=== PATIENT | male | born 1940 | race Caucasian/White ===

== ENCOUNTER 2023-07-14 22:54 | Inpatient (IN) | payer MEDICARE, OTHER, SELFPAY ==
[2023-07-14 19:46] VITALS: BP 134/65
[2023-07-14 19:47] VITALS: BP 134/65
[2023-07-14 20:00] VITALS: BP 133/67
[2023-07-14 20:13] VITALS: BMI 35.1
[2023-07-14 20:24] LABS: % Basophils 0.1 % (0-2); % Immature Granulocytes 0.4 % (0-0.5); % Lymphocytes 1.3 % (20.5-51.1); % Monocytes 6.2 % (1.7-9.3); Absolute Immature Granulocytes 0.1 10^3/uL (0-0.05); Absolute Lymphocytes 0.2 10^3/uL (1.2-3.4); Absolute Monocytes 0.9 10^3/uL (0.1-0.6); Absolute Neutrophils 12.5 10^3/uL (1.4-6.5); Hematocrit 36.7 % (39.0-52.0); Hemoglobin 11.9 g/dL (13.0-18.0); Mean Corp Hgb Conc. 32.4 g/dL (33.0-37.0); Mean Corpuscular Volume 80.3 fL (80.0-94.0); Mean Platelet Volume 9.4 fL (7.4-10.4); Nucleated Red Blood Cells % 0 % (-); Platelet Count 145 10^3/uL (130-400); Red Blood Cell Count 4.57 10^6/uL (4.70-6.10); Red Cell Dist. Width 19.2 % (11.5-14.5); White Blood Cell Count 13.6 10^3/uL (4.8-10.8)
[2023-07-14 20:29] LABS: Urine Albumin 3+ (Neg - Trace); Urine Bilirubin 1+ (Negative); Urine Character Slightly Cloudy (Clear); Urine Color Yellow; Urine Glucose 1+ (Negative); Urine Ketone Trace (Negative); Urine Leukocyte Trace (Negative); Urine Nitrite Negative (Negative); Urine Occult Blood 1+ (Negative); Urine Urobilinogen 1+ (Neg - 1+)
[2023-07-14 20:37] LABS: Lactic Acid 1.6 mmol/L (0.7-2.0)
[2023-07-14 20:41] LABS: COVID-19 Antigen Negative (Negative)
[2023-07-14] MEDS: MOTRIN 600 MG PO (20:41)
[2023-07-14] MEDS: ZOFRAN 4 MG IV (20:41)
[2023-07-14] MEDS: NSS 1000 IV (20:42)
[2023-07-14 20:43] LABS: Urine Bacteria Moderate (Negative)
[2023-07-14 20:50] LABS: ALT (SGPT) 58 U/L (0-50); AST (SGOT) 134 U/L (17-59); Albumin 3.2 g/dl (3.5-5.0); Alkaline Phosphatase 211 U/L (38-126); Blood Urea Nitrogen 86 mg/dl (9-20); Calcium 8.6 mg/dl (8.4-10.2); Carbon Dioxide 25 mmol/L (22-30); Chloride 88 mmol/L (98-107); Estimated Creatinine Clearance 9 ml/min; Glucose 242 mg/dl (70-99); Sodium 130 mmol/L (135-145); Total Bilirubin 2.2 mg/dl (0.2-1.3); Total Protein 6.1 g/dl (6.3-8.2); eGFR 7.31
[2023-07-14 21:16] VITALS: BP 129/66
--- NOTE | 2023-07-14 21:47 | ED.GENMED ---
History of Present Illness
General
Chief Complaint: Weakness
Source: patient, records, spouse and family
Exam Limitations: altered mental status and dementia
Time Seen by Provider: 07/14/23 19:46
Nursing documentation reviewed up to this point in time: agreed with
Travel History
Have you had any contact with someone who has COVID-19?: No
Do you have any symptoms of coronavirus? Fever > 100 degrees, chills, cough, shortness of breath, sore throat, loss of taste or smell, muscle aches, or headache?: No
History of Present Illness
History of Present Illness:
Patient is a 83-year-old male who presents from home with his and daughter for increased disorientation as well as significant weakness. Last night the patient had dry heaves and the weakness was worse today. Patient had a COVID test which
was negative. Patient had a fever. Patient's gave him thousand of Tylenol 2 hours prior to the emergency department. Patient's been coughing nonproductive. Patient is on dialysis. Patient denies shortness of breath or chest pain. Patient
denies any abdominal pain. Patient denies diarrhea. Patient does still make urine. Patient denies headache. Patient is unreliable and the is the chief historian.
Past History
Past History
ED Past Medical History: Arrthythmia (Atrial fib), CHF, HTN, Hypercholesterolemia, IDDM, Renal failure (Dialysis M-W-F) and Other (Mild dementia, ESRD, Pleural effusion, Diverticulitis, Cellulitis, Iron def anemia)
ED Past Surgical History: Appendectomy
Social History
Tobacco: Former smoker
Alcohol: Occasional
Drug: None
Personal:
Living: with family
Employment: Retired
Family History
Family History: Other (Noncontributory)
Review of Systems
Review of Systems
All Other Systems: ROS reviewed and negative except as documented in HPI and ROS
Constitutional: Reports fever, fatigue and chills
EENT: Reports no symptoms
Respiratory: Reports cough
Cardiac: Reports no symptoms
ABD/GI: Reports abdominal pain (Questionable according to the patient's ), nausea and vomiting; Denies diarrhea
: Reports other (Still makes urine but is on dialysis)
Musculoskeletal: Reports no symptoms
Skin: Reports no symptoms
Neurological: Reports weakness (Generalized and unable to ambulate with her walker as usual); Denies headache
Hematologic/Lymphatic: Reports no symptoms
Phy Exam
Physical Exam
Physical Exam:
Physical Exam
General: mild distress, alert and appropriate but and daughter say he is not his usual self, well nourished, mildly dry mucous membranes
HENT: Normocephalic, supple with no lymphadenopathy, no thyromegaly
Eyes: Clear sclera, conjuctiva without injection
Heart: irregular irregular rhythm and mild tachycardic rate. No S3, S4. No murmur. No NVD
Lungs: No respiratory distress, no stridor, lung sounds clear and equal bilaterally
Abdomen: Soft, questionable left lower quadrant tenderness without guarding or rebound, no organomegaly, no CVA tenderness, BS good
Neuro: Alert, CN II - XII intact, no motor focality
Skin: no rash
Psychiatric: well kept. interactive and cooperative
Extremities: No edema, cyanosis, tenderness
Course
Orders/Labs/Results
Orders:
Orders
07/14/23 19:50
Electrocardiogram (*1) Urgent
Reason for Study: Other
Other Reason for Exam: Possible Sepsis
Cardiac Monitoring- Treatment ONCE
EKG- Treatment ONCE
07/14/23 20:01
Complete Blood Count/With Diff Urgent
Comprehensive Metabolic Panel Urgent
Lactic Acid Q4H
Comment: ON ICE, CANCEL 2ND ORDER IF FIRST LACTIC ACID LEVEL <2
Urinalysis Reflex To Culture Urgent
Date Specimen was Collected: 07/14/23
Time Specimen was Collected: 19:50
Urine Microscopic Reflex Cult Urgent
Blood Culture Q30M
EVERT Source: Blood/Venous
Specimen Description:
Comment: FROM 2 SEPARATE SITES
Blood Culture Q30M
EVERT Source: Blood/Venous
Specimen Description:
Comment: FROM 2 SEPARATE SITES
Urine Culture Urgent
EVERT Source: U
Specimen Description:
Date Specimen was Collected: 07/14/23
Time Specimen was Collected: 19:50
07/14/23 20:07
COVID-19 Antigen Urgent
Source: Nasal Swab
Influenza A+B Rapid Molecular Urgent
EVERT Source: Nasal Swab
Specimen Description:
07/14/23 20:15
0.9% Sodium Chloride 1000 ml [Nss] 1,000 ml IV BOLUS
Ibuprofen [Motrin] 600 mg PO NOW STA
Ondansetron Injectable [Zofran] 4 mg IV NOW STA
07/14/23 20:17
CR Chest - 2 Views Urgent
Comment:
Reason For Exam: cough fever
07/15/23 00:00
Lactic Acid Q4H
Comment: ON ICE, CANCEL 2ND ORDER IF FIRST LACTIC ACID LEVEL <2
Abnormal Lab Results
07/14/23
20:01
WBC 13.6 H 10^3/uL
(4.8-10.8)
RBC 4.57 L 10^6/uL
(4.70-6.10)
Hgb 11.9 L g/dL
(13.0-18.0)
Hct 36.7 L %
(39.0-52.0)
MCH 26.0 L pg
(27.0-31.0)
MCHC 32.4 L g/dL
(33.0-37.0)
RDW 19.2 H %
(11.5-14.5)
Abs Immat Gran (auto) 0.1 H 10^3/uL
(0-0.05)
Absolute Neuts (auto) 12.5 H 10^3/uL
(1.4-6.5)
Absolute Lymphs (auto) 0.2 L 10^3/uL
(1.2-3.4)
Absolute Monos (auto) 0.9 H 10^3/uL
(0.1-0.6)
Neutrophils % 92.0 H %
(42.2-75.2)
Lymphocytes % 1.3 L %
(20.5-51.1)
Sodium 130 L mmol/L
(135-145)
Chloride 88 L mmol/L
(98-107)
BUN 86 H mg/dl
(9-20)
Creatinine 6.9 H* mg/dL
(0.7-1.3)
Glucose 242 H mg/dl
(70-99)
Total Bilirubin 2.2 H mg/dl
(0.2-1.3)
AST 134 H U/L
(17-59)
ALT 58 H U/L
(0-50)
Alkaline Phosphatase 211 H U/L
(38-126)
Total Protein 6.1 L g/dl
(6.3-8.2)
Albumin 3.2 L g/dl
(3.5-5.0)
Urine Ketones Trace A
(Negative)
Ur Occult Blood Reflex 1+ A
(Negative)
Urine Bilirubin 1+ A
(Negative)
Leukocyte Esterase Rfl Trace A
(Negative)
Urine RBC 3-6 A /HPF
(0-2)
Urine WBC (Reflex) 11-15 A /HPF
(0-5)
Urine Bacteria (Reflex) Moderate A
(Negative)
Urine Glucose 1+ A
(Negative)
Urine Albumin (Reflex) 3+ A
(Neg - Trace)
07/14/23 20:01
07/14/23 20:01
Vital Signs
Initial and Last Documented VS:
Initial Vital Signs
Temp Pulse Resp BP Pulse Ox
102.7 F H 110 16 134/65 92
07/14/23 19:46 07/14/23 19:46 07/14/23 19:46 07/14/23 19:46 07/14/23 19:46
Last Documented Vital Signs
Temp Pulse Resp BP Pulse Ox
102.7 F H 86 17 129/66 100
07/14/23 19:46 07/14/23 21:30 07/14/23 21:30 07/14/23 21:16 07/14/23 21:30
*Radiology
Radiology exam reviewed: radiology read reviewed (Questionable pneumonia)
*Pulse Oximetry
Patient hypoxic: no
*EKG
Interpreted by ED Provider?: Yes
EKG Intrepretation Date: 07/14/23
EKG Intrepretation Time: 22:07
Interpretation: abnormal
Comparison EKG: changes noted
Heart Rate: 102
Rate: tachycardiac
Rhythm: a-fib
[place]: left axis deviation
Interval: normal QT interval
QRS Pattern: poor R-wave progression
Ischemia: non-specific ST changes
*Melter Clerk Interpretation
Rate: tachycardiac
Interpretation: abnormal
Heart Rate: 104
Rhythm: a-fib
*Critical Care Note
Total Time (30-74mins, 75-104mins- exclusive of procedures): 35 minutes
Update Note
Update Note:
Patient has a fever and in A-fib. Patient urine appears to be mildly infected and I do not believe that is a reason for the patient's fever. Will cover the patient with antibiotic. Reportedly according to the patient's he has gone back in
the atrial fibrillation not long after his cardioversion in May. They are talking about doing a Watchman procedure. There is an area on the chest x-ray suspicious for pneumonia. Patient's states he was having lower abdominal pain today
although it is minimal and patient can be distracted when palpating abdomen without being tender. However given the history of diverticulitis and patient's altered mental status will check a CT of the abdomen.
ED Attending Note
-
Portions of this chart may have been created with voice recognition software.� Occasional wrong word or��sound alike� substitutions may have occurred due to the inherent limitations of voice recognition software.
Discharge Plan
Departure
Patient Disposition: Admit
Date of Disposition: 07/14/23
Time of Disposition: 22:08
Admit to doctor: Hospitalist
Presentation/result/management discussed w/ accepting MD/DO: Hospitalist
Patient with high blood pressure during this ER visit?: No
Condition: Serious
Covid-19: Negative COVID-19
Discharge Problem:
Fever, Acute on chronic alteration in mental status, Atrial fibrillation, Chronic renal failure syndrome
Prescriptions:
No Action
cyanocobalamin (vitamin B-12) 1,000 MCG tablet
1,000 mcg PO DAILY
ezetimibe 10 MG tablet
10 mg PO DAILY
fenofibrate nanocrystallized 145 MG tablet
145 mg PO DAILY
oxycodone 10 MG tablet
10 mg PO Q8H
Patient Comments:
04/15/2023, patient's spouse states that he takes this medication with 1,000 mg of Acetaminophen Q8H.
Rx Instructions:
04/15/2023, could not find this medication in PDMP records.
acetaminophen 500 mg Tablet
1,000 mg PO Q8H
Patient Comments:
04/15/2023, patient's family states that patient takes this medication with one oxycodone 10 mg tablet Q8H.
metoprolol succinate 25 mg Tablet Extended Release 24 Hr
25 mg PO HS
memantine [Namenda] 5 mg Tablet
5 mg PO BID
insulin aspart U-100 [Novolog U-100 Insulin aspart] 100 unit/mL Solution
0 sliding scale dose SC TIDPRN PRN (Reason: diabetes)
Patient Comments:
15 units given last evening
duloxetine 30 mg capsule,delayed release(DR/EC)
30 mg PO DAILY
Eliquis 2.5 MG tablet
2.5 mg PO BID
cholecalciferol (vitamin D3) 50 mcg (2,000 unit) Tablet
50 mcg PO DAILY
docusate sodium [Stool Softener] 100 mg Capsule
200 mg PO BID
Ozempic 0.25 mg or 0.5 mg (2 mg/3 mL) Pen Injector
0.25 mg SC QWEEK
pantoprazole [Protonix] 40 mg tablet,delayed release (DR/EC)
40 mg PO Q12H Qty: 60 0RF
amiodarone 200 mg Tablet
200 mg PO DAILY
Auryxia 210 mg iron Tablet
210 mg PO QPM
Referrals:
Kelsy Garibay MD [Family Provider] -
Interventions
Interventions:
*Risk Screen - Suicide Last Done: 07/14/23 20:11
*General Assessment Last Done: 07/14/23 20:11
*Neglect/Abuse Screening Last Done: 07/14/23 20:11
*ED COVID-19 Vaccine History Last Done: 07/14/23 20:11
ED- Cardiac Assessment Last Done: 07/14/23 20:13
ED- Neurological Assessment Last Done: 07/14/23 20:10
ED- Pulmonary Assessment Last Done: 07/14/23 20:13
[2023-07-14 22:00] VITALS: BP 105/83
[2023-07-14] MEDS: ROXICODONE 10 MG PO (22:17)
[2023-07-14] MEDS: TYLENOL 1000 MG PO (22:17)
[2023-07-14] MEDS: ZOSYN 100 IV (22:17)
[2023-07-14] MEDS: NSS 500 IV (22:20)
--- NOTE | 2023-07-14 22:34 | HPS.HSE ---
Addendum entered and electronically signed by Elie Eaton MD 07/14/23 23:28:
Follow up admission w/u
Pending procalcitonin
LA 1.6
CT Abd/pel Without Iv Or Oral
No significant acute abnormality identified in the abdomen or pelvis, within the limits of unenhanced CT, as described above.
Original Note:
Family Physician
-
Family Physician: Kelsy Garibay
Chief Complaint
-
AMS, fever , cough
History of Present Illness
83M HX ESRD on MWF HD, PNA BiB family for pw icreased disorientation as well as significant weakness. Last night COVID test which was negative. POS fever. Patient's gave him thousand of Tylenol 2 hours prior to the emergency department.
Patient's been coughing nonproductive. Patient does still make urine
ROS
Patient denies shortness of breath or chest pain.
Patient denies any abdominal pain.
Patient denies diarrhea. . Patient denies headache.
Patient is unreliable and the is the chief historian.
Medical History
Past Medical History
Past Medical History: Reports Arrhythmia (Prx AF ), Dementia, HTN, Hypercholesterolemia, IDDM, Renal Failure (ESRD on MWF HD ) and Other (Mild dementia, ESRD, Pleural effusion, Diverticulitis, Cellulitis, Iron def anemia))
Past Surgical History: Reports Appendectomy
Social History
Tobacco: Former Smoker
Alcohol: Occasional
Personal:
Living: With Family
Family History
Family History: Not pertinent
Allergies / Home Medications
Allergies reflects when Allergies were last updated in [employer].
Home Medications with original date entered in [employer]
Allergy/Medication List:
Allergies
Allergy/AdvReac Type Severity Reaction Status Date / Time
gabapentin Allergy spastic Verified 07/14/23 20:25
movements
Home Medications
cyanocobalamin (vitamin B-12) 1,000 mcg tablet 1,000 mcg PO DAILY Supplement 06/24/15
ezetimibe 10 mg tablet 10 mg PO DAILY High cholesterol 07/17/16
fenofibrate nanocrystallized 145 mg tablet 145 mg PO DAILY High cholesterol 07/17/16
oxycodone 10 mg tablet 10 mg PO Q8H Pain 06/17/21
acetaminophen 500 mg tablet 1,000 mg PO Q8H Pain 11/01/22
insulin aspart U-100 100 unit/mL subcutaneous solution (Novolog U-100 Insulin aspart) 0 sliding scale dose SC TIDPRN PRN diabetes 11/01/22
memantine 5 mg tablet (Namenda) 5 mg PO BID dementia 11/01/22
metoprolol succinate 25 mg tablet,extended release 24 hr 25 mg PO HS Blood Pressure 11/01/22
duloxetine 30 mg capsule,delayed release 30 mg PO DAILY Depression 11/10/22
apixaban 2.5 mg tablet (Eliquis) 2.5 mg PO BID Blood Clot Prevention/Tx 03/22/23
cholecalciferol (vitamin D3) 50 mcg (2,000 unit) tablet 50 mcg PO DAILY Supplement 04/15/23
docusate sodium 100 mg capsule (Stool Softener) 200 mg PO BID Constipation 04/15/23
semaglutide 0.25 mg or 0.5 mg (2 mg/3 mL) subcutaneous pen injector (Ozempic) 0.25 mg SC QWEEK Diabetes 04/15/23
pantoprazole 40 mg tablet,delayed release (Protonix) 40 mg PO Q12H Gastrointestinal Issue #60 tabs 04/17/23
amiodarone 200 mg tablet 200 mg PO DAILY 05/23/23
ferric citrate 210 mg iron tablet (Auryxia) 210 mg PO QPM 05/23/23
Review of Systems
-
Constitutional: Reports Fever
EENT: Reports No Symptoms
Respiratory: Reports No Symptoms
Cardiac: Reports No Symptoms
Abdomen/GI: Reports No Symptoms
: Reports No Symptoms
Musculoskeletal: Reports No Symptoms
Skin: Reports No Symptoms
Neurological: Reports See HPI
Endocrine: Reports No Symptoms
Hematologic/Lymphatic: Reports No Symptoms
Psych: Reports Other (AMS )
Physical Exam
Vital Signs
Vital Signs
Temp Pulse Resp BP Pulse Ox
102.7 F H 86 17 129/66 100
07/14/23 19:46 07/14/23 21:30 07/14/23 21:30 07/14/23 21:16 07/14/23 21:30
Physical Exam
General: Other (see below )
Laboratory Results
-
07/14/23 20:01
07/14/23 20:01
Laboratory Results
Lactic Acid 1.6 mmol/L (0.7-2.0) 07/14/23 20:01
Total Bilirubin 2.2 mg/dl (0.2-1.3) H 07/14/23 20:01
AST 134 U/L (17-59) H 07/14/23 20:01
ALT 58 U/L (0-50) H 07/14/23 20:01
Alkaline Phosphatase 211 U/L (38-126) H 07/14/23 20:01
Data Reviewed
-
Diagnostic Radiology: Report Reviewed by me
Lab Data: Labs Reviewed by me
Old Records: Reviewed
Impression/Plan
-
Reviewed VS: T 102.7 otherwise unremarkable
PE
Gen: not toxic looking
HEENT: dry mucous membranes
Neck: supple
Lungs: clear and equal bilaterally
Cor: irregular irregular rhythm and mild tachycardic rate. No S3, S4. No murmur.
Abdomen: Soft, questionable left lower quadrant tenderness without guarding or rebound
APPRAISER OIL AND WATER: alert and appropriate
MS: no edema
Psych: alert and appropriate but and daughter say he is not his usual lilliana
Data
WCC 13.6
Hgb 11.9 - base line was 9s
Na 130
K 4
Cl 88
BUN 86
Cr 6.9
eGFR 7.31
BG 242
Equivocal UA for defintive UTI
NEG Covid Ag
07/14/22 CXR
Right basilar airspace disease suspicious for pneumonia.
Pending CT AP wo IV or PO
Pending LA
Pending procalcitonin
BCx pending
04/30/23 Lx spine MRI
Chronic degenerative changes of the lumbar spine, as detailed above. Only minor progression of degenerative findings compared to the lumbar spine MRI from 05/10/2017.
Last hospitalist admission: 04/15/23 - 04/17/23 and DC DXs:
1. Pneumonia.
2. Chronic anemia from history of gastrointestinal bleeding.
ASSESSMENT & PLAN
SIRS picture with hi grade Fever
Likely origins- PNA @ Rt base +/_ equivocal UA for defintive UT
- Pending procalcitonin
- Empiri IV vanco and Zosyn
- f/u UCx
- f/u BCx
- Trend T, WCC
- ST to eval for aspiration
Abdominal pain
HX Diverticulitis
- await CT AP
Incipient infective encephalatrophy due to SIRS
Dementia HX
Chronic Pain with Opioid Dependence
- cont AGRICULTURAL PURCHASING AGENT Namenda
- cont. AGRICULTURAL PURCHASING AGENT Oxycodone PRN in place of FEDE q8h
- observe behavior changes
LBP: chronic
- Reviewed MRI Lx spine as of 04/30/23
- cont Oxycodone q8h PRN
Paroxysmal AF - in AF
- cont. Eliquis 2.5mg BID
- cont. Metoprolol succinate and amiodarone
ESRD, HD ( MWF)
Asso. ACDz but higher Hgb than usussal suspect hemococncetration
- Renal consult for HD on Saturday
- trend Hgb
Secondary Hyperparathyroidism
Hyperphosphatemia
- cont. calcium acetate
- cont. vitamin D
Hyperlipidemia
- cont. Zetia and fenofibrate
T2DM
- add ISS low
Hx Aortic Stenosis s/p TAVR
HX GI bleed from EGD evidence of Three small ectasias D2 cauterized w APC
DVT ppx: Eliquis
Code: Full
IP TLM
[2023-07-14 23:09] VITALS: BP 104/49
[2023-07-14] MEDS: VANCOCIN 540 MG IV (23:12)
[2023-07-14 23:50] LABS: Procalcitonin 24.53 ng/ml (0.0-0.25)
[2023-07-15] VITALS (8 sets, daily range): BP systolic 91–123; BP diastolic 42–65; BMI 32.4
--- NOTE | 2023-07-15 01:00 | PTCARENOTE ---
Pt arrived from ED via stretcher. aaox3, cooperative, forgetful. oob x1 assist to bed. afib on tele monitor. mild LEOS. pox 98% on 2L, pt frequently removes NC. bed alarm in place. call arnold within reach.
[2023-07-15 06:16] LABS: Hematocrit 35.9 % (39.0-52.0); Hemoglobin 11.5 g/dL (13.0-18.0); Mean Corpuscular Volume 81.2 fL (80.0-94.0); Mean Platelet Volume 10.2 fL (7.4-10.4); Platelet Count 118 10^3/uL (130-400); Red Blood Cell Count 4.42 10^6/uL (4.70-6.10); Red Cell Dist. Width 18.8 % (11.5-14.5); White Blood Cell Count 13.9 10^3/uL (4.8-10.8)
[2023-07-15 06:38] LABS: Blood Urea Nitrogen 83 mg/dl (9-20); Calcium 7.8 mg/dl (8.4-10.2); Carbon Dioxide 22 mmol/L (22-30); Chloride 95 mmol/L (98-107); Estimated Creatinine Clearance 9 ml/min; Glucose 198 mg/dl (70-99); Potassium 4.1 mmol/L (3.5-5.1); Sodium 130 mmol/L (135-145); eGFR 7.06
[2023-07-15] MEDS: TYLENOL 1000 MG PO ×3 (06:42→20:56)
[2023-07-15] MEDS: PROTONIX 40 MG PO ×2 (06:42→17:50)
[2023-07-15] MEDS: ELIQUIS 2.5 MG PO ×2 (07:19→20:57)
[2023-07-15] MEDS: TRICOR 145 MG PO (07:19)
[2023-07-15] MEDS: VITAMIN D3 (cholecalciferol) 50 MCG PO (07:19)
[2023-07-15] MEDS: ZETIA 10 MG PO (07:19)
[2023-07-15] MEDS: NAMENDA 5 MG PO ×2 (07:19→20:55)
[2023-07-15] MEDS: VITAMIN B-12 1000 MCG PO (07:19)
[2023-07-15] MEDS: CYMBALTA DELAYED RELEASE 30 MG PO (07:19)
[2023-07-15] MEDS: PACERONE 200 MG PO (07:24)
[2023-07-15 07:25] LABS: Glucose - Point of Care 198 mg/dl (70-99)
[2023-07-15] MEDS: NOVOLOG FLEXPEN-LOW RESISTANCE 1 UNITS SC (08:40)
[2023-07-15 09:00] LABS: Glycohemoglobin (HgbA1c) 7.4 % (4.0-5.6)
--- NOTE | 2023-07-15 10:02 | W.PN.HOSP.TC ---
Today's Communication/Plan
-
.
Assessment / Plan
Assessment / Plan
Physical Exam
-
General: Well Developed and No Apparent Distress
HEENT: Normocephalic, Atraumatic, Moist Mucous Membranes.
Respiratory: Clear to Auscultation
Cardiac: Regular Rhythm and S1/S2; Negative Murmur, Rub or Gallop
GI: Soft, Nontender, Nondistended and Normal Bowel Sounds.
Rectal: No rectal bleeding noted.
Musculoskeletal: No Clubbing, No Cyanosis and No Edema
Skin: Negative Rash
Neuro: Awake, Alert, Oriented, AO to self and surroundings, he followed commands
Psych: calm
Sepsis POA with fever, tachycardia, encephalopathy due to suspected UTI ?
Afebrile
c/w Empiri IV vanco and Zosyn�
Appreciate ID input
# Bacteremia
Will c/w IV ABx
Repeat blood cultures
CT A/P no acute findings. CXR no significant infiltrates.
Abdominal pain
HX Diverticulitis
- await� CT AP
# Toxic metabolic encephalatrophy due to Sepsis
�Dementia, unspecified, with behavioral disturbance�
Chronic Pain with Opioid Dependence
- cont MAGNETO SPECIALIST� Namenda
- cont. MAGNETO SPECIALIST Oxycodone PRN in place of FEDE q8h
LBP: chronic
- Reviewed MRI Lx spine as of 04/30/23
- cont Oxycodone q8h PRN
Paroxysmal AF - in AF
- cont.� Eliquis 2.5mg BID
- cont.� Metoprolol succinate and amiodarone
ESRD, HD ( MWF)
Asso. ACDz but higher Hgb than usussal suspect hemococncetration
- Renal consult for HD on Saturday
- trend Hgb
Secondary Hyperparathyroidism
Hyperphosphatemia
- cont.� calcium acetate
- cont.� vitamin D
Hyperlipidemia
- cont. Zetia and fenofibrate
T2DM
- add ISS low
Hx Aortic Stenosis s/p TAVR
HX GI bleed from EGD evidence of Three small ectasias D2 cauterized w APC
Total time spent to see the patient, examine the patient on the floor, review data and lab results, discuss treatment plan with patient and nursing staff around 55 minutes
Anticipated Discharge: > 48 hours
Subjective/Interval History
-
Date of Service: July 15, 2023
No chest pain
No sob No headache
No fevers
Objective Data
-
Labs:
Laboratory Results
07/15/23
05:40
WBC 13.9 H
Hgb 11.5 L
Hct 35.9 L
Plt Count 118 L
Sodium 130 L
Potassium 4.1
Chloride 95 L
Carbon Dioxide 22
BUN 83 H
Creatinine 7.1 H*
Glucose 198 H
Calcium 7.8 L
Vital Signs:
Vital Signs
Temp Pulse Resp BP Pulse Ox
97.9 F 85 17 109/64 99
07/15/23 07:00 07/15/23 07:24 07/15/23 07:00 07/15/23 07:24 07/15/23 07:00
--- NOTE | 2023-07-15 10:21 | CON.MD ---
Consultation - Medical
-
Impression:
ESRD MWF at [facility]
Staph bacteremia
PNA/Fever/Weakness
Change in mental Status
Hypertension
Anemia
Atrial fibrillation (OAT)
Hyperphosphatemia
History of duodenal ulceration
s/p TAVR 12/13/22 (Aortic Stenosis)
Type 2 diabetes
Secondary hyperparathyroidism
History of diastolic congestive heart failure
Dementia
Left upper extremity AV fistula
Chronic pain: opioid dependence
Hyperphosphatemia
Plan:
-Hd today, orders provided
-expand antibiotic coverage to include vanco given GPC in clusters on blood cultures
-zosyn renally dosed for PNA/ESRD
-fluid restriction re: hyponatremia/ESRD
--- NOTE | 2023-07-15 11:00 | PTCARENOTE ---
Patient Iveth trinidad and medical updated provided on patient care.
--- NOTE | 2023-07-15 11:11 | WOUNDNOTE ---
R 4TH TOE
--- NOTE | 2023-07-15 11:12 | WOUNDNOTE ---
L GREAT TOE TIP
--- NOTE | 2023-07-15 11:12 | WOUNDNOTE ---
L GREAT TOE TIP
--- NOTE | 2023-07-15 11:12 | WOUNDNOTE ---
L GREAT TOE TIP
--- NOTE | 2023-07-15 11:13 | WOUNDNOTE ---
R 4TH TOE (DORSAL)
--- NOTE | 2023-07-15 11:14 | WOUNDNOTE ---
R HAND/INDEX FINGER
--- NOTE | 2023-07-15 11:14 | WOUNDNOTE ---
R HAND/INDEX FINGER
--- NOTE | 2023-07-15 11:16 | WOUNDNOTE ---
WOC RN note: Patient admitted with SIRS, pneumonia vs UTI. Patient lives with his .
See H&P for complete history.
PMH: ESRD on HD, dementia, IDDM, secondary hyperparathyroid, aortic stenosis, TAVR, GI bleed.
Wound Location and type/assessment: Patient admitted with: L great toe tip small dry brown necrotic ulcer without erythema suspect r/t trauma and PAD (small vessel disease?). R dorsal distal 4th toe dry scabbed abrasion. Multiple small dermal
ulcers/scabs from patient picking/scratching noted on hands, L arm, L shoulder, knees. Coccyx crease MASD with coccyx/buttocks small dermal ulcers suspect from moisture and scratching.
Appetite: good.
Pressure redistribution devices in place: [employer] Accumax. Patient stood from chair independently for skin check.
Plan: No sting barrier wipe applied to L great toe tip and R 4th toe dry ulcers. 1.6x2in silicone border foam applied to R index finger base dermal abrasion. Air chair cushion given. Instructed patient to take air chair cushion when discharged.
Patient stated he is followed by a creative services manager.
Will confirm orders with hospitalist.
Care plan to be updated and will follow as needed.
Note to case management requested for discharge: VN if and patient want. Discussed with home health care case manager Alivia Kwon.
Recommend follow up with his creative services manager.
[2023-07-15] MEDS: ZOSYN 50 IV (11:35)
[2023-07-15 11:47] LABS: Glucose - Point of Care 260 mg/dl (70-99)
[2023-07-15] MEDS: NOVOLOG FLEXPEN-LOW RESISTANCE 3 UNITS SC (11:50)
--- NOTE | 2023-07-15 11:55 | WOUNDNOTE ---
[facility] RN Note: Updated Dr. Benton re: L great toe tip small dry necrotic ulcer and 03/2023 L CRISTINA results who approved adding 'make appointment with vascular Dr. Sanchez or associate' in the discharge instructions and local skin/wound care. Care plan and
discharge instructions updated.
--- NOTE | 2023-07-15 12:33 | CON.ID ---
Consultation
-
Date/Time Consultation Requested: 07/15/2023 06:28
Date/Time Consultation Performed: 07/15/2023 12:20
Requesting Provider: Dr. Benton
Performing Provider: Dr. Nguyen
Reason for Consultation: Bacteremia
Chief Complaint / Past History
History of Present Illness
Shayan Fleming is an 84-year-old man being evaluated at the request of Dr. Benton in regards to bacteremia. History is obtained from chart review, along with patient interview, although patient does have a history of dementia and has questionable
recollection of events. The patient also has a significant past medical history of ESRD�HD via a LUE fistula. Patient presents to [facility] on 07/14/2023 secondary to increased disorientation and weakness. According to reviewed notes the
patient had dry heaves/retching the night before, and the weakness progressed overnight. A nonproductive cough has been noted.
In the ER, fever was recorded at 102.7 degrees, and blood cultures were obtained which are now showing Staph aureus. Infectious Diseases is asked to comment upon further antimicrobial management.
At the present time, the patient denies any headache. He denies any chest pain or shortness of breath. He denies any cough. He denies any back pain.
Past History
Additional Past Medical History:
ESRD�HD
Anemia
Hx aortic stenosis
Paroxysmal A-fib DM
Dementia
Chronic back pain
CHF
Additional Past Surgical History:
TAVR (12/13/2022)
LUE AV fistula
Allergy History:
gabapentin Allergy (Verified 07/14/23 20:25)
-spastic movements
Medications Reviewed: Yes
Current Antibiotics:
Zosyn
Social History
Tobacco: Former Smoker
Alcohol: Occasional
Drug: None
Personal:
Living: With Family
Employment: Not Employed
Family History
Family History: Not Pertinent
Review of Systems
Vital Signs
Temp Pulse Resp BP Pulse Ox
97.8 F 82 18 106/58 96
07/15/23 11:00 07/15/23 11:00 07/15/23 11:00 07/15/23 11:00 07/15/23 11:00
Physical Exam
Physical Exam
Constitutional: No Acute Distress, Well Developed, Comfortable and Non-toxic
Head: Normocephalic
Eyes: Pupils Equal, Pupils Round, No Conjunctival Hemorrhage and Sclera Anicteric
Oral: No Thrush and No Ulcers
Cardiovascular: S1/S2; Negative S3/S4 or Murmur
Pulmonary: Clear; Negative Wheezes, Rales or Rhonchi
Gastrointestinal: Soft, Non Tender and Non Distended
Extremities: Negative Edema, Clubbing, Cyanosis, Splinter Hemorrhage or Janeway Lesions
Neurological: Awake and Alert
Psychological: Calm and Confused
.
Lab / Diagnostic Study Results
07/15/23 05:40
07/15/23 05:40
Abs Immat Gran (auto) 0.1 10^3/uL (0-0.05) H 07/14/23 20:01
Absolute Neuts (auto) 12.5 10^3/uL (1.4-6.5) H 07/14/23 20:01
Absolute Lymphs (auto) 0.2 10^3/uL (1.2-3.4) L 07/14/23 20:01
Absolute Monos (auto) 0.9 10^3/uL (0.1-0.6) H 07/14/23 20:01
Absolute Basos (auto) 0.0 10^3/uL (0-0.2) 07/14/23 20:01
Immature Gran % 0.4 % (0-0.5) 07/14/23 20:01
Neutrophils % 92.0 % (42.2-75.2) H 07/14/23 20:01
Lymphocytes % 1.3 % (20.5-51.1) L 07/14/23 20:01
Monocytes % 6.2 % (1.7-9.3) 07/14/23 20:01
Eosinophils % 0.0 % (0-6) 07/14/23 20:01
Basophils % 0.1 % (0-2) 07/14/23 20:01
Lactic Acid Cancelled 07/15/23 00:00
Procalcitonin 24.53 ng/ml (0.0-0.25) H* 07/14/23 23:05
Ur Squamous Epith Cells 3-5 /LPF (Few) 07/14/23 20:01
Microbiology Results
Micro:
07/14/23 20:01 Blood Culture - 2 of 2 bottles
Blood/Venous Staphylococcus aureus by PCR
Gram Stain - Final
07/14/23 20:01 Blood Culture - 1 of 2 bottles
Blood/Venous Positive culture in progress
Gram Stain - Final
07/14/23 20:01 Urine Culture - Pending
Urine
07/14/23 20:07 Influenza Types A & B (ELIANA) - Final
Nasal Swab Negative for Influenza A & B, NAAT
Negative results must be combined with clinical observations
and patient history.
Nucleic Acid Amplification test (NAAT)performed on the
[employer] NOW platform.
Imaging:
07/14/2023 CT abdomen/pelvis without contrast: No significant acute abnormalities are identified in the abdomen or pelvis within the limits of this unenhanced CT. Please see full dictation for additional detail.
07/14/2023 CXR (2 view): Right basilar airspace disease noted. No overt pulmonary vascular congestion seen. Please see full dictation for additional detail. Film personally viewed.
Assessment / Plan
Staph aureus bacteremia
- source unclear at present.
Fever
Weakness
ESRD�HD
Anemia
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
Paroxysmal A-fib DM
Dementia
Chronic back pain
CHF
Recommendations:
Repeat blood cultures today.
Continue with vancomycin; monitor levels.
Discontinue further Zosyn.
Await final susceptibility data to guide further antimicrobial selection and de-escalation.
Check ESR and CRP.
Will check ECHO.
Monitor white count and temperature curve.
--- NOTE | 2023-07-15 13:21 | PHA.VAN.IN ---
Assessment
- Assessment
Renal Function: Patient has ESRD, on chronic Hemodialysis (at [facility])
Hemodialysis Schedule: MWF
Maximum Temperature: 102.7
Plan
- Plan
Initial / Loading Dose: 2000mg 07/14 23:12
Maintenance Regimen: dose by level, considering HD schedule
Monitoring: R /6 am, HD today 07/15
Pharmacokinetics Vancomycin I
- -
Patient Age: 83
Patient Sex: Male
Vancomycin Day #: 2
Indication: Bacteremia
Requesting Provider: Dr Nguyen
Pertinent Antimicrobial Allergies:
no pertinent allergies
Height / Weight:
Height 5 ft 10 in
Actual Weight 102.313 kg
Pertinent Past Medical History: ESRD-HD
- Vital Signs / Lab Results
Temp Pulse Resp BP Pulse Ox
97.8 F 82 18 106/58 96
07/15/23 11:00 07/15/23 11:00 07/15/23 11:00 07/15/23 11:00 07/15/23 11:00
Lab Results - Hematology
07/14/23 07/15/23
20:01 05:40
WBC 13.6 H 13.9 H
Lab Results - Chemistry
07/14/23 07/15/23
20:01 05:40
BUN 86 H 83 H
Creatinine 6.9 H* 7.1 H*
Estimated Creat Clear 9 9
Albumin 3.2 L
07/14/23 07/15/23
20:01 00:00
Lactic Acid 1.6 Cancelled
Lab Results - Urine
07/14/23
20:01
Urine Nitrite (Reflex) Negative
Leukocyte Esterase Rfl Trace A
Urine WBC (Reflex) 11-15 A
Ur Squamous Epith Cells 3-5
Urine Bacteria (Reflex) Moderate A
Microbiology Results
07/14/23 20:01 Blood Culture - Preliminary
Blood/Venous Staphylococcus aureus
Gram Stain - Final
07/14/23 20:01 Blood Culture - Preliminary
Blood/Venous Positive culture in progress
Gram Stain - Final
07/14/23 20:07 Influenza Types A & B (ELIANA) - Final
Nasal Swab Negative for Influenza A & B, NAAT
Negative results must be combined with clinical observations
and patient history.
Nucleic Acid Amplification test (NAAT)performed on the
[employer] NOW platform.
[2023-07-15] MEDS: MANNITOL 12.5 GRAMS IV ×2 (13:50→15:46)
--- NOTE | 2023-07-15 14:17 | W.PN.NEPH.HD ---
Assessment
-
Patient seen on HD
sbp ~100, u/f decreased to 1kg
Progress Note - Hemodialysis
-
Date of Service: July 15, 2023
Duration: 30 minutes and 3 hours
Potassium Bath: 3
Calcium Bath: 2.5
Opti-Dialyzer: 160
Ultrafiltration: Other
Blood Flow: 400
Dialysate Flow: 600
Heparin: none
EPO: none
[2023-07-15] MEDS: NOVOLOG FLEXPEN-LOW RESISTANCE SC (16:22)
[2023-07-15 16:23] LABS: Glucose - Point of Care 136 mg/dl (70-99)
--- NOTE | 2023-07-15 16:30 | CM ---
CM called to patient , Iveth. Patient lives with his spouse in a 2 story home.
Has a cane and walker that he uses as needed. They have a hospital bed on the first level; spouse says he sometimes uses it. Patient PCP Dr. Garibay, and they use [facility]. Patient has had [facility], recently and likes them. If VN would like them
again. Patient would like further information on transportation to HD, currently son provides transportation but they are intrested in wheelchair van options. Patient asked CM to call again at another time. CM will continue to follow
for discharge planning needs.
Plan; home with ; watch for HD and transportation needs would like [facility] if needed
[2023-07-15] MEDS: DESENEX/MITRAZOL/ZEASORB 1 APPLIC TOPICAL (20:55)
[2023-07-15] MEDS: TOPROL XL 25 MG PO (20:55)
[2023-07-15] MEDS: HYDROPHOR 1 APPLIC TOPICAL (20:56)
[2023-07-15 21:57] LABS: Glucose - Point of Care 262 mg/dl (70-99)
[2023-07-16 03:50] VITALS: BP 109/59
[2023-07-16] MEDS: TYLENOL 1000 MG PO ×3 (05:19→21:45)
[2023-07-16] MEDS: PROTONIX 40 MG PO ×2 (05:19→16:25)
[2023-07-16 06:00] VITALS: BMI 32.6
[2023-07-16 06:59] LABS: C-Reactive Protein > 270.00 mg/L (0.0-10.00)
[2023-07-16 07:29] LABS: Erythrocyte Sed Rate 39 mm/hour (0-20)
[2023-07-16] MEDS: TRICOR 145 MG PO (07:31)
[2023-07-16] MEDS: ELIQUIS 2.5 MG PO ×2 (07:31→20:13)
[2023-07-16] MEDS: PACERONE 200 MG PO (07:31)
[2023-07-16] MEDS: NAMENDA 5 MG PO ×2 (07:31→20:12)
[2023-07-16] MEDS: CYMBALTA DELAYED RELEASE 30 MG PO (07:31)
[2023-07-16] MEDS: ZETIA 10 MG PO (07:31)
[2023-07-16] MEDS: ROXICODONE 10 MG PO ×2 (07:34→20:13)
[2023-07-16] MEDS: HYDROPHOR 1 APPLIC TOPICAL ×2 (07:34→20:12)
[2023-07-16] MEDS: DESENEX/MITRAZOL/ZEASORB 1 APPLIC TOPICAL ×2 (07:35→20:12)
[2023-07-16 07:48] VITALS: BP 120/55
[2023-07-16 08:00] LABS: Glucose - Point of Care 168 mg/dl (70-99)
--- NOTE | 2023-07-16 08:35 | CARDSERVLU ---
Echocardiogram with Lumason completed after protocol screening completed. Allergies verified.
Patent IV site: __R AC___
IV site flushed with 0.9% NaCl pre and post administration.
Diluted bolus method utilized to enhance visualization of ventricular zuniga.
Total volume given: ___2.5_ mL
Patient tolerated all procedures well without complications.
[2023-07-16] MEDS: NOVOLOG FLEXPEN-LOW RESISTANCE 1 UNITS SC (09:14)
--- NOTE | 2023-07-16 09:58 | W.PN.HOSP.TC ---
Today's Communication/Plan
-
.
Assessment / Plan
Assessment / Plan
Physical Exam
-
General: Well Developed and No Apparent Distress
HEENT: Normocephalic, Atraumatic, Moist Mucous Membranes.
Respiratory: Clear to Auscultation
Cardiac: Regular Rhythm and S1/S2; Negative Murmur, Rub or Gallop
GI: Soft, Nontender, Nondistended and Normal Bowel Sounds.
Rectal: No rectal bleeding noted.
Musculoskeletal: No Clubbing, No Cyanosis and No Edema
Skin: Negative Rash
Neuro: Awake, Alert, Oriented, AO to self and surroundings, he followed commands
Psych: calm, no agitation.
Sepsis POA with fever, tachycardia, encephalopathy due to bacteremia
Afebrile in last 24 hours
Urine culture no growth
c/w Empiri IV vanco
Stopped Zosyn
No clinical signs of PNA �
Appreciate ID input
# Staph aureus Bacteremia
Unknown source
No sinus pain, no toothache, no back pain, no cellulitis, no joint swelling.
For echo of heart
Repeat blood culture /
c/w Vancomycin until further results of culture.
CT A/P no acute findings. CXR no significant infiltrates.
Appreciate ID help.
# Abdominal pain
HX Diverticulitis
CT Abdomen and pelvis , no acute findings. Patient denies abd pain now, tolerating diet.
# Toxic metabolic encephalatrophy due to Sepsis
�Dementia, unspecified, with behavioral disturbance�
His mentation is cooperative and calm this morning. he held intelligent conversation and reasonable thought process.
Monitor, add low dose risperdone only for severe agitation although starting him back on oxycodone should help.
# Chronic Pain syndrome with Opioid Dependence
- cont MOUNTER SOUSAPHONES� Namenda
- cont. MOUNTER SOUSAPHONES Oxycodone as TID , as pt was unable to sleep or settle down. Per report, he took Oxy TID for > year, would avoid holding it now.
Per , patient had chronic back pain. Reviewed MRI Lx spine as of 04/30/23, - cont Oxycodone q8h
#Paroxysmal AF - in AF
- cont.� Eliquis 2.5mg BID
- cont.� Metoprolol succinate and amiodarone
#ESRD, HD ( MWF)
He is tolerating dialysis
Appreciate nephrology help.
#Secondary Hyperparathyroidism
Hyperphosphatemia
- cont.� calcium acetate
- cont.� vitamin D
#Hyperlipidemia
- cont. Zetia and fenofibrate
# Diabetes.
No hypoglycemia.
- added ISS low
Hx Aortic Stenosis s/p TAVR
HX GI bleed from EGD evidence of Three small ectasias D2 cauterized w APC
Total time spent to see the patient, examine the patient on the floor, review data and lab results, discuss treatment plan with patient and nursing staff around 57 minutes
Anticipated Discharge: > 48 hours
Subjective/Interval History
-
Date of Service: July 16, 2023
No chest pain
No sob
No fevers
Objective Data
-
Vital Signs:
Vital Signs
Temp Pulse Resp BP Pulse Ox
98.4 F 89 18 120/55 98
07/16/23 03:50 07/16/23 07:48 07/16/23 07:48 07/16/23 07:48 07/16/23 07:48
I&O
07/15/23 07/16/23 07/17/23
06:59 06:59 06:59
Intake Total 1200 / 1200
Output Total 200 / 200
Balance 1000 / 1000
[2023-07-16 11:41] VITALS: BP 101/47
[2023-07-16 12:29] LABS: Glucose - Point of Care 290 mg/dl (70-99)
[2023-07-16] MEDS: NOVOLOG FLEXPEN-LOW RESISTANCE 3 UNITS SC ×2 (12:36→16:24)
--- NOTE | 2023-07-16 15:19 | PHA.VAN.FU ---
Vancomycin Assessment / Plan
- Assessment
Hemodialysis Schedule: MWF
In the past 24 hrs, patient has been: Afebrile
- Assessment - Therapeutic Drug Monitoring
Random Level: 14 - drawn ~30H after 2000mg initial dose
- Dosing Plan
Dosing by Level: Hold off on dosing today
Dosing Comments: Will plan for patient to receive Vanc 750mg with HD tomorrow
- Monitoring Plan
No level(s) ordered at this time: consider random level for Fri
- Follow Up
Pharmacy will continue to follow.
Vancomycin Follow UP
- -
Patient Age: 83
Patient Sex: Male
Vancomycin Day #: 2
Indication: Bacteremia
Requesting Provider: Dr Nguyen
Pertinent Antimicrobial Allergies:
no pertinent allergies
Height / Weight:
Height 5 ft 10 in
Actual Weight 103.136 kg
Pertinent Past Medical History: ESRD-HD
- Vital Signs / Lab Results
Temp Pulse Resp BP Pulse Ox
98.3 F 82 17 101/47 94
07/16/23 11:41 07/16/23 11:41 07/16/23 11:41 07/16/23 11:41 07/16/23 11:41
Lab Results - Hematology
07/14/23 07/15/23
20:01 05:40
WBC 13.6 H 13.9 H
Lab Results - Chemistry
07/14/23 07/15/23
20:01 05:40
BUN 86 H 83 H
Creatinine 6.9 H* 7.1 H*
Estimated Creat Clear 9 9
Albumin 3.2 L
07/14/23 07/15/23
20:01 00:00
Lactic Acid 1.6 Cancelled
Microbiology Results
07/14/23 20:01 Urine Culture - Final
Urine No Significant Growth
07/14/23 20:01 Blood Culture - Preliminary
Blood/Venous Staphylococcus aureus
Gram Stain - Final
07/14/23 20:01 Blood Culture - Preliminary
Blood/Venous Staphylococcus aureus
Gram Stain - Final
07/14/23 20:07 Influenza Types A & B (ELIANA) - Final
Nasal Swab Negative for Influenza A & B, NAAT
Negative results must be combined with clinical observations
and patient history.
Nucleic Acid Amplification test (NAAT)performed on the
[employer] platform.
Therapeutic Drug Monitoring
Random Vancomycin 14.0 ug/ml 07/16/23 05:22
--- NOTE | 2023-07-16 15:27 | W.PN.ID1 ---
Date of Service
Date of Service: July 16, 2023
Today's Communication
Continue antibiotics. Monitor blood cultures.
Assessment / Plan
Staph aureus bacteremia
- source unclear at present.
Fever
Weakness
Elevated ESR and CRP
ESRD�HD
Anemia
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
Paroxysmal A-fib DM
Dementia
Chronic back pain
CHF
Recommendations:
Repeat blood cultures today.
Continue with vancomycin; monitor levels.
Await final susceptibility data to guide further antimicrobial selection and de-escalation.
TTE without evidence of vegetation. May need HAN, but would like to wait an additional 24 hours to make that decision.
Monitor white count and temperature curve.
Subjective / Review of Systems
Review of Systems: No Fever and No Chills
Vital Signs / Physical Exam
Vital Signs
Vital Signs
Temp Pulse Resp BP Pulse Ox
98.3 F 82 17 101/47 94
07/16/23 11:41 07/16/23 11:41 07/16/23 11:41 07/16/23 11:41 07/16/23 11:41
Physical Exam
Constitutional: No Acute Distress, Comfortable and Non-toxic
Eyes: Sclera Anicteric
Pulmonary: Non Labored
Extremities: Negative Splinter Hemorrhage or Janeway Lesions
Neurological: Awake and Alert
Psychological: Calm
Objective Data
Lab Data
Lab Results
07/15/23 05:40
07/15/23 05:40
ESR 39 mm/hour (0-20) H 07/16/23 05:22
Estimated Creat Clear 9 ml/min 07/15/23 05:40
Lactic Acid Cancelled 07/15/23 00:00
Total Bilirubin 2.2 mg/dl (0.2-1.3) H 07/14/23 20:01
AST 134 U/L (17-59) H 07/14/23 20:01
ALT 58 U/L (0-50) H 07/14/23 20:01
Alkaline Phosphatase 211 U/L (38-126) H 07/14/23 20:01
C-Reactive Protein > 270.00 mg/L (0.0-10.00) H 07/16/23 05:22
Most recent labs reviewed.
Micro Results:
07/16/23 10:37 Blood Culture - Pending
Blood/Venous
07/14/23 20:01 Urine Culture - Final
Urine No Significant Growth
07/14/23 20:01 Blood Culture - Preliminary
Blood/Venous Staphylococcus aureus
Gram Stain - Final
07/14/23 20:01 Blood Culture - Preliminary
Blood/Venous Staphylococcus aureus
Gram Stain - Final
07/14/23 20:07 Influenza Types A & B (ELIANA) - Final
Nasal Swab Negative for Influenza A & B, NAAT
Negative results must be combined with clinical observations
and patient history.
Nucleic Acid Amplification test (NAAT)performed on the
[employer] platform.
Imaging:
07/16/2023 ECHO (TTE): Mild/moderate mitral regurgitation. TAVR in place. Severely elevated PASP. No evidence of endocarditis within the limits of this TTE.
07/14/2023 CT abdomen/pelvis without contrast: No significant acute abnormalities are identified in the abdomen or pelvis within the limits of this unenhanced CT. Please see full dictation for additional detail.
07/14/2023 CXR (2 view): Right basilar airspace disease noted. No overt pulmonary vascular congestion seen. Please see full dictation for additional detail. Film personally viewed.
Care Review
Plan reviewed with: Physician (Hospitalist)
Total Time Spent with Patient (in minutes): 50
--- NOTE | 2023-07-16 15:27 | W.PN.NEPH.PH ---
Today's Communication / Plan
-
Dialysis tomorrow
Assessment/Plan
-
Impression:
ESRD MWF at [facility]
Staph bacteremia
PNA/Fever/Weakness
Change in mental� Status
Hypertension
Anemia
Atrial fibrillation (OAT)
Hyperphosphatemia
History of duodenal ulceration
s/p TAVR 12/13/22 (Aortic Stenosis)
Type 2 diabetes
Secondary hyperparathyroidism
History of diastolic congestive heart failure
Dementia
Left upper extremity AV fistula
Chronic pain: opioid dependence
Hyperphosphatemia
Plan:
-Staph bacteremia workup in progress
-Transthoracic echocardiogram report reviewed no evidence of infectious endocarditis by report
-Hd tomorrow orders provided
-vanco given GPC in clusters on blood cultures
-zosyn renally dosed for PNA/ESRD
-fluid restriction re: hyponatremia/ESRD
-
-
Date of Service: July 16, 2023
CC / HPI / ROS
-
Chief Complaint:
End-stage renal disease
History of Present Illness:
End-stage renal disease on Saturday dialysis schedule
Leukocytosis persists
Hemodynamically labile
Review of Systems:
No fevers
No chest pain or shortness of breath
Confusion
Labs
-
Labs:
WBC 13.9 10^3/uL (4.8-10.8) H 07/15/23 05:40
RBC 4.42 10^6/uL (4.70-6.10) L 07/15/23 05:40
Hgb 11.5 g/dL (13.0-18.0) L 07/15/23 05:40
Hct 35.9 % (39.0-52.0) L 07/15/23 05:40
Plt Count 118 10^3/uL (130-400) L 07/15/23 05:40
Sodium 130 mmol/L (135-145) L 07/15/23 05:40
Potassium 4.1 mmol/L (3.5-5.1) 07/15/23 05:40
Chloride 95 mmol/L (98-107) L 07/15/23 05:40
Carbon Dioxide 22 mmol/L (22-30) 07/15/23 05:40
BUN 83 mg/dl (9-20) H 07/15/23 05:40
Creatinine 7.1 mg/dL (0.7-1.3) H* 07/15/23 05:40
eGFR 7.06 07/15/23 05:40
Glucose 198 mg/dl (70-99) H 07/15/23 05:40
Calcium 7.8 mg/dl (8.4-10.2) L 07/15/23 05:40
Albumin 3.2 g/dl (3.5-5.0) L 07/14/23 20:01
Physical Exam
-
Vital Signs:
Vital Signs
Temp Pulse Resp BP Pulse Ox
98.3 F 82 17 101/47 94
07/16/23 11:41 07/16/23 11:41 07/16/23 11:41 07/16/23 11:41 07/16/23 11:41
Cardiovascular:: Regular rate and rhythm
Respiratory:: Bilateral: Coarse
Lung Excursion:: Normal
Abdomen:: Nontender and Soft
Bowel Sounds:: Normal
Extremity Edema:: +1: Bilateral:
Daniels Catheter: No
[2023-07-16 15:59] VITALS: BP 115/52
[2023-07-16 16:25] LABS: Glucose - Point of Care 254 mg/dl (70-99)
[2023-07-16 19:00] VITALS: BP 126/60
[2023-07-16 21:43] LABS: Glucose - Point of Care 252 mg/dl (70-99)
[2023-07-16] MEDS: TOPROL XL 25 MG PO (21:45)
[2023-07-16] MEDS: MELATONIN 5 MG PO (21:45)
[2023-07-16 23:00] VITALS: BP 123/70
[2023-07-17 03:00] VITALS: BP 122/70
[2023-07-17] MEDS: TYLENOL 1000 MG PO ×3 (05:28→21:14)
[2023-07-17] MEDS: PROTONIX 40 MG PO ×2 (05:28→20:04)
[2023-07-17 05:42] LABS: Hematocrit 34.7 % (39.0-52.0); Hemoglobin 11.4 g/dL (13.0-18.0); Mean Corp Hgb Conc. 32.9 g/dL (33.0-37.0); Mean Corpuscular Hgb 25.9 pg (27.0-31.0); Mean Corpuscular Volume 78.7 fL (80.0-94.0); Mean Platelet Volume 10.6 fL (7.4-10.4); Platelet Count 107 10^3/uL (130-400); Red Blood Cell Count 4.41 10^6/uL (4.70-6.10); Red Cell Dist. Width 18.6 % (11.5-14.5); White Blood Cell Count 7.4 10^3/uL (4.8-10.8)
[2023-07-17 06:13] LABS: Blood Urea Nitrogen 75 mg/dl (9-20); Calcium 8.1 mg/dl (8.4-10.2); Carbon Dioxide 25 mmol/L (22-30); Chloride 88 mmol/L (98-107); Estimated Creatinine Clearance 10 ml/min; Glucose 224 mg/dl (70-99); Potassium 4.4 mmol/L (3.5-5.1); Sodium 127 mmol/L (135-145)
[2023-07-17 07:00] VITALS: BP 143/83
--- NOTE | 2023-07-17 08:31 | PHA.VAN.FU ---
Vancomycin Assessment / Plan
- Assessment
Hemodialysis Schedule: MWF
WBC's are: Trending Down
In the past 24 hrs, patient has been: Afebrile
- Dosing Plan
Dosing by Level: Re-dose today (Vanc 750mg based on level yesterday)
- Monitoring Plan
No level(s) ordered at this time: consider pre-HD Saturday
- Follow Up
Pharmacy will continue to follow.
Vancomycin Follow UP
- -
Patient Age: 83
Patient Sex: Male
Vancomycin Day #: 3
Indication: Bacteremia
Requesting Provider: Dr Nguyen
Pertinent Antimicrobial Allergies:
no pertinent allergies
Height / Weight:
Height 5 ft 10 in
Actual Weight 103.136 kg
Pertinent Past Medical History: ESRD-HD
- Vital Signs / Lab Results
Temp Pulse Resp BP Pulse Ox
98.3 F 76 18 143/83 98
07/17/23 07:00 07/17/23 07:00 07/17/23 07:00 07/17/23 07:00 07/17/23 07:00
Lab Results - Hematology
07/14/23 07/15/23 07/17/23
20:01 05:40 05:26
WBC 13.6 H 13.9 H 7.4
Lab Results - Chemistry
07/14/23 07/15/23 07/17/23
20:01 05:40 05:26
BUN 86 H 83 H 75 H
Creatinine 6.9 H* 7.1 H* 6.4 H*
Estimated Creat Clear 9 9 10
Albumin 3.2 L
07/14/23 07/15/23
20:01 00:00
Lactic Acid 1.6 Cancelled
Microbiology Results
07/16/23 10:37 Blood Culture - Preliminary
Blood/Venous Positive culture in progress
Gram Stain - Preliminary
07/14/23 20:01 Blood Culture - Preliminary
Blood/Venous Staphylococcus aureus
Gram Stain - Final
07/14/23 20:01 Urine Culture - Final
Urine No Significant Growth
07/14/23 20:01 Blood Culture - Preliminary
Blood/Venous Staphylococcus aureus
Gram Stain - Final
Therapeutic Drug Monitoring
Random Vancomycin 14.0 ug/ml 07/16/23 05:22
[2023-07-17 08:32] LABS: Glucose - Point of Care 159 mg/dl (70-99)
--- NOTE | 2023-07-17 10:17 | W.PN.HOSP.TC ---
Today's Communication/Plan
-
.
Assessment / Plan
Assessment / Plan
Physical Exam
-
General: Well Developed and No Apparent Distress
HEENT: Normocephalic, Atraumatic, Moist Mucous Membranes.
Respiratory: Clear to Auscultation
Cardiac: Regular Rhythm and S1/S2; Negative Murmur, Rub or Gallop
GI: Soft, Nontender, Nondistended and Normal Bowel Sounds.
Rectal: No rectal bleeding noted.
Musculoskeletal: No Clubbing, No Cyanosis and No Edema
Skin: Negative Rash
Neuro: Awake, Alert, Oriented, AO to self and surroundings, he followed commands
Psych: calm, no agitation.
Sepsis POA with fever, tachycardia, encephalopathy due to bacteremia. Resolved.
Afebrile in last 24 hours
Urine culture no growth
c/w Empiri IV vanco
Stopped Zosyn
No clinical signs of PNA �
Appreciate ID input
# Persistent Staph aureus MSSA Bacteremia
Unknown source
No sinus pain, no toothache, no back pain, no cellulitis, no joint swelling.
Echo no vegetation, will need HAN
Repeat blood culture 07/16 is positive
Repeat blood culture on 07/17
c/w Vancomycin until further results of culture.
CT A/P no acute findings. CXR no significant infiltrates.
Appreciate ID help.
# Abdominal pain
HX Diverticulitis
CT Abdomen and pelvis , no acute findings. Patient denies abd pain now, tolerating diet.
# Toxic metabolic encephalatrophy due to Sepsis
�Dementia, unspecified, with behavioral disturbance�
His mentation is cooperative and calm now. He is able to hold intelligent conversation and reasonable thought process.
Monitor, added low dose risperidone only for severe agitation although starting him back on oxycodone seemed to help.
# Chronic Pain syndrome with Opioid Dependence
- cont BREWING DIRECTOR� Namenda
- cont. BREWING DIRECTOR Oxycodone as TID , as pt was unable to sleep or settle down. Per report, he took Oxy TID for > year, would avoid holding it now.
Per , patient had chronic back pain. Reviewed MRI Lx spine as of 04/30/23, - cont Oxycodone q8h
#Paroxysmal AF - in AF
- cont.� Eliquis 2.5mg BID
- cont.� Metoprolol succinate and amiodarone
#ESRD, HD ( MWF)
He is tolerating dialysis
Appreciate nephrology help.
#Secondary Hyperparathyroidism
Hyperphosphatemia
- cont.� calcium acetate
- cont.� vitamin D
#Hyperlipidemia
- cont. Zetia and fenofibrate
# Diabetes.
No hypoglycemia.
- added ISS low
Hx Aortic Stenosis s/p TAVR
HX GI bleed from EGD evidence of Three small ectasias D2 cauterized w APC
Total time spent to see the patient, examine the patient on the floor, review data and lab results, discuss treatment plan with patient and nursing staff around 57 minutes
Anticipated Discharge: > 48 hours
Subjective/Interval History
-
Date of Service: July 17, 2023
No agitation over night
No fevers
Objective Data
-
Labs:
Laboratory Results
07/17/23
05:26
WBC 7.4
Hgb 11.4 L
Hct 34.7 L
Plt Count 107 L
Sodium 127 L
Potassium 4.4
Chloride 88 L
Carbon Dioxide 25
BUN 75 H
Creatinine 6.4 H*
Glucose 224 H
Calcium 8.1 L
Vital Signs:
Vital Signs
Temp Pulse Resp BP Pulse Ox
98.3 F 76 18 143/83 98
07/17/23 07:00 07/17/23 07:00 07/17/23 07:00 07/17/23 07:00 07/17/23 07:00
I&O
07/16/23 07/17/23 07/18/23
06:59 06:59 06:59
Intake Total 1200 / 1200 1320 / 1320
Output Total 200 / 200
Balance 1000 / 1000 1320 / 1320
--- NOTE | 2023-07-17 10:29 | CM ---
Patient on HD today. CM following for discharge planning needs and will reach out to family to review options for discharge at this time. Patient would benefit from PT/OT assessment to confirm level of care needs when appropriate. CM will reach out
to hospitalist via tt. CM will continue to follow for discharge planning needs.
Plan; home with VN/ HD pending PT/OT assessment to clarify skill level needed.
[2023-07-17 11:00] VITALS: BP 143/64
--- NOTE | 2023-07-17 11:14 | W.PN.NEPH.HD ---
Assessment
-
Seen on HD. no new issues. VSS, access ok
while he can carry a conversation, he has essentially zero recall/memory.
Progress Note - Hemodialysis
-
Date of Service: July 17, 2023
Duration: 30 minutes and 3 hours
Potassium Bath: 3
Calcium Bath: 2.5
Opti-Dialyzer: 160
Ultrafiltration: Other (kg)
Blood Flow: 400
Dialysate Flow: 600
Heparin: no
EPO: no
[2023-07-17 11:29] VITALS: BMI 32.3
[2023-07-17] MEDS: NOVOLOG FLEXPEN-LOW RESISTANCE SC ×2 (11:44→12:00)
[2023-07-17] MEDS: NAMENDA 5 MG PO ×2 (11:47→20:04)
[2023-07-17] MEDS: VANCOCIN 150 IV (11:47)
[2023-07-17] MEDS: ZETIA 10 MG PO (11:48)
[2023-07-17] MEDS: HYDROPHOR 1 APPLIC TOPICAL ×2 (11:48→20:04)
[2023-07-17] MEDS: ROXICODONE 10 MG PO ×2 (11:48→20:05)
[2023-07-17] MEDS: CYMBALTA DELAYED RELEASE 30 MG PO (11:48)
[2023-07-17] MEDS: PACERONE 200 MG PO (11:48)
[2023-07-17] MEDS: ELIQUIS 2.5 MG PO ×2 (11:48→20:04)
[2023-07-17] MEDS: DESENEX/MITRAZOL/ZEASORB 1 APPLIC TOPICAL ×2 (11:49→20:04)
[2023-07-17 11:57] LABS: Glucose - Point of Care 135 mg/dl (70-99)
[2023-07-17 15:00] VITALS: BP 148/64
--- NOTE | 2023-07-17 15:13 | CON.CAR ---
Addendum entered and electronically signed by Francesco Mason MD 07/17/23 17:24:
83 yo male with PMH of TAVR, permanent A fib admitted with Staph aureus bacteremia. We are consulted to evaluate for endocarditis. He has no cardiac complaints. Exam with irregular rhythm, no murmurs, trace edema. TTE: no evidence of endocarditis.
Discussed with ID and hospitalist. Given TAVR, will proceed with HAN in AM.
Original Note:
Consultation
Consultation Request
Date/Time Consultation Requested: 07/17/23 1225
Date/Time Consultation Performed: 07/17/23 1500
Requesting Provider: Dr. Benton
Performing Provider: Morena FERNANDEZ for Dr. Mason
Reason for Consultation: bactermia, r/o cardiac source
Medical History
-
Chief Complaint: weakness, change in MS
History of Present Illness:
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 He was seen to
have bacteremia with staph aureus and we are being consulted for HAN to evaluate for cardiac source. Patient is feeling fine. He is in the room with his two children, and his .
Past Medical History
Past Medical History: Arrhythmias, CHF, HTN, Renal Failure and Other (as above)
Social History
Personal:
Living: With Family
Family History
Family History: Reviewed & Not Pertinent
Allergies / Home Medications
Allergy/AdvReac Type Severity Reaction Status Date / Time
gabapentin Allergy spastic Verified 07/14/23 20:25
movements
Medication Instructions Recorded Confirmed Type
cyanocobalamin (vitamin B-12) 1,000 mcg PO DAILY Supplement 06/24/15 07/14/23 History
1,000 mcg tablet
ezetimibe 10 mg tablet 10 mg PO DAILY High cholesterol 07/17/16 07/14/23 History
fenofibrate nanocrystallized 145 145 mg PO DAILY High cholesterol 07/17/16 07/14/23 History
mg tablet
oxycodone 10 mg tablet 10 mg PO Q8H Pain 06/17/21 07/14/23 History
acetaminophen 500 mg tablet 1,000 mg PO Q8H Pain 11/01/22 07/14/23 History
insulin aspart U-100 100 unit/mL 0 sliding scale dose SC TIDPRN PRN 11/01/22 07/14/23 History
subcutaneous solution (Novolog diabetes
U-100 Insulin aspart)
memantine 5 mg tablet (Namenda) 5 mg PO BID dementia 11/01/22 07/14/23 History
metoprolol succinate 25 mg 25 mg PO HS Blood Pressure 11/01/22 07/14/23 History
tablet,extended release 24 hr
duloxetine 30 mg capsule,delayed 30 mg PO DAILY Depression 11/10/22 07/14/23 History
release
apixaban 2.5 mg tablet (Eliquis) 2.5 mg PO BID Blood Clot 03/22/23 07/14/23 History
Prevention/Tx
cholecalciferol (vitamin D3) 50 50 mcg PO DAILY Supplement 04/15/23 07/14/23 History
mcg (2,000 unit) tablet
docusate sodium 100 mg capsule 200 mg PO BID Constipation 04/15/23 07/14/23 History
(Stool Softener)
semaglutide 0.25 mg or 0.5 mg (2 0.25 mg SC QWEEK Diabetes 04/15/23 07/14/23 History
mg/3 mL) subcutaneous pen injector
(Ozempic)
pantoprazole 40 mg tablet,delayed 40 mg PO Q12H Gastrointestinal 04/17/23 07/14/23 Rx
release (Protonix) Issue #60 tabs
amiodarone 200 mg tablet 200 mg PO DAILY Arrhythmia 05/23/23 07/14/23 History
ferric citrate 210 mg iron tablet 210 mg PO QPM Kidney Disease 05/23/23 07/14/23 History
(Auryxia)
Review of Systems
-
History Source: Patient and Other (chart)
All other systems: Negative unless noted
Constitutional: Fatigue
Neurological: Weakness and Other (change mental status)
Physical Exam
Vital Signs
Temp Pulse Resp BP Pulse Ox
98.3 F 72 18 143/64 97
07/17/23 11:00 07/17/23 11:48 07/17/23 11:00 07/17/23 11:48 07/17/23 11:00
Lab Results
07/17/23 05:26
07/17/23 05:26
Physical Exam
General: Well Developed, Well Nourished and No Apparent Distress
HEENT: Normocephalic
Respiratory: Clear and Non Labored Respirations
Cardiac: Irregular Rhythm
Breast: Deferred by me
GI: Soft, Non Distended and Normal Bowel Sounds
Skin: Warm and Dry
Neuro: Awake, Alert and Oriented
Psych: Calm
Impression / Plan
-
Bacteremia, staph aureus:
-on IV ABX, ID following
-will arrange HAN tomorrow- discussed with patient and family
s/p TAVR:
-stable by echo this admit
AFIB: permanent
-rate controlled
-continue metoprolol, Eliquis
-of note, he has been evaluated for watchman with Dr. Kothari as OP
ESRD:
-on HD
Data Reviewed
-
EKG: Tracing Personally Visualized and interpreted (AFIB 102 BPM)
Radiology: Report Reviewed by me (CXR : Right basilar airspace disease suspicious for pneumonia.)
Medical Tests (Nuc Med, Echo etc): Report Reviewed by me (echo 07/16/23: Normal left ventricular systolic function. LV ejection fraction is 55% by visual assessment. Mild/moderate mitral regurgitation. TAVR. Med[employer] Evolut 29. Peak/mean gradients
across the aortic valve are 7/4 mmHg. Trace aortic regurgitation. Mild/moderate tricuspid regurgitation. )
Labs: Labs Reviewed by me
--- NOTE | 2023-07-17 15:46 | W.PN.ID1 ---
Date of Service
Date of Service: July 17, 2023
Today's Communication
Continue antibiotics. Change to ancef. Recommend HAN.
Assessment / Plan
Staph aureus (MSSA) bacteremia
Fever
Weakness
Elevated ESR and CRP
ESRD�HD
Anemia
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
Paroxysmal A-fib DM
Dementia
Chronic back pain
CHF
Recommendations:
Blood culture obtained yesterday now positive for gram-positive cocci. Initial blood cultures from 08/03 revealed the presence of Staph aureus (MSSA).
Follow repeat blood cultures for clearance
Discontinue further vancomycin and transition to cefazolin.
TTE without evidence of vegetation, although with now positive repeat blood cultures, would recommend HAN.
Monitor white count and temperature curve.
����������������������������������������������������������
Chief Complaint
-: Bacteremia
Subjective / Review of Systems
Review of Systems: No Fever and No Chills
Vital Signs / Physical Exam
Vital Signs
Vital Signs
Temp Pulse Resp BP Pulse Ox
98.3 F 72 18 143/64 97
07/17/23 11:00 07/17/23 11:48 07/17/23 11:00 07/17/23 11:48 07/17/23 11:00
Physical Exam
Constitutional: No Acute Distress, Comfortable, Chronically Ill and Non-toxic
Eyes: No Conjunctival Hemorrhage and Sclera Anicteric
Cardiovascular: S1/S2; Negative S3/S4 or Murmur
Pulmonary: Non Labored
Gastrointestinal: Soft and Non Tender
Extremities: Other (Left AV fistula with positive bruit and thrill. No overlying erythema.)
Skin: Negative Rash or Jaundice
Neurological: Awake and Alert
Objective Data
Lab Data
Lab Results
07/17/23 05:26
07/17/23 05:26
ESR 39 mm/hour (0-20) H 07/16/23 05:22
Estimated Creat Clear 10 ml/min 07/17/23 05:26
Lactic Acid Cancelled 07/15/23 00:00
Total Bilirubin 2.2 mg/dl (0.2-1.3) H 07/14/23 20:01
AST 134 U/L (17-59) H 07/14/23 20:01
ALT 58 U/L (0-50) H 07/14/23 20:01
Alkaline Phosphatase 211 U/L (38-126) H 07/14/23 20:01
C-Reactive Protein > 270.00 mg/L (0.0-10.00) H 07/16/23 05:22
Most recent labs reviewed.
Micro Results:
07/14/23 20:01 Blood Culture - Final
Blood/Venous S aureus-Methicillin Sensitive
Gram Stain - Final
07/14/23 20:01 Blood Culture - Final
Blood/Venous S aureus-Methicillin Sensitive
Gram Stain - Final
07/16/23 10:37 Blood Culture - Preliminary
Blood/Venous Positive culture in progress
Gram Stain - Preliminary
07/17/23 05:26 Blood Culture - Pending
Blood/Venous
07/14/23 20:01 Urine Culture - Final
Urine No Significant Growth
07/14/23 20:07 Influenza Types A & B (ELIANA) - Final
Nasal Swab Negative for Influenza A & B, NAAT
Negative results must be combined with clinical observations
and patient history.
Nucleic Acid Amplification test (NAAT)performed on the
[employer] platform.
Imaging:
07/16/2023 ECHO (TTE): Mild/moderate mitral regurgitation. TAVR in place. Severely elevated PASP. No evidence of endocarditis within the limits of this TTE.
07/14/2023 CT abdomen/pelvis without contrast: No significant acute abnormalities are identified in the abdomen or pelvis within the limits of this unenhanced CT. Please see full dictation for additional detail.
07/14/2023 CXR (2 view): Right basilar airspace disease noted. No overt pulmonary vascular congestion seen. Please see full dictation for additional detail. Film personally viewed.
Care Review
Plan reviewed with: Physician (Hospitalist; Cardiology)
[2023-07-17 16:46] LABS: Glucose - Point of Care 202 mg/dl (70-99)
[2023-07-17] MEDS: ANCEF 5 IV (18:14)
[2023-07-17] MEDS: NOVOLOG FLEXPEN-LOW RESISTANCE 1 UNITS SC (18:16)
[2023-07-17 18:17] LABS: Glucose - Point of Care 190 mg/dl (70-99)
[2023-07-17 19:45] VITALS: BP 109/54
[2023-07-17] MEDS: TOPROL XL 25 MG PO (21:14)
[2023-07-17] MEDS: MELATONIN 5 MG PO (21:14)
[2023-07-17 21:54] LABS: Glucose - Point of Care 148 mg/dl (70-99)
[2023-07-17 23:32] VITALS: BP 129/56
[2023-07-18] VITALS (8 sets, daily range): BP systolic 110–142; BP diastolic 50–75; PULSE 71; O2SAT 99; BMI 32.3
--- NOTE | 2023-07-18 04:54 | W.PN.UPDATE ---
Update Note
Progress Note Update
Code Purple
Patient is sitting on the toilet seat sleeping, patient is high risk of fall and the nurse tried to help the patient to back to bed, but he refused and get agitated. He pushed the nurse and started cursing at the nursing staff, do not follow staff
directions. Purple code was called and one time order of IV ativan was placed. Patient refused to take ativan and agreed to go to bed once the security show up in the room.
--- NOTE | 2023-07-18 05:03 | PTCARENOTE ---
Bed alarm sounded in patient's room. This RN immediately entered the room where patient was sitting on the side of the bed. Asked patient if he needed to go to the bathroom. Patient replied, 'I'm fine, leave me the fuck alone.' This nurse asked
patient to lay back in bed. Pt stated 'Toni David, will you just leave me alone.' This nurse attempted to explain to patient about needing to stay in bed for safety. Pt. then stated he needed to go to the bathroom. This RN provided patient
with walker to ambulate. Pt. questioned the use of the walker. This RN educated patient that he needs to use the walker with ambulation for safety. This RN assisted patient to the bathroom. PCT entered the room. Pt. then started yelling at this RN
and PCT to 'close the fucking door.' This RN told the patient that the bathroom door would be closed as soon as he was safely sitting on the toilet. Patient then put his hand to this RN's chest and shoved this RN through the doorway of the bathroom
as RN and PCT were in the doorway. Pt. then sat on the toilet and grabbed the door and slammed it shut. RN and PCT continued to stand outside of the bathroom in patients room d/t Pt. unsteady gait and forgetfulness to pull the 'help' cord in the
bathroom. PCT asked patient if he was finished going to the bathroom after about 20 mins, patient found to be sleeping on toilet. Pt. instructed that sleeping on the toilet was not safe. Pt. stated 'close the fucking door. Why do you think that
you're the fucking boss.' Code purple called as patient was becoming increasingly aggressive and agitated. Nursing pipe finishing supervisor, JIM's, and security arrived to the floor. Nursing pipe finishing supervisor asked patient to exit the bathroom where he kept falling
asleep on the toilet and to lay back in bed. Pt. stated to nursing pipe finishing supervisor 'I'll hit you if you come near me.' Pt. eventually agreeable to lay back in bed once security arrived. Plan of care ongoing.
[2023-07-18] MEDS: TYLENOL PO (06:24)
[2023-07-18] MEDS: NOVOLOG FLEXPEN-LOW RESISTANCE SC ×2 (06:25→11:55)
[2023-07-18 07:38] LABS: Glucose - Point of Care 149 mg/dl (70-99)
[2023-07-18] MEDS: CYMBALTA DELAYED RELEASE 30 MG PO (07:41)
[2023-07-18] MEDS: PROTONIX 40 MG PO ×2 (07:42→19:38)
[2023-07-18] MEDS: ROXICODONE 10 MG PO ×2 (07:42→19:39)
[2023-07-18] MEDS: NAMENDA 5 MG PO ×2 (07:42→19:38)
[2023-07-18] MEDS: ZETIA 10 MG PO (07:42)
[2023-07-18] MEDS: ELIQUIS 2.5 MG PO ×2 (07:42→19:38)
[2023-07-18] MEDS: HYDROPHOR 1 APPLIC TOPICAL ×2 (07:43→19:39)
[2023-07-18] MEDS: DESENEX/MITRAZOL/ZEASORB 1 APPLIC TOPICAL ×2 (07:43→19:38)
[2023-07-18] MEDS: PACERONE 200 MG PO (07:43)
--- NOTE | 2023-07-18 08:11 | PN.CDI ---
CDI
- -
CDI:
Physician Documentation Request
Admit Date: 07/14/23 22:54
Dear Doctor Serenity,
Patient admitted with sepsis.
Na level's documented below:
Patient received IV NSS.
Laboratory Tests
07/14/23 07/15/23 07/17/23
20:01 05:40 05:26
Sodium 130 L 130 L 127 L
Based on the above, could you clarify in the progress notes, the appropriate diagnosis, if significant, that supports the above abnormalities and additional evaluation, monitoring and/or treatment rendered:
Hyponatremia
Insignificant abnormal lab findings
Other
Unable to determine
Use of terms such as suspected, likely, concern for, or probable (associated with a specific diagnosis that is being evaluated, monitored, or treated as if it exists) are acceptable and can be coded in the inpatient setting, when documented at the
time of discharge.
Thank you,
Viky FRIAS,RN,CCDS
CDI Specialist
Available via [employer] text
Please use your independent medical judgment in providing your response.
--- NOTE | 2023-07-18 09:41 | W.PN.HOSP.TC ---
Addendum entered and electronically signed by Juan Francisco Benton MD 07/18/23 09:52:
Addendum
Hyponatremia
treat through HD
End
Original Note:
Today's Communication/Plan
-
.
Assessment / Plan
Assessment / Plan
Physical Exam
-
General: Well Developed and No Apparent Distress
HEENT: Normocephalic, Atraumatic, Moist Mucous Membranes.
Respiratory: Clear to Auscultation
Cardiac: Regular Rhythm and S1/S2; Negative Murmur, Rub or Gallop
GI: Soft, Nontender, Nondistended and Normal Bowel Sounds.
Rectal: No rectal bleeding noted.
Musculoskeletal: No Clubbing, No Cyanosis and No Edema
Skin: Negative Rash
Neuro: Awake, Alert, Oriented, AO to self and surroundings, he followed commands
Psych: calm, no agitation.
# Agitation during the night
Advised staff to give PRN oxy as per family using oxy for discomfort at home.
Sepsis POA with fever, tachycardia, encephalopathy due to bacteremia. Resolved.
Afebrile in last 24 hours
Urine culture no growth
c/w Empiri IV vanco
Stopped Zosyn
No clinical signs of PNA �
Appreciate ID input
# Persistent Staph aureus MSSA Bacteremia
Unknown source
No sinus pain, no toothache, no back pain, no cellulitis, no joint swelling.
TTE no vegetation, for HAN
Repeat blood culture 07/16 is positive
Repeat blood culture on 07/17
s/p Vancomycin, changed to Ancef 1 gm [address] 24.
CT A/P no acute findings. CXR no significant infiltrates.
Appreciate ID help.
Appreciate cardiology help
# Abdominal pain
HX Diverticulitis
CT Abdomen and pelvis , no acute findings. Patient denies abd pain now, tolerating diet.
# Toxic metabolic encephalatrophy due to Sepsis
�Dementia, unspecified, with behavioral disturbance�
His mentation is cooperative and calm now. He is able to hold intelligent conversation and reasonable thought process.
Monitor, added low dose risperidone only for severe agitation although starting him back on oxycodone seemed to help.
# Chronic Pain syndrome with Opioid Dependence
- cont FINISHER MACHINE� Namenda
- cont. FINISHER MACHINE Oxycodone as TID , as pt was unable to sleep or settle down. Per report, he took Oxy TID for > year, would avoid holding it now.
Per , patient had chronic back pain. Reviewed MRI Lx spine as of 04/30/23, - cont Oxycodone q8h
#Paroxysmal AF - in AF
- cont.� Eliquis 2.5mg BID
- cont.� Metoprolol succinate and amiodarone
#ESRD, HD ( MWF)
He is tolerating dialysis
Appreciate nephrology help.
#Secondary Hyperparathyroidism
Hyperphosphatemia
- cont.� calcium acetate
- cont.� vitamin D
#Hyperlipidemia
- cont. Zetia and fenofibrate
# Diabetes.
No hypoglycemia.
- added ISS low
Hx Aortic Stenosis s/p TAVR
HX GI bleed from EGD evidence of Three small ectasias D2 cauterized w APC
Total time spent to see the patient, examine the patient on the floor, review data and lab results, discuss treatment plan with patient, family and nursing staff around 59 minutes
Anticipated Discharge: > 48 hours
Subjective/Interval History
-
Date of Service: July 18, 2023
Seems debby and pleasant
Objective Data
-
Vital Signs:
Vital Signs
Temp Pulse Resp BP Pulse Ox
98.3 F 82 17 115/54 100
07/18/23 07:00 07/18/23 07:43 07/18/23 07:00 07/18/23 07:43 07/18/23 07:00
I&O
07/17/23 07/18/23 07/19/23
06:59 06:59 06:59
Intake Total 1320 / 1320 480 / 480
Balance 1320 / 1320 480 / 480
--- NOTE | 2023-07-18 11:54 | CM ---
Patient seen at bedside, sleeping. CM will call to patient to discuss options for discharge planning. Patient pending PT/OT assessment to confirm level of care needs for patient at discharge. CM will continue to follow for discharge planning
needs.
Plan; home with VN vs SNF
[2023-07-18 12:00] LABS: Glucose - Point of Care 129 mg/dl (70-99)
--- NOTE | 2023-07-18 12:34 | W.PN.NEPH.PH ---
Today's Communication / Plan
-
HD tomorrow
Assessment/Plan
-
Impression:
ESRD MWF at [facility]
Staph bacteremia
PNA/Fever/Weakness
Change in mental� Status
Hypertension
Anemia
Atrial fibrillation (OAT)
Hyperphosphatemia
History of duodenal ulceration
s/p TAVR 12/13/22 (Aortic Stenosis)
Type 2 diabetes
Secondary hyperparathyroidism
History of diastolic congestive heart failure
Dementia
Left upper extremity AV fistula
Chronic pain: opioid dependence
Hyperphosphatemia
Plan:
-Staph bacteremia workup in progress
-HAN pending
-HD tomorrow orders provided
-
-
Date of Service: July 18, 2023
CC / HPI / ROS
-
Chief Complaint:
End-stage renal disease
History of Present Illness:
End-stage renal disease on Saturday dialysis schedule
Leukocytosis persists
Hemodynamically labile
abx for MSSA bacteremia
tolerated HD yesterday
Review of Systems:
No fevers
No chest pain or shortness of breath
Confusion
Labs
-
Labs:
WBC 7.4 10^3/uL (4.8-10.8) 07/17/23 05:26
RBC 4.41 10^6/uL (4.70-6.10) L 07/17/23 05:26
Hgb 11.4 g/dL (13.0-18.0) L 07/17/23 05:26
Hct 34.7 % (39.0-52.0) L 07/17/23 05:26
Plt Count 107 10^3/uL (130-400) L 07/17/23 05:26
Sodium 127 mmol/L (135-145) L 07/17/23 05:26
Potassium 4.4 mmol/L (3.5-5.1) 07/17/23 05:26
Chloride 88 mmol/L (98-107) L 07/17/23 05:26
Carbon Dioxide 25 mmol/L (22-30) 07/17/23 05:26
BUN 75 mg/dl (9-20) H 07/17/23 05:26
Creatinine 6.4 mg/dL (0.7-1.3) H* 07/17/23 05:26
eGFR 8.00 07/17/23 05:26
Glucose 224 mg/dl (70-99) H 07/17/23 05:26
Calcium 8.1 mg/dl (8.4-10.2) L 07/17/23 05:26
Albumin 3.2 g/dl (3.5-5.0) L 07/14/23 20:01
Physical Exam
-
Vital Signs:
Vital Signs
Temp Pulse Resp BP Pulse Ox
97.4 F 72 18 121/72 99
07/18/23 11:00 07/18/23 11:00 07/18/23 11:00 07/18/23 11:00 07/18/23 11:00
Cardiovascular:: Regular rate and rhythm
Respiratory:: Bilateral: Coarse
Lung Excursion:: Normal
Abdomen:: Nontender and Soft
Bowel Sounds:: Normal
Extremity Edema:: +1: Bilateral:
--- NOTE | 2023-07-18 13:43 | W.PN.ID1 ---
Date of Service
Date of Service: July 18, 2023
Today's Communication
Continue abx.
Assessment / Plan
Staph aureus (MSSA) bacteremia
Suspected endocarditis
Fever
Weakness
Elevated ESR and CRP
ESRD�HD
Anemia
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
Paroxysmal A-fib DM
Dementia
Chronic back pain
CHF
Recommendations:
Ongoing Staph. aureus (MSSA) bacteremia (07/14 -> 07/17) as of today.
Follow repeat blood cultures for clearance
Continue cefazolin.
TTE without evidence of vegetation, although with now positive repeat blood cultures, would recommend HAN.
Monitor white count and temperature curve.
Will discuss with Clinical Pharmacist regarding possibly increasing cefazolin dose.
����������������������������������������������������������
Chief Complaint
-: Bacteremia
Subjective / Review of Systems
Review of Systems: No Fever, No Chills, No Joint Pain and Other (Denies any low back pain. No reported lower extremity weakness.)
Vital Signs / Physical Exam
Vital Signs
Vital Signs
Temp Pulse Resp BP Pulse Ox
97.4 F 72 18 121/72 99
07/18/23 11:00 07/18/23 11:00 07/18/23 11:00 07/18/23 11:00 07/18/23 11:00
Physical Exam
Constitutional: No Acute Distress, Comfortable and Non-toxic
Eyes: No Conjunctival Hemorrhage
Cardiovascular: S1/S2 and Murmur; Negative S3/S4
Pulmonary: Clear and Non Labored; Negative Wheezes or Rales
Extremities: Edema; Negative Erythema, Splinter Hemorrhage or [place]ay Lesions
Neurological: Awake and Alert
Psychological: Calm
Objective Data
Lab Data
Lab Results
07/17/23 05:26
07/17/23 05:26
ESR 39 mm/hour (0-20) H 07/16/23 05:22
Estimated Creat Clear 10 ml/min 07/17/23 05:26
Lactic Acid Cancelled 07/15/23 00:00
Total Bilirubin 2.2 mg/dl (0.2-1.3) H 07/14/23 20:01
AST 134 U/L (17-59) H 07/14/23 20:01
ALT 58 U/L (0-50) H 07/14/23 20:01
Alkaline Phosphatase 211 U/L (38-126) H 07/14/23 20:01
C-Reactive Protein > 270.00 mg/L (0.0-10.00) H 07/16/23 05:22
Most recent labs reviewed.
Micro Results:
07/16/23 10:37 Blood Culture - Preliminary
Blood/Venous S aureus-Methicillin Sensitive
Gram Stain - Preliminary
07/17/23 05:26 Blood Culture - Preliminary
Blood/Venous Positive culture in progress
Gram Stain - Preliminary
07/18/23 05:31 Blood Culture - Pending
Blood/Venous
07/14/23 20:01 Blood Culture - Final
Blood/Venous S aureus-Methicillin Sensitive
Gram Stain - Final
07/14/23 20:01 Blood Culture - Final
Blood/Venous S aureus-Methicillin Sensitive
Gram Stain - Final
07/14/23 20:01 Urine Culture - Final
Urine No Significant Growth
07/14/23 20:07 Influenza Types A & B (ELIANA) - Final
Nasal Swab Negative for Influenza A & B, NAAT
Negative results must be combined with clinical observations
and patient history.
Nucleic Acid Amplification test (NAAT)performed on the
[employer] platform.
Imaging:
07/16/2023 ECHO (TTE): Mild/moderate mitral regurgitation. TAVR in place. Severely elevated PASP. No evidence of endocarditis within the limits of this TTE.
07/14/2023 CT abdomen/pelvis without contrast: No significant acute abnormalities are identified in the abdomen or pelvis within the limits of this unenhanced CT. Please see full dictation for additional detail.
07/14/2023 CXR (2 view): Right basilar airspace disease noted. No overt pulmonary vascular congestion seen. Please see full dictation for additional detail. Film personally viewed.
Care Review
Plan reviewed with: Physician (Hospitalist / Cardiology)
[2023-07-18] MEDS: TYLENOL 1000 MG PO ×2 (15:17→21:12)
[2023-07-18] MEDS: ANCEF 10 IV (15:18)
--- NOTE | 2023-07-18 15:22 | W.PN.CD ---
Today's Communication / Plan
-
- Cont abx
- Echodensities on cage of TAVR valve and anterior leaflet of mitral valve concerning for possible vegetations
Impression / Plan
-
Bacteremia, staph aureus:
-on IV ABX, ID following
-HAN showed possible vegetation on the cage of the TAVR valve and possible vegetation on the anterior leaflet
- Abx per ID
s/p TAVR:
-stable by echo this admit
AFIB: permanent
-rate controlled
-continue metoprolol, Eliquis
-of note, he has been evaluated for watchman with Dr. Kothari as OP
ESRD:
-on HD
Physical Exam
Vital Signs/Labs
Vital Signs
Temp Pulse Resp BP Pulse Ox
97.4 F 72 18 121/72 99
07/18/23 11:00 07/18/23 11:00 07/18/23 11:00 07/18/23 11:00 07/18/23 11:00
07/17/23 07/18/23 07/19/23
06:59 06:59 06:59
Actual Weight 225 lb 3 oz
07/17/23 05:26
07/17/23 05:26
Physical Exam
Constitutional: No acute distress
EENT: Anicteric
Cardiovascular: Pedal edema is absent and Rhythm/rate is irregular
Respiratory: Respiratory effort normal and Lungs clear to auscul.
GI: Soft
Neuro/Psych: Alert and Oriented
Data Reviewed
-
Date of Service: July 18, 2023
EKG: Tracing Personally Visualized and interpreted
Echo: Tracing Personally Visualized and interpreted
Medical Tests (PFT, Pathology etc): Image Personally Visualized and interpreted
Labs: Labs Reviewed by me
[2023-07-18 16:38] LABS: Glucose - Point of Care 270 mg/dl (70-99)
[2023-07-18] MEDS: NOVOLOG FLEXPEN-LOW RESISTANCE 3 UNITS SC (16:39)
[2023-07-18] MEDS: TOPROL XL 25 MG PO (21:12)
[2023-07-18] MEDS: MELATONIN 5 MG PO (21:12)
[2023-07-18 21:53] LABS: Glucose - Point of Care 190 mg/dl (70-99)
[2023-07-19 03:40] VITALS: BP 113/59
[2023-07-19] MEDS: PROTONIX 40 MG PO ×2 (05:41→18:02)
[2023-07-19] MEDS: TYLENOL 1000 MG PO ×3 (05:41→21:50)
[2023-07-19 07:00] VITALS: BP 143/79
[2023-07-19 07:59] LABS: Hematocrit 32.4 % (39.0-52.0); Hemoglobin 10.5 g/dL (13.0-18.0); Mean Corp Hgb Conc. 32.4 g/dL (33.0-37.0); Mean Corpuscular Hgb 25.7 pg (27.0-31.0); Mean Corpuscular Volume 79.2 fL (80.0-94.0); Platelet Count 147 10^3/uL (130-400); Red Blood Cell Count 4.09 10^6/uL (4.70-6.10); Red Cell Dist. Width 19.2 % (11.5-14.5); White Blood Cell Count 8.1 10^3/uL (4.8-10.8)
[2023-07-19 08:06] LABS: Carbon Dioxide 26 mmol/L (22-30); Chloride 95 mmol/L (98-107); Potassium 4.5 mmol/L (3.5-5.1); Sodium 129 mmol/L (135-145)
[2023-07-19 08:18] LABS: Glucose - Point of Care 128 mg/dl (70-99)
[2023-07-19] MEDS: NOVOLOG FLEXPEN-LOW RESISTANCE SC ×2 (08:45→11:51)
--- NOTE | 2023-07-19 09:41 | W.PN.HOSP.TC ---
Today's Communication/Plan
-
.
Assessment / Plan
Assessment / Plan
Physical Exam
-
General: Well Developed and No Apparent Distress
HEENT: Normocephalic, Atraumatic, Moist Mucous Membranes.
Respiratory: Clear to Auscultation
Cardiac: Regular Rhythm and S1/S2; Negative Murmur, Rub or Gallop
GI: Soft, Nontender, Nondistended and Normal Bowel Sounds.
Rectal: No rectal bleeding noted.
Musculoskeletal: No Clubbing, No Cyanosis and No Edema
Skin: Negative Rash
Neuro: Awake, Alert, Oriented, AO to self and surroundings, he followed commands
Psych: calm, no agitation.
# Nighttime agitation at times.
Advised staff to give PRN oxy as per family using oxy for discomfort at home.
# MSSA endocarditis
Staph aureus MSSA Bacteremia
No sinus pain, no toothache, no back pain, no cellulitis, no joint swelling.
TTE no vegetation
HAN : vegetation on cage of TAVR valve and anterior leaflet of mitral valve concerning for possible endocarditis.
Repeat blood culture 2/6 is positive
Repeat blood culture 2/8 is negative so far, repeating blood cultures
s/p Vancomycin, changed to Ancef 1 gm Q 24[address]
CT A/P no acute findings. CXR no significant infiltrates.
Appreciate ID help.
Appreciate cardiology help
# Abdominal pain
No pain in hospital.
HX Diverticulitis
CT Abdomen and pelvis , no acute findings. Patient is tolerating diet.
# Toxic metabolic encephalatrophy due to Sepsis
�Dementia, unspecified, with behavioral disturbance�
His mentation is cooperative and calm now. He is able to hold intelligent conversation and reasonable thought process at times but forgetful.
Monitor, added low dose risperidone only for severe agitation.
Use PRN oxy for agitation at night( same what does at home). Pain can upset him.
# Chronic Pain syndrome with Opioid Dependence
- cont FORENSIC ACCOUNTANT� Namenda
- cont. FORENSIC ACCOUNTANT Oxycodone as TID , as pt was unable to sleep or settle down. Per report, he took Oxy TID for > year, would avoid holding it now.
Per , patient had chronic back pain. Reviewed MRI Lx spine as of 04/30/23, - cont Oxycodone q8h
#Paroxysmal AF - in AF
- cont.� Eliquis 2.5mg BID
- cont.� Metoprolol succinate and amiodarone
#ESRD, HD ( [facility])
He is tolerating dialysis
Appreciate nephrology help.
#Secondary Hyperparathyroidism
Hyperphosphatemia
- cont.� calcium acetate
- cont.� vitamin D
#Hyperlipidemia
- cont. Zetia and fenofibrate
# Diabetes.
No hypoglycemia.
- added ISS low
Hx Aortic Stenosis s/p TAVR
HX GI bleed from EGD evidence of Three small ectasias D2 cauterized w APC
Total time spent to see the patient, examine the patient on the floor, review data and lab results, discuss treatment plan with patient, family and nursing staff around 59 minutes
Anticipated Discharge: > 48 hours
Subjective/Interval History
-
Date of Service: July 19, 2023
No chest pain
No sob
No fevers
Objective Data
-
Labs:
Laboratory Results
07/19/23
07:24
WBC 8.1
Hgb 10.5 L
Hct 32.4 L
Plt Count 147 D
Sodium 129 L
Potassium 4.5
Chloride 95 L
Carbon Dioxide 26
Vital Signs:
Vital Signs
Temp Pulse Resp BP Pulse Ox
97.2 F 68 16 143/79 99
07/19/23 07:00 07/19/23 07:00 07/19/23 07:00 07/19/23 07:00 07/19/23 07:00
I&O
07/18/23 07/19/23 07/20/23
06:59 06:59 06:59
Intake Total 480 / 480 480 / 480
Balance 480 / 480 480 / 480
--- NOTE | 2023-07-19 09:44 | W.PN.NEPH.HD ---
Assessment
-
Patient seen on HD
sbp 125 at current u/f
Progress Note - Hemodialysis
-
Date of Service: July 19, 2023
Duration: 30 minutes and 3 hours
Potassium Bath: 2
Calcium Bath: 2.5
Opti-Dialyzer: 160
Ultrafiltration: Other (2kg)
Blood Flow: 400
Dialysate Flow: 600
Heparin: none
EPO: none
[2023-07-19 11:27] VITALS: BP 150/75
[2023-07-19 11:43] LABS: Glucose - Point of Care 110 mg/dl (70-99)
--- NOTE | 2023-07-19 11:50 | CM ---
Plan: discharge to home when medically stable with home health
Spoke with patient's via phone; she is agreeable with plan; preference is [facility]
Referral sent to liaison via [facility]
[2023-07-19] MEDS: PACERONE 200 MG PO (11:52)
[2023-07-19] MEDS: ROXICODONE 10 MG PO ×2 (11:52→20:46)
[2023-07-19] MEDS: ZETIA 10 MG PO (11:52)
[2023-07-19] MEDS: CYMBALTA DELAYED RELEASE 30 MG PO (11:52)
[2023-07-19] MEDS: NAMENDA 5 MG PO ×2 (11:53→20:46)
[2023-07-19] MEDS: DESENEX/MITRAZOL/ZEASORB 1 APPLIC TOPICAL ×2 (11:53→20:47)
[2023-07-19] MEDS: ELIQUIS 2.5 MG PO ×2 (11:53→20:45)
[2023-07-19] MEDS: HYDROPHOR 1 APPLIC TOPICAL ×2 (11:54→20:46)
--- NOTE | 2023-07-19 12:21 | VNURNOTE ---
Home Health Liaison spoke with patient's Iveth by phone at 1215 to discuss [facility] nurse/therapy, visits, schedule and homebound status. Iveth is agreeable and understands that visits at home will be 2-3 x per week to assess and teach medical
management.
Iveth is aware that [facility] will contact them for start of care in 1-2 days after discharge from .
[facility] referral completed in [facility].
--- NOTE | 2023-07-19 12:55 | W.PN.ID1 ---
Date of Service
Date of Service: July 19, 2023
Today's Communication
Continue antibiotics. Await clearance of bacteremia.
Assessment / Plan
Staph aureus (MSSA) bacteremia
Suspected endocarditis (prosthetic valve)
Fever
Weakness
Elevated ESR and CRP
ESRD�HD
Anemia
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
Paroxysmal A-fib DM
Dementia
Chronic back pain
CHF
Recommendations:
Ongoing Staph. aureus (MSSA) bacteremia (07/14 -> 07/17)
Follow repeat blood cultures for clearance. Serial blood cultures ordered for the next 5 days.
Continue cefazolin.
Monitor white count and temperature curve.
����������������������������������������������������������
Chief Complaint
-: Bacteremia
Subjective / Review of Systems
Review of Systems: No Fever and No Chills
Vital Signs / Physical Exam
Vital Signs
Vital Signs
Temp Pulse Resp BP Pulse Ox
98.2 F 71 17 150/75 100
07/19/23 11:27 07/19/23 11:52 07/19/23 11:27 07/19/23 11:52 07/19/23 11:27
Physical Exam
Constitutional: No Acute Distress, Comfortable and Non-toxic
Eyes: No Conjunctival Hemorrhage and Sclera Anicteric
Cardiovascular: S1/S2 and Murmur; Negative S3/S4
Pulmonary: Clear and Non Labored; Negative Wheezes or Rales
Gastrointestinal: Soft, Non Tender and Non Distended
Extremities: Other (Left upper extremity AV fistula with positive bruit and thrill. No tenderness. No surrounding erythema.)
Neurological: Awake and Alert
Psychological: Calm
Objective Data
Lab Data
Lab Results
07/19/23 07:24
07/19/23 07:24
ESR 39 mm/hour (0-20) H 07/16/23 05:22
Estimated Creat Clear 10 ml/min 07/17/23 05:26
Lactic Acid Cancelled 07/15/23 00:00
Total Bilirubin 2.2 mg/dl (0.2-1.3) H 07/14/23 20:01
AST 134 U/L (17-59) H 07/14/23 20:01
ALT 58 U/L (0-50) H 07/14/23 20:01
Alkaline Phosphatase 211 U/L (38-126) H 07/14/23 20:01
C-Reactive Protein > 270.00 mg/L (0.0-10.00) H 07/16/23 05:22
Most recent labs reviewed.
Micro Results:
07/19/23 09:00 Blood Culture - Pending
Blood/Venous
07/17/23 05:26 Blood Culture - Preliminary
Blood/Venous S aureus-Methicillin Sensitive
Gram Stain - Preliminary
07/19/23 07:24 Blood Culture - Pending
Blood/Venous
07/18/23 05:31 Blood Culture - Preliminary
Blood/Venous No Growth in 24 hours- Final report to follow
07/16/23 10:37 Blood Culture - Preliminary
Blood/Venous S aureus-Methicillin Sensitive
Gram Stain - Preliminary
07/14/23 20:01 Blood Culture - Final
Blood/Venous S aureus-Methicillin Sensitive
Gram Stain - Final
07/14/23 20:01 Blood Culture - Final
Blood/Venous S aureus-Methicillin Sensitive
Gram Stain - Final
07/14/23 20:01 Urine Culture - Final
Urine No Significant Growth
07/14/23 20:07 Influenza Types A & B (ELIANA) - Final
Nasal Swab Negative for Influenza A & B, NAAT
Negative results must be combined with clinical observations
and patient history.
Nucleic Acid Amplification test (NAAT)performed on the
[employer]™ platform.
Imaging:
07/18/2023 ECHO (HAN): Dilated RV with reduced systolic function. Moderate mitral regurgitation. There is an echodensity had a 2 measuring 0.5 x 0.7 cm which may be a vegetation or calcification. The patient is status post TAVR with well-seated
valve and mild paravalvular regurgitation. There is a mobile echo lucency approximately 0.3 x 0.3 cm on the aortic side at the tip of the TAVR cage.
07/16/2023 ECHO (TTE): Mild/moderate mitral regurgitation. TAVR in place. Severely elevated PASP. No evidence of endocarditis within the limits of this TTE.
07/14/2023 CT abdomen/pelvis without contrast: No significant acute abnormalities are identified in the abdomen or pelvis within the limits of this unenhanced CT. Please see full dictation for additional detail.
07/14/2023 CXR (2 view): Right basilar airspace disease noted. No overt pulmonary vascular congestion seen. Please see full dictation for additional detail. Film personally viewed.
[2023-07-19 13:00] VITALS: BMI 32.5
--- NOTE | 2023-07-19 14:41 | W.PN.CD ---
Today's Communication / Plan
-
continue antibiotics
Impression / Plan
-
Bacteremia, staph aureus: with likely endocarditis
-HAN showed possible vegetation on the cage of the TAVR valve and possible vegetation on the anterior leaflet
-plan for medical mgmt
- Abx per ID
s/p TAVR:
-plan as above
AFIB: permanent
-rate controlled
-continue metoprolol, Eliquis
-of note, he has been evaluated for watchman with Dr. Kothari as OP
ESRD:
-on HD
Physical Exam
Vital Signs/Labs
Vital Signs
Temp Pulse Resp BP Pulse Ox
98.2 F 71 17 150/75 100
07/19/23 11:27 07/19/23 11:52 07/19/23 11:27 07/19/23 11:52 07/19/23 11:27
07/18/23 07/19/23 07/20/23
06:59 06:59 06:59
Actual Weight 102.143 kg 102.654 kg
07/19/23 07:24
07/19/23 07:24
Physical Exam
Constitutional: No acute distress and Comfortable
EENT: Moist mucous membranes
Cardiovascular: Pedal edema is absent, JVD pressure is normal, Systolic murmur absent and Rhythm/rate is irregular
Respiratory: Respiratory effort normal and Lungs clear to auscul.
GI: Soft, Distention absent and Flat
Neuro/Psych: AO x 3
Data Reviewed
-
Date of Service: July 19, 2023
EKG: Other (Tele: A fib 60s)
Labs: Labs Reviewed by me
[2023-07-19 15:35] VITALS: BP 124/60
[2023-07-19] MEDS: ANCEF 10 IV (15:40)
[2023-07-19 17:04] LABS: Glucose - Point of Care 210 mg/dl (70-99)
[2023-07-19] MEDS: NOVOLOG FLEXPEN-LOW RESISTANCE 2 UNITS SC (18:02)
[2023-07-19 19:54] VITALS: BP 127/54
[2023-07-19] MEDS: MELATONIN 5 MG PO (21:50)
[2023-07-19] MEDS: TOPROL XL 25 MG PO (21:50)
[2023-07-19 23:49] LABS: Glucose - Point of Care 196 mg/dl (70-99)
[2023-07-19 23:52] VITALS: BP 117/57
[2023-07-20] VITALS (7 sets, daily range): BP systolic 112–140; BP diastolic 52–68; PULSE 69; O2SAT 100; BMI 32.7
[2023-07-20] MEDS: PROTONIX 40 MG PO ×2 (06:12→18:00)
[2023-07-20] MEDS: TYLENOL 1000 MG PO ×3 (06:12→21:41)
[2023-07-20 08:32] LABS: Glucose - Point of Care 222 mg/dl (70-99)
[2023-07-20] MEDS: NOVOLOG FLEXPEN-LOW RESISTANCE 2 UNITS SC ×2 (09:19→13:07)
[2023-07-20] MEDS: ELIQUIS 2.5 MG PO ×2 (09:19→19:50)
[2023-07-20] MEDS: ZETIA 10 MG PO (09:19)
[2023-07-20] MEDS: CYMBALTA DELAYED RELEASE 30 MG PO (09:19)
[2023-07-20] MEDS: ROXICODONE 10 MG PO ×2 (09:20→19:50)
[2023-07-20] MEDS: PACERONE 200 MG PO (09:20)
[2023-07-20] MEDS: NAMENDA 5 MG PO ×2 (09:21→19:50)
[2023-07-20] MEDS: HYDROPHOR 1 APPLIC TOPICAL ×2 (09:22→19:52)
[2023-07-20] MEDS: DESENEX/MITRAZOL/ZEASORB 1 APPLIC TOPICAL ×2 (09:23→19:52)
--- NOTE | 2023-07-20 10:07 | W.PN.CD ---
Today's Communication / Plan
-
continue IV antibiotics
Impression / Plan
-
Bacteremia, staph aureus: with likely endocarditis
-HAN showed possible vegetation on the cage of the TAVR valve and possible vegetation on the anterior leaflet
-plan for medical mgmt
- continue Abx per ID
s/p TAVR:
-plan as above
AFIB: permanent
-rate controlled
-continue metoprolol, Eliquis
-of note, he has been evaluated for watchman with Dr. Kothari as OP
ESRD:
-on HD
Physical Exam
Vital Signs/Labs
Vital Signs
Temp Pulse Resp BP Pulse Ox
98.4 F 72 16 133/52 100
07/20/23 07:00 07/20/23 07:00 07/20/23 07:00 07/20/23 07:00 07/20/23 07:00
07/19/23 07/20/23 07/21/23
06:59 06:59 06:59
Actual Weight 103.464 kg
07/19/23 07:24
07/19/23 07:24
Physical Exam
Constitutional: No acute distress and Comfortable
EENT: Moist mucous membranes
Cardiovascular: Pedal edema is absent, JVD pressure is normal, Systolic murmur absent and Rhythm/rate is irregular
Respiratory: Respiratory effort normal and Lungs clear to auscul.
GI: Soft, Distention absent and Flat
Neuro/Psych: AO x 3
Data Reviewed
-
Date of Service: July 20, 2023
EKG: Other (Tele: A fib 80s)
--- NOTE | 2023-07-20 11:39 | W.PN.HOSP.TC ---
Today's Communication/Plan
-
.
Assessment / Plan
Assessment / Plan
Physical Exam
-
General: Well Developed and No Apparent Distress
HEENT: Normocephalic, Atraumatic, Moist Mucous Membranes.
Respiratory: Clear to Auscultation
Cardiac: Regular Rhythm and S1/S2; Negative Murmur, Rub or Gallop
GI: Soft, Nontender, Nondistended and Normal Bowel Sounds.
Rectal: No rectal bleeding noted.
Musculoskeletal: No Clubbing, No Cyanosis and No Edema
Skin: Negative Rash
Neuro: Awake, Alert, Oriented, AO to self and surroundings, he followed commands
Psych: calm, no agitation.
# Nighttime agitation at times.
Advised staff to give PRN oxy as per family using oxy for discomfort at home.
# MSSA endocarditis
Staph aureus MSSA Bacteremia
No sinus pain, no toothache, no back pain, no cellulitis, no joint swelling.
TTE no vegetation
HAN : vegetation on cage of TAVR valve and anterior leaflet of mitral valve concerning for possible endocarditis.
Repeat blood culture 2/6 is positive
Repeat blood culture 2/8 is negative so far, repeating blood cultures
s/p Vancomycin, changed to Ancef 1 gm [address] 24[address] A/P no acute findings. CXR no significant infiltrates.
Appreciate ID help.
Appreciate cardiology help
# Abdominal pain
No pain in hospital.
HX Diverticulitis
CT Abdomen and pelvis , no acute findings. Patient is tolerating diet.
# Toxic metabolic encephalatrophy due to Sepsis
�Dementia, unspecified, with behavioral disturbance�
His mentation is cooperative and calm now. He is able to hold intelligent conversation and reasonable thought process at times but forgetful.
Monitor, added low dose risperidone only for severe agitation.
Use PRN oxy for agitation at night( same what does at home). Pain can upset him.
# Chronic Pain syndrome with Opioid Dependence
- cont MALLET AND DIE CUTTER� Namenda
- cont. MALLET AND DIE CUTTER Oxycodone as TID , as pt was unable to sleep or settle down. Per report, he took Oxy TID for > year, would avoid holding it now.
Per , patient had chronic back pain. Reviewed MRI Lx spine as of 04/30/23, - cont Oxycodone q8h
#Paroxysmal AF - in AF
- cont.� Eliquis 2.5mg BID
- cont.� Metoprolol succinate and amiodarone
#ESRD, HD ( [facility])
He is tolerating dialysis
Appreciate nephrology help.
#Secondary Hyperparathyroidism
Hyperphosphatemia
- cont.� calcium acetate
- cont.� vitamin D
#Hyperlipidemia
- cont. Zetia and fenofibrate
# Diabetes.
No hypoglycemia.
- added ISS low
Hx Aortic Stenosis s/p TAVR
HX GI bleed from EGD evidence of Three small ectasias D2 cauterized w APC
Total time spent to see the patient, examine the patient on the floor, review data and lab results, discuss treatment plan with patient, family and nursing staff around 45 minutes
Anticipated Discharge: > 48 hours
Subjective/Interval History
-
Date of Service: July 20, 2023
No complaints
Objective Data
-
Vital Signs:
Vital Signs
Temp Pulse Resp BP Pulse Ox
98.4 F 72 16 133/52 100
07/20/23 07:00 07/20/23 07:00 07/20/23 07:00 07/20/23 07:00 07/20/23 07:00
I&O
07/19/23 07/20/23 07/21/23
06:59 06:59 06:59
Intake Total 480 / 480 1320 / 1320
Balance 480 / 480 1320 / 1320
[2023-07-20 12:27] LABS: Glucose - Point of Care 204 mg/dl (70-99)
[2023-07-20] MEDS: ZOFRAN 4 MG IV (13:14)
--- NOTE | 2023-07-20 13:28 | W.PN.NEPH.PH ---
Today's Communication / Plan
-
HD saturday
Assessment/Plan
-
Impression:
ESRD MWF at [facility]
Staph bacteremia
PNA/Fever/Weakness
Change in mental� Status
Hypertension
Anemia
Atrial fibrillation (OAT)
Hyperphosphatemia
History of duodenal ulceration
s/p TAVR 12/13/22 (Aortic Stenosis)
Type 2 diabetes
Secondary hyperparathyroidism
History of diastolic congestive heart failure
Dementia
Left upper extremity AV fistula
Chronic pain: opioid dependence
Hyperphosphatemia
Plan:
-Staph bacteremia workup in progress, now on Cefazolin
-HD Saturday orders provided
-
-
Date of Service: July 20, 2023
CC / HPI / ROS
-
Chief Complaint:
End-stage renal disease
History of Present Illness:
End-stage renal disease on Saturday dialysis schedule
Leukocytosis persists
Hemodynamically labile
Cefazoline for MSSA bacteremia
tolerated HD yesterday
Review of Systems:
No fevers
No chest pain or shortness of breath
Confusion
Labs
-
Labs:
WBC 8.1 10^3/uL (4.8-10.8) 07/19/23 07:24
RBC 4.09 10^6/uL (4.70-6.10) L 07/19/23 07:24
Hgb 10.5 g/dL (13.0-18.0) L 07/19/23 07:24
Hct 32.4 % (39.0-52.0) L 07/19/23 07:24
Plt Count 147 10^3/uL (130-400) D 07/19/23 07:24
Sodium 129 mmol/L (135-145) L 07/19/23 07:24
Potassium 4.5 mmol/L (3.5-5.1) 07/19/23 07:24
Chloride 95 mmol/L (98-107) L 07/19/23 07:24
Carbon Dioxide 26 mmol/L (22-30) 07/19/23 07:24
BUN 75 mg/dl (9-20) H 07/17/23 05:26
Creatinine 6.4 mg/dL (0.7-1.3) H* 07/17/23 05:26
eGFR 8.00 07/17/23 05:26
Glucose 224 mg/dl (70-99) H 07/17/23 05:26
Calcium 8.1 mg/dl (8.4-10.2) L 07/17/23 05:26
Albumin 3.2 g/dl (3.5-5.0) L 07/14/23 20:01
Physical Exam
-
Vital Signs:
Vital Signs
Temp Pulse Resp BP Pulse Ox
98.3 F 75 18 127/65 100
07/20/23 11:00 07/20/23 11:00 07/20/23 11:00 07/20/23 11:00 07/20/23 11:00
Cardiovascular:: Regular rate and rhythm
Respiratory:: Bilateral: Coarse
Lung Excursion:: Normal
Abdomen:: Nontender and Soft
Bowel Sounds:: Normal
Extremity Edema:: +1: Bilateral:
Daniels Catheter: No
[2023-07-20] MEDS: ANCEF 10 IV (16:24)
[2023-07-20 17:09] LABS: Glucose - Point of Care 191 mg/dl (70-99)
[2023-07-20] MEDS: NOVOLOG FLEXPEN-LOW RESISTANCE 1 UNITS SC (17:43)
[2023-07-20] MEDS: MELATONIN 5 MG PO (21:40)
[2023-07-20] MEDS: TOPROL XL 25 MG PO (21:41)
[2023-07-20 22:40] LABS: Glucose - Point of Care 249 mg/dl (70-99)
[2023-07-21 03:40] VITALS: BP 115/57
[2023-07-21 05:41] VITALS: BMI 32.7
[2023-07-21] MEDS: TYLENOL 1000 MG PO ×3 (06:00→21:49)
[2023-07-21] MEDS: PROTONIX 40 MG PO ×2 (06:00→18:08)
[2023-07-21 07:45] VITALS: BP 135/53
[2023-07-21 07:50] LABS: Glucose - Point of Care 169 mg/dl (70-99)
[2023-07-21] MEDS: NOVOLOG FLEXPEN-LOW RESISTANCE 1 UNITS SC ×2 (08:00→18:08)
[2023-07-21] MEDS: PACERONE 200 MG PO (08:01)
[2023-07-21] MEDS: NAMENDA 5 MG PO ×2 (08:01→20:23)
[2023-07-21] MEDS: CYMBALTA DELAYED RELEASE 30 MG PO (08:01)
[2023-07-21] MEDS: ELIQUIS 2.5 MG PO ×2 (08:01→20:23)
[2023-07-21] MEDS: ROXICODONE 10 MG PO ×2 (08:03→20:23)
[2023-07-21] MEDS: ZETIA 10 MG PO (08:06)
[2023-07-21] MEDS: DESENEX/MITRAZOL/ZEASORB 1 APPLIC TOPICAL ×2 (08:07→20:23)
[2023-07-21] MEDS: HYDROPHOR 1 APPLIC TOPICAL ×2 (08:08→20:23)
--- NOTE | 2023-07-21 11:00 | W.PN.HOSP.TC ---
Today's Communication/Plan
-
.
Assessment / Plan
Assessment / Plan
Physical Exam
-
General: Well Developed and No Apparent Distress
HEENT: Normocephalic, Atraumatic, Moist Mucous Membranes.
Respiratory: Clear to Auscultation
Cardiac: Regular Rhythm and S1/S2; Negative Murmur, Rub or Gallop
GI: Soft, Nontender, Nondistended and Normal Bowel Sounds.
Rectal: No rectal bleeding noted.
Musculoskeletal: No Clubbing, No Cyanosis and No Edema
Skin: Negative Rash
Neuro: Awake, Alert, Oriented, AO to self and surroundings, forgetful, he followed commands
Psych: calm, no agitation.
# Nighttime agitation at times.
Advised staff to give PRN oxy as per family using oxy for discomfort at home.
# MSSA endocarditis
Staph aureus MSSA Bacteremia
No sinus pain, no toothache, no back pain, no cellulitis, no joint swelling.
TTE no vegetation
HAN : vegetation on cage of TAVR valve and anterior leaflet of mitral valve concerning for possible endocarditis.
Repeat blood culture 2/6 is positive
Repeat blood culture 2/9 positive so far, repeating blood cultures
s/p Vancomycin, changed to Ancef 1 gm [address] A/P no acute findings. CXR no significant infiltrates.
Appreciate ID help.
Appreciate cardiology help
# Abdominal pain
Infrequent nausea. Added PRN Zofran.
Abdominal exam is normal.
No pain in hospital.
HX Diverticulitis
CT Abdomen and pelvis , no acute findings. Patient is tolerating diet.
# Toxic metabolic encephalatrophy due to Sepsis
�Dementia, unspecified, with behavioral disturbance�
His mentation is cooperative and calm now. He is able to hold intelligent conversation and reasonable thought process at times but forgetful.
Monitor, added low dose risperidone only for severe agitation.
Use PRN oxy for agitation at night( same what does at home). Pain can upset him.
# Chronic Pain syndrome with Opioid Dependence
- cont FISH BONING MACHINE FEEDER� Namenda
- cont. FISH BONING MACHINE FEEDER Oxycodone as TID , as pt was unable to sleep or settle down. Per report, he took Oxy TID for > year, would avoid holding it now.
Per , patient had chronic back pain. Reviewed MRI Lx spine as of 04/30/23, - cont Oxycodone q8h
#Paroxysmal AF - in AF
- cont.� Eliquis 2.5mg BID
- cont.� Metoprolol succinate and amiodarone
#ESRD, HD ( [facility])
He is tolerating dialysis
Appreciate nephrology help.
#Secondary Hyperparathyroidism
Hyperphosphatemia
- cont.� calcium acetate
- cont.� vitamin D
#Hyperlipidemia
- cont. Zetia and fenofibrate
# Diabetes.
No hypoglycemia.
- added ISS low
Hx Aortic Stenosis s/p TAVR
HX GI bleed from EGD evidence of Three small ectasias D2 cauterized w APC
Total time spent to see the patient, examine the patient on the floor, review data and lab results, discuss treatment plan with patient, family and nursing staff around 45 minutes
Anticipated Discharge: > 48 hours
Subjective/Interval History
-
Date of Service: July 21, 2023
Objective Data
-
Vital Signs:
Vital Signs
Temp Pulse Resp BP Pulse Ox
97.6 F 68 14 135/53 100
07/21/23 07:45 07/21/23 07:45 07/21/23 07:45 07/21/23 07:45 07/21/23 07:45
I&O
07/20/23 07/21/23 07/22/23
06:59 06:59 06:59
Intake Total 1320 / 1320 1140 / 1140
Balance 1320 / 1320 1140 / 1140
[2023-07-21 11:40] VITALS: BP 140/68
[2023-07-21 11:53] LABS: Glucose - Point of Care 213 mg/dl (70-99)
--- NOTE | 2023-07-21 11:53 | W.PN.NEPH.PH ---
Today's Communication / Plan
-
Hd tomorrow
Assessment/Plan
-
Impression:
ESRD MWF at [facility]
Staph bacteremia
PNA/Fever/Weakness
Change in mental� Status
Hypertension
Anemia
Atrial fibrillation (OAT)
Hyperphosphatemia
History of duodenal ulceration
s/p TAVR 12/13/22 (Aortic Stenosis)
Type 2 diabetes
Secondary hyperparathyroidism
History of diastolic congestive heart failure
Dementia
Left upper extremity AV fistula
Chronic pain: opioid dependence
Hyperphosphatemia
Plan:
-Staph bacteremia workup in progress, now on Cefazolin
-HD Saturday orders provided
-
-
Date of Service: July 21, 2023
CC / HPI / ROS
-
Chief Complaint:
End-stage renal disease
History of Present Illness:
End-stage renal disease on Saturday dialysis schedule
Leukocytosis persists
Hemodynamically labile
Cefazoline for MSSA bacteremia
tolerated HD yesterday
Review of Systems:
No fevers
No chest pain or shortness of breath
Confusion
Labs
-
Labs:
WBC 8.1 10^3/uL (4.8-10.8) 07/19/23 07:24
RBC 4.09 10^6/uL (4.70-6.10) L 07/19/23 07:24
Hgb 10.5 g/dL (13.0-18.0) L 07/19/23 07:24
Hct 32.4 % (39.0-52.0) L 07/19/23 07:24
Plt Count 147 10^3/uL (130-400) D 07/19/23 07:24
Sodium 129 mmol/L (135-145) L 07/19/23 07:24
Potassium 4.5 mmol/L (3.5-5.1) 07/19/23 07:24
Chloride 95 mmol/L (98-107) L 07/19/23 07:24
Carbon Dioxide 26 mmol/L (22-30) 07/19/23 07:24
BUN 75 mg/dl (9-20) H 07/17/23 05:26
Creatinine 6.4 mg/dL (0.7-1.3) H* 07/17/23 05:26
eGFR 8.00 07/17/23 05:26
Glucose 224 mg/dl (70-99) H 07/17/23 05:26
Calcium 8.1 mg/dl (8.4-10.2) L 07/17/23 05:26
Albumin 3.2 g/dl (3.5-5.0) L 07/14/23 20:01
Physical Exam
-
Vital Signs:
Vital Signs
Temp Pulse Resp BP Pulse Ox
97.6 F 68 18 140/68 100
07/21/23 07:45 07/21/23 11:40 07/21/23 11:40 07/21/23 11:40 07/21/23 07:45
Cardiovascular:: Regular rate and rhythm
Respiratory:: Bilateral: CTA and Bilateral: Coarse
Lung Excursion:: Normal
Abdomen:: Nontender and Soft
Bowel Sounds:: Normal
Extremity Edema:: +1: Bilateral:
Daniels Catheter: No
--- NOTE | 2023-07-21 13:11 | W.PN.CD ---
Today's Communication / Plan
-
continue IV antibiotic, awaiting clear cultures
Impression / Plan
-
Bacteremia, staph aureus: with likely endocarditis
-HAN showed possible vegetation on the cage of the TAVR valve and possible vegetation on the anterior leaflet
-plan for medical mgmt
- continue Abx per ID
s/p TAVR:
-plan as above
AFIB: permanent
-rate controlled
-continue metoprolol, Eliquis
-of note, he has been evaluated for watchman with Dr. Kothari as OP
ESRD:
-on HD
Physical Exam
Vital Signs/Labs
Vital Signs
Temp Pulse Resp BP Pulse Ox
97.6 F 68 18 140/68 100
07/21/23 07:45 07/21/23 11:40 07/21/23 11:40 07/21/23 11:40 07/21/23 07:45
07/20/23 07/21/23 07/22/23
06:59 06:59 06:59
Actual Weight 103.464 kg 103.419 kg
07/19/23 07:24
07/19/23 07:24
Physical Exam
Constitutional: No acute distress and Comfortable
EENT: Moist mucous membranes
Cardiovascular: Pedal edema is absent, JVD pressure is normal, Rhythm/rate is irregular and Systolic murmur present
Respiratory: Respiratory effort normal and Lungs clear to auscul.
GI: Soft, Distention absent and Flat
Neuro/Psych: Alert and Oriented
Data Reviewed
-
Date of Service: July 21, 2023
EKG: Other (Tele: a fib 60s)
Labs: Labs Reviewed by me
[2023-07-21] MEDS: NOVOLOG FLEXPEN-LOW RESISTANCE 2 UNITS SC (13:37)
[2023-07-21 15:55] VITALS: BP 152/67
--- NOTE | 2023-07-21 16:08 | CM ---
Patient seen at bedside with daughter and also present. Patient uses the HD at [facility] in [place] and the phone number is [phone]. Patient has updated Sandra at the facility but not for a while. HD will need updates about when
patient is able to return to their facility. Patient continues to want to take patient home with aides and [facility]. CM will continue to follow for discharge planning needs.
Plan; home with aides and [facility].
[2023-07-21] MEDS: ANCEF 10 IV (16:17)
[2023-07-21] MEDS: FLUSH (NSS) 2 FLUSH IV (16:18)
[2023-07-21 16:57] LABS: Glucose - Point of Care 161 mg/dl (70-99)
[2023-07-21 19:36] VITALS: BP 144/70
[2023-07-21] MEDS: TOPROL XL 25 MG PO (21:48)
[2023-07-21] MEDS: MELATONIN 5 MG PO (21:49)
[2023-07-21 21:59] LABS: Glucose - Point of Care 113 mg/dl (70-99)
[2023-07-21 23:30] VITALS: BP 158/78
[2023-07-22] VITALS (7 sets, daily range): BP systolic 98–1131; BP diastolic 46–87; PULSE 73–75; O2SAT 98; BMI 32.9
[2023-07-22] MEDS: TYLENOL 1000 MG PO ×3 (06:10→22:23)
[2023-07-22] MEDS: PROTONIX 40 MG PO ×2 (06:11→18:02)
[2023-07-22 07:46] LABS: Hematocrit 30.9 % (39.0-52.0); Hemoglobin 10.3 g/dL (13.0-18.0)
[2023-07-22 08:06] LABS: Blood Urea Nitrogen 69 mg/dl (9-20); Carbon Dioxide 20 mmol/L (22-30); Chloride 93 mmol/L (98-107); Estimated Creatinine Clearance 10 ml/min; Glucose 111 mg/dl (70-99); Potassium 4.8 mmol/L (3.5-5.1); Sodium 131 mmol/L (135-145); eGFR 7.44
[2023-07-22] MEDS: EPOGEN 4000 UNITS IV (08:18)
[2023-07-22 08:28] LABS: Glucose - Point of Care 104 mg/dl (70-99)
--- NOTE | 2023-07-22 10:12 | W.PN.CD ---
Today's Communication / Plan
-
med mgmt of endocarditis
IV Abx
we will arrange for repeat TTE in 2 weeks as outpatient
please call us with additional questions
Impression / Plan
-
Bacteremia, staph aureus: with likely endocarditis
-HAN showed possible vegetation on the cage of the TAVR valve and possible vegetation on the anterior leaflet
-plan for medical mgmt: will repeat TTE in 2 weeks as outpatient
- continue Abx per ID
s/p TAVR:
-plan as above
AFIB: permanent
-rate controlled
-continue metoprolol, Eliquis
-of note, he has been evaluated for watchman with Dr. Kothari as OP
ESRD:
-on HD
Physical Exam
Vital Signs/Labs
Vital Signs
Temp Pulse Resp BP Pulse Ox
97.8 F 68 16 145/64 99
07/22/23 07:00 07/22/23 07:00 07/22/23 07:00 07/22/23 07:00 07/22/23 07:00
07/21/23 07/22/23 07/23/23
06:59 06:59 06:59
Actual Weight 103.419 kg 104.071 kg
07/22/23 07:35
07/22/23 07:35
Physical Exam
Constitutional: No acute distress and Comfortable
EENT: Moist mucous membranes
Cardiovascular: Pedal edema is absent, JVD pressure is normal, Rhythm/rate is irregular and Systolic murmur present
Respiratory: Respiratory effort normal and Lungs clear to auscul.
GI: Soft
Neuro/Psych: Alert and Oriented
Data Reviewed
-
Date of Service: July 22, 2023
EKG: Other (Tele: A fib 60s)
[2023-07-22] MEDS: NOVOLOG FLEXPEN-LOW RESISTANCE SC ×2 (11:51→12:18)
--- NOTE | 2023-07-22 12:15 | W.PN.NEPH.HD ---
Assessment
-
no complaints on HD
BP stable
Progress Note - Hemodialysis
-
Date of Service: July 22, 2023
Duration: 30 minutes and 3 hours
Potassium Bath: 3
Calcium Bath: 2.5
Opti-Dialyzer: 160
Ultrafiltration: Other
Blood Flow: 400
Dialysate Flow: 600
EPO: 4K
[2023-07-22 12:17] LABS: Glucose - Point of Care 95 mg/dl (70-99)
[2023-07-22] MEDS: PACERONE 200 MG PO (13:02)
[2023-07-22] MEDS: NAMENDA 5 MG PO ×2 (13:02→20:31)
[2023-07-22] MEDS: ELIQUIS 2.5 MG PO ×2 (13:04→20:33)
[2023-07-22] MEDS: ZETIA 10 MG PO (13:04)
[2023-07-22] MEDS: CYMBALTA DELAYED RELEASE 30 MG PO (13:04)
[2023-07-22] MEDS: ROXICODONE 10 MG PO ×2 (13:05→20:33)
[2023-07-22] MEDS: DESENEX/MITRAZOL/ZEASORB TOPICAL ×2 (13:05→20:34)
[2023-07-22] MEDS: HYDROPHOR TOPICAL ×2 (13:05→20:34)
--- NOTE | 2023-07-22 13:06 | W.PN.HOSP.TC ---
Today's Communication/Plan
-
DC planning pending clearance by ID
Assessment / Plan
Assessment / Plan
Assessment:
Nighttime agitation at times.
- per Dr. Benton, she Advised staff to give PRN oxy as per family using oxy for discomfort at home.
MSSA endocarditis with MSSA bacteremia
- HAN showed possible vegetation on the cage of the TAVR valve and possible vegetation on the anterior leaflet. For repeat TTE in 2 weeks.
- follow repeat cultures for clearance
- continue IV Ancef
- follow Cards and ID recs
Abdominal pain
- Infrequent nausea. Added PRN Zofran.
- CT Abdomen and pelvis , no acute findings. Patient is tolerating diet.
Toxic metabolic encephalatrophy due to Sepsis
Dementia, unspecified, with behavioral disturbance�
- improved, on prn Risperdal for severe agitation
- cont AREA LOSS PREVENTION MANAGER Namenda
Chronic Pain syndrome with Opioid Dependence
- cont. AREA LOSS PREVENTION MANAGER Oxycodone as TID , as pt was unable to sleep or settle down. Per report, he took Oxy TID for > year, would avoid holding it now.
- Per , patient had chronic back pain. Reviewed MRI Lx spine as of 04/30/23, - cont Oxycodone q8h
Permanent A. Fib
- continue BB/Eliquis/Amio
ESRD on HD (M/W/F)
Secondary Hyperparathyroidism
Hyperphosphatemia
Hyponatremia
- follow Nephrology recs
- continue Calcium acetate/Vit D
Hyperlipidemia
- cont. Zetia and fenofibrate
Diabetes, type 2
- added ISS low
- Hb 7.4%
Hx Aortic Stenosis s/p TAVR
HX GI bleed from EGD evidence of Three small ectasias D2 cauterized w APCs
DVT ppx: Eliquis
Code: Full
Anticipated Discharge: 24 - 48 hours
Subjective/Interval History
-
Date of Service: July 22, 2023
denies any new complaints presently
Objective Data
-
Labs:
Laboratory Results
07/22/23
07:35
Hgb 10.3 L
Hct 30.9 L
Sodium 131 L
Potassium 4.8
Chloride 93 L
Carbon Dioxide 20 L
BUN 69 H
Creatinine 6.8 H*
Glucose 111 H
Calcium 8.0 L
Vital Signs:
Vital Signs
Temp Pulse Resp BP Pulse Ox
98.1 F 70 17 141/63 98
07/22/23 11:00 07/22/23 11:00 07/22/23 11:00 07/22/23 11:00 07/22/23 11:00
I&O
07/21/23 07/22/23 07/23/23
06:59 06:59 06:59
Intake Total 1140 / 1140 300 / 300
Balance 1140 / 1140 300 / 300
Physical Exam
-
General: No Apparent Distress
HEENT: Normocephalic and Atraumatic
Respiratory: Negative Wheezes or Rales
Cardiac: Regular Rhythm and S1/S2
GI: Soft
Musculoskeletal: No Edema
Neuro: AO x 3
Hematologic / Lymphatic: No Lymphadenopathy
Psych: Calm
Data Reviewed
-
Total Time Spent with Patient (in minutes): 45
Labs: Labs Reviewed by me
--- NOTE | 2023-07-22 13:34 | PN.CDI ---
CDI
- -
CDI:
Physician Documentation Request
Admit Date: 07/14/23 22:54
Dear Doctor Raghavendra,
Patient admitted with sepsis.
07/22 PN, 'MSSA endocarditis....HAN showed possible vegetation on the cage of the TAVR valve and possible vegetation on the anterior leaflet. For repeat TTE in 2 weeks. ....continue IV Ancef.'
Please clarify which of the following accurately represents the acuity of the endocarditis:
Acute
Acute on chronic
Chronic
Other
Use of terms such as suspected, likely, concern for, or probable (associated with a specific diagnosis that is being evaluated, monitored, or treated as if it exists) are acceptable and can be coded in the inpatient setting, when documented at the
time of discharge.
Thank you,
Viky FRIAS,RN,CCDS
CDI Specialist
Available via [place] text
Please use your independent medical judgment in providing your response.
--- NOTE | 2023-07-22 14:12 | W.PN.ID1 ---
Date of Service
Date of Service: July 22, 2023
Today's Communication
Continue antibiotics.
Assessment / Plan
Staph aureus (MSSA) bacteremia
Suspected endocarditis (prosthetic valve)
Fever
Weakness
Elevated ESR and CRP
ESRD�HD
Anemia
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
Paroxysmal A-fib DM
Dementia
Chronic back pain
CHF
Recommendations:
Ongoing Staph. aureus (MSSA) bacteremia (07/14 -> 07/19)
Follow repeat blood cultures for clearance. Blood cultures appear negative from 07/20 onward.
If cultures remain negative over the next 24 hours, may be able to discharge.
Monitor white count and temperature curve.
����������������������������������������������������������
Chief Complaint
-: Bacteremia
Subjective / Review of Systems
Review of Systems: No Fever and No Chills
Vital Signs / Physical Exam
Vital Signs
Vital Signs
Temp Pulse Resp BP Pulse Ox
98.1 F 70 17 141/63 98
07/22/23 11:00 07/22/23 13:02 07/22/23 11:00 07/22/23 13:02 07/22/23 11:00
Physical Exam
Constitutional: No Acute Distress, Comfortable and Non-toxic
Eyes: No Conjunctival Hemorrhage and Sclera Anicteric
Cardiovascular: S1/S2; Negative S3/S4
Pulmonary: Non Labored
Gastrointestinal: Soft and Non Tender
Neurological: Awake and Alert
Psychological: Calm
Objective Data
Lab Data
Lab Results
07/22/23 07:35
07/22/23 07:35
ESR 39 mm/hour (0-20) H 07/16/23 05:22
Estimated Creat Clear 10 ml/min 07/22/23 07:35
Lactic Acid Cancelled 07/15/23 00:00
Total Bilirubin 2.2 mg/dl (0.2-1.3) H 07/14/23 20:01
AST 134 U/L (17-59) H 07/14/23 20:01
ALT 58 U/L (0-50) H 07/14/23 20:01
Alkaline Phosphatase 211 U/L (38-126) H 07/14/23 20:01
C-Reactive Protein > 270.00 mg/L (0.0-10.00) H 07/16/23 05:22
Most recent labs reviewed.
Micro Results:
07/19/23 09:00 Blood Culture - Preliminary
Blood/Venous No Growth in 72 hours- Final report to follow
07/18/23 05:31 Blood Culture - Preliminary
Blood/Venous S aureus-Methicillin Sensitive
Gram Stain - Preliminary
07/19/23 07:24 Blood Culture - Preliminary
Blood/Venous S aureus-Methicillin Sensitive
Gram Stain - Preliminary
07/22/23 07:36 Blood Culture - Pending
Blood/Venous
07/20/23 06:47 Blood Culture - Preliminary
Blood/Venous No Growth in 48 hours- Final report to follow
07/21/23 05:45 Blood Culture - Preliminary
Blood/Venous No Growth in 24 hours- Final report to follow
07/17/23 05:26 Blood Culture - Preliminary
Blood/Venous S aureus-Methicillin Sensitive
Gram Stain - Preliminary
07/16/23 10:37 Blood Culture - Preliminary
Blood/Venous S aureus-Methicillin Sensitive
Gram Stain - Preliminary
07/14/23 20:01 Blood Culture - Final
Blood/Venous S aureus-Methicillin Sensitive
Gram Stain - Final
07/14/23 20:01 Blood Culture - Final
Blood/Venous S aureus-Methicillin Sensitive
Gram Stain - Final
07/14/23 20:01 Urine Culture - Final
Urine No Significant Growth
07/14/23 20:07 Influenza Types A & B (ELIANA) - Final
Nasal Swab Negative for Influenza A & B, NAAT
Negative results must be combined with clinical observations
and patient history.
Nucleic Acid Amplification test (NAAT)performed on the
[employer] platform.
Imaging:
07/18/2023 ECHO (HAN): Dilated RV with reduced systolic function. Moderate mitral regurgitation. There is an echodensity had a 2 measuring 0.5 x 0.7 cm which may be a vegetation or calcification. The patient is status post TAVR with well-seated
valve and mild paravalvular regurgitation. There is a mobile echo lucency approximately 0.3 x 0.3 cm on the aortic side at the tip of the TAVR cage.
07/16/2023 ECHO (TTE): Mild/moderate mitral regurgitation. TAVR in place. Severely elevated PASP. No evidence of endocarditis within the limits of this TTE.
07/14/2023 CT abdomen/pelvis without contrast: No significant acute abnormalities are identified in the abdomen or pelvis within the limits of this unenhanced CT. Please see full dictation for additional detail.
07/14/2023 CXR (2 view): Right basilar airspace disease noted. No overt pulmonary vascular congestion seen. Please see full dictation for additional detail. Film personally viewed.
Care Review
Plan reviewed with: Physician (Hospitalist)
--- NOTE | 2023-07-22 16:03 | CM ---
Chart reviewed. Pt had HD today
ID following cx's
Pt receives HD at [facility] in [place] - [phone].
DHVN to follow at d/c
CM following for d/c needs
[2023-07-22] MEDS: ANCEF 10 IV (16:21)
[2023-07-22 17:00] LABS: Glucose - Point of Care 239 mg/dl (70-99)
[2023-07-22] MEDS: NOVOLOG FLEXPEN-LOW RESISTANCE 2 UNITS SC (18:01)
[2023-07-22 21:53] LABS: Glucose - Point of Care 199 mg/dl (70-99)
[2023-07-22] MEDS: ROXICODONE 5 MG PO (22:24)
[2023-07-22] MEDS: MELATONIN 5 MG PO (22:24)
[2023-07-22] MEDS: TOPROL XL 25 MG PO (22:24)
[2023-07-23] VITALS (7 sets, daily range): BP systolic 108–134; BP diastolic 49–67; BMI 32.6
[2023-07-23] MEDS: PROTONIX 40 MG PO ×2 (06:49→18:06)
[2023-07-23] MEDS: TYLENOL 1000 MG PO ×3 (06:49→21:52)
[2023-07-23 08:48] LABS: Glucose - Point of Care 183 mg/dl (70-99)
[2023-07-23] MEDS: NOVOLOG FLEXPEN-LOW RESISTANCE 1 UNITS SC ×2 (08:51→12:32)
[2023-07-23] MEDS: ELIQUIS 2.5 MG PO ×2 (08:51→20:19)
[2023-07-23] MEDS: ZETIA 10 MG PO (08:51)
[2023-07-23] MEDS: CYMBALTA DELAYED RELEASE 30 MG PO (08:51)
[2023-07-23] MEDS: PACERONE 200 MG PO (08:52)
[2023-07-23] MEDS: ROXICODONE 10 MG PO ×2 (08:52→20:19)
[2023-07-23] MEDS: NAMENDA 5 MG PO ×2 (08:53→20:19)
[2023-07-23] MEDS: HYDROPHOR 1 APPLIC TOPICAL ×2 (08:54→20:20)
[2023-07-23] MEDS: DESENEX/MITRAZOL/ZEASORB TOPICAL (08:54)
--- NOTE | 2023-07-23 12:00 | W.PN.NEPH.PH ---
Today's Communication / Plan
-
- orders provided for HD tomorrow
Assessment/Plan
-
Impression:
ESRD MWF at [facility]
Staph bacteremia
PNA/Fever/Weakness
Change in mental� Status
Hypertension
Anemia
Atrial fibrillation (OAT)
Hyperphosphatemia
History of duodenal ulceration
s/p TAVR 12/13/22 (Aortic Stenosis)
Type 2 diabetes
Secondary hyperparathyroidism
History of diastolic congestive heart failure
Dementia
Left upper extremity AV fistula
Chronic pain: opioid dependence
Hyperphosphatemia
Plan:
- MSSA endocarditis with MSSA bacteremia, on IV Ancef
- Plan for HD tomorrow AM and then d/c afterwards
-
-
Date of Service: July 23, 2023
CC / HPI / ROS
-
Chief Complaint:
End-stage renal disease
History of Present Illness:
End-stage renal disease on Saturday dialysis schedule
Leukocytosis persists
Hemodynamically labile
Cefazoline for MSSA bacteremia
tolerated HD yesterday
Review of Systems:
No fevers
No chest pain or shortness of breath
Confusion
Labs
-
Labs:
WBC 8.1 10^3/uL (4.8-10.8) 07/19/23 07:24
RBC 4.09 10^6/uL (4.70-6.10) L 07/19/23 07:24
Hgb 10.3 g/dL (13.0-18.0) L 07/22/23 07:35
Hct 30.9 % (39.0-52.0) L 07/22/23 07:35
Plt Count 147 10^3/uL (130-400) D 07/19/23 07:24
Sodium 131 mmol/L (135-145) L 07/22/23 07:35
Potassium 4.8 mmol/L (3.5-5.1) 07/22/23 07:35
Chloride 93 mmol/L (98-107) L 07/22/23 07:35
Carbon Dioxide 20 mmol/L (22-30) L 07/22/23 07:35
BUN 69 mg/dl (9-20) H 07/22/23 07:35
Creatinine 6.8 mg/dL (0.7-1.3) H* 07/22/23 07:35
eGFR 7.44 07/22/23 07:35
Glucose 111 mg/dl (70-99) H 07/22/23 07:35
Calcium 8.0 mg/dl (8.4-10.2) L 07/22/23 07:35
Albumin 3.2 g/dl (3.5-5.0) L 07/14/23 20:01
Physical Exam
-
Vital Signs:
Vital Signs
Temp Pulse Resp BP Pulse Ox
97.7 F 64 16 129/55 100
07/23/23 11:00 07/23/23 11:00 07/23/23 11:00 07/23/23 11:00 07/23/23 11:00
Cardiovascular:: Regular rate and rhythm
Respiratory:: Bilateral: CTA
Lung Excursion:: Normal
Abdomen:: Nontender and Soft
Bowel Sounds:: Normal
Extremity Edema:: None: Bilateral:
Daniels Catheter: No
[2023-07-23 12:15] LABS: Glucose - Point of Care 159 mg/dl (70-99)
--- NOTE | 2023-07-23 12:18 | W.PN.HOSP.TC ---
Today's Communication/Plan
-
HD tomorrow with DC to follow
arrange OP Abx post-HD per ID recs/dosing
Assessment / Plan
Assessment / Plan
Assessment:
Nighttime agitation at times.
- per Dr. Benton, she Advised staff to give PRN oxy as per family using oxy for discomfort at home.
acute MSSA endocarditis with MSSA bacteremia
- HAN showed possible vegetation on the cage of the TAVR valve and possible vegetation on the anterior leaflet. For repeat TTE in 2 weeks.
- repeat cultures show clearance
- continue IV Ancef dosed with HD
- follow Cards and ID recs
Abdominal pain
- Infrequent nausea. PRN Zofran.
- CT Abdomen and pelvis , no acute findings. Patient is tolerating diet.
Toxic metabolic encephalatrophy due to Sepsis
Dementia, unspecified, with behavioral disturbance�
- improved, on prn Risperdal for severe agitation
- cont PEN RIDER Namenda
Chronic Pain syndrome with Opioid Dependence
- cont. PEN RIDER Oxycodone as TID , as pt was unable to sleep or settle down. Per report, he took Oxy TID for > year, would avoid holding it now.
- Per , patient had chronic back pain. Reviewed MRI Lx spine as of 04/30/23, - cont Oxycodone q8h
Permanent A. Fib
- continue BB/Eliquis/Amio
ESRD on HD (M/W/F)
Secondary Hyperparathyroidism
Hyperphosphatemia
Hyponatremia
- follow Nephrology recs
- continue Calcium acetate/Vit D
Hyperlipidemia
- cont. Zetia and fenofibrate
Diabetes, type 2
- added ISS low
- Hb 7.4%
Hx Aortic Stenosis s/p TAVR
HX GI bleed from EGD evidence of Three small ectasias D2 cauterized w APCs
DVT ppx: Eliquis
Code: Full
Anticipated Discharge: Within 24 hours
Subjective/Interval History
-
Date of Service: July 23, 2023
no new complaints
Objective Data
-
Vital Signs:
Vital Signs
Temp Pulse Resp BP Pulse Ox
97.7 F 64 16 129/55 100
07/23/23 11:00 07/23/23 11:00 07/23/23 11:00 07/23/23 11:00 07/23/23 11:00
I&O
07/22/23 07/23/23 07/24/23
06:59 06:59 06:59
Intake Total 300 / 300 190 / 190
Balance 300 / 300 190 / 190
Physical Exam
-
General: No Apparent Distress
HEENT: Normocephalic and Atraumatic
Respiratory: Negative Wheezes or Rales
Cardiac: Regular Rhythm and S1/S2
GI: Soft and Nontender
Genito-urinary: No Costovertebral Tender
Musculoskeletal: No Edema
Neuro: AO x 3
Psych: Calm
Data Reviewed
-
Total Time Spent with Patient (in minutes): 47
Labs: Labs Reviewed by me
--- NOTE | 2023-07-23 14:05 | W.PN.ID1 ---
Date of Service
Date of Service: July 23, 2023
Today's Communication
Continue antibiotics. See below�
Assessment / Plan
Staph aureus (MSSA) bacteremia
Suspected endocarditis (prosthetic valve)
Fever
Weakness
Elevated ESR and CRP
ESRD�HD
Anemia
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
Paroxysmal A-fib DM
Dementia
Chronic back pain
CHF
Recommendations:
Staph. aureus (MSSA) bacteremia (07/14 -> 07/19)
Blood cultures appear negative from 07/20 onward.
Continue with cefazolin at current dosing interval while inpatient.
Once discharged, will transition to cefazolin dosed after hemodialysis
- 2 gm after HD Mon-Wed
- 3 gm after HD Sat
Antibiotics to continue through 08/31/2023.
Monitor white count and temperature curve while remains inpatient.
����������������������������������������������������������
Chief Complaint
-: Bacteremia
Subjective / Review of Systems
Review of Systems: No Fever and No Chills
Vital Signs / Physical Exam
Vital Signs
Vital Signs
Temp Pulse Resp BP Pulse Ox
97.7 F 64 16 129/55 100
07/23/23 11:00 07/23/23 11:00 07/23/23 11:00 07/23/23 11:00 07/23/23 11:00
Physical Exam
Constitutional: No Acute Distress, Comfortable and Non-toxic
Eyes: No Conjunctival Hemorrhage and Sclera Anicteric
Cardiovascular: S1/S2; Negative S3/S4 or Murmur
Pulmonary: Clear and Non Labored
Gastrointestinal: Soft and Non Tender
Neurological: Awake and Alert
Psychological: Calm
Objective Data
Lab Data
Lab Results
07/22/23 07:35
07/22/23 07:35
ESR 39 mm/hour (0-20) H 07/16/23 05:22
Estimated Creat Clear 10 ml/min 07/22/23 07:35
Lactic Acid Cancelled 07/15/23 00:00
Total Bilirubin 2.2 mg/dl (0.2-1.3) H 07/14/23 20:01
AST 134 U/L (17-59) H 07/14/23 20:01
ALT 58 U/L (0-50) H 07/14/23 20:01
Alkaline Phosphatase 211 U/L (38-126) H 07/14/23 20:01
C-Reactive Protein > 270.00 mg/L (0.0-10.00) H 07/16/23 05:22
Most recent labs reviewed.
Micro Results:
07/17/23 05:26 Blood Culture - Final
Blood/Venous S aureus-Methicillin Sensitive
Gram Stain - Final
07/16/23 10:37 Blood Culture - Final
Blood/Venous S aureus-Methicillin Sensitive
Gram Stain - Final
07/19/23 09:00 Blood Culture - Preliminary
Blood/Venous No Growth in 4 days- Final report to follow
07/22/23 07:36 Blood Culture - Preliminary
Blood/Venous No Growth in 24 hours- Final report to follow
07/20/23 06:47 Blood Culture - Preliminary
Blood/Venous No Growth in 72 hours- Final report to follow
07/21/23 05:45 Blood Culture - Preliminary
Blood/Venous No Growth in 48 hours- Final report to follow
07/23/23 05:48 Blood Culture - Pending
Blood/Venous
07/18/23 05:31 Blood Culture - Preliminary
Blood/Venous S aureus-Methicillin Sensitive
Gram Stain - Preliminary
07/19/23 07:24 Blood Culture - Preliminary
Blood/Venous S aureus-Methicillin Sensitive
Gram Stain - Preliminary
07/14/23 20:01 Blood Culture - Final
Blood/Venous S aureus-Methicillin Sensitive
Gram Stain - Final
07/14/23 20:01 Blood Culture - Final
Blood/Venous S aureus-Methicillin Sensitive
Gram Stain - Final
07/14/23 20:01 Urine Culture - Final
Urine No Significant Growth
07/14/23 20:07 Influenza Types A & B (ELIANA) - Final
Nasal Swab Negative for Influenza A & B, NAAT
Negative results must be combined with clinical observations
and patient history.
Nucleic Acid Amplification test (NAAT)performed on the
[employer] platform.
Imaging:
07/18/2023 ECHO (HAN): Dilated RV with reduced systolic function. Moderate mitral regurgitation. There is an echodensity had a 2 measuring 0.5 x 0.7 cm which may be a vegetation or calcification. The patient is status post TAVR with well-seated
valve and mild paravalvular regurgitation. There is a mobile echo lucency approximately 0.3 x 0.3 cm on the aortic side at the tip of the TAVR cage.
07/16/2023 ECHO (TTE): Mild/moderate mitral regurgitation. TAVR in place. Severely elevated PASP. No evidence of endocarditis within the limits of this TTE.
07/14/2023 CT abdomen/pelvis without contrast: No significant acute abnormalities are identified in the abdomen or pelvis within the limits of this unenhanced CT. Please see full dictation for additional detail.
07/14/2023 CXR (2 view): Right basilar airspace disease noted. No overt pulmonary vascular congestion seen. Please see full dictation for additional detail. Film personally viewed.
Care Review
Plan reviewed with: Physician (Hospitalist)
[2023-07-23] MEDS: ANCEF 10 IV (15:09)
[2023-07-23 17:24] LABS: Glucose - Point of Care 145 mg/dl (70-99)
[2023-07-23] MEDS: NOVOLOG FLEXPEN-LOW RESISTANCE SC (18:03)
[2023-07-23] MEDS: DESENEX/MITRAZOL/ZEASORB 1 APPLIC TOPICAL (20:20)
[2023-07-23] MEDS: TOPROL XL 25 MG PO (21:52)
[2023-07-23] MEDS: MELATONIN 5 MG PO (21:52)
[2023-07-23 21:58] LABS: Glucose - Point of Care 207 mg/dl (70-99)
[2023-07-24 03:20] VITALS: BP 116/65
[2023-07-24 04:19] VITALS: BMI 32.7
[2023-07-24] MEDS: PROTONIX 40 MG PO (06:19)
[2023-07-24] MEDS: TYLENOL 1000 MG PO ×2 (06:19→15:03)
[2023-07-24 08:06] VITALS: BP 162/79
[2023-07-24 08:30] LABS: Glucose - Point of Care 127 mg/dl (70-99)
[2023-07-24] MEDS: NOVOLOG FLEXPEN-LOW RESISTANCE SC ×2 (08:40→12:03)
--- NOTE | 2023-07-24 08:49 | W.PN.NEPH.HD ---
Assessment
-
Patient seen on dialysis
Systolic blood pressure 164 current UF
07/23 blood cultures remain negative
Remains on cefazolin in setting of infectious endocarditis
Progress Note - Hemodialysis
-
Date of Service: July 24, 2023
Duration: 30 minutes and 3 hours
Potassium Bath: 3
Calcium Bath: 2.5
Opti-Dialyzer: 160
Ultrafiltration: Other (2)
Blood Flow: 400
Dialysate Flow: 600
Heparin: None
EPO: none
[2023-07-24 09:48] LABS: Blood Urea Nitrogen 63 mg/dl (9-20); Calcium 7.8 mg/dl (8.4-10.2); Carbon Dioxide 23 mmol/L (22-30); Chloride 97 mmol/L (98-107); Estimated Creatinine Clearance 10 ml/min; Glucose 166 mg/dl (70-99); Potassium 4.6 mmol/L (3.5-5.1); Sodium 135 mmol/L (135-145); eGFR 7.44
--- NOTE | 2023-07-24 11:10 | W.PN.HOSP.TC ---
Today's Communication/Plan
-
dc home
Assessment / Plan
Assessment / Plan
Assessment:
Nighttime agitation at times.
- per Dr. Benton, she Advised staff to give PRN oxy as per family using oxy for discomfort at home.
acute MSSA endocarditis with MSSA bacteremia
- HAN showed possible vegetation on the cage of the TAVR valve and possible vegetation on the anterior leaflet. For repeat TTE in 2 weeks.
- repeat cultures show clearance
- continue IV Ancef dosed with HD
- follow Cards and ID recs
Abdominal pain
- Infrequent nausea. PRN Zofran.
- CT Abdomen and pelvis , no acute findings. Patient is tolerating diet.
Toxic metabolic encephalatrophy due to Sepsis
Dementia, unspecified, with behavioral disturbance�
- improved, on prn Risperdal for severe agitation
- cont ACTIVITY THERAPIST Namenda
Chronic Pain syndrome with Opioid Dependence
- cont. ACTIVITY THERAPIST Oxycodone as TID , as pt was unable to sleep or settle down. Per report, he took Oxy TID for > year, would avoid holding it now.
- Per , patient had chronic back pain. Reviewed MRI Lx spine as of 04/30/23, - cont Oxycodone q8h
Permanent A. Fib
- continue BB/Eliquis/Amio
ESRD on HD (M/W/F)
Secondary Hyperparathyroidism
Hyperphosphatemia
Hyponatremia
- follow Nephrology recs
- continue Calcium acetate/Vit D
Hyperlipidemia
- cont. Zetia and fenofibrate
Diabetes, type 2
- added ISS low
- Hb 7.4%
Hx Aortic Stenosis s/p TAVR
HX GI bleed from EGD evidence of Three small ectasias D2 cauterized w APCs
DVT ppx: Eliquis
Code: Full
More than 30 minutes spent in discharge including
Final examination of the patient
Summarizing hospital stay
Instructions for continuing care to all relevant caregivers
Preparation of discharge records, prescriptions, and referral forms
Total time spent (in minutes):45
Anticipated Discharge: Today
Subjective/Interval History
-
Date of Service: July 24, 2023
no new complaints, tolerating HD well
Objective Data
-
Labs:
Laboratory Results
07/24/23
08:10
Sodium 135
Potassium 4.6
Chloride 97 L
Carbon Dioxide 23
BUN 63 H
Creatinine 6.8 H*
Glucose 166 H
Calcium 7.8 L
Vital Signs:
Vital Signs
Temp Pulse Resp BP Pulse Ox
97.9 F 60 17 162/79 98
07/24/23 08:06 07/24/23 08:06 07/24/23 08:06 07/24/23 08:06 07/24/23 08:06
I&O
07/23/23 07/24/23 07/25/23
06:59 06:59 06:59
Intake Total 190 / 190 960 / 960
Balance 190 / 190 960 / 960
Physical Exam
-
General: No Apparent Distress
HEENT: Normocephalic and Atraumatic
Respiratory: Negative Wheezes or Rales
Cardiac: Regular Rhythm and S1/S2
GI: Soft and Nontender
Genito-urinary: No Costovertebral Tender
Musculoskeletal: No Edema
Neuro: AO x 3
Hematologic / Lymphatic: No Lymphadenopathy
Psych: Calm
Data Reviewed
-
Total Time Spent with Patient (in minutes): 45
Labs: Labs Reviewed by me
--- NOTE | 2023-07-24 11:13 | CM ---
Addendum entered by Chrissy Brewster 07/24/23 11:15:
IMM explained and signed
Original Note:
Plan: Discharge to home with home health services from [facility]; and outpatient [facility] [place]
will provide transport home this afternoon ~ 3:00 PM
--- NOTE | 2023-07-24 11:16 | W.DS.TRANS ---
DC Summary - [employer] Agent
-
Discharge Instructions:
Discharge Diagnosis/Procedures MSSA endocarditis
Diet 2 Gram Sodium,Other diet
Additional Diets 2gram potassium restricted diet
Activity As tolerated
Bathing Restrictions None
Others Tests You will need an echocardiogram. This should be
completed in 2 weeks. Orders have been
electronically sent to [facility].
Please call [phone] to schedule. Please
call the day after discharge.
Other Services VN
Instructions:
Stand-Alone Forms:
Changes to Home Medications: No
Discharge Medications:
DC Medications w/original date entered in [employer]
cyanocobalamin (vitamin B-12) 1,000 mcg tablet 1,000 mcg PO DAILY Supplement 06/24/15
ezetimibe 10 mg tablet 10 mg PO DAILY High cholesterol 07/17/16
fenofibrate nanocrystallized 145 mg tablet 145 mg PO DAILY High cholesterol 07/17/16
oxycodone 10 mg tablet 10 mg PO Q8H Pain 06/17/21
acetaminophen 500 mg tablet 1,000 mg PO Q8H Pain 11/01/22
insulin aspart U-100 100 unit/mL subcutaneous solution (Novolog U-100 Insulin aspart) 0 sliding scale dose SC TIDPRN PRN diabetes 11/01/22
memantine 5 mg tablet (Namenda) 5 mg PO BID dementia 11/01/22
metoprolol succinate 25 mg tablet,extended release 24 hr 25 mg PO HS Blood Pressure 11/01/22
duloxetine 30 mg capsule,delayed release 30 mg PO DAILY Depression 11/10/22
apixaban 2.5 mg tablet (Eliquis) 2.5 mg PO BID Blood Clot Prevention/Tx 03/22/23
cholecalciferol (vitamin D3) 50 mcg (2,000 unit) tablet 50 mcg PO DAILY Supplement 04/15/23
docusate sodium 100 mg capsule (Stool Softener) 200 mg PO BID Constipation 04/15/23
semaglutide 0.25 mg or 0.5 mg (2 mg/3 mL) subcutaneous pen injector (Ozempic) 0.25 mg SC QWEEK Diabetes 04/15/23
pantoprazole 40 mg tablet,delayed release (Protonix) 40 mg PO Q12H Gastrointestinal Issue #60 tabs 04/17/23
amiodarone 200 mg tablet 200 mg PO DAILY Arrhythmia 05/23/23
ferric citrate 210 mg iron tablet (Auryxia) 210 mg PO QPM Kidney Disease 05/23/23
cefazolin 10 gram solution for injection See Rx Instructions .Route .COMPLEX #100 ea 07/24/23
Home Medication Changes
Pending Results: No
Total time spent discharging patient (in min): 45
[2023-07-24 11:55] LABS: Glucose - Point of Care 116 mg/dl (70-99)
[2023-07-24] MEDS: ELIQUIS 2.5 MG PO (12:03)
[2023-07-24] MEDS: PACERONE 200 MG PO (12:03)
[2023-07-24] MEDS: ROXICODONE 10 MG PO (12:04)
[2023-07-24] MEDS: NAMENDA 5 MG PO (12:04)
[2023-07-24] MEDS: ZETIA 10 MG PO (12:04)
[2023-07-24] MEDS: HYDROPHOR 1 APPLIC TOPICAL (12:04)
[2023-07-24] MEDS: CYMBALTA DELAYED RELEASE 30 MG PO (12:04)
[2023-07-24] MEDS: DESENEX/MITRAZOL/ZEASORB 1 APPLIC TOPICAL (12:05)
--- NOTE | 2023-07-24 14:31 | W.PN.ID1 ---
Date of Service
Date of Service: July 24, 2023
Today's Communication
Continue antibiotics.
Assessment / Plan
Staph aureus (MSSA) bacteremia
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
Fever
Weakness
Elevated ESR and CRP
ESRD�HD
Anemia
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
Paroxysmal A-fib DM
Dementia
Chronic back pain
CHF
Recommendations:
Staph. aureus (MSSA) bacteremia (07/14 -> 07/19)
Blood cultures negative from 07/20 onward.
Continue with cefazolin at current dosing interval while inpatient.
Once discharged, will transition to cefazolin dosed after hemodialysis
- 2 gm after HD Mon-Wed
- 3 gm after HD Sat
Antibiotics to continue through 08/31/2023.
Monitor white count and temperature curve while remains inpatient.
Will follow in several weeks in the outpatient setting.
����������������������������������������������������������
Chief Complaint
-: Bacteremia
Subjective / Review of Systems
Review of Systems: No Fever and No Chills
Vital Signs / Physical Exam
Vital Signs
Vital Signs
Temp Pulse Resp BP Pulse Ox
97.9 F 88 17 146/78 98
07/24/23 08:06 07/24/23 12:03 07/24/23 08:06 07/24/23 12:03 07/24/23 08:06
Physical Exam
Constitutional: No Acute Distress, Comfortable and Non-toxic
Eyes: No Conjunctival Hemorrhage and Sclera Anicteric
Cardiovascular: S1/S2; Negative S3/S4 or Murmur
Pulmonary: Non Labored
Gastrointestinal: Soft and Non Tender
Extremities: Other (Left upper extremity AV fistula with positive bruit and thrill. No surrounding erythema.)
Neurological: Awake and Alert
Objective Data
Lab Data
Lab Results
07/22/23 07:35
07/24/23 08:10
ESR 39 mm/hour (0-20) H 07/16/23 05:22
Estimated Creat Clear 10 ml/min 07/24/23 08:10
Lactic Acid Cancelled 07/15/23 00:00
Total Bilirubin 2.2 mg/dl (0.2-1.3) H 07/14/23 20:01
AST 134 U/L (17-59) H 07/14/23 20:01
ALT 58 U/L (0-50) H 07/14/23 20:01
Alkaline Phosphatase 211 U/L (38-126) H 07/14/23 20:01
C-Reactive Protein > 270.00 mg/L (0.0-10.00) H 07/16/23 05:22
Most recent labs reviewed.
Micro Results:
07/19/23 09:00 Blood Culture - Final
Blood/Venous No Growth - Final Report
07/24/23 06:00 Blood Culture - Pending
Blood/Venous
07/18/23 05:31 Blood Culture - Final
Blood/Venous S aureus-Methicillin Sensitive
Gram Stain - Final
07/22/23 07:36 Blood Culture - Preliminary
Blood/Venous No Growth in 48 hours- Final report to follow
07/20/23 06:47 Blood Culture - Preliminary
Blood/Venous No Growth in 4 days- Final report to follow
07/21/23 05:45 Blood Culture - Preliminary
Blood/Venous No Growth in 72 hours- Final report to follow
07/23/23 05:48 Blood Culture - Preliminary
Blood/Venous No Growth in 24 hours- Final report to follow
07/17/23 05:26 Blood Culture - Final
Blood/Venous S aureus-Methicillin Sensitive
Gram Stain - Final
07/16/23 10:37 Blood Culture - Final
Blood/Venous S aureus-Methicillin Sensitive
Gram Stain - Final
07/19/23 07:24 Blood Culture - Preliminary
Blood/Venous S aureus-Methicillin Sensitive
Gram Stain - Preliminary
07/14/23 20:01 Blood Culture - Final
Blood/Venous S aureus-Methicillin Sensitive
Gram Stain - Final
07/14/23 20:01 Blood Culture - Final
Blood/Venous S aureus-Methicillin Sensitive
Gram Stain - Final
07/14/23 20:01 Urine Culture - Final
Urine No Significant Growth
07/14/23 20:07 Influenza Types A & B (ELIANA) - Final
Nasal Swab Negative for Influenza A & B, NAAT
Negative results must be combined with clinical observations
and patient history.
Nucleic Acid Amplification test (NAAT)performed on the
[employer] platform.
Imaging:
07/18/2023 ECHO (HAN): Dilated RV with reduced systolic function. Moderate mitral regurgitation. There is an echodensity had a 2 measuring 0.5 x 0.7 cm which may be a vegetation or calcification. The patient is status post TAVR with well-seated
valve and mild paravalvular regurgitation. There is a mobile echo lucency approximately 0.3 x 0.3 cm on the aortic side at the tip of the TAVR cage.
07/16/2023 ECHO (TTE): Mild/moderate mitral regurgitation. TAVR in place. Severely elevated PASP. No evidence of endocarditis within the limits of this TTE.
07/14/2023 CT abdomen/pelvis without contrast: No significant acute abnormalities are identified in the abdomen or pelvis within the limits of this unenhanced CT. Please see full dictation for additional detail.
07/14/2023 CXR (2 view): Right basilar airspace disease noted. No overt pulmonary vascular congestion seen. Please see full dictation for additional detail. Film personally viewed.
[2023-07-24] MEDS: ANCEF 10 IV (15:03)
== END 2023-07-24 15:52 | disposition home health service (06) | DRG 871 ==
LOC: 3 WEST ACU 22:54
PROVIDERS: Internal Medicine; Specialist; Student in an Organized Health Care Education/Training Program; ADMITTING PHYSICIAN Internal Medicine; ATTENDING PHYSICIAN Internal Medicine; CONSULT PHYSICIAN Internal Medicine; EMERGENCY PHYSICIAN Emergency Medicine; FAMILY PHYSICIAN Family Medicine; OTHER PHYSICIAN Internal Medicine Infectious Disease; OTHER PHYSICIAN Specialist
PROC: 5A1D70Z Performance of Urinary Filtration, Intermittent, Less than 6 Hours Per Day (ICD-10-PCS; 2023-07-15)
DX: A41.01 Sepsis due to Methicillin susceptible Staphylococcus aureus (principal); G92.8 Other toxic encephalopathy; N18.6 End stage renal disease; J18.9 Pneumonia, unspecified organism; I33.0 Acute and subacute infective endocarditis; I50.32 Chronic diastolic (congestive) heart failure; I13.2 Hypertensive heart and chronic kidney disease with heart failure and with stage 5 chronic kidney disease, or end stage renal disease; I48.21 Permanent atrial fibrillation; F03.A3 Unspecified dementia, mild, with mood disturbance; F11.20 Opioid dependence, uncomplicated; N25.81 Secondary hyperparathyroidism of renal origin; E87.1 Hypo-osmolality and hyponatremia; F05 Delirium due to known physiological condition; E78.00 Pure hypercholesterolemia, unspecified; D50.9 Iron deficiency anemia, unspecified; M54.9 Dorsalgia, unspecified; G89.4 Chronic pain syndrome; G47.33 Obstructive sleep apnea (adult) (pediatric); E83.39 Other disorders of phosphorus metabolism; I08.3 Combined rheumatic disorders of mitral, aortic and tricuspid valves; E11.22 Type 2 diabetes mellitus with diabetic chronic kidney disease; F32.A Depression, unspecified; Z11.52 Encounter for screening for COVID-19; Z87.891 Personal history of nicotine dependence; Z99.2 Dependence on renal dialysis; Z79.4 Long term (current) use of insulin; Z79.84 Long term (current) use of oral hypoglycemic drugs; Z79.01 Long term (current) use of anticoagulants; Z88.8 Allergy status to other drugs, medicaments and biological substances; Z95.2 Presence of prosthetic heart valve; Z91.81 History of falling; Z90.49 Acquired absence of other specified parts of digestive tract; Z87.19 Personal history of other diseases of the digestive system
CPT/HCPCS: 71046; 74176; 80048; 80051; 80053; 80202; 81003; 81015; 82962; 83036; 83605; 84145; 85014; 85018; 85025; 85027; 85652; 86140; 87040; 87086; 87147; 87150; 87186; 87205; 87502; 87811; 93005; 93306; 93312; 93320; 93325; 96361; 96365; 96375; 97110; 97116; 97162; 97166; 97530; 99291; G0257; J0885; P9047; Q9950

== ENCOUNTER → 2023-08-15 13:13 | Outpatient (REF) | payer MEDICARE, OTHER, SELFPAY | LOC: RAD 13:13 | PROVIDERS: ATTENDING PHYSICIAN Registered Nurse; FAMILY PHYSICIAN Family Medicine; OTHER PHYSICIAN Internal Medicine | DX: I73.9 Peripheral vascular disease, unspecified (principal); R78.81 Bacteremia; Z95.2 Presence of prosthetic heart valve; R93.1 Abnormal findings on diagnostic imaging of heart and coronary circulation | CPT/HCPCS: 93308; 93321; 93325; 93922; 93925 ==

== ENCOUNTER 2023-09-05 05:19 | Emergency (ER) | payer MEDICARE, OTHER, SELFPAY ==
[2023-09-05 05:27] VITALS: BP 150/72
[2023-09-05 05:46] VITALS: BP 151/87
[2023-09-05 06:00] VITALS: BP 165/68
[2023-09-05 06:09] VITALS: BMI 32.7
--- NOTE | 2023-09-05 06:26 | ED.GENMED ---
History of Present Illness
General
Chief Complaint: Fall
Source: patient and family
Exam Limitations: none
Time Seen by Provider: 09/05/23 06:01
Travel History
Have you had any contact with someone who has COVID-19?: No
Do you have any symptoms of coronavirus? Fever > 100 degrees, chills, cough, shortness of breath, sore throat, loss of taste or smell, muscle aches, or headache?: No
History of Present Illness
History of Present Illness:
83-year-old male fell twice overnight. History of falls. No history of syncope. First episode was about 11:00 last night. No significant trauma. Second episode was few hours ago. was immediately there and he was awake. He was not using
his walker which she was supposed to be doing. He hit his left eyebrow on the corner of a piece of furniture. Mostly complaining of left knee pain. Able to get up and ambulate. Last tetanus is unknown. Patient is anticoagulated.
Past History
Past History
ED Past Medical History: Arrthythmia (Atrial fib), CHF, HTN, Hypercholesterolemia, IDDM, Renal failure (Dialysis -W-) and Other (Mild dementia, ESRD, Pleural effusion, Diverticulitis, Cellulitis, Iron def anemia)
ED Past Surgical History: Appendectomy
Social History
Tobacco: Former smoker
Alcohol: Occasional
Drug: None
Personal:
Living: with family
Employment: Retired
Family History
Family History: Other (Noncontributory)
Review of Systems
Review of Systems
All Other Systems: Not applicable
Respiratory: Reports no symptoms
Cardiac: Reports no symptoms
ABD/GI: Reports no symptoms
Phy Exam
Physical Exam
Physical Exam:
TRAUMA EXAM:
VITAL SIGNS: Vital signs reviewed, cooperative
DISTRESS: No active disease
EYES: Pupils reactive, left upper eyebrow laceration approximately 3 cm. Somewhat jagged. Moderate swelling.
NOSE: No deformity or epistaxis
FACE AND SCALP: No scalp trauma, external canals no blood
NECK: Supple nontender
BACK: Back nontender, pelvis stable to compression
RESPIRATORY: No distress, breath sounds normal, no tender chest wall
CARDIAC: No murmur, pulses equal and strong
ABDOMEN: Soft nontender bowel sounds normal
SKIN: Multiple abrasions mostly to the left knee. Some abrasions to the right knee.. Multiple episodes of mild ecchymosis to both upper extremities.
EXTREMITIES: Mild tenderness over the left patella. Able to straight leg raise. Knee is stable. All other extremities negative. AV fistula left upper arm with good thrill
NEUROLOGICAL: Alert, oriented, no motor deficits
PSYCH: Mood affect normal
Course
Orders/Labs/Results
Orders:
Orders
09/05/23 06:10
Tetanus/Diphth/Acelpertussis [Adacel] 0.5 ml IM .ONCE ONE
09/05/23 06:11
Electrocardiogram (*1) Urgent
Reason for Study: Other
Other Reason for Exam: trauma
CT Cervical Spine W/o Iv Contr Urgent
Comment:
Reason For Exam: trauma
CT Head W/o Iv Contrast Urgent
Comment:
Reason For Exam: trauma left foreheas
Cardiac Monitoring- Treatment ONCE
EKG- Treatment ONCE
09/05/23 06:28
Knee, Left 4 or More Views [CR Knee - Left 4 Or More View*] Urgent
Comment:
Reason For Exam: trauma
09/05/23 07:34
Basic Metabolic Panel Urgent
Complete Blood Count/With Diff Urgent
09/05/23 07:37
Acetaminophen [Tylenol] 1,000 mg PO NOW STA
Abnormal Lab Results
09/05/23
07:34
WBC 12.5 H 10^3/uL
(4.8-10.8)
RBC 3.75 L 10^6/uL
(4.70-6.10)
Hgb 11.2 L g/dL
(13.0-18.0)
Hct 34.8 L %
(39.0-52.0)
MCHC 32.2 L g/dL
(33.0-37.0)
RDW 22.8 H %
(11.5-14.5)
Abs Immat Gran (auto) 0.1 H 10^3/uL
(0-0.05)
Absolute Neuts (auto) 10.2 H 10^3/uL
(1.4-6.5)
Absolute Lymphs (auto) 0.4 L 10^3/uL
(1.2-3.4)
Absolute Monos (auto) 1.7 H 10^3/uL
(0.1-0.6)
Neutrophils % 81.5 H %
(42.2-75.2)
Lymphocytes % 3.4 L %
(20.5-51.1)
Monocytes % 13.8 H %
(1.7-9.3)
Sodium 133 L mmol/L
(135-145)
Chloride 94 L mmol/L
(98-107)
BUN 40 H mg/dl
(9-20)
Creatinine 3.3 H mg/dL
(0.7-1.3)
Glucose 179 H mg/dl
(70-99)
09/05/23 07:34
09/05/23 07:34
Vital Signs
Initial and Last Documented VS:
Initial Vital Signs
Temp Pulse Resp BP Pulse Ox
98.3 F 80 16 150/72 97
09/05/23 05:27 09/05/23 05:27 09/05/23 05:27 09/05/23 05:27 09/05/23 05:27
Last Documented Vital Signs
Temp Pulse Resp BP Pulse Ox
98.3 F 80 21 153/76 95
09/05/23 05:27 09/05/23 07:30 09/05/23 07:30 09/05/23 07:01 09/05/23 07:02
Procedures
Laceration Closure
Left Upper Eye brow:
Status of Wound: clean
Size of Wound in cm: 3
Description of Wound Edges: ragged
Preparation: cleaned with saline
Anesthesia: 1% Lidocaine with epi
Revision/Debridement: routine- no revision
Wound exploration: explored to base- no FB
Type of Closure: single layer closure
Skin Closure Material: 5-0 nylon
Number of sutures: 5
*Pulse Oximetry
Patient hypoxic: no
*EKG
Interpreted by ED Provider?: Yes
Interpretation: abnormal
Comparison EKG: no changes
Heart Rate: 76
Rate: normal
Rhythm: a-fib
Banks: normal axis
Interval: normal interval
QRS Pattern: normal QRS
Ischemia: non-specific ST changes
*Heel Coverer Interpretation
Rate: normal
Interpretation: abnormal
Heart Rate: 77
Rhythm: a-fib
*Critical Care Note
Total Time (30-74mins, 75-104mins- exclusive of procedures): Not Applicable
Update Note
Update Note:
All stable. Highly doubt syncope. Discussed placement because of frequent falls and medical issues. Family would prefer to have him at home. Discharged to follow-up
ED Attending Note
-
Portions of this chart may have been created with voice recognition software.� Occasional wrong word or��sound alike� substitutions may have occurred due to the inherent limitations of voice recognition software.
Discharge Plan
Departure
Patient Disposition: Home (Routine Discharge)
Date of Disposition: 09/05/23
Time of Disposition: 08:34
Patient with high blood pressure during this ER visit?: Yes
Discharge Problem:
Frequent falls, Head injury, Anticoagulated, Eyebrow laceration, E multiple contusions/abrasions, Chronic renal failure
Instructions: Head Injury in Adults (DC), Contusion (DC), Laceration Repair With Stitches (DC), Skin Abrasions (DC), BLOOD PRESSURE, Fall Prevention for Older Adults
Prescriptions:
No Action
cyanocobalamin (vitamin B-12) 1,000 MCG tablet
1,000 mcg PO DAILY
ezetimibe 10 MG tablet
10 mg PO DAILY
oxycodone 10 MG tablet
10 mg PO Q8H
Patient Comments:
04/15/2023, patient's spouse states that he takes this medication with 1,000 mg of Acetaminophen Q8H.
Rx Instructions:
04/15/2023, could not find this medication in PDMP records.
acetaminophen 500 mg Tablet
1,000 mg PO Q8H
Patient Comments:
04/15/2023, patient's family states that patient takes this medication with one oxycodone 10 mg tablet Q8H.
metoprolol succinate 25 mg Tablet Extended Release 24 Hr
25 mg PO HS
memantine [Namenda] 5 mg Tablet
5 mg PO BID
insulin aspart U-100 [Novolog U-100 Insulin aspart] 100 unit/mL Solution
0 sliding scale dose SC TIDPRN PRN (Reason: diabetes)
Patient Comments:
15 units given last evening
duloxetine 30 mg capsule,delayed release(DR/EC)
30 mg PO DAILY
Eliquis 2.5 MG tablet
2.5 mg PO BID
cholecalciferol (vitamin D3) 50 mcg (2,000 unit) Tablet
50 mcg PO DAILY
docusate sodium [Stool Softener] 100 mg Capsule
200 mg PO BID
Ozempic 0.25 mg or 0.5 mg (2 mg/3 mL) Pen Injector
0.25 mg SC QWEEK
pantoprazole [Protonix] 40 mg tablet,delayed release (DR/EC)
40 mg PO Q12H Qty: 60 0RF
amiodarone 200 mg Tablet
200 mg PO DAILY
Auryxia 210 mg iron Tablet
210 mg PO QPM
cefazolin 10 gram Recon Soln
See Rx Instructions .ROUTE .COMPLEX Qty: 100 0RF
Rx Instructions:
2 gm after HD Mon-Wed and 3 gm after HD Fri
Referrals:
Kelsy Garibay MD [Family Provider] - Follow up in 2-3 days
Activity Restrictions/Additional Instructions:
Suture removal in about a week
Interventions
Interventions:
*Risk Screen - Suicide Last Done: 09/05/23 05:27
*General Assessment Last Done: 09/05/23 06:09
*Neglect/Abuse Screening Last Done: 09/05/23 05:27
ED- Fall Risk Assessment Last Done: 09/05/23 06:09
*ED COVID-19 Vaccine History Last Done: 09/05/23 05:27
ED-Musculoskeletal Assessment Last Done: 09/05/23 06:09
ED- Neurological Assessment Last Done: 09/05/23 06:09
ED-Skin Assessment Last Done: 09/05/23 06:09
Discharge Date and Time
Print Language: ICELANDIC
[2023-09-05 07:01] VITALS: BP 153/76
[2023-09-05] MEDS: ADACEL 0.5 ML IM (07:09)
[2023-09-05 07:41] LABS: % Basophils 0.3 % (0-2); % Eosinophils 0.6 % (0-6); % Immature Granulocytes 0.4 % (0-0.5); % Lymphocytes 3.4 % (20.5-51.1); % Monocytes 13.8 % (1.7-9.3); % Neutrophils 81.5 % (42.2-75.2); Absolute Eosinophils 0.1 10^3/uL (0-0.7); Absolute Immature Granulocytes 0.1 10^3/uL (0-0.05); Absolute Lymphocytes 0.4 10^3/uL (1.2-3.4); Absolute Monocytes 1.7 10^3/uL (0.1-0.6); Absolute Neutrophils 10.2 10^3/uL (1.4-6.5); Hematocrit 34.8 % (39.0-52.0); Hemoglobin 11.2 g/dL (13.0-18.0); Mean Corp Hgb Conc. 32.2 g/dL (33.0-37.0); Mean Corpuscular Hgb 29.9 pg (27.0-31.0); Mean Corpuscular Volume 92.8 fL (80.0-94.0); Mean Platelet Volume 9.7 fL (7.4-10.4); Nucleated Red Blood Cells % 0 % (-); Platelet Count 209 10^3/uL (130-400); Red Blood Cell Count 3.75 10^6/uL (4.70-6.10); Red Cell Dist. Width 22.8 % (11.5-14.5); White Blood Cell Count 12.5 10^3/uL (4.8-10.8)
[2023-09-05] MEDS: TYLENOL 1000 MG PO (07:43)
[2023-09-05 07:56] LABS: Blood Urea Nitrogen 40 mg/dl (9-20); Calcium 8.8 mg/dl (8.4-10.2); Carbon Dioxide 29 mmol/L (22-30); Chloride 94 mmol/L (98-107); Estimated Creatinine Clearance 20 ml/min; Glucose 179 mg/dl (70-99); Sodium 133 mmol/L (135-145); eGFR 17.71
[2023-09-05 08:26] VITALS: BP 148/63
== END 2023-09-05 08:53 | disposition home or self-care (01) ==
LOC: EMR 05:19
PROVIDERS: EMERGENCY PHYSICIAN Emergency Medicine; FAMILY PHYSICIAN Family Medicine
DX: S01.112A Laceration without foreign body of left eyelid and periocular area, initial encounter (principal); S80.212A Abrasion, left knee, initial encounter; S80.211A Abrasion, right knee, initial encounter; S09.90XA Unspecified injury of head, initial encounter; W19.XXXA Unspecified fall, initial encounter; N18.6 End stage renal disease; Z79.01 Long term (current) use of anticoagulants; Z99.2 Dependence on renal dialysis; Z23 Encounter for immunization; Z87.891 Personal history of nicotine dependence
CPT/HCPCS: 99285; 12013; 90471; 70450; 72125; 73564; 80048; 85025; 90715; 93005

== ENCOUNTER 2023-09-10 18:47 | Inpatient (IN) | payer MEDICARE, OTHER, SELFPAY ==
[2023-09-10] VITALS (22 sets, daily range): BP systolic 84–148; BP diastolic 45–86; BMI 32.9; BMI 32.6
--- NOTE | 2023-09-10 11:38 | ED.GENMED ---
History of Present Illness
<Jennifer Estrada PA-C - Last Filed: 09/10/23 23:23>
General
Chief Complaint: Head Injury
Source: spouse and family
Exam Limitations: none
Time Seen by Provider: 09/10/23 11:13
Nursing documentation reviewed up to this point in time: agreed with
Travel History
Have you had any contact with someone who has COVID-19?: No
Do you have any symptoms of coronavirus? Fever > 100 degrees, chills, cough, shortness of breath, sore throat, loss of taste or smell, muscle aches, or headache?: No
History of Present Illness
History of Present Illness:
Patient is an 83-year-old male with history dementia, A-fib on Eliquis, CHF, hypertension, hyperlipidemia, diabetes, CKD on dialysis presenting for evaluation of increasing confusion, abdominal pain with worsening bruising status post fall 5 days
ago. Patient was seen in our emergency department last 09/05/23 following mechanical fall at home. Imaging of head and neck were negative at that time. Eyebrow laceration was repaired and patient was discharged home.
Patient's son states that since discharge he has noticed worsening confusion. He is having difficulty following basic commands. Patient also started complaining of abdominal pain a few days ago. Bruising on his face has become significantly worse
and is now covering most of his face and neck. He was seen by family practitioner earlier today for evaluation and was referred to emergency department for further evaluation
Patient is unable to fully contribute to history due to dementia. When asked- he denies any specific pain. He denies any headache.
Patient receives dialysis Saturday, Saturday, Saturday. Most recent dialysis was yesterday. He is on Eliquis but has not taken it since Saturday due to scheduled procedure that is since been canceled
Past History
<Jennifer Estrada PA-C - Last Filed: 09/10/23 23:23>
Past History
ED Past Medical History: Arrthythmia (Atrial fib), CHF, HTN, Hypercholesterolemia, IDDM, Renal failure (Dialysis M-W-F) and Other (Mild dementia, ESRD, Pleural effusion, Diverticulitis, Cellulitis, Iron def anemia)
ED Past Surgical History: Appendectomy
Social History
Tobacco: Former smoker
Alcohol: Occasional
Drug: None
Personal:
Living: with family
Employment: Retired
Family History
Family History: Other (Noncontributory)
Phy Exam
<Jennifer Estrada PA-C - Last Filed: 09/10/23 23:23>
Physical Exam
Physical Exam:
General: Awake, alert
Vitals: Mildly hypertensive, otherwise VSS; afebrile
HEENT: Normocephalic, significant bruising to face and anterior neck, mild scleral icterus bilaterally, pupils equal round reactive to light bilaterally, protecting airway
Neck: Trachea midline, significant ecchymosis on anterior neck, no cervical spine tenderness or midline spinal tenderness
CV: RRR, heart sounds normal
Resp: No evidence of respiratory distress, lungs clear bilaterally, right lateral rib tenderness without crepitus or obvious step-off
Abd: Tender in upper abdomen, small ecchymosis in epigastric area
Extremities: Abrasions to bilateral knees with mild swelling of right knee, healing abrasion of left shoulder
Neuro: alert and oriented x [address], not time; speech normal, grossly intact
Psych: Appropriate affect
Skin: Jaundice, significant ecchymoses on face and neck, well-healing laceration on left eyebrow with sutures in place, healing skin tear on left shoulder
Course
<Jennifer Estrada PA-C - Last Filed: 09/10/23 23:23>
Orders/Labs/Results
Orders:
Orders
09/10/23 11:50
[address] Facial Bones W/o Iv Contras Urgent
Comment:
Reason For Exam: worsening facial bruising s/p fall
CT Head W/o Iv Contrast Urgent
Comment:
Reason For Exam: confusion s/p fall
09/10/23 11:51
CT Chest/abd/pel W Iv Cont Urgent
Reason For Exam: rib pain R>L s/p fall,trauma, order combined
09/10/23 11:53
Urinalysis Reflex To Culture Urgent
09/10/23 12:52
Basic Metabolic Panel Urgent
Complete Blood Count/With Diff Urgent
PTT Urgent
Prothrombin Time Urgent
09/10/23 13:41
Haloperidol Lactate [Haldol] 1 mg IV NOW STA
Lorazepam [Ativan] 1 mg IV NOW STA
09/10/23 13:42
Electrocardiogram (*1) Urgent
Reason for Study: QTc Monitoring
EKG- Treatment ONCE
09/10/23 13:52
Bedside Glucose- Treatment ONCE
09/10/23 13:57
Lorazepam [Ativan] 1 mg IV NOW STA
09/10/23 14:03
Haloperidol Lactate [Haldol] 1 mg IV NOW STA
09/10/23 14:41
IRAD CONSULT Urgent
Consulting Provider: Jero Mills
Was physician already notified: Yes
Reason for consult: lumbar puncture
09/10/23 14:42
Type+Screen Urgent
BBK Wristband Number:
Acetaminophen Urgent
Alcohol Urgent
Ammonia Urgent
Lactate Level [Lactic Acid] Urgent
Blood Culture Q30M
EVERT Source: Blood/Venous
Specimen Description:
Blood Culture Q30M
EVERT Source: Blood/Venous
Specimen Description:
09/10/23 Dinner
NPO
Allow oral meds: Yes
Allow clear liquids: Sips of Clears
09/10/23 15:04
Acetaminophen [Tylenol/Feverall] 650 mg RECTAL NOW STA
09/10/23 15:17
Comprehensive Metabolic Panel Stat
Direct Bilirubin Stat
Comment: ADD ON
Lyme PCR, DNA [S] Urgent
09/10/23 15:23
INFECTIOUS DISEASE CONSULT Routine
Consulting Provider: Stephanie Hunt
Was physician already notified: Yes
09/10/23 15:50
Midazolam HCl [Versed] 2 mg .ROUTE .STK-MED ONE
09/10/23 15:53
GASTROINTESTINAL CONSULT Urgent
Consulting Provider: Jorge Rodriguez
Was physician already notified: Yes
09/10/23 16:20
CSF Cell Count Stat
Date Specimen was Collected: 09/10/23
Time Specimen was Collected: 16:25
CSF Cell Count Urgent
Date Specimen was Collected: 09/10/23
Time Specimen was Collected: 16:25
CSF Tube Number: 1
Comment: Tube #1
Spinal Fluid Glucose Urgent
Date Specimen was Collected: 09/10/23
Time Specimen was Collected: 16:25
Spinal Fluid Protein Urgent
Date Specimen was Collected: 09/10/23
Time Specimen was Collected: 16:25
CSF Culture with Gram Stain Urgent
EVERT Source: Csf
Specimen Description:
Date Specimen was Collected: 09/10/23
Time Specimen was Collected: 16:25
Meningitis Panel, CSF by PCR Urgent
EVERT Source: Csf
Specimen Description:
09/10/23 17:22
Piperacillin/Tazo 3.375 Gram [Zosyn] 3.375 gram in 50 ml IV NOW
09/10/23 17:29
COVID-19 Antigen Urgent
Source: Nasal Swab
Influenza A+B Rapid Molecular Urgent
EVERT Source: Nasal Swab
Specimen Description:
09/10/23 17:31
Vancomycin [Vancocin] 1,500 mg 0.9% Sodium Chloride [Nss] 20 ml 0.9% Sodium Chloride 250 ml [Nss] 250 ml IV NOW
09/10/23 18:16
Abdominal Ltd US [US Abdomen Limited] Urgent
Comment:
Reason For Exam: abd pain elevated bili
09/10/23 18:25
Admit/Transfer Patient As Directed
Co-Sign Provider:
Level of Care: Inpatient admission
Assign to:: IMU- Intermediate Care
Physician / Group: yovana
Diagnosis: sepsis
Reason for Hospitalization: sepsis
Expected length of stay greater than two midnights?: Yes
ELOS- Estimated Length of Stay in days: 2
I certify the patient meets the requirements for IP care: Yes
09/10/23 18:26
Code Status As Directed
Resuscitation Status: Full Code
09/10/23 18:42
Add On- LAB Urgent
Tests Added?: DIRECT BILI
09/10/23 18:45
Haloperidol Lactate [Haldol] 1 mg IV Q4HPRN PRN
09/10/23 19:15
0.9% Sodium Chloride 1000 ml [Nss] 1,000 ml IV 80 mls/hr
09/10/23 19:46
Acetaminophen [Tylenol] 1,000 mg PO DAILYPRN PRN
Acetaminophen [Tylenol] 650 mg PO Q4HPRN PRN
betamethasone, augmented 1 applic TOPICAL BID PRN
09/10/23 19:46
Activity As Directed
Activity Level: As Tolerated
Pneumatic Compression Sleeves As Directed
Type: Knee high
Vital Signs As Directed
Frequency: Per unit guidelines
DX Deep Vein Thrombosis Video Routine
09/10/23 19:55
D-Dimer Routine
Fibrinogen Routine
Lactate Level [Lactic Acid] Q6H
09/10/23 20:00
Acetaminophen [Tylenol] 1,000 mg PO BID
Docusate Sodium [Colace] 200 mg PO BID
Memantine HCl [Namenda] 5 mg PO BID
Pantoprazole [Protonix] 40 mg PO Q12
VANCOMYCIN Pharmacy to Dose [VANCOCIN Pharmacy to Dose] 1 each Pharmacy To Prepare [Call Pharmacy To Prepare] 0 ml IV PER PROTOCOL
09/10/23 22:00
Amiodarone [Pacerone] 200 mg PO HS
Metoprolol Xl [Toprol Xl] 25 mg PO HS
09/11/23 06:00
Complete Blood Count/With Diff IN AM
Comprehensive Metabolic Panel IN AM
09/11/23 07:30
ferric citrate [Auryxia] 420 mg PO MoWeFr@0730,1630
09/11/23 08:00
Cholecalciferol (Vitamin D3) [VITAMIN D3 (cholecalciferol)] 50 mcg PO DAILY
Cyanocobalamin [Vitamin B-12] 1,000 mcg PO DAILY
Duloxetine Delayed Release [Cymbalta Delayed Release] 30 mg PO DAILY
09/12/23 07:30
ferric citrate [Auryxia] 420 mg PO SuTuThSa@0730,1130,1630
Abnormal Lab Results
09/10/23 09/10/23 09/10/23
12:52 13:53 14:42
WBC 30.8 H 10^3/uL
(4.8-10.8)
RBC 3.70 L 10^6/uL
(4.70-6.10)
Hgb 11.5 L g/dL
(13.0-18.0)
Hct 34.7 L %
(39.0-52.0)
MCH 31.1 H pg
(27.0-31.0)
RDW 23.2 H %
(11.5-14.5)
Abs Immat Gran (auto) 0.3 H 10^3/uL
(0-0.05)
Absolute Neuts (auto) 28.4 H 10^3/uL
(1.4-6.5)
Absolute Lymphs (auto) 0.3 L 10^3/uL
(1.2-3.4)
Absolute Monos (auto) 1.7 H 10^3/uL
(0.1-0.6)
Immature Gran % 1.0 H %
(0-0.5)
Neutrophils % 92.2 H %
(42.2-75.2)
Lymphocytes % 1.0 L %
(20.5-51.1)
PT 18.9 H Sec
(11.4-14.6)
APTT 37.5 H Sec
(23.4-35.0)
Sodium 131 L mmol/L
(135-145)
Chloride 93 L mmol/L
(98-107)
BUN 56 H mg/dl
(9-20)
Creatinine 4.0 H mg/dL
(0.7-1.3)
Glucose 239 H mg/dl
(70-99)
Lactic Acid 3.3 H mmol/L
(0.7-2.0)
Total Bilirubin
Direct Bilirubin
AST
Alkaline Phosphatase
CSF WBC
CSF Glucose
CSF Total Protein
Acetaminophen < 10 L ug/ml
(10-30)
POC Glucose 239 H mg/dl
(70-99)
09/10/23 09/10/23 09/10/23
15:17 16:20 16:20
WBC
RBC
Hgb
Hct
MCH
RDW
Abs Immat Gran (auto)
Absolute Neuts (auto)
Absolute Lymphs (auto)
Absolute Monos (auto)
Immature Gran %
Neutrophils %
Lymphocytes %
PT
APTT
Sodium
Chloride 90 L mmol/L
(98-107)
BUN 58 H mg/dl
(9-20)
Creatinine 4.3 H* mg/dL
(0.7-1.3)
Glucose 247 H mg/dl
(70-99)
Lactic Acid
Total Bilirubin 12.1 H mg/dl
(0.2-1.3)
Direct Bilirubin 10.1 H mg/dl
(0.0-0.4)
AST 82 H U/L
(17-59)
Alkaline Phosphatase 1105 H U/L
(38-126)
CSF WBC 15 H* mm^3 14 H* mm^3
(0-5) (0-5)
CSF Glucose 131 H mg/dl
(40-70)
CSF Total Protein 255 H mg/dl
(12-60)
Acetaminophen
POC Glucose
09/10/23 12:52
09/10/23 15:17
Vital Signs
Initial and Last Documented VS:
Initial Vital Signs
Temp Pulse Resp BP Pulse Ox
99 F 94 16 141/58 98
09/10/23 10:51 09/10/23 10:51 09/10/23 10:51 09/10/23 10:51 09/10/23 10:51
Last Documented Vital Signs
Temp Pulse Resp BP Pulse Ox
100.4 F H 103 28 138/73 94
09/10/23 20:40 09/10/23 23:00 09/10/23 23:00 09/10/23 23:00 09/10/23 23:00
<Addison Rhodes MD - Last Filed: 09/10/23 15:05>
Orders/Labs/Results
Orders:
Orders
09/10/23 11:50
CT Facial Bones W/o Iv Contras Urgent
Comment:
Reason For Exam: worsening facial bruising s/p fall
CT Head W/o Iv Contrast Urgent
Comment:
Reason For Exam: confusion s/p fall
09/10/23 11:51
CT Chest/abd/pel W Iv Cont Urgent
Reason For Exam: rib pain R>L s/p fall,trauma, order combined
09/10/23 11:53
Urinalysis Reflex To Culture Urgent
09/10/23 12:52
Basic Metabolic Panel Urgent
Complete Blood Count/With Diff Urgent
PTT Urgent
Prothrombin Time Urgent
09/10/23 13:41
Haloperidol Lactate [Haldol] 1 mg IV NOW STA
Lorazepam [Ativan] 1 mg IV NOW STA
09/10/23 13:42
Electrocardiogram (*1) Urgent
Reason for Study: QTc Monitoring
EKG- Treatment ONCE
09/10/23 13:52
Bedside Glucose- Treatment ONCE
09/10/23 13:57
Lorazepam [Ativan] 1 mg IV NOW STA
09/10/23 14:03
Haloperidol Lactate [Haldol] 1 mg IV NOW STA
09/10/23 14:41
IRAD CONSULT Urgent
Consulting Provider: Jero Mills
Was physician already notified: Yes
Reason for consult: lumbar puncture
09/10/23 14:42
Type+Screen Urgent
BBK Wristband Number:
Acetaminophen Urgent
Alcohol Urgent
Ammonia Urgent
Lactate Level [Lactic Acid] Urgent
Blood Culture Q30M
EVERT Source: Blood/Venous
Specimen Description:
Blood Culture Q30M
EVERT Source: Blood/Venous
Specimen Description:
09/10/23 Dinner
NPO
Allow oral meds: Yes
Allow clear liquids: Sips of Clears
09/10/23 15:04
Acetaminophen [Tylenol/Feverall] 650 mg RECTAL NOW STA
09/10/23 15:17
Comprehensive Metabolic Panel Stat
Direct Bilirubin Stat
Comment: ADD ON
Lyme PCR, DNA [S] Urgent
09/10/23 15:23
INFECTIOUS DISEASE CONSULT Routine
Consulting Provider: Stephanie Hutn
Was physician already notified: Yes
09/10/23 15:50
Midazolam HCl [Versed] 2 mg .ROUTE .STK-MED ONE
09/10/23 15:53
GASTROINTESTINAL CONSULT Urgent
Consulting Provider: Jorge Rodriguez
Was physician already notified: Yes
09/10/23 16:20
CSF Cell Count Stat
Date Specimen was Collected: 09/10/23
Time Specimen was Collected: 16:25
CSF Cell Count Urgent
Date Specimen was Collected: 09/10/23
Time Specimen was Collected: 16:25
CSF Tube Number: 1
Comment: Tube #1
Spinal Fluid Glucose Urgent
Date Specimen was Collected: 09/10/23
Time Specimen was Collected: 16:25
Spinal Fluid Protein Urgent
Date Specimen was Collected: 09/10/23
Time Specimen was Collected: 16:25
CSF Culture with Gram Stain Urgent
EVERT Source: Csf
Specimen Description:
Date Specimen was Collected: 09/10/23
Time Specimen was Collected: 16:25
Meningitis Panel, CSF by PCR Urgent
EVERT Source: Csf
Specimen Description:
09/10/23 17:22
Piperacillin/Tazo 3.375 Gram [Zosyn] 3.375 gram in 50 ml IV NOW
09/10/23 17:29
COVID-19 Antigen Urgent
Source: Nasal Swab
Influenza A+B Rapid Molecular Urgent
EVERT Source: Nasal Swab
Specimen Description:
09/10/23 17:31
Vancomycin [Vancocin] 1,500 mg 0.9% Sodium Chloride [Nss] 20 ml 0.9% Sodium Chloride 250 ml [Nss] 250 ml IV NOW
09/10/23 18:16
Abdominal Ltd US [US Abdomen Limited] Urgent
Comment:
Reason For Exam: abd pain elevated bili
09/10/23 18:25
Admit/Transfer Patient As Directed
Co-Sign Provider:
Level of Care: Inpatient admission
Assign to:: IMU- Intermediate Care
Physician / Group: yovana
Diagnosis: sepsis
Reason for Hospitalization: sepsis
Expected length of stay greater than two midnights?: Yes
ELOS- Estimated Length of Stay in days: 2
I certify the patient meets the requirements for IP care: Yes
09/10/23 18:26
Code Status As Directed
Resuscitation Status: Full Code
09/10/23 18:42
Add On- LAB Urgent
Tests Added?: DIRECT BILI
09/10/23 18:45
Haloperidol Lactate [Haldol] 1 mg IV Q4HPRN PRN
09/10/23 19:15
0.9% Sodium Chloride 1000 ml [Nss] 1,000 ml IV 80 mls/hr
09/10/23 19:46
Acetaminophen [Tylenol] 1,000 mg PO DAILYPRN PRN
Acetaminophen [Tylenol] 650 mg PO Q4HPRN PRN
betamethasone, augmented 1 applic TOPICAL BID PRN
09/10/23 19:46
Activity As Directed
Activity Level: As Tolerated
Pneumatic Compression Sleeves As Directed
Type: Knee high
Vital Signs As Directed
Frequency: Per unit guidelines
DX Deep Vein Thrombosis Video Routine
09/10/23 19:55
D-Dimer Routine
Fibrinogen Routine
Lactate Level [Lactic Acid] Q6H
09/10/23 20:00
Acetaminophen [Tylenol] 1,000 mg PO BID
Docusate Sodium [Colace] 200 mg PO BID
Memantine HCl [Namenda] 5 mg PO BID
Pantoprazole [Protonix] 40 mg PO Q12
VANCOMYCIN Pharmacy to Dose [VANCOCIN Pharmacy to Dose] 1 each Pharmacy To Prepare [Call Pharmacy To Prepare] 0 ml IV PER PROTOCOL
09/10/23 22:00
Amiodarone [Pacerone] 200 mg PO HS
Metoprolol Xl [Toprol Xl] 25 mg PO HS
09/11/23 06:00
Complete Blood Count/With Diff IN AM
Comprehensive Metabolic Panel IN AM
09/11/23 07:30
ferric citrate [Auryxia] 420 mg PO MoWeFr@0730,1630
09/11/23 08:00
Cholecalciferol (Vitamin D3) [VITAMIN D3 (cholecalciferol)] 50 mcg PO DAILY
Cyanocobalamin [Vitamin B-12] 1,000 mcg PO DAILY
Duloxetine Delayed Release [Cymbalta Delayed Release] 30 mg PO DAILY
09/12/23 07:30
ferric citrate [Auryxia] 420 mg PO SuTuThSa@0730,1130,1630
Abnormal Lab Results
09/10/23 09/10/23 09/10/23
12:52 13:53 14:42
WBC 30.8 H 10^3/uL
(4.8-10.8)
RBC 3.70 L 10^6/uL
(4.70-6.10)
Hgb 11.5 L g/dL
(13.0-18.0)
Hct 34.7 L %
(39.0-52.0)
MCH 31.1 H pg
(27.0-31.0)
RDW 23.2 H %
(11.5-14.5)
Abs Immat Gran (auto) 0.3 H 10^3/uL
(0-0.05)
Absolute Neuts (auto) 28.4 H 10^3/uL
(1.4-6.5)
Absolute Lymphs (auto) 0.3 L 10^3/uL
(1.2-3.4)
Absolute Monos (auto) 1.7 H 10^3/uL
(0.1-0.6)
Immature Gran % 1.0 H %
(0-0.5)
Neutrophils % 92.2 H %
(42.2-75.2)
Lymphocytes % 1.0 L %
(20.5-51.1)
PT 18.9 H Sec
(11.4-14.6)
APTT 37.5 H Sec
(23.4-35.0)
Sodium 131 L mmol/L
(135-145)
Chloride 93 L mmol/L
(98-107)
BUN 56 H mg/dl
(9-20)
Creatinine 4.0 H mg/dL
(0.7-1.3)
Glucose 239 H mg/dl
(70-99)
Lactic Acid 3.3 H mmol/L
(0.7-2.0)
Total Bilirubin
Direct Bilirubin
AST
Alkaline Phosphatase
CSF WBC
CSF Glucose
CSF Total Protein
Acetaminophen < 10 L ug/ml
(10-30)
POC Glucose 239 H mg/dl
(70-99)
09/10/23 09/10/23 09/10/23
15:17 16:20 16:20
WBC
RBC
Hgb
Hct
MCH
RDW
Abs Immat Gran (auto)
Absolute Neuts (auto)
Absolute Lymphs (auto)
Absolute Monos (auto)
Immature Gran %
Neutrophils %
Lymphocytes %
PT
APTT
Sodium
Chloride 90 L mmol/L
(98-107)
BUN 58 H mg/dl
(9-20)
Creatinine 4.3 H* mg/dL
(0.7-1.3)
Glucose 247 H mg/dl
(70-99)
Lactic Acid
Total Bilirubin 12.1 H mg/dl
(0.2-1.3)
Direct Bilirubin 10.1 H mg/dl
(0.0-0.4)
AST 82 H U/L
(17-59)
Alkaline Phosphatase 1105 H U/L
(38-126)
CSF WBC 15 H* mm^3 14 H* mm^3
(0-5) (0-5)
CSF Glucose 131 H mg/dl
(40-70)
CSF Total Protein 255 H mg/dl
(12-60)
Acetaminophen
POC Glucose
09/10/23 12:52
09/10/23 15:17
Vital Signs
Temp: 103.1 F
Initial and Last Documented VS:
Initial Vital Signs
Temp Pulse Resp BP Pulse Ox
99 F 94 16 141/58 98
09/10/23 10:51 09/10/23 10:51 09/10/23 10:51 09/10/23 10:51 09/10/23 10:51
Last Documented Vital Signs
Temp Pulse Resp BP Pulse Ox
100.4 F H 103 28 138/73 94
09/10/23 20:40 09/10/23 23:00 09/10/23 23:00 09/10/23 23:00 09/10/23 23:00
<Jennifer Estrada PA-C - Last Filed: 09/10/23 23:23>
MDM/Problems Addressed
Differential Diagnosis Includes:
Facial fracture, intraparenchymal hemorrhage, nasal fracture; rib fracture, pneumothorax, pulmonary contusion, intra-abdominal hemorrhage, abdominal contusion, pancreatitis, cholecystitis, cholelithiasis, splenic laceration, liver laceration;
anemia, hepatic encephalopathy, meningitis
MDM/Problems Addressed:
Patient is a 83 year old male with history as documented presenting for increasing confusion and abdominal pain along with worsening facial bruising 5 days s/p fall. Patient has stable vitals signs, afebile on initial exam. Physical exam as
documented above. Concern for traumatic injury. Given anticoagulation and recent fall with worsening pain will get CT head, facial bones, chest, and abdomen/pelvis. Will check basic labs, coags.
Patient became acutely agitated prior to CT scan where he was sedated with medical management. CT scan with no initial evidence of acute traumatic injury. Labs reviewed. Significant leukocytosis of 30.8 with 92% neutrophils. Hgb stable at 11.7. CMP
with what appears to be baseline renal function. Significant elevated in bilirubin to 12.0. While thia may be attributable to hemolysis from bruising s/p fall - also considered possibility of cholangitis given AMS. Will check with GI - order direct
bilirubin. Will check lactic, blood cultures. Patient remains very altered. Will check ammonia level.
Rectal temp obtained by RN. Temp of 103.3. Will give tylenol.
At this point- suspect sepsis of unknown source. Will initiate broad spectrum antibiotics. Will check catheterized urine specimen. Given suspected sepsis with no origin - will proceed with LP by interventional radiology. Admit to hospitalist for
further management. Both ID and GI consulted.
Chronic conditions affecting care:
Dementia, atrial fibrillation on Eliquis, hypertension, ESRD on dialysis
Acute Exacerbation and/or Progression of Chronic Illness:
Sepsis unknown source
<Jennifer Estrada PA-C - Last Filed: 09/10/23 23:23>
*Radiology
Radiology exam reviewed: preliminary read by ED provider and radiology read reviewed
*Pulse Oximetry
Patient hypoxic: no
*EKG
Interpreted by ED Provider?: Yes
EKG Intrepretation Date: 09/10/23
Interpretation: normal
Comparison EKG: changes noted
Heart Rate: 117
Rate: tachycardiac
Rhythm: a-fib
Ischemia: non-specific ST changes
*Critical Care Note
Total Time (30-74mins, 75-104mins- exclusive of procedures): Not Applicable
<Jennifer Estrada PA-C - Last Filed: 09/10/23 23:23>
Patient Management
Discussion with other providers: Hospitalist, Line Out Worker (Interventional radiology and GI) and Radiologist
ED Attending Note
<Jennifer Estrada PA-C - Last Filed: 09/10/23 23:23>
-
Portions of this chart may have been created with voice recognition software.� Occasional wrong word or��sound alike� substitutions may have occurred due to the inherent limitations of voice recognition software.
<Addison Rhodes MD - Last Filed: 09/10/23 15:05>
ED Attending Note
Patient seen and examined by attending physician: Yes
ED Attending Note:
HPI: 83-year-old male with a past medical history of hypertension, atrial fibrillation on Eliquis, congestive heart failure, insulin-dependent diabetes, ESRD on dialysis (M// schedule, had dialysis yesterday) who presents to the emergency
department for evaluation of worsening abdominal and chest wall pain as well as worsening facial bruising. Patient was seen in this emergency room 09/05/2023 after mechanical fall from ground-level with head trauma. He had a CT of his head and
cervical spine as well as x-rays of the all which were unremarkable. He had a laceration over the left eyebrow which was repaired. Over the past 5 days patient has had increasing and significant facial bruising and bruising in the anterior neck.
He has been having trouble sleeping because he has been complaining of pain in his upper abdomen and ribs. He has started becoming increasingly confused and jaundiced. Saw primary doctor in the office today and was referred to the emergency room
for assessment. He is on Eli but this was held starting Saturday in anticipation of an angiogram of his legs with Dr. Daniels; angiogram has since been rescheduled.
ROS: Positive for chest/rib pain, abdominal pain; negative for headache, neck pain, back pain, fever, chills
Physical exam:
General: Awake, alert
Head: Normocephalic, significant facial ecchymosis and healing laceration of the left eyebrow
Eyes: Conjunctiva normal, pupils equal round and reactive to light bilaterally, mild scleral icterus
Throat: Airway intact, handling secretions
Neck: Trachea midline, supple without meningismus, no cervical spine tenderness
Lungs: Clear to auscultation bilaterally, no wheezing, rales, rhonchi
Heart: Regular rate and rhythm, no murmurs, gallops, or rubs; patient has significant right greater than left lateral rib tenderness but no crepitus or bruising
Abd: Soft, non distended, mild upper abdominal tenderness; small bruise epigastric region
Neuro: No gross deficits
Skin: Patient is jaundiced; he has significant facial ecchymosis and ecchymosis of the anterior neck; he has a well-healing laceration in the left eyebrow; abrasions to both knees
Extremities: Bilateral knee abrasions and swelling of the left knee; extremities warm and well-perfused
Differential diagnosis: Rib/abdominal pain--rib fractures, hemothorax, pneumothorax, liver laceration, splenic laceration, pancreatitis, gastritis, cholecystitis/cholelithiasis/choledocholithiasis; bruising of the face and neck�facial fractures,
nasal fracture; confusion�anemia, delayed head bleed, infection, hepatic encephalopathy
Medical decision makin-year-old male with extensive medical history presents for evaluation of worsening facial and neck bruising after a fall also complaining of rib pain and abdominal pain. Vitals and exam as above. Will place an IV send
labs including a CBC and a CMP, lipase, coags, type and screen. Will send for a CT head, facial bones, chest/abdomen/pelvis. Will monitor closely reassess after the above.
Chronic conditions affecting care: ESRD, A-fib requiring anticoagulation which complicates fall
Acute exacerbation or progression of chronic illness: N/A
History source: Patient, records, family
Data reviewed: Prior labs, prior imaging, prior notes in the medical record
Medications/testing considered: N/A
Social determinants of health: N/A
Discussion with other providers: interventional radiology, hospitalist
UPDATE:
Patient became very agitated after my initial assessment and prior to CT scan. For this reason he was dosed with Ativan and Haldol for sedation to facilitate CT scan.
Discussed with radiology after patient's initial CT scan�no gross signs of traumatic injury, final report to follow after more thorough assessment.
Patient's initial labs hemolyzed multiple times; I did place an ultrasound IV in the right forearm and repeat lab work sent off. His CBC shows a leukocytosis of 30.8. His hemoglobin is 11.5, stable. Normal platelets. He has 95% neutrophils. His
CMP hemolyzed but basic metabolic panel shows creatinine of 4.0 with elevated BUN�uremia could account for his confusion session yesterday. With his jaundice we need to resend for liver function tests. We are going to catheterize for urine as he
still does make a small amount of urine. He has no clear signs of pneumonia on his CT, awaiting final report but I think he warrants lumbar puncture if no other infectious source found and he has a significant change in mentation with a
leukocytosis of 30.8. Discussed with interventional radiology for lumbar puncture. At this point we are going to cover patient with broad-spectrum antibiotics upfront.
Discharge Plan
Departure
Patient Disposition: Admit
Date of Disposition: 09/10/23
Time of Disposition: 15:24
Admit to doctor: Gamal
Presentation/result/management discussed w/ accepting MD/DO: Hospitalist
Discharge Problem:
Sepsis, Altered mental status, Encephalopathy, Traumatic ecchymosis of face, Jaundice
Interventions
Interventions:
*Risk Screen - Suicide Last Done: 09/10/23 10:51
*General Assessment Last Done: 09/10/23 10:51
*Neglect/Abuse Screening Last Done: 09/10/23 10:51
ED- Fall Risk Assessment Last Done: 09/10/23 19:30
*ED COVID-19 Vaccine History Last Done: 09/10/23 11:37
ED- Neurological Assessment Last Done: 09/10/23 19:30
ED-Skin Assessment Last Done: 09/10/23 19:30
[2023-09-10 13:28] LABS: % Basophils 0.3 % (0-2); % Monocytes 5.5 % (1.7-9.3); % Neutrophils 92.2 % (42.2-75.2); Absolute Basophils 0.1 10^3/uL (0-0.2); Absolute Immature Granulocytes 0.3 10^3/uL (0-0.05); Absolute Lymphocytes 0.3 10^3/uL (1.2-3.4); Absolute Monocytes 1.7 10^3/uL (0.1-0.6); Absolute Neutrophils 28.4 10^3/uL (1.4-6.5); Hematocrit 34.7 % (39.0-52.0); Hemoglobin 11.5 g/dL (13.0-18.0); Mean Corp Hgb Conc. 33.1 g/dL (33.0-37.0); Mean Corpuscular Hgb 31.1 pg (27.0-31.0); Mean Corpuscular Volume 93.8 fL (80.0-94.0); Nucleated Red Blood Cells % 0 % (-); Platelet Count 214 10^3/uL (130-400); Red Cell Dist. Width 23.2 % (11.5-14.5); White Blood Cell Count 30.8 10^3/uL (4.8-10.8)
[2023-09-10 13:32] LABS: PT 18.9 Sec (11.4-14.6)
[2023-09-10 13:33] LABS: APTT 37.5 Sec (23.4-35.0)
[2023-09-10] MEDS: HALDOL 1 MG IV ×3 (13:46→23:28)
[2023-09-10] MEDS: ATIVAN 1 MG IV ×2 (13:47→13:58)
[2023-09-10 13:54] LABS: Glucose - Point of Care 239 mg/dl (70-99)
[2023-09-10 14:01] LABS: Blood Urea Nitrogen 56 mg/dl (9-20); Calcium 8.8 mg/dl (8.4-10.2); Carbon Dioxide 25 mmol/L (22-30); Chloride 93 mmol/L (98-107); Estimated Creatinine Clearance 16 ml/min; Glucose 239 mg/dl (70-99); Sodium 131 mmol/L (135-145); eGFR 14.06
[2023-09-10 14:06] LABS: Normal RBC Morphology No
[2023-09-10 15:39] LABS: Lactic Acid 3.3 mmol/L (0.7-2.0)
[2023-09-10 15:40] LABS: Acetaminophen < 10 ug/ml (10-30)
[2023-09-10] MEDS: TYLENOL/FEVERALL 650 MG RECTAL ×2 (15:40→20:41)
[2023-09-10 15:41] LABS: Alcohol None Detected
[2023-09-10 15:47] LABS: ALT (SGPT) 46 U/L (0-50); AST (SGOT) 82 U/L (17-59); Albumin 3.7 g/dl (3.5-5.0); Blood Urea Nitrogen 58 mg/dl (9-20); Calcium 9.1 mg/dl (8.4-10.2); Carbon Dioxide 27 mmol/L (22-30); Chloride 90 mmol/L (98-107); Estimated Creatinine Clearance 15 ml/min; Glucose 247 mg/dl (70-99); Potassium 4.8 mmol/L (3.5-5.1); Sodium 135 mmol/L (135-145); Total Bilirubin 12.1 mg/dl (0.2-1.3); Total Protein 6.8 g/dl (6.3-8.2); eGFR 12.89
[2023-09-10 15:49] LABS: Ammonia 24 umol/L (9-30)
[2023-09-10 17:04] LABS: Alkaline Phosphatase 1105 U/L (38-126)
[2023-09-10] MEDS: ZOSYN 50 IV (17:26)
--- NOTE | 2023-09-10 17:29 | CON.ID ---
Consultation
-
Date/Time Consultation Requested: 09/10/2023, 1523
Date/Time Consultation Performed: 09/10/2023, 1730
Requesting Provider: Dr. Addison Rhodes
Performing Provider: Dr. Stephanie Hunt
Reason for Consultation: Fever, mental status change
Chief Complaint / Past History
Chief Complaint
Change in mental status
History of Present Illness
History obtained from review of medical records, from and son at bedside. Patient is currently with decreased in mental status. He is a 83 year old male with history of dementia, DM, ESRD on HD via LUE AVF, pAfib on Eliquis, TAVR who was
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 He follows with Dr. Nguyen, ID, and just finished 6 week course of
cefazolin with HD on 08/31/23. Per , patient has been getting progressively weaker since discharge from hospital. He has been falling at home. On 09/04 he came to ED after fall and hitting his head against the kitchen counter. CT of head and
C-spine unremarkable. He was discharged home. The ecchymosis progressed down for arouind orbit to face and neck. + frontal PHILLIPS. He saw his PCP today who sent him to ED today. Pt noted to be febrile 103. WBC 30.8. Pt also more confused. He was
speaking some this morning. Now he is moaning. No fevers at home. c/o abd pain. However CT c/a/p unremarkable. COVID negative. No diarrhea. He just underwent an LP. He received Vancomycin and Zosyn.
Past History
Additional Past Medical History:
Dementia
DM
ESRD on HD via LUE AVF
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
pAfib
CHF
chronic back pain
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
Appendectomy
Allergy History:
gabapentin Adverse Reaction (Verified 09/10/23 10:50)
spastic movements
Medications Reviewed: Yes
Current Antibiotics:
Zosyn
Vancomycin
Social History
Tobacco: Former Smoker
Alcohol: None
Drug: None
Personal:
Family History
Family History: Not Pertinent
Review of Systems
Review of Systems
Unable to obtain due to mental status change.
Vital Signs
Temp Pulse Resp BP Pulse Ox
103.1 F H 102 20 114/60 93
09/10/23 15:05 09/10/23 17:10 09/10/23 17:10 09/10/23 17:10 09/10/23 17:10
Selected Entries
09/10/23
15:04 09/10/23
15:05
Temp 103.2 F H 103.1 F H
Physical Exam
Physical Exam
Constitutional: Acutely Ill and Obese
Eyes: No Conjunctival Hemorrhage and Sclera Anicteric (icteric)
Cardiovascular: Irregular Rate
Pulmonary: Clear
Gastrointestinal: Soft, Non Tender, Non Distended and Normal Bowel Sounds
Genito-Urinary: Negative CVA Tenderness
Extremities: Negative Edema
Skin: Other (Entire face from orbit to neck with purple ecchymosis. right hip ecchymotic)
Wound: Other (left knee abrasions)
Neurological: Other (Lethargic)
Lab / Diagnostic Study Results
09/10/23 12:52
09/10/23 15:17
Abs Immat Gran (auto) 0.3 10^3/uL (0-0.05) H 09/10/23 12:52
Absolute Neuts (auto) 28.4 10^3/uL (1.4-6.5) H 09/10/23 12:52
Absolute Lymphs (auto) 0.3 10^3/uL (1.2-3.4) L 09/10/23 12:52
Absolute Monos (auto) 1.7 10^3/uL (0.1-0.6) H 09/10/23 12:52
Absolute Basos (auto) 0.1 10^3/uL (0-0.2) 09/10/23 12:52
Immature Gran % 1.0 % (0-0.5) H 09/10/23 12:52
Neutrophils % 92.2 % (42.2-75.2) H 09/10/23 12:52
Lymphocytes % 1.0 % (20.5-51.1) L 09/10/23 12:52
Monocytes % 5.5 % (1.7-9.3) 09/10/23 12:52
Eosinophils % 0.0 % (0-6) 09/10/23 12:52
Basophils % 0.3 % (0-2) 09/10/23 12:52
PT 18.9 Sec (11.4-14.6) H 09/10/23 12:52
INR 1.60 09/10/23 12:52
Lactic Acid 3.3 mmol/L (0.7-2.0) H 09/10/23 14:42
Microbiology Results
Micro:
09/10/23 16:20 CSF Culture - Pending
Csf Gram Stain - Preliminary
09/10/23 16:20 Meningitis/Encephalitis Panel (PCR) - Pending
Csf
09/10/23 14:42 Blood Culture - Pending
Blood/Venous
09/10/23 14:42 Blood Culture - Pending
Blood/Venous
09/10/23 CT c/a/p: No acute posttraumatic abnormality in the chest, abdomen, or pelvis within the limitations of motion artifact. Small chronic loculated right pleural effusion with pleural thickening. Mild abdominal ascites.
09/10/[address]: No acute intracranial abnormality within the limitations of motion artifact. Left frontal scalp hematoma. No CT evidence for an acute facial bone fracture.
Assessment / Plan
# Sepsis: fever, leukocytosis
# s/p fall with head trauma (09/04 on Eliquis) - face/neck ecchymosis
# Acute change in mental status
# Recent MSSA bacteremia, suspect TAVR, MV IE s/p 6 weeks cefazolin competed 08/31/23.
- CT head: left frontal scalp hematoma
- CT chest, abd, pelvis no acute pathology
- CSF: Xanthochromic , 14 WBC, 10 RBC, 8% granulocytes, 11% lymphs, 81% macrophages, protein 255
? SAH with macrophage pleocytosis
Meningo-encephalitis panel negative.
- Await blood cx's
-Vancomycin and cefepime for now.
-Trend temps, wbc.
Care Review
Plan reviewed with: Physician
[2023-09-10 17:44] LABS: CSF Clarity Clear; CSF Color Xanthochromic; CSF Tube # 1
[2023-09-10 17:45] LABS: Red Cell Count/CSF 10 mm^3; Spinal Fluid Granulocytes 5 %; Spinal Fluid Lymphocytes 11 %; Spinal Fluid Macrophages 79 %
[2023-09-10 17:46] LABS: CSF Clarity Clear; CSF Color Xanthochromic; CSF Tube # 4; White Cell Count/CSF 15 mm^3 (0-5)
[2023-09-10 17:47] LABS: Red Cell Count/CSF 10 mm^3; Spinal Fluid Granulocytes 8 %; Spinal Fluid Lymphocytes 11 %; Spinal Fluid Macrophages 81 %; White Cell Count/CSF 14 mm^3 (0-5)
[2023-09-10 17:55] LABS: Spinal Fluid Glucose 131 mg/dl (40-70); Spinal Fluid Protein 255 mg/dl (12-60)
[2023-09-10 17:57] LABS: COVID-19 Antigen Negative (Negative)
--- NOTE | 2023-09-10 18:19 | W.PN.UPDATE ---
Addendum entered and electronically signed by Jorge Rodriguez MD 09/11/23 07:46:
Of note I d/w ER PA last pm ok to wait for GI to eval in AM
Addendum entered and electronically signed by Jorge Rodriguez MD 09/10/23 18:22:
Hold Eliquis for possible procedure
Original Note:
Update Note
Progress Note Update
reviewed with Dr. Rhodes
sepsis unclear etiology
Elevated bili but NO direct checked asked to add on - still not resulted 2 hours later - could be elevated from hemolysis does have flank bruises per ER physician
Will also add on abd US, ordered
CT reviewed no gallstones
Recommend NPO, broad spectrum antibiotics including covering for possibly biliary source (got one dose of zosyn would continue)
IVF, NPO
Will see in am
[2023-09-10] MEDS: VANCOCIN 300 MG IV (18:30)
[2023-09-10] MEDS: VANCOCIN 300 ML IV (18:30)
--- NOTE | 2023-09-10 18:35 | HPS.HSE ---
Family Physician
-
Family Physician: Kelsy Garibay
Chief Complaint
-
Allergies
Allergy/AdvReac Type Severity Reaction Status Date / Time
gabapentin AdvReac spastic Verified 09/10/23 10:50
movements
Home Medications
cyanocobalamin (vitamin B-12) 1,000 mcg tablet 1,000 mcg PO DAILY Supplement 06/24/15
ezetimibe 10 mg tablet 10 mg PO DAILY High cholesterol 07/17/16
oxycodone 10 mg tablet 10 mg PO BID Pain 06/17/21
metoprolol succinate 25 mg tablet,extended release 24 hr 25 mg PO HS Blood Pressure 11/01/22
duloxetine 30 mg capsule,delayed release 30 mg PO DAILY Depression 11/10/22
apixaban 2.5 mg tablet (Eliquis) 2.5 mg PO BID Blood Clot Prevention/Tx 03/22/23
cholecalciferol (vitamin D3) 50 mcg (2,000 unit) tablet 50 mcg PO DAILY Supplement 04/15/23
docusate sodium 100 mg capsule (Stool Softener) 200 mg PO BID Constipation 04/15/23
pantoprazole 40 mg tablet,delayed release (Protonix) 40 mg PO Q12H Gastrointestinal Issue #60 tabs 04/17/23
amiodarone 200 mg tablet 200 mg PO HS Arrhythmia 05/23/23
Aquaphor 1 applic topical DAILY apply to B/L chest/arms/legs/shoulders/neck 09/10/23
Aquaphor 1 applic topical DAILYPRN PRN apply to B/L chest/arms/legs/shoulders/neck 09/10/23
acetaminophen 500 mg tablet (Tylenol Extra Strength) 1,000 mg PO BID 09/10/23
acetaminophen 500 mg tablet (Tylenol Extra Strength) 1,000 mg PO DAILYPRN PRN mild pain 09/10/23
betamethasone, augmented 0.05 % topical cream 1 applic topical BID PRN apply to B/L chest/arms/legs/shoulders/neck 09/10/23
diphenhydramine HCl 25 mg capsule (Benadryl) 25 mg PO HS PRN sleep 09/10/23
ferric citrate 210 mg iron tablet (Auryxia) 420 mg PO .SEE BELOW 09/10/23
ferric citrate 210 mg iron tablet (Auryxia) 420 mg PO .SEE BELOW 09/10/23
insulin aspart U-100 100 unit/mL (3 mL) subcutaneous pen (Novolog FlexPen U-100 Insulin aspart) 0 sliding scale dose SC DIRECTED 09/10/23
melatonin 5 mg tablet 5 mg PO HS PRN sleep 09/10/23
memantine 5 mg tablet 5 mg PO BID 09/10/23
oxycodone 10 mg tablet 10 mg PO DAILYPRN PRN severe pain 09/10/23
History of Present Illness
83-year-old male past medical history of permanent atrial fibrillation on Eliquis, recent endocarditis, CHF, hypertension, hyperlipidemia, diabetes, ESRD on hemodialysis Saturday, Saturday, Saturday, presenting for increased confusion, and worsening
bruising after fall 5 days ago. Patient came to emergency room on 09/04 following a mechanical fall at home. Fall was unwitnessed but he did strike his right eyebrow on furniture. He had CT head and CT of the neck which was performed which were
negative. He had his eyebrow laceration repaired and was discharged home. Patient states that since discharge he has been noticed increased confusion. He is having trouble following basic commands. Bruising has extended involving the whole head
and neck. He was seen by family practitioner earlier today to the emergency room for further evaluation.
Patient did not have any cough, chest pain, nausea or vomiting, urinary symptoms or diarrhea or abdominal pain although ER records indicate that he had abdominal pain. He has chronic shortness of breath.
Patient was recently admitted in July for MSSA bacteremia secondary to endocarditis which was treated with cefazolin which she has since completed.
He received dialysis yesterday. He does make some urine at baseline.
He is supposed to be on Eliquis but is not taking it since Saturday due to angiogram of his legs with Dr. Daniels which has been rescheduled.
Medical History
Past Medical History
Past Medical History: Reports Other (permanent atrial fibrillation on Eliquis, recent endocarditis, CHF, hypertension, hyperlipidemia, diabetes, ESRD on hemodialysis Saturday, Saturday, Saturday,)
Past Surgical History: Reports None
Social History
Tobacco: Non-smoker
Alcohol: None
Drug: None
Family History
Family History: Not pertinent
Allergies / Home Medications
Allergies reflects when Allergies were last updated in [facility].
Home Medications with original date entered in [facility]
Allergy/Medication List:
Allergies
Allergy/AdvReac Type Severity Reaction Status Date / Time
gabapentin AdvReac spastic Verified 09/10/23 10:50
movements
Home Medications
cyanocobalamin (vitamin B-12) 1,000 mcg tablet 1,000 mcg PO DAILY Supplement 06/24/15
ezetimibe 10 mg tablet 10 mg PO DAILY High cholesterol 07/17/16
oxycodone 10 mg tablet 10 mg PO BID Pain 06/17/21
metoprolol succinate 25 mg tablet,extended release 24 hr 25 mg PO HS Blood Pressure 11/01/22
duloxetine 30 mg capsule,delayed release 30 mg PO DAILY Depression 11/10/22
apixaban 2.5 mg tablet (Eliquis) 2.5 mg PO BID Blood Clot Prevention/Tx 03/22/23
cholecalciferol (vitamin D3) 50 mcg (2,000 unit) tablet 50 mcg PO DAILY Supplement 04/15/23
docusate sodium 100 mg capsule (Stool Softener) 200 mg PO BID Constipation 04/15/23
pantoprazole 40 mg tablet,delayed release (Protonix) 40 mg PO Q12H Gastrointestinal Issue #60 tabs 04/17/23
amiodarone 200 mg tablet 200 mg PO HS Arrhythmia 05/23/23
Aquaphor 1 applic topical DAILY apply to B/L chest/arms/legs/shoulders/neck 09/10/23
Aquaphor 1 applic topical DAILYPRN PRN apply to B/L chest/arms/legs/shoulders/neck 09/10/23
acetaminophen 500 mg tablet (Tylenol Extra Strength) 1,000 mg PO BID 09/10/23
acetaminophen 500 mg tablet (Tylenol Extra Strength) 1,000 mg PO DAILYPRN PRN mild pain 09/10/23
betamethasone, augmented 0.05 % topical cream 1 applic topical BID PRN apply to B/L chest/arms/legs/shoulders/neck 09/10/23
diphenhydramine HCl 25 mg capsule (Benadryl) 25 mg PO HS PRN sleep 09/10/23
ferric citrate 210 mg iron tablet (Auryxia) 420 mg PO .SEE BELOW 09/10/23
ferric citrate 210 mg iron tablet (Auryxia) 420 mg PO .SEE BELOW 09/10/23
insulin aspart U-100 100 unit/mL (3 mL) subcutaneous pen (Novolog FlexPen U-100 Insulin aspart) 0 sliding scale dose SC DIRECTED 09/10/23
melatonin 5 mg tablet 5 mg PO HS PRN sleep 09/10/23
memantine 5 mg tablet 5 mg PO BID 09/10/23
oxycodone 10 mg tablet 10 mg PO DAILYPRN PRN severe pain 09/10/23
Review of Systems
-
History Source: Patient
A 12 point ROS was completed and negative except as noted: Yes
Constitutional: Reports No Symptoms
EENT: Reports No Symptoms
Respiratory: Reports No Symptoms
Cardiac: Reports No Symptoms
Abdomen/GI: Reports No Symptoms
: Reports No Symptoms
Musculoskeletal: Reports No Symptoms
Skin: Reports No Symptoms
Neurological: Reports No Symptoms
Endocrine: Reports No Symptoms
Hematologic/Lymphatic: Reports No Symptoms
Psych: Reports No Symptoms
Physical Exam
Vital Signs
Vital Signs
Temp Pulse Resp BP Pulse Ox
103.1 F H 102 20 114/60 93
09/10/23 15:05 04/02/24 17:10 09/10/23 17:10 09/10/23 17:10 09/10/23 17:10
Physical Exam
General: Well Developed, Well Nourished and No Apparent Distress
HEENT: NormoCephalic, Moist mucous membranes and Atraumatic
Respiratory: Clear
Cardiac: S1/S2 and Regular Rhythm; No Murmur or Rub
GI: Soft, Non Tender, Non Distended and Normal Bowel Sounds; No Organomegaly
Rectal: Deferred by Provider
Musculoskeletal: No Clubbing, No Cyanosis and No Edema
Skin: No Rash
Neuro: Nonfocal/grossly intact
Laboratory Results
-
09/10/23 12:52
09/10/23 15:17
Laboratory Results
PT 18.9 Sec (11.4-14.6) H 09/10/23 12:52
INR 1.60 09/10/23 12:52
APTT 37.5 Sec (23.4-35.0) H 09/10/23 12:52
Lactic Acid 3.3 mmol/L (0.7-2.0) H 09/10/23 14:42
Total Bilirubin 12.1 mg/dl (0.2-1.3) H 09/10/23 15:17
AST 82 U/L (17-59) H 09/10/23 15:17
ALT 46 U/L (0-50) 09/10/23 15:17
Alkaline Phosphatase 1105 U/L (38-126) H 09/10/23 15:17
Lipase Cancelled 09/10/23 12:52
Data Reviewed
-
Lab Data: Labs Reviewed by me
Old Records: Reviewed
Impression/Plan
-
IMPRESSION:
PLAN:
# Sepsis (fever, leukocytosis, tachycardia)/metabolic encephalopathy likely secondary to persistent endocarditis/UTI/rule out meningitis
#History of recent MSSA endocarditis with MSSA bacteremia/vegetations status post cefazolin
-Urinalysis shows 11-50 WBC, trace leukocyte esterase, slightly cloudy urine
-CT chest abdomen pelvis does not show any abnormality apart from small chronic loculated right pleural effusion with pleural thickening, mild abdominal ascites
-Influenza and COVID-negative
-Lumbar puncture performed, CSF culture and meningitis panel pending
-Recent HAN shows mobile echolucency possibly vegetation, at the tip of the TAVR cage
-Check blood cultures
- maintenance IV fluids for total of 500 cc, precautions given dialysis patient
-Vancomycin/Zosyn
-ID consulted
# Progressive left frontal scalp hematoma with ecchymosis of the face/neck
# Coagulopathy secondary to sepsis
-CT head shows no abnormality apart from peripheral left frontal scalp hematoma which visually has been spreading throughout his face
-CT facial bones no facial bone fracture
-Coags elevated, check fibrinogen, D-dimer to evaluate for DIC
-Hold Eliquis for now
# Jaundice/hyperbilirubinemia/Elevated ALP
-Abdominal ultrasound pending
-GI consulted
# Metabolic encephalopathy/agitation
-Patient received Haldol, Ativan for sedation prior to LP
-Continue as needed Haldol
Permanent atrial fibrillation
-Initial EKG showed atrial fibrillation with RVR with heart rate of 117
-Continue amiodarone
-Continue metoprolol
-Hold Eliquis for now
Chronic heart failure
History of TAVR
Mild to moderate mitral regurgitation
Severe pulmonary hypertension
Moderate tricuspid regurgitation
ESRD on hemodialysis Saturday, Saturday, Saturday
-Nephrology consulted for dialysis management
Essential hypertension
Type 2 diabetes
History of GI bleed
Chronic pain
-IV Dilaudid as needed
Dementia with history of agitation issues
-Continue memantine
-Continue duloxetine
Hyperlipidemia
-Continue Zetia
Full code
DVT prophylaxis
Full code
DVT prophylaxis�SCDs
Cardiac diet
--- NOTE | 2023-09-10 19:21 | PHA.VAN.IN ---
Assessment
- Assessment
Renal Function: Patient has ESRD, on chronic Hemodialysis
Hemodialysis Schedule: MWF
Concomitant Antimicrobials: CEFEPIME
- Previous Dosing Experience
Previous Regimen: DOSING BY RANDOM LEVELS
Date of Regimen: 07/15/23
Provided Trough of: UNKNOWN
Provided AUC of: UNKNOWN
Patient's SCR is: Decreased compared to previous dosing experience (07/15/23 SCR = 7.1)
Patient's weight is: Decreased compared to previous dosing experience (07/15/23 WT = 102.3 KG)
Plan
- Plan
Initial / Loading Dose: 1500MG
Maintenance Regimen: DOSING BY RANDOM LEVELS
Monitoring: RANDOM VANCOMYCIN LEVEL 09/11/23 AM
Pharmacokinetics Vancomycin I
- -
Patient Age: 83
Patient Sex: Male
Vancomycin Day #: 1
Indication: Endocarditis (SEPSIS)
Requesting Provider: JENELLE
Height / Weight:
Height 5 ft 9 in
Actual Weight 101 kg
- Vital Signs / Lab Results
Temp Pulse Resp BP Pulse Ox
103.1 F H 98 20 97/45 94
09/10/23 15:05 09/10/23 19:05 09/10/23 19:05 09/10/23 19:05 09/10/23 19:05
Lab Results - Hematology
09/10/23
12:52
WBC 30.8 H
Lab Results - Chemistry
09/10/23 09/10/23
12:52 15:17
BUN 56 H 58 H
Creatinine 4.0 H 4.3 H*
Estimated Creat Clear 16 15
Albumin Cancelled 3.7
09/10/23
14:42
Lactic Acid 3.3 H
Microbiology Results
09/10/23 16:20 Meningitis/Encephalitis Panel (PCR) - Final
Csf
09/10/23 17:29 Influenza Types A & B (ELIANA) - Final
Nasal Swab Negative for Influenza A & B, NAAT
Negative results must be combined with clinical observations
and patient history.
Nucleic Acid Amplification test (NAAT)performed on the
[employer] platform.
09/10/23 16:20 Gram Stain - Preliminary
Csf
[2023-09-10] MEDS: MAXIPIME 1000 MG IV (19:42)
[2023-09-10] MEDS: STERILE WATER FOR INJECTION 10 ML IV (19:42)
[2023-09-10 19:54] LABS: Direct Bilirubin 10.1 mg/dl (0.0-0.4)
[2023-09-10 20:03] LABS: Glucose - Point of Care 213 mg/dl (70-99)
[2023-09-10] MEDS: NSS 1000 IV (20:08)
[2023-09-10] MEDS: TYLENOL PO (20:09)
[2023-09-10] MEDS: PROTONIX PO (20:09)
[2023-09-10] MEDS: NAMENDA PO (20:09)
[2023-09-10] MEDS: COLACE PO (20:10)
[2023-09-10 20:13] LABS: Fibrinogen 481 MG/DL (199-459)
[2023-09-10 20:14] LABS: Lactic Acid 2.6 mmol/L (0.7-2.0)
[2023-09-10 20:16] LABS: D-Dimer 3.41 ug/mlFEU (0.00-0.50)
--- NOTE | 2023-09-10 20:17 | EDRN ---
Desiree Mendoza notified of pts lactic 2.6. Also requested for PO tylenol to be changed to suppository.
--- NOTE | 2023-09-10 20:49 | EDRN ---
Desiree Mendoza notified of pts D Dimer of 3.41.
[2023-09-10] MEDS: PACERONE PO (22:02)
[2023-09-10] MEDS: TOPROL XL PO (22:02)
[2023-09-11] VITALS (28 sets, daily range): BP systolic 88–143; BP diastolic 58–106; BMI 32.6
[2023-09-11 00:14] LABS: Glucose - Point of Care 284 mg/dl (70-99)
[2023-09-11] MEDS: NOVOLOG FLEXPEN-LOW RESISTANCE 3 UNITS SC ×2 (00:28→05:08)
--- NOTE | 2023-09-11 00:52 | PTCARENOTE ---
pt arrived to ED- pt is oriented x2- knows he is in the hospital, garbled speech, combative with care, trying to hit staff. pt reoriented but every time attempting care pt trying to hit staff. IV haldol given per AUG- EKGx2 entered for morning. pt
is NPO. multiple skin tears and wounds- foams applied, documented on worklist. IV fluids infusing, bed alarm on.
[2023-09-11 04:18] LABS: % Basophils 0.2 % (0-2); % Immature Granulocytes 1.2 % (0-0.5); % Lymphocytes 1.4 % (20.5-51.1); % Monocytes 8.1 % (1.7-9.3); % Neutrophils 89.1 % (42.2-75.2); Absolute Basophils 0.1 10^3/uL (0-0.2); Absolute Immature Granulocytes 0.3 10^3/uL (0-0.05); Absolute Lymphocytes 0.4 10^3/uL (1.2-3.4); Absolute Monocytes 2.4 10^3/uL (0.1-0.6); Absolute Neutrophils 25.9 10^3/uL (1.4-6.5); Hematocrit 32.4 % (39.0-52.0); Hemoglobin 10.5 g/dL (13.0-18.0); Mean Corp Hgb Conc. 32.4 g/dL (33.0-37.0); Mean Corpuscular Hgb 31.1 pg (27.0-31.0); Mean Corpuscular Volume 95.9 fL (80.0-94.0); Nucleated Red Blood Cells % 0 % (-); Red Blood Cell Count 3.38 10^6/uL (4.70-6.10); Red Cell Dist. Width 23.7 % (11.5-14.5); White Blood Cell Count 29.1 10^3/uL (4.8-10.8)
[2023-09-11] MEDS: HALDOL 1 MG IV (04:21)
[2023-09-11 04:45] LABS: Lactic Acid 2.2 mmol/L (0.7-2.0)
[2023-09-11 04:58] LABS: Mean Platelet Volume 9.7 fL (7.4-10.4); Platelet Count 144 10^3/uL (130-400)
[2023-09-11 05:02] LABS: ALT (SGPT) 37 U/L (0-50); AST (SGOT) 60 U/L (17-59); Alkaline Phosphatase 821 U/L (38-126); Blood Urea Nitrogen 70 mg/dl (9-20); Calcium 8.7 mg/dl (8.4-10.2); Carbon Dioxide 22 mmol/L (22-30); Chloride 94 mmol/L (98-107); Estimated Creatinine Clearance 12 ml/min; Glucose 266 mg/dl (70-99); Potassium 4.7 mmol/L (3.5-5.1); Sodium 134 mmol/L (135-145); Total Bilirubin 9.5 mg/dl (0.2-1.3); eGFR 10.26
[2023-09-11 05:06] LABS: Vancomycin Random 12.6 ug/ml
[2023-09-11 05:18] LABS: Glucose - Point of Care 278 mg/dl (70-99)
--- NOTE | 2023-09-11 05:48 | W.PN.UPDATE ---
Update Note
Progress Note Update
RN notified PEARL FISHERMAN morning EKG noted to have prolonged QTC 486, Last EKG / QTC 474, Patient is on Amiodarone, Haldol, Namenda and Duloxetine. Will hold Namenda, Duloxetine, and Haldol for now, will add Ativan prn for agitation as nsg stated patient
still gets agitated tries to hit staff. .
--- NOTE | 2023-09-11 06:24 | PTCARENOTE ---
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
--- NOTE | 2023-09-11 06:46 | CON.GI ---
Addendum entered and electronically signed by Jorge Rodriguez MD 09/11/23 17:40:
I saw and examined the patient.
The SHEET CUTTER or PA's note was reviewed and I agree with the note.
Comment: 83-year-old male past medical history as below including end-stage renal disease on dialysis, A-fib on Eliquis, AAS, recent endocarditis presenting with sepsis. GI consulted because bili 12. Patient received medications not responding at
this time. Blood cultures positive for Staph aureus. Most likely related to endocarditis from previous less likely biliary source. Suspect bilirubin is cholestasis of sepsis. However, with elevated bilirubin and sepsis will get MRCP I discussed
with MRI unable to do with contrast due to dialysis. Patient was going to go today but combative and unable to have done. I discussed with MRI plan to do tomorrow.
Addendum entered and electronically signed by JIM Gonzalez 09/11/23 11:08:
reviewed with . Pt will often state no to symptoms but noted with some nausea and abdominal pain prior to admission. ? hx prior liver vs renal cyst with removal but no hx liver problems or hepatitis in past. She also report recent Ozempic use
from March til May/early June then stopped wtih multiple other issues. She report some chronic constipation with laxative use and black stool prior to admission. He did recently have OP IV iron infusion. discussed plan for LFT follow
and MRI with MRCP. trend bhg and stool record with hx GI bleeding and report black stools.
Original Note:
Consultation
-
Date/Time Consultation Requested: 09/10/23 1550
Date/Time Consultation Performed: 09/11/23 0700
Requesting Provider: Jose De Jesus Rhodes MD
Performing Provider: JIM Wetzel, Kristen Rodriguez MD
Reason for Consultation: increased LFT's
Medical History
Chief Complaint / HPI
Chief Complaint: dark stools
History of Present Illness:
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
07/2023(recently completed Cefazolin course x 6 week course), dementia, hypertension, diabetes, hyperlipidemia, diastolic heart failure, obstructive sleep apnea, iron deficiency anemia, GERD, Jc's esophagus colon polyps, and chronic back pain.
He has been seen past year for anemia with last EGD in March, with 3 non bleeding angioectasia and last colonoscopy 2020 with 11 TA polyps On admission hbg was stable 11.5 but patient presented with confusion, bruising, after fall several
days ago, leukocytosis with concern for sepsis (lactate3.3, fever 103.2) but also noted with jaundice with initial bilirubin 12.1, d bili 10.1, ASt 82, ALT 46, alk phos 1105, albumin 3with INR 1.6(in setting of chronic Eliquis use). Limited US
admission with normal gallbladder with no evidence for biliary ductal dilation, and nodular contour with concern for cirrhosis. 09/09 CT chest/A/P with IV contrast no post traumatic abnormality, chronic effusion, mild ascites liver unremarkable.
At this time patient with confusion but denies odynophagia, dysphagia, GERD, nausea, vomiting, abdominal pain, diarrhea, constipation or rectal bleeding.
Past Medical History
Past Medical History: Arrhythmias (afib on Eliquis), CHF, GERD, HTN, Hypercholesterolemia, NIDDM, Renal Failure (ESRD on HD), Valvular Disease () and Other (MSSA endocarditis 07/2023 , secondary hyperparathyroidism, dementia, chronic pain on
opioids, Jc's, colonic polyps, sleep apnea, duodenal AVM's)
Past Surgical History: Cardiac (cardioversion) and Other (TAVR, LUE AVF, appendectomy, bilateral cataracts)
Social History
Tobacco: Non-Smoker
Alcohol: None
Drug: None
Personal:
Living: With Family
Family History
Family History: Other (pt confused but denies hx colon CA)
Allergies / Home Medications
Allergy/AdvReac Type Severity Reaction Status Date / Time
gabapentin AdvReac spastic Verified 09/10/23 10:50
movements
�Medication �Instructions �Recorded
cyanocobalamin (vitamin B-12) 1,000 mcg PO DAILY Supplement 06/24/15
1,000 mcg tablet
ezetimibe 10 mg tablet 10 mg PO DAILY High cholesterol 07/17/16
oxycodone 10 mg tablet 10 mg PO BID Pain 06/17/21
metoprolol succinate 25 mg 25 mg PO HS Blood Pressure 11/01/22
tablet,extended release 24 hr
duloxetine 30 mg capsule,delayed 30 mg PO DAILY Depression 11/10/22
release
apixaban 2.5 mg tablet (Eliquis) 2.5 mg PO BID Blood Clot 03/22/23
Prevention/Tx
cholecalciferol (vitamin D3) 50 50 mcg PO DAILY Supplement 04/15/23
mcg (2,000 unit) tablet
docusate sodium 100 mg capsule 200 mg PO BID Constipation 04/15/23
(Stool Softener)
pantoprazole 40 mg tablet,delayed 40 mg PO Q12H Gastrointestinal 04/17/23
release (Protonix) Issue #60 tabs
amiodarone 200 mg tablet 200 mg PO HS Arrhythmia 05/23/23
Aquaphor 1 applic topical DAILY apply to 09/10/23
B/L chest/arms/legs/shoulders/neck
Aquaphor 1 applic topical DAILYPRN PRN 09/10/23
apply to B/L
chest/arms/legs/shoulders/neck
acetaminophen 500 mg tablet 1,000 mg PO BID 09/10/23
(Tylenol Extra Strength)
acetaminophen 500 mg tablet 1,000 mg PO DAILYPRN PRN mild pain 09/10/23
(Tylenol Extra Strength)
betamethasone, augmented 0.05 % 1 applic topical BID PRN apply to 09/10/23
topical cream B/L chest/arms/legs/shoulders/neck
diphenhydramine HCl 25 mg capsule 25 mg PO HS PRN sleep 09/10/23
(Benadryl)
ferric citrate 210 mg iron tablet 420 mg PO .SEE BELOW 09/10/23
(Auryxia)
ferric citrate 210 mg iron tablet 420 mg PO .SEE BELOW 09/10/23
(Auryxia)
insulin aspart U-100 100 unit/mL 0 sliding scale dose SC DIRECTED 09/10/23
(3 mL) subcutaneous pen (Novolog
FlexPen U-100 Insulin aspart)
melatonin 5 mg tablet 5 mg PO HS PRN sleep 09/10/23
memantine 5 mg tablet 5 mg PO BID 09/10/23
oxycodone 10 mg tablet 10 mg PO DAILYPRN PRN severe pain 09/10/23
Review of Systems
-
Unable to obtain full review of systems at this time due to: Dementia (with confusion)
History Source: Patient
Constitutional: Reports Fever
EENT: Reports No Symptoms
Respiratory: Reports No Symptoms
Cardiac: Reports No Symptoms
Abdomen/GI: Reports No Symptoms
: Reports Other (chronic HD)
Musculoskeletal: Reports No Symptoms
Skin: Reports Other (s/p fall with bruising)
Neurological: Reports Weakness and Other (confusion)
Endocrine: Reports No Symptoms
Hematologic/Lymphatic: Reports No Symptoms
Vital Signs
Temp Pulse Resp BP Pulse Ox
97.7 F 87 24 104/69 90
09/11/23 04:30 09/11/23 06:00 09/11/23 06:00 09/11/23 06:00 09/11/23 04:00
Physical Exam
Exam
General: Other (confused but answering questions)
HEENT: Normocephalic and Other (jaundice )
Respiratory: Clear
Cardiac: Regular Rhythm
GI: Soft, Non Distended and Distended
Musculoskeletal: No Clubbing and No Cyanosis
Skin: Other (bruising on face and scattered bruising on chest and flank)
Neuro: Awake, Alert and Other (confused )
Psych: Calm
Results
WBC 29.1 10^3/uL (4.8-10.8) H 09/11/23 04:09
Hgb 10.5 g/dL (13.0-18.0) L 09/11/23 04:09
Hct 32.4 % (39.0-52.0) L 09/11/23 04:09
MCV 95.9 fL (80.0-94.0) H 09/11/23 04:09
Plt Count 144 10^3/uL (130-400) D 09/11/23 04:09
Absolute Neuts (auto) 25.9 10^3/uL (1.4-6.5) H 09/11/23 04:09
PT 18.9 Sec (11.4-14.6) H 09/10/23 12:52
INR 1.60 09/10/23 12:52
APTT 37.5 Sec (23.4-35.0) H 09/10/23 12:52
Sodium 134 mmol/L (135-145) L 09/11/23 04:09
Potassium 4.7 mmol/L (3.5-5.1) 09/11/23 04:09
Chloride 94 mmol/L (98-107) L 09/11/23 04:09
Carbon Dioxide 22 mmol/L (22-30) 09/11/23 04:09
BUN 70 mg/dl (9-20) H 09/11/23 04:09
Creatinine 5.2 mg/dL (0.7-1.3) H* 09/11/23 04:09
Calcium 8.7 mg/dl (8.4-10.2) 09/11/23 04:09
Total Bilirubin 9.5 mg/dl (0.2-1.3) H 09/11/23 04:09
AST 60 U/L (17-59) H 04/03/24 04:09
ALT 37 U/L (0-50) 09/11/23 04:09
Alkaline Phosphatase 821 U/L (38-126) H 09/11/23 04:09
Lipase Cancelled 09/10/23 12:52
Diagnostic Image Results:
09/10/23 CT Chest/abd/pel W Iv Cont
1. No acute posttraumatic abnormality in the chest, abdomen, or pelvis within the limitations of motion artifact.
2. Small chronic loculated right pleural effusion with pleural thickening.
3. Mild abdominal ascites.
Prior GI Procedures:
upper EGD Dr. arita 03/2023- - Z-line irregular, at the gastroesophageal junction. Biopsy is contraindicated.- Normal stomach.- Three non-bleeding angioectasias in the duodenum. Treated with argon plasma coagulation (APC). - No specimens
collected.
Colonoscopy April 27, 2021 Dr. Arita showed 11 3-6 mm polyps in the sigmoid, transverse colon, hepatic flexure, ascending colon removed with cold snare and jumbo.
Upper endoscopy Dr. Arita April 27 esophageal mucosal changes secondary to establish Jc's biopsy.� Erythema in the stomach biopsy.� Duodenum normal biopsy.� Pathology showed reactive changes in the stomach and gastritis.� Jc's
esophagus with no dysplasia.
Colonoscopy 2016 Dr. Grey for HECTOR - multiple polyps; EGD same time irregular Z line, gastritis, duodenitis, nodules.� +HP and jc's.� Hospitalized at this time - was recommended outpatient capsule I do not see in system.
Colonoscopy 2013 Dr. Arita polyps.
Colonoscopy 2008 Dr. Arita normal.�
Assessment / Plan
-
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
07/2023(recently completed Cefazolin course x 6 week course), dementia, hypertension, diabetes, hyperlipidemia, diastolic heart failure, obstructive sleep apnea, iron deficiency anemia, GERD, Jc's esophagus colon polyps, and chronic back pain.
He has been seen past year for anemia with last EGD in March, with 3 non bleeding angioectasia and last colonoscopy 2020 with 11 TA polyps On admission hbg was stable 11.5 but patient presented with confusion, bruising, after fall several
days ago, leukocytosis with concern for sepsis (lactate3.3, fever 103.2) but also noted with jaundice with initial bilirubin 12.1, d bili 10.1, ASt 82, ALT 46, alk phos 1105, albumin 3with INR 1.6(in setting of chronic Eliquis use). Limited US
admission with normal gallbladder with no evidence for biliary ductal dilation, and nodular contour with concern for cirrhosis. 09/09 CT chest/A/P with IV contrast no post traumatic abnormality, chronic effusion, mild ascites liver unremarkable.
-increased LFT's
-sepsis with fever/leukocytosis/elevated lactate
-bacteremia- gram + cocci
-s/p fall with scalp hematoma/ecchymosis
-agitation
-recent MSSA endocarditis with concern for vegetation on TAVR CAGE and leaflet 07/2023(recently completed Cefazolin course x 6 week course)
-afib prior CV on Eliquis prior to admission
-hx anemia with prior noted AVM's with treatment
-hypoalbuminemia
-coagulopathy with chronic Eliquis use
other medical problems:
-ESRD on HD
-colon polyps
-jc's
-dementia
-DM
- with prior TAVR
-hyperlipidemia
-CHF
-sleep apnea
-chronic back pain
PLAN:
etiology of LFT elevation related to sepsis with fever/leukocytosis, elevated lactate - with bacteremia with recent endocarditis with vegetation, biliary etiology with elevated LFT's underlying chronic liver issue with concern for cirrhosis on US
vs other
some improved LFT trend today
some chronic alk phos elevation and mild elevation with endocarditis in July
for MRI/MRCP to further eval liver-- reviewed with nursing for sedation
cont abx - ID following
await final culture data
add hepatitis panel
some elevated INR but on chronic Eliquis
NPO til MRI completed
I left message for to review history as patient with confusion and some limited evaulation
-
-
Thank you for consultation and allowing me to participate in the patient's care. Please call the weatherization installer GI physician during the after hours with any questions or concerns.
[2023-09-11] MEDS: NSS 1000 IV (08:53)
[2023-09-11] MEDS: ATIVAN 1 MG IV ×3 (08:53→23:37)
[2023-09-11] MEDS: VITAMIN B-12 PO (08:54)
[2023-09-11] MEDS: TYLENOL PO ×3 (08:54→20:38)
[2023-09-11] MEDS: VITAMIN D3 (cholecalciferol) PO (08:54)
[2023-09-11] MEDS: COLACE PO ×3 (08:55→20:37)
[2023-09-11] MEDS: PROTONIX PO ×3 (08:55→20:37)
[2023-09-11] MEDS: DESENEX/MITRAZOL/ZEASORB 1 APPLIC TOPICAL ×2 (08:55→20:33)
--- NOTE | 2023-09-11 09:15 | PHA.VAN.FU ---
Vancomycin Assessment / Plan
- Assessment
Hemodialysis Schedule: MWF
WBC's are: Stable
In the past 24 hrs, patient has been: Febrile
Concomitant Antimicrobials: cefepime
- Assessment - Therapeutic Drug Monitoring
Random Level: 12.6 - drawn ~9.5H after initial dose of 1500mg
- Dosing Plan
Dosing by Level: Re-dose today (Vanc 750mg)
- Monitoring Plan
Random Level: 09/11 0600
Monitoring Comments: follow inpatient HD plans
- Follow Up
Pharmacy will continue to follow.
Vancomycin Follow UP
- -
Patient Age: 83
Patient Sex: Male
Vancomycin Day #: 2
Indication: Endocarditis
Requesting Provider: Dr. aHnnon / [facility]
Pertinent Antimicrobial Allergies:
no pertinent antibiotic allergies
Height / Weight:
Height 5 ft 9 in
Actual Weight 100 kg
Pertinent Past Medical History: BMI ~32.6, ESRD on HD, recent MSSA bacteremia, DM
- Vital Signs / Lab Results
Temp Pulse Resp BP Pulse Ox
97.7 F 87 24 104/69 90
09/11/23 04:30 09/11/23 06:00 09/11/23 06:00 09/11/23 06:00 09/11/23 04:00
Lab Results - Hematology
09/10/23 09/11/23
12:52 04:09
WBC 30.8 H 29.1 H
Lab Results - Chemistry
09/10/23 09/10/23 09/11/23
12:52 15:17 04:09
BUN 56 H 58 H 70 H
Creatinine 4.0 H 4.3 H* 5.2 H*
Estimated Creat Clear 16 15 12
Albumin Cancelled 3.7 3.0 L
09/10/23 09/10/23 09/11/23
14:42 19:55 04:09
Lactic Acid 3.3 H 2.6 H 2.2 H
Microbiology Results
09/10/23 14:42 Blood Culture - Preliminary
Blood/Venous Positive culture in progress
Gram Stain - Final
09/10/23 14:42 Blood Culture - Preliminary
Blood/Venous Positive culture in progress
Gram Stain - Preliminary
09/10/23 16:20 Meningitis/Encephalitis Panel (PCR) - Final
Csf
09/10/23 17:29 Influenza Types A & B (ELIANA) - Final
Nasal Swab Negative for Influenza A & B, NAAT
Negative results must be combined with clinical observations
and patient history.
Nucleic Acid Amplification test (NAAT)performed on the
[employer] platform.
09/10/23 16:20 Gram Stain - Preliminary
Csf
Therapeutic Drug Monitoring
Random Vancomycin 12.6 ug/ml 09/11/23 04:09
[2023-09-11 09:26] LABS: Glycohemoglobin (HgbA1c) 5.5 % (4.0-5.6)
[2023-09-11 10:16] LABS: Lactic Acid 1.8 mmol/L (0.7-2.0)
--- NOTE | 2023-09-11 10:25 | W.CON.NEPH ---
Consultation
-
Date/Time Consultation Requested: 09/11/2023 7 AM
Date/Time Consultation Performed: 09/11/2023 10:15 AM
Requesting Provider: Riddhi
Performing Provider: Liang
Reason for Consultation: ESRD
Medical History
-
Chief Complaint: End-stage renal disease
History of Present Illness:
Patient is an 83-year-old male with a past medical history of end-stage renal disease who dialyzes Wednesdays and Fridays. He has a history of atrial fibrillation and is maintained chronically on amiodarone and is chronically anticoagulated
with Eliquis. He is maintained on ferric citrate for his hyperphosphatemia. He has a recent history of endocarditis and presented to the hospital for increased confusion and several falls over the past week. He has sustained head trauma with an
eyebrow laceration on admission to the emergency room. The patient had stated that since his recent discharge he has been having increased confusion. As aforementioned, he had been admitted in July 2023 with MSSA bacteremia secondary to
endocarditis for which he underwent a completed course of cefazolin. We were consulted for his end-stage renal disease.
Past Medical History
1. End-stage renal disease, Saturday, Saturday, Saturday.
2. Dementia.
3. Hypertension.
4. Anemia.
5. Atrial fibrillation.
6. Hyperphosphatemia.
7. History of duodenal ulceration.
8. History of TAVR.
9. Type 2 diabetes.
10. Secondary hyperparathyroidism.
11. History of diastolic heart failure.
12. Dementia.
13. Left upper extremity AV fistula.
14. Chronic pain on opioid dependence.
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
Social History
Tobacco: Non-Smoker
Alcohol: None
Family History
No chronic kidney disease
Allergies / Home Medications
Allergy/AdvReac Type Severity Reaction Status Date / Time
gabapentin AdvReac spastic Verified 09/10/23 10:50
movements
�Medication �Instructions �Recorded �Confirmed �Type
cyanocobalamin (vitamin B-12) 1,000 mcg PO DAILY Supplement 06/24/15 09/10/23 History
1,000 mcg tablet
ezetimibe 10 mg tablet 10 mg PO DAILY High cholesterol 07/17/16 09/10/23 History
oxycodone 10 mg tablet 10 mg PO BID Pain 06/17/21 09/10/23 History
metoprolol succinate 25 mg 25 mg PO HS Blood Pressure 11/01/22 09/10/23 History
tablet,extended release 24 hr
duloxetine 30 mg capsule,delayed 30 mg PO DAILY Depression 11/10/22 09/10/23 History
release
apixaban 2.5 mg tablet (Eliquis) 2.5 mg PO BID Blood Clot 03/22/23 09/10/23 History
Prevention/Tx
cholecalciferol (vitamin D3) 50 50 mcg PO DAILY Supplement 04/15/23 09/10/23 History
mcg (2,000 unit) tablet
docusate sodium 100 mg capsule 200 mg PO BID Constipation 04/15/23 09/10/23 History
(Stool Softener)
pantoprazole 40 mg tablet,delayed 40 mg PO Q12H Gastrointestinal 04/17/23 09/10/23 Rx
release (Protonix) Issue #60 tabs
amiodarone 200 mg tablet 200 mg PO HS Arrhythmia 05/23/23 09/10/23 History
Aquaphor 1 applic topical DAILY apply to 09/10/23 09/10/23 History
B/L chest/arms/legs/shoulders/neck
Aquaphor 1 applic topical DAILYPRN PRN 09/10/23 09/10/23 History
apply to B/L
chest/arms/legs/shoulders/neck
acetaminophen 500 mg tablet 1,000 mg PO BID Pain 09/10/23 09/10/23 History
(Tylenol Extra Strength)
acetaminophen 500 mg tablet 1,000 mg PO DAILYPRN PRN mild pain 09/10/23 09/10/23 History
(Tylenol Extra Strength)
betamethasone, augmented 0.05 % 1 applic topical BID PRN apply to 09/10/23 09/10/23 History
topical cream B/L chest/arms/legs/shoulders/neck
diphenhydramine HCl 25 mg capsule 25 mg PO HS PRN sleep 09/10/23 09/10/23 History
(Benadryl)
ferric citrate 210 mg iron tablet 420 mg PO .SEE BELOW 09/10/23 09/10/23 History
(Auryxia) Supplement
ferric citrate 210 mg iron tablet 420 mg PO .SEE BELOW 09/10/23 09/10/23 History
(Auryxia) Supplement
insulin aspart U-100 100 unit/mL 0 sliding scale dose SC 09/10/23 09/10/23 History
(3 mL) subcutaneous pen (Novolog DIRECTED Diabetes
FlexPen U-100 Insulin aspart)
melatonin 5 mg tablet 5 mg PO HS PRN sleep 09/10/23 09/10/23 History
memantine 5 mg tablet 5 mg PO BID Mental Health/Anxiety 09/10/23 09/10/23 History
oxycodone 10 mg tablet 10 mg PO DAILYPRN PRN severe pain 09/10/23 09/10/23 History
Review of Systems
-
History Source: Patient
All other systems: Negative unless noted
EENT: Other (Head trauma)
Respiratory: No Symptoms
Cardiac: Other (Left upper extremity AVF)
Abdomen/GI: No Symptoms
: No Symptoms
Musculoskeletal: Muscle Pain
Skin: Other (Diffuse ecchymosis across left side of face shoulder and back)
Neurological: Other (confusion)
Endocrine: Other
Hematologic/Lymphatic: Bruising
Physical Exam
Vital Signs
Vital Signs
Temp Pulse Resp BP Pulse Ox
98.1 F 87 24 104/69 90
09/11/23 07:18 09/11/23 06:00 09/11/23 06:00 09/11/23 06:00 09/11/23 04:00
Lab Results
09/11/23 04:09
09/11/23 04:09
WBC 29.1 10^3/uL (4.8-10.8) H 09/11/23 04:09
RBC 3.38 10^6/uL (4.70-6.10) L 09/11/23 04:09
Hgb 10.5 g/dL (13.0-18.0) L 09/11/23 04:09
Hct 32.4 % (39.0-52.0) L 09/11/23 04:09
Plt Count 144 10^3/uL (130-400) D 09/11/23 04:09
Sodium 134 mmol/L (135-145) L 09/11/23 04:09
Potassium 4.7 mmol/L (3.5-5.1) 09/11/23 04:09
Chloride 94 mmol/L (98-107) L 09/11/23 04:09
Carbon Dioxide 22 mmol/L (22-30) 09/11/23 04:09
BUN 70 mg/dl (9-20) H 09/11/23 04:09
Creatinine 5.2 mg/dL (0.7-1.3) H* 09/11/23 04:09
eGFR 10.26 09/11/23 04:09
Glucose 266 mg/dl (70-99) H 09/11/23 04:09
Calcium 8.7 mg/dl (8.4-10.2) 09/11/23 04:09
Albumin 3.0 g/dl (3.5-5.0) L 09/11/23 04:09
Physical Exam
General: Awake, Alert and Other (Confused and restless)
HEENT: PERRL, EOMI, Anicteric, Conjunctivae Clear, Ear/Nose Intact, Hearing Normal, Trachea Midline, No JVD, No Thyromegaly and Other (Ecchymosis across face left brow laceration with suture)
Respiratory: Clear
Cardiac: S1/S2, Regular Rate/Rhythm and Other (Left upper extremity AV fistula with good thrill and bruit)
Breast: Deferred by me
Abdomen: Soft, Nontender, Nondistended, Normal Bowel Sounds and No Hepatosplenomegaly
Rectal: Deferred by Provider
Genito-urinary: No Costovertebral Tender
Musculoskeletal: No Clubbing, No Cyanosis and No Edema
Skin: Other (Notable for ecchymosis across left side of face neck shoulder and back)
Neuro: Other (Disoriented unable to cooperate with neurological exam)
Hematologic/Lymphatic: No Cervical Lymphadenopathy and No Submandibular Lymphadenopathy
Psych: Other (Confused appears encephalopathic)
Assessment/Plan
-
Impression:
End-stage renal disease Saturday dialysis
History of MSSA bacteremia and endocarditis
Status post falls
Hypertension
Anemia
Atrial fibrillation (OAT)
Hyperphosphatemia
History of duodenal ulceration
s/p TAVR 12/13/22 (Aortic Stenosis)
Type 2 diabetes
Secondary hyperparathyroidism
History of diastolic congestive heart failure
Dementia
Left upper extremity AV fistula
Chronic pain: opioid dependence
Hyperphosphatemia
Plan:
Hd today,orders provided
Patient may be too disoriented and restless for dialysis
Status post LP given history of MSSA bacteremia and confusion
MARGARITA on HD
currently npo (off binders)
on vanco/Cefazolin
Data Reviewed
-
CT Scan: Report Reviewed by me (CAT scan of abdomen and pelvis reviewed no obstruction)
MRI: Discussed with Family
Labs: Labs Reviewed by me (Reviewed CBC BMP CAT scan)
Old Records: Reviewed (Reviewed end-stage renal disease consult from July 14, 2023 for ESRD in setting of endocarditits)
--- NOTE | 2023-09-11 11:44 | CON.MD ---
Consultation - Medical
-
patient seen chart reviewed. spoke with nursing and with dr linares. the patient had been here at from 2.4 to 2.14. he had undergone tavr procedure. he developed mssa bacteremia. at this point he is admitted for increasing confusion abdominal
pain . he had fallen and sufffered heavy bruising all over his body. this consult ordered for agitation in this elderly gentleman with hx of dementia and numerous medical problems. i could obtain no hx from him as he had been given ativan for
agitation and was resting quietly. according to nursing and dr linares it is unlikely that patient would be able to provide much hx given current mental status. the patient has hx dementia with worsening mental status along with deteriorating physical
condition. he had been taking memantine 5 mg bid cymbalta 30 mg daily melatonin 5 mg q hs at home. here he was being given benadryl 25 mg q hs for sleep. memantine and cymbalta are being held i am told bc of qtc prolongation noted after he was
given haldol as a prn for agitation.
past psych hx dementia
medical hx see above imaging assessed fall workup negative ; bacteremia w positive blood culture in progress. patient with hx afib rx w eliquis and amiodarone. hx chf thn hld niddm ckd on dialysis falling diverticulitis cellulitis anemia gerd
ddd obesity hx colonic polyps chronic pain for which opiates had been prescribed
fh non contributory
substance abuse occasional alcohol according to the chart
social hx retired lives w
mse unable to engage in discussion with patient due to sedation however given interaction with staff doubtful patient at this point could be a reliable historia
dx tme secondary to underlying medical and superimposed on dementia
recommendatons: patient had been taking prescribed opiates for pain which he has not been taking here. it is possible that some of his agitation could represent withdrawal or pain. discussed with dr linares who has ordered dilaudid. also amiodarone
has been known to cause mental status changes in patient and can cause dizziness lethargy ataxia etc which could contribute to falls. it also can increase the blood level of cymbalta which could contribute to anticholinergic sx etc. agree with
holding memantine which is unlikely to improve dementia at this point and cymbalta for the aforementioned reasons. at this moment patient is not agitated. ativan seems to have helped. if needed could consider very small doses of zyprexa odt 1.25
or 2.5 mg for agitation and assess if effective. from the data i could review zyprexa while eliminated to some extent from the kidney would be safe in renal impairement and it does not generally affect qtc significantly. attempted to contact
at 369 area code number in chart. left message. will look in on him tomorrow.
[2023-09-11 12:34] LABS: Glucose - Point of Care 213 mg/dl (70-99)
[2023-09-11] MEDS: NOVOLOG FLEXPEN-MODERATE RESISTANCE 3 UNITS SC (13:01)
[2023-09-11] MEDS: DILAUDID 0.25 MG IV ×2 (13:02→20:38)
--- NOTE | 2023-09-11 13:28 | W.PN.ID1 ---
Date of Service
Date of Service: September 11, 2023
Today's Communication
See below.
Assessment / Plan
# Relapsed Staph aureus bacteremia, IE
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
# Sepsis: fever, leukocytosis - persists
# s/p fall with head trauma (09/04 on Eliquis) - face/neck ecchymosis
# Acute change in mental status
# ESRD on HD via AVF
- CT head: left frontal scalp hematoma
- CT chest, abd, pelvis no acute pathology
- CSF: Xanthochromic , 14 WBC, 10 RBC, 8% granulocytes, 11% lymphs, 81% macrophages, protein 255
? SAH with macrophage pleocytosis
Meningo-encephalitis panel negative. Cx neg to date.
- Continue Vancomycin.
- Replace cefepime with IV cefazolin.
- Repeat blood cx's in am.
- Ordered TTE, unable to tolerate HAN at this time.
- When able MRI brain to evaluate for septic emboli.
- When able, MRI spine to evaluate for abscess
-Follow temps, wbc.
#Additional Past Medical History:
Dementia
DM
ESRD on HD via LUE AVF
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
pAfib
CHF
chronic back pain
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
Appendectomy
Chief Complaint
-: Clinical Sepsis and Bacteremia
Subjective / Review of Systems
Family reports patient with chronic back pain on oxycodone and pt currently uncomfortable.
Mental status has not improved. Pt agitated.
Vital Signs / Physical Exam
Vital Signs
Vital Signs
Temp Pulse Resp BP Pulse Ox
97.5 F 87 24 104/69 90
09/11/23 11:01 09/11/23 06:00 09/11/23 06:00 09/11/23 06:00 09/11/23 04:00
Physical Exam
Constitutional: Acutely Ill
Cardiovascular: Regular Rate and S1/S2
Pulmonary: Clear
Gastrointestinal: Soft, Non Tender and Non Distended
Genito-Urinary: Negative CVA Tenderness
Extremities: Negative Edema
Musculoskeletal: Negative Spinal Tenderness
Skin: Other (Face ecchymotic)
Neurological: AO x 3
Psychological: Confused and Agitated
Objective Data
Lab Data
Lab Results
09/11/23 04:09
09/11/23 04:09
PT 18.9 Sec (11.4-14.6) H 09/10/23 12:52
INR 1.60 09/10/23 12:52
APTT 37.5 Sec (23.4-35.0) H 09/10/23 12:52
Estimated Creat Clear 12 ml/min 09/11/23 04:09
Lactic Acid 1.8 mmol/L (0.7-2.0) 09/11/23 09:05
Total Bilirubin 9.5 mg/dl (0.2-1.3) H 09/11/23 04:09
AST 60 U/L (17-59) H 09/11/23 04:09
ALT 37 U/L (0-50) 09/11/23 04:09
Alkaline Phosphatase 821 U/L (38-126) H 09/11/23 04:09
Most recent labs reviewed.
Micro Results:
09/10/23 16:20 CSF Culture - Preliminary
Csf No Growth After 18-24 Hours
Gram Stain - Preliminary
09/10/23 14:42 Blood Culture - Preliminary
Blood/Venous Staphylococcus aureus
Gram Stain - Final
09/10/23 14:42 Blood Culture - Preliminary
Blood/Venous Positive culture in progress
Gram Stain - Preliminary
09/11/23 04:14 MRSA Screen - Pending
Nose
09/10/23 16:20 Meningitis/Encephalitis Panel (PCR) - Final
Csf
09/10/23 17:29 Influenza Types A & B (ELIANA) - Final
Nasal Swab Negative for Influenza A & B, NAAT
Negative results must be combined with clinical observations
and patient history.
Nucleic Acid Amplification test (NAAT)performed on the
[employer] platform.
09/10/23 CT c/a/p: No acute posttraumatic abnormality in the chest, abdomen, or pelvis within the limitations of motion artifact. Small chronic loculated right pleural effusion with pleural thickening. Mild abdominal ascites.
09/10/[address]: No acute intracranial abnormality within the limitations of motion artifact. Left frontal scalp hematoma. No CT evidence for an acute facial bone fracture.
Care Review
Plan reviewed with: Physician (Dr. Coombs)
[2023-09-11] MEDS: RETACRIT 6000 UNITS IV (14:23)
--- NOTE | 2023-09-11 14:33 | W.PN.NEPH.HD ---
Assessment
-
Patient seen on HD
sbp stable at 130
Patient very restless arm restrained to utilize AVF
Progress Note - Hemodialysis
-
Date of Service: September 11, 2023
Duration: 30 minutes and 3 hours
Potassium Bath: 2
Calcium Bath: 2.5
Opti-Dialyzer: 160
Ultrafiltration: Other (2kg)
Blood Flow: 400
Dialysate Flow: 600
Heparin: none
EPO: 6K
--- NOTE | 2023-09-11 14:40 | CON.NEURO4 ---
Addendum entered and electronically signed by Ashok Lopez MD 09/11/23 16:36:
Studies reviewed.
I have personally examined the patient. I reviewed and agree with the SILVER WRAPPER's Note.
My addenda:
Does not respond to verbal stimulation. No acute distress.
Speech: groaning only.
Follows no requests w/o difficulty. No tremor. Demonstrates myoclonic movements diffusely.
Negative doll's eyes.
Facial movements full and symmetric. Hearing unable to assess.
Normal UE movements bilaterally.
Neck: full ROM.
Chest: no dyspnea
Heart: no JVD
Ext: (-) Clubbing, (-) Cyanosis, (-) Edema
IMPRESSIONS/RECOMMENDATIONS:
Abrupt onset of decline in mental status with baseline of dementia
Poor prognosis for full recovery from a neurological perspective is a poor
Despite presence of mildly elevated WBC count and CSF, not clear that the patient is experiencing meningitis especially in light of unremarkable CSF testing otherwise. The presence of elevated protein in CSF is likely due to longstanding renal
dysfunction. There is a concern for the possibility of septic emboli currently
Would avoid use of apixaban at this time and replace with aspirin (300 mg SC) until clarity regarding the possibility of septic emboli by means of MRI of brain imaging
Check MRI of brain when possible
Start thiamine
Consider pyridoxine
D/W family
All questions answered.
Will continue to follow patient.
Original Note:
Documented by User: Manisha Ponce NP 09/11/23 15:53
Consultation - Neurology 4
-
CONSULTING PHYSICIAN: Ashok Lopez MD
REFERRING PHYSICIAN: Hospitalists/Dr. Coombs
DICTATED BY: JIM Hope
DATE/TIME OF REQUEST: 09/11/23
DATE/TIME OF CONSULTATION: 09/11/23
Reason for Consultation: Encephalopathy
History of Present Illness:
This is an 83-year-old male who has presented to the hospital on 09/10/23 with report of worsening baseline confusion, abdominal pain, and facial ecchymosis s/p fall with forehead trauma. Patient is followed by neurology Dr. Feliciano as an outpatient for
dementia. He started having noticeable memory issues in 2016 in addition to dizziness and gait dysfunction with frequent falls. EEG testing was negative for seizure. He did not tolerate Razadyne or Aricept due to nausea, but has been taking Namenda
5mg BID for several years. He stopped driving in 2021 due to getting lost frequently. He has been ambulating with a rolling walker since 2018. He was evaluated by our inpatient neurology service in 06/2021 for intermittent body jerking, EEG at that
time was negative for seizure.
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 He completed 6 weeks of IV cefazolin on 08/31/23. Patient's reports that since
June 2023, his dementia has seemed to significantly progressed. Since his hospitalization in July 2023, he has been more weak and combined with the increased confusion, his reports that he has been falling more frequently. On 09/05/23, he
fell twice, the second time he fell he was ambulating to the bathroom without his walker, and feel and struck his left forehead on a piece of furniture. He was evaluated in the ER, and CT head/cervical spine were negative for any acute
abnormalities. His left scalp laceration was sutured and he was discharged home. Patient's reports that since the fall, he has been more confused, been complaining of abdominal pain, and worsening facial ecchymosis. He was evaluated by his PCP
on 09/10/23, who referred him to the ER for evaluation. CT head was obtained again in the ER and is negative for any acute abnormalities except for a left scalp hematoma. WBC 30.8, creatinine 5.2, lactic acid 2.2, alk phos 821. Patient underwent
lumbar puncture as well, WBC 15, glucose 131, protein 255. TTE 09/11/23 does not demonstrate aortic valve vegetation. Patient was holding his Eliquis starting on 09/08/23 for a scheduled LLE arteriogram for possible intervention due to a nonhealing
left toe wound, which has now been canceled. Eliquis has continued to be held since arrival at the hospital. Currently, patient is receiving dialysis. He is obtunded and responding to painful stimuli with groans only. He is unable to provide a
review of systems.
Past Medical History: Afib (Eliquis), dementia, CHF, HTN, HLD, NIDDM, ESRD on HD MWF, chronic back pain, BART, iron deficiency anemia, GED, Griffiths's esophagus, colon polyps, pleural effusion, GI bleed
Surgical History: TAVR, LUE AVF, appendectomy, b/l cataract removal, cyst removed from kidney
Family History: Mother- dementia. Father- Parkinson disease.
Social History: Former smoker. Occasional alcohol. No illicit drug use. 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
Allergies: Gabapentin.
Home Medications: See below.
Review of Symptoms:
Per the HPI. I am unable to obtain a complete review of systems�because of patient's inability to provide history.
Physical Exam:
The patient is afebrile, abdomen is nondistended, breathing is unlabored, skin is ecchymotic with scattered wounds with DSD, no edema.
NIH Stroke Scale:
I performed the NIH stroke scale on the patient on 09/11/23 at 1515. The patient scored 21 points on the NIH stroke scale assessment, which were assigned as follows: See below.
Neurologic Examination:
The patient is obtunded. He responds to painful stimuli with moaning only. He is unable to follow commands or answer questions appropriately. Nonverbal. On cranial nerve assessment, pupils are 3 mm bilateral, round and reactive to light and
accommodation. DANELLE visual nicole and EOMS. No gaze deviation noted. There is no facial asymmetry at rest. DANELLE hearing. DANELLE tongue, palate, and uvula. Localizes BUE to pain, withdraws BLE to pain. DAENLLE drift. There is asterixis and intermittent
myoclonus. No tremor. Babinski is positive bilaterally. DANELLE sensation, DBS, and coordination.
Lab Results: See below.
Neuro Imaging:
1, CT Head 09/10/23: No acute intracranial abnormality within the limitations of motion artifact. Left frontal scalp hematoma. No CT evidence for an acute facial bone fracture.
Differentials for the patient's presentation include:
1. TME in the setting of sepsis.
2. Concern for septic emboli worsening mental status.
2. CSF WBC count not supportive of ST[employer] infection/meningitis.
3. Asterixis and intermittent myoclonus likely related to impaired renal function, low concern for seizure.
4. Underlying dementia.
Patient has the following risk factors for their symptoms: Infectious endocarditis, sepsis, dementia, ESRD, fall with head trauma
IV Tenecteplase/IAT candidacy: Not a candidate due to unclear diagnosis, outside of time window.
Recommendations:
-Would continue to hold Eliquis until MRI brain can be obtained. Initiate rectal aspirin daily for now, as patient is NPO.
-Obtain MRI brain noncontrast when able.
-Will defer EEG imaging as patient's would like to limit testing as much as possible.
-Goal normotension.
-Goal normothermia.
-Neurological checks per unit guidelines.
-Sepsis workup/treatment per primary team/ID.
-DVT prophylaxis.
Discussed patient care with: Dr. Lopez, the patient's and son
Vital Signs and Labs
-
Vital Signs and Labs:
Vital Signs
Temp Pulse Resp BP Pulse Ox
97.5 F 87 24 104/69 90
09/11/23 11:01 09/11/23 06:00 09/11/23 06:00 09/11/23 06:00 09/11/23 04:00
Lab Results
09/11/23 04:09
09/11/23 04:09
PT 18.9 Sec (11.4-14.6) H 09/10/23 12:52
INR 1.60 09/10/23 12:52
APTT 37.5 Sec (23.4-35.0) H 09/10/23 12:52
Sodium 134 mmol/L (135-145) L 09/11/23 04:09
Potassium 4.7 mmol/L (3.5-5.1) 09/11/23 04:09
BUN 70 mg/dl (9-20) H 09/11/23 04:09
Glucose 266 mg/dl (70-99) H 09/11/23 04:09
Calcium 8.7 mg/dl (8.4-10.2) 09/11/23 04:09
Medications
-
Active Medications
Generic Name Dose Route Start Last Admin
Trade Name Freq PRN Reason Stop Dose Admin
Acetaminophen 1,000 mg 09/10/23 19:46
Acetaminophen 500 Mg Tablet PO 10/08/23 19:45
DAILYPRN PRN
mild pain
Acetaminophen 1,000 mg 09/10/23 20:00 09/11/23 08:54
Acetaminophen 500 Mg Tablet PO 10/08/23 19:59 Not Given
BID FEDE
Acetaminophen 650 mg 09/10/23 20:23 09/10/23 20:41
Acetaminophen 650 Mg Rectal Suppository RECTAL 10/08/23 20:21 650 mg
Q4HPRN PRN Administration
fever
Amiodarone HCl 200 mg 09/10/23 22:00 09/10/23 22:02
Amiodarone 200 Mg Tablet PO 10/08/23 21:59 Not Given
HS FEDE
Cholecalciferol 50 mcg 09/11/23 08:00 09/11/23 08:54
Cholecalciferol (Vitamin D3) 50 Mcg Tablet (2,000 Units) PO 10/09/23 07:59 Not Given
DAILY FEDE
Cyanocobalamin 1,000 mcg 09/11/23 08:00 09/11/23 08:54
Cyanocobalamin 1,000 Mcg Tablet PO 10/09/23 07:59 Not Given
DAILY FEDE
Dextrose 12.5 grams 09/11/23 10:34
Dextrose 50% (0.5 Grams/Ml) 50 Ml Syringe IV 10/09/23 10:33
[id number] PRN
hypoglycemia
Protocol
Docusate Sodium 200 mg 09/10/23 20:00 09/11/23 08:55
Docusate Sodium 100 Mg Capsule PO 10/08/23 19:59 Not Given
BID FEDE
Duloxetine HCl 30 mg 09/11/23 08:00
Duloxetine Delayed Release 30 Mg Capsule PO 10/09/23 07:59
DAILY FEDE
Glucagon 1 mg 09/11/23 10:34
Glucagon 1 Mg Vial IM 10/09/23 10:33
PRN PRN
hypoglycemia
Protocol
Haloperidol Lactate 1 mg 09/10/23 18:45 09/11/23 04:21
Haloperidol 5 Mg/Ml 1 Ml Vial IV 10/08/23 18:44 1 mg
Q4HPRN PRN Administration
agitation
Hydromorphone HCl 0.25 mg 09/11/23 11:27 09/11/23 13:02
Hydromorphone 0.25 Mg/0.5 Ml Syringe IV 09/25/23 11:26 0.25 mg
Q4HPRN PRN Administration
severe pain
Sodium Chloride 1,000 mls @ 80 mls/hr 09/10/23 19:15 09/11/23 08:53
Nss IV 1,000 mls
.[id number] FEDE Administration
Vancomycin HCl 1 each/ Device 0 mls @ 0 mls/hr 09/10/23 20:00
IV
PER PROTOCOL FEDE
Protocol
As Directed
Cefazolin Sodium 1 gram in 5 mls @ 60 mls/hr 09/11/23 14:00
Ancef IV
Q24H FEDE
Insulin Aspart 0 units 09/11/23 12:00 09/11/23 13:01
Insulin Aspart Moderate Resistance 300 Units/3 Ml Pen.Injctr SC 10/09/23 11:59 3 units
Q6 FEDE Administration
Protocol
Lorazepam 1 mg 09/11/23 05:36 09/11/23 14:55
Lorazepam 2 Mg/Ml Vial IV 10/09/23 05:35 1 mg
Q4HPRN PRN Administration
agitation
Mannitol 12.5 grams 09/11/23 10:19
Mannitol 25% (12.5 Grams/50 Ml) Vial IV 09/11/23 23:59
HD-Q1HPRN PRN
sbp less then 100
Memantine 5 mg 09/10/23 20:00 09/10/23 20:09
Memantine 10 Mg Tablet PO 10/08/23 19:59 Not Given
BID FEDE
Metoprolol Succinate 25 mg 09/10/23 22:00 09/10/23 22:02
Metoprolol 25 Mg Extended Release Tablet PO 10/08/23 21:59 Not Given
HS FEDE
Miconazole Nitrate 0 applic 09/11/23 08:00 09/11/23 08:55
Miconazole Powder Bottle TOPICAL 10/09/23 07:59 1 applic
BID FEDE Administration
Non-Formulary Medication 1 applic 09/10/23 19:46
Betamethasone, Augmented TOPICAL 10/08/23 19:45
BIDPRN PRN
apply to B/L chest/arms/legs/s
Non-Formulary Medication 420 mg 09/12/23 07:30
Ferric Citrate [Auryxia] PO 10/10/23 07:29
SuTuThSa@0730,1130,1630 FEDE
Non-Formulary Medication 420 mg 09/11/23 07:30
Ferric Citrate [Auryxia] PO 10/09/23 07:29
MoWeFr@0730,1630 FEDE
Pantoprazole Sodium 40 mg 09/10/23 20:00 09/11/23 08:55
Pantoprazole 40 Mg Delayed Release Tablet PO 10/08/23 19:59 Not Given
Q12 FEDE
Sodium Chloride 0 flush 09/10/23 20:00
Sodium Chloride 0.9% (Flush) Syringe IV 10/08/23 19:59
PER PROTOCOL FEDE
Sodium Chloride 10 ml 09/11/23 10:19
Sodium Chloride (4 Meq/Ml) 30 Ml Vial *For Hemodialysis* IV 09/11/23 23:59
HD-Q1HPRN PRN
cramps
Sterile Water 10 ml 09/10/23 20:00 09/10/23 19:42
Sterile Water For Injection 10 Ml Vial IV 10/08/23 19:59 10 ml
Q24H FEDE Administration
Home Medications
�Medication �Instructions �Recorded
cyanocobalamin (vitamin B-12) 1,000 mcg PO DAILY Supplement 06/24/15
1,000 mcg tablet
ezetimibe 10 mg tablet 10 mg PO DAILY High cholesterol 07/17/16
oxycodone 10 mg tablet 10 mg PO BID Pain 06/17/21
metoprolol succinate 25 mg 25 mg PO HS Blood Pressure 11/01/22
tablet,extended release 24 hr
duloxetine 30 mg capsule,delayed 30 mg PO DAILY Depression 11/10/22
release
apixaban 2.5 mg tablet (Eliquis) 2.5 mg PO BID Blood Clot 03/22/23
Prevention/Tx
cholecalciferol (vitamin D3) 50 50 mcg PO DAILY Supplement 04/15/23
mcg (2,000 unit) tablet
docusate sodium 100 mg capsule 200 mg PO BID Constipation 04/15/23
(Stool Softener)
pantoprazole 40 mg tablet,delayed 40 mg PO Q12H Gastrointestinal 04/17/23
release (Protonix) Issue #60 tabs
amiodarone 200 mg tablet 200 mg PO HS Arrhythmia 05/23/23
Aquaphor 1 applic topical DAILY apply to 09/10/23
B/L chest/arms/legs/shoulders/neck
Aquaphor 1 applic topical DAILYPRN PRN 09/10/23
apply to B/L
chest/arms/legs/shoulders/neck
acetaminophen 500 mg tablet 1,000 mg PO BID Pain 09/10/23
(Tylenol Extra Strength)
acetaminophen 500 mg tablet 1,000 mg PO DAILYPRN PRN mild pain 09/10/23
(Tylenol Extra Strength)
betamethasone, augmented 0.05 % 1 applic topical BID PRN apply to 09/10/23
topical cream B/L chest/arms/legs/shoulders/neck
diphenhydramine HCl 25 mg capsule 25 mg PO HS PRN sleep 09/10/23
(Benadryl)
ferric citrate 210 mg iron tablet 420 mg PO .SEE BELOW 09/10/23
(Auryxia) Supplement
ferric citrate 210 mg iron tablet 420 mg PO .SEE BELOW 09/10/23
(Auryxia) Supplement
insulin aspart U-100 100 unit/mL 0 sliding scale dose SC 09/10/23
(3 mL) subcutaneous pen (Novolog DIRECTED Diabetes
FlexPen U-100 Insulin aspart)
melatonin 5 mg tablet 5 mg PO HS PRN sleep 09/10/23
memantine 5 mg tablet 5 mg PO BID Mental Health/Anxiety 09/10/23
oxycodone 10 mg tablet 10 mg PO DAILYPRN PRN severe pain 09/10/23
NIH Stroke Score
Subsequent NIH Scale
Date of Subsequent NIH Scale: 09/11/23
Time of Subsequent NIH Scale: 15:15
NIH Stroke Score
Level of Consciousness: 2 - Obtunded
LOC Questions: 2-Neither correct
LOC Commands: 2-Performs neither correctly
Best Horizontal Gaze: 0-Normal
Visual Nicole: 0=Normal, no visual loss
Facial Palsy: 0=Normal, symmetrical
Motor - Right Arm: 3=None vs. gravity
Motor - Left Arm: 3=None vs. gravity
Motor - Right Le-None vs. gravity
Motor - Left Le-None vs. gravity
Limb Ataxia: UN-Amputation/jointfusion
Sensation: 0-Normal
Best Language: 3-Mute/global aphasia
Dysarthria: 0-Normal
Extinction and Inattention: 0-No abnormality
Total Score:: 21

Documented by User: Ashok Lopez MD 09/11/23 16:01
NIH Stroke Score
NIH Stroke Score
Total Score:: 21
--- NOTE | 2023-09-11 15:07 | CON.CAR ---
Addendum entered and electronically signed by Rupal Parikh MD 09/11/23 17:40:
I saw and examined the patient.
The DURABILITY TECHNICIAN's note was reviewed and I agree with the note.
Comment: 83-year-old male (known to Dr. Mason, his primary supervisor properties), with HFpEF, permanent atrial fibrillation on apixaban, hypertension, aortic stenosis s/p TAVR, moderate regurgitation, type 2 diabetes mellitus, BART on CPAP, ESRD on HD, anemia
of chronic disease, and recent hospitalization in July with MSSA bacteremia with possible vegetation and TAVR valve cage and anterior leaflet. Now with recurrent positive blood cx, change in mental status and fevers. He is unable to provide
history. He is writhing in the bed, currently on HD. Difficult to exam He has diffuse ecchymosis. Bcx show staph aureus, await sensitivities. I agree eventural repeat HAN would be helpful, but currently not a candidate. Otherwise history of AF,
on amiodarone and bb. Will consider if amiodarone needs to continue.
Will follow.
Original Note:
Consultation
Consultation Request
Date/Time Consultation Requested: 09/11/23 14:45
Date/Time Consultation Performed: 09/11/23 15:00
Requesting Provider: Dr. Coombs
Performing Provider: JIM Amado for Dr. Parikh
Reason for Consultation: Bacteremia concerns for infective endocarditis
Medical History
-
Chief Complaint: Brusing S/P fall
History of Present Illness:
Shayan Fleming 83-year-old male (known to Dr. Mason, his primary supervisor properties), with HFpEF, permanent atrial fibrillation on apixaban, hypertension, aortic stenosis s/p TAVR, moderate regurgitation, type 2 diabetes mellitus, BART on CPAP, ESRD on HD,
anemia of chronic disease, and recent hospitalization in July with MSSA bacteremia with possible vegetation and TAVR valve cage and anterior leaflet. He completed antibiotics. He presented with his after concern for worsening bruise to
his face. He had a fall approximately 5 days prior to arrival. He had worsening ecchymosis on his face. He had change in mental status. Blood cultures currently positive for Staphylococcus. Cardiology has been consulted for possible recurrent
endocarditis. Unfortunately, he is unable to participate in HPI due to his mental status.
Past Medical History
Past Medical History: Arrhythmias (Permanent atrial fibrillation), CHF, Renal Failure (ESRD on HD) and Valvular Disease (S/P TAVR, MR, TR)
Past Surgical History: Appendectomy
Social History
Tobacco: Non-Smoker
Personal:
Living: With Family
Employment: Retired
Family History
Family History: Unable to Obtain
Allergies / Home Medications
Allergy/AdvReac Type Severity Reaction Status Date / Time
gabapentin AdvReac spastic Verified 09/10/23 10:50
movements
�Medication �Instructions �Recorded �Confirmed �Type
cyanocobalamin (vitamin B-12) 1,000 mcg PO DAILY Supplement 06/24/15 09/10/23 History
1,000 mcg tablet
ezetimibe 10 mg tablet 10 mg PO DAILY High cholesterol 07/17/16 09/10/23 History
oxycodone 10 mg tablet 10 mg PO BID Pain 06/17/21 09/10/23 History
metoprolol succinate 25 mg 25 mg PO HS Blood Pressure 11/01/22 09/10/23 History
tablet,extended release 24 hr
duloxetine 30 mg capsule,delayed 30 mg PO DAILY Depression 11/10/22 09/10/23 History
release
apixaban 2.5 mg tablet (Eliquis) 2.5 mg PO BID Blood Clot 03/22/23 09/10/23 History
Prevention/Tx
cholecalciferol (vitamin D3) 50 50 mcg PO DAILY Supplement 04/15/23 09/10/23 History
mcg (2,000 unit) tablet
docusate sodium 100 mg capsule 200 mg PO BID Constipation 04/15/23 09/10/23 History
(Stool Softener)
pantoprazole 40 mg tablet,delayed 40 mg PO Q12H Gastrointestinal 04/17/23 09/10/23 Rx
release (Protonix) Issue #60 tabs
amiodarone 200 mg tablet 200 mg PO HS Arrhythmia 05/23/23 09/10/23 History
Aquaphor 1 applic topical DAILY apply to 09/10/23 09/10/23 History
B/L chest/arms/legs/shoulders/neck
Aquaphor 1 applic topical DAILYPRN PRN 09/10/23 09/10/23 History
apply to B/L
chest/arms/legs/shoulders/neck
acetaminophen 500 mg tablet 1,000 mg PO BID Pain 09/10/23 09/10/23 History
(Tylenol Extra Strength)
acetaminophen 500 mg tablet 1,000 mg PO DAILYPRN PRN mild pain 09/10/23 09/10/23 History
(Tylenol Extra Strength)
betamethasone, augmented 0.05 % 1 applic topical BID PRN apply to 09/10/23 09/10/23 History
topical cream B/L chest/arms/legs/shoulders/neck
diphenhydramine HCl 25 mg capsule 25 mg PO HS PRN sleep 09/10/23 09/10/23 History
(Benadryl)
ferric citrate 210 mg iron tablet 420 mg PO .SEE BELOW 09/10/23 09/10/23 History
(Auryxia) Supplement
ferric citrate 210 mg iron tablet 420 mg PO .SEE BELOW 09/10/23 09/10/23 History
(Auryxia) Supplement
insulin aspart U-100 100 unit/mL 0 sliding scale dose SC 09/10/23 09/10/23 History
(3 mL) subcutaneous pen (Novolog DIRECTED Diabetes
FlexPen U-100 Insulin aspart)
melatonin 5 mg tablet 5 mg PO HS PRN sleep 09/10/23 09/10/23 History
memantine 5 mg tablet 5 mg PO BID Mental Health/Anxiety 09/10/23 09/10/23 History
oxycodone 10 mg tablet 10 mg PO DAILYPRN PRN severe pain 09/10/23 09/10/23 History
Review of Systems
-
Unable to obtain full review of systems at this time due to: Dementia
Physical Exam
Vital Signs
Temp Pulse Resp BP Pulse Ox
97.5 F 87 24 104/69 90
09/11/23 11:01 09/11/23 06:00 09/11/23 06:00 09/11/23 06:00 09/11/23 04:00
Lab Results
09/11/23 04:09
09/11/23 04:09
Physical Exam
General: Well Developed, Well Nourished and No Apparent Distress
HEENT: Moist Mucous Membranes and Other (ecchymosis)
Respiratory: Clear and Non Labored Respirations
Cardiac: S1/S2 and Regular Rhythm
Breast: Deferred by me
GI: Soft, Non Tender, Non Distended and Normal Bowel Sounds
Rectal: Deferred by Provider
Genito-urinary: No Costovertebral Tender
Musculoskeletal: No Clubbing and No Cyanosis
Skin: Warm and Dry
Neuro: Other (confused & restrained)
Hematologic/Lymphatic: No Lymphadenopathy
Psych: Calm
Impression / Plan
-
Bacteremia, Staphylococcus aureus
-Recent MSSA bacteremia with MV IE s/p 6 weeks of cefazolin
-No endocarditis on TTE
-ID plans for eventual MRI of the brain to evaluate for septic emboli
Change in mental status with agitation, per primary
Atrial fibrillation, permanent
-Rate controlled on amiodarone
-Oral Anticoagulation: Apixaban 2.5mg BID (age 83, creatinine > 1.5), on hold
-[id number]: score at least 4 (age 75 or more, Diabetes Mellitus, Vascular disease)
-He was evaluated for Watchman but developed endocarditis
Severe aortic stenosis S/P TAVR (Medtronic Evolut 29)
-Peak/mean gradients 16/8mmHg without AR
CAD, non obstructive by cardiac cath (10/2022)
Moderate-severe tricuspid regurgitation
ESRD on HD
Anemia of chronic disease
Type 2 diabetes mellitus
Dementia
Data Reviewed
-
EKG: Report Reviewed by me (Atrial fibrillation, nonspecific ST abnormality, rate 88)
CT Scan: Report Reviewed by me (Head: Left frontal scalp hematoma)
Medical Tests (Nuc Med, Echo etc): Report Reviewed by me (Echo as above)
Labs: Labs Reviewed by me
Old Records: Reviewed
[2023-09-11] MEDS: VANCOCIN 150 IV (15:13)
[2023-09-11] MEDS: ANCEF 5 IV (16:16)
--- NOTE | 2023-09-11 16:37 | W.PN.HOSP.TC ---
Today's Communication/Plan
-
IV antibiotics. Monitor mental status and neurological status closely.
Assessment / Plan
Assessment / Plan
Physical exam:
General: Acutely ill
HEENT: Normocephalic, traumatic head and neck with large ecchymosis extending from forehead down to the base of the neck only sparing perioral area and Moist Mucous Membranes
Respiratory: Bilateral crackles; Negative Wheezes or Rhonchi
Cardiac: Irregular rate and rhythm and S1/S2
GI: Soft, Nontender and Nondistended
Musculoskeletal: No Clubbing, No Cyanosis. Bilateral edema. Bruises in extremities as well.
Neuro: Obtunded. Moves all 4 extremity but uncoordinated. Babinski positive
A/P:
Toxic metabolic encephalopathy, unclear etiology:
-Although etiology unclear differential includes stroke, medications, septic emboli, sepsis overall, seizures, other.
-Neurology consult
-Psychiatry consult as well to help with medications for agitation.
-Plan for MRI of the brain when able to accommodate due to his mental status
-Hold Eliquis
-Aspirin per rectum for now per neurology
-Start thiamine and consider pyridoxine per neurology
-CSF abnormal but not consistent with bacterial meningitis--> WBC in the CSF 14, CSF glucose elevated 131, CSF total protein elevated 255.
-Discussed with at bedside today
-Patient on narcotics as outpatient so ordered IV Dilaudid.
-Patient at high risk of deterioration and if mentation worsens might require intubation. Discussed with and she reiterates CODE STATUS full code ( expresses that she does not agree much but that has been his wishes in the past but he does
continues to deteriorate would need to have more discussions).
-Prognosis guarded
Sepsis of unclear etiology, concerns for recurrent infective endocarditis:
-Persistent leukocytosis, WBC 29.1
-On IV cefazolin and vancomycin
-Appreciated ID consult
-Communicated with ID today
-Positive blood culture on 09/09
-Will repeat blood cultures tomorrow
-Plan for MRI cervical once more stable
-Status post LP. CSF abnormal but not consistent with bacterial meningitis--> WBC in the CSF 14, CSF glucose elevated 131, CSF total protein elevated 255.
-Seen and reviewed CT scan of the head, chest, abdomen and pelvis.
-Will request cardiology consult light of history of TAVR prior endocarditis and bacteremia (also family request cardiology to be involved)
-History of recent MSSA bacteremia with possible vegetation back in July.
Chronic pain, dependence on chronic narcotics:
-Holding oral narcotics but ordered IV Dilaudid to avoid withdrawal
End-stage renal disease on hemodialysis:
-HD per renal
-Plan for HD today
-Nephrology consult appreciated
Elevated LFTs:
-Possibly related to sepsis
-Plan for MRCP eventually
-GI consult appreciated
Fall with trauma/Extensive ecchymosis on face and neck after recent facial trauma:
-Hold Eliquis
-CT of facial no fractures
-Discussed with ENT over the phone and they would like to follow-up as outpatient but nothing that they would do as inpatient (Nilay Stoner).
Diabetes mellitus type 2 with hyperglycemia:
-Continue insulin sliding scale but increase to moderate resistance
-Continue to monitor and avoid hypoglycemia or excessive hyperglycemia
Permanent atrial fibrillation:
-Holding Eliquis
-On amiodarone but not sure able to tolerate
Severe aortic stenosis status post TAVR:
-Continue to monitor
Nonobstructive CAD:
-Continue to monitor
Moderate to severe tricuspid regurgitation:
-Continue to monitor
Dementia:
-Continue to monitor mental status and behavior
-Psychiatry on board
BART:
-On CPAP as outpatient
-Doubt able to tolerate at this point but we will reevaluate down the line
DVT prophylaxis
SCDs
CODE STATUS
Full code
Total Critical Care Time 45 minutes. I was immediately available to the patient and staff. I personally examined, reviewed labs, diagnostic images/reports, interpretations, treatment plans, discussed patient care with other providers and family
or caregivers (if patient is unable to make decisions), entered orders as appropriate and documented the medical record.
Anticipated Discharge: > 48 hours
Subjective/Interval History
-
Date of Service: September 11, 2023
Patient obtunded alternated with episodes of agitation on and off. Afebrile today. Tmax 103.2 Fahrenheit yesterday.
Objective Data
-
Labs:
Laboratory Results
09/11/23
04:09
Plt Count 144 D
Sodium 134 L
Potassium 4.7
Chloride 94 L
Carbon Dioxide 22
BUN 70 H
Creatinine 5.2 H*
Glucose 266 H
Calcium 8.7
Total Bilirubin 9.5 H
AST 60 H
ALT 37
Alkaline Phosphatase 821 H
Vital Signs:
Vital Signs
Temp Pulse Resp BP Pulse Ox
97.5 F 87 24 104/69 90
09/11/23 11:01 09/11/23 06:00 09/11/23 06:00 09/11/23 06:00 09/11/23 04:00
I&O
09/10/23 09/11/23 09/12/23
06:59 06:59 06:59
Intake Total 800 / 800
Balance 800 / 800
--- NOTE | 2023-09-11 17:40 | W.PN.UPDATE ---
Update Note
Progress Note Update
billing purposes
[2023-09-11] MEDS: ASPIRIN 300 MG RECTAL (17:59)
[2023-09-11] MEDS: NOVOLOG FLEXPEN-MODERATE RESISTANCE SC ×2 (18:03→23:05)
[2023-09-11 18:17] LABS: Glucose - Point of Care 132 mg/dl (70-99)
[2023-09-11] MEDS: STERILE WATER FOR INJECTION IV (20:23)
[2023-09-11] MEDS: PACERONE 200 MG PO (20:33)
[2023-09-11] MEDS: TOPROL XL 25 MG PO (20:33)
[2023-09-11] MEDS: NSS IV (20:39)
[2023-09-11 23:17] LABS: Glucose - Point of Care 144 mg/dl (70-99)
--- NOTE | 2023-09-11 23:42 | PTCARENOTE ---
pt much more awake this shift- able to take some pills without issues. pt able to sit at edge of bed and do some side steps to get higher in bed. pt still very forgetful, trying to climb OOB multiple times. PRN meds given per AUG. bed alarm on.
update given to - care ongoing.
[2023-09-12] VITALS (13 sets, daily range): BP systolic 92–131; BP diastolic 48–74; BMI 32.1
[2023-09-12] MEDS: DILAUDID 0.25 MG IV ×4 (01:46→20:14)
--- NOTE | 2023-09-12 03:10 | PTCARENOTE ---
pt continues to try to get OOB, setting off bed alarm. medsitter now in place.
[2023-09-12 04:24] LABS: % Basophils 0.1 % (0-2); % Eosinophils 0.1 % (0-6); % Immature Granulocytes 0.6 % (0-0.5); % Lymphocytes 2.3 % (20.5-51.1); % Monocytes 10.9 % (1.7-9.3); Absolute Immature Granulocytes 0.1 10^3/uL (0-0.05); Absolute Lymphocytes 0.5 10^3/uL (1.2-3.4); Absolute Monocytes 2.4 10^3/uL (0.1-0.6); Absolute Neutrophils 18.7 10^3/uL (1.4-6.5); Hematocrit 34.6 % (39.0-52.0); Hemoglobin 11.1 g/dL (13.0-18.0); Mean Corp Hgb Conc. 32.1 g/dL (33.0-37.0); Mean Corpuscular Hgb 31.3 pg (27.0-31.0); Mean Corpuscular Volume 97.5 fL (80.0-94.0); Mean Platelet Volume 10.7 fL (7.4-10.4); Nucleated Red Blood Cells % 0 % (-); Platelet Count 165 10^3/uL (130-400); Red Blood Cell Count 3.55 10^6/uL (4.70-6.10); Red Cell Dist. Width 23.3 % (11.5-14.5); White Blood Cell Count 21.8 10^3/uL (4.8-10.8)
[2023-09-12 04:42] LABS: Vancomycin Random 12.2 ug/ml
[2023-09-12 04:43] LABS: INR 1.58
[2023-09-12 04:47] LABS: ALT (SGPT) 35 U/L (0-50); AST (SGOT) 68 U/L (17-59); Albumin 3.2 g/dl (3.5-5.0); Alkaline Phosphatase 697 U/L (38-126); Blood Urea Nitrogen 45 mg/dl (9-20); Calcium 8.6 mg/dl (8.4-10.2); Carbon Dioxide 24 mmol/L (22-30); Chloride 96 mmol/L (98-107); Estimated Creatinine Clearance 19 ml/min; Glucose 144 mg/dl (70-99); Potassium 4.1 mmol/L (3.5-5.1); Sodium 135 mmol/L (135-145); Total Bilirubin 7.9 mg/dl (0.2-1.3); Total Protein 6.2 g/dl (6.3-8.2); eGFR 17.09
[2023-09-12] MEDS: NOVOLOG FLEXPEN-MODERATE RESISTANCE SC ×3 (06:02→16:55)
[2023-09-12 06:09] LABS: Glucose - Point of Care 134 mg/dl (70-99)
--- NOTE | 2023-09-12 07:22 | W.PN.NEURO.1 ---
Today's Communication / Plan
-
-Would hold Eliquis for time being
-PO or rectal aspirin if not able to take PO
-Goal normotension
-Neurologic checks
-Antibiotics, follow blood cultures
-MRI brain without contrast to evaluate for infarcts in setting of bacteremia, concern for endocarditis
-Continuing antibiotics
-Judicious use of sedating medications patient at risk for delirium from these with existing dementia, ESRD
-Vitamin B12 PO
Will follow up after MRI brain
Neuro Assessment/Plan
Assessment
83 year old man with history of dementia (very likely Alzheimer's disease), ESRD on HD, permanent atrial fibrillation, aortic stenosis s/p TAVR, non obstructive CAD, BART presenting to hospital with confusion, fall, forehead trauma. Was found this
admission to have MSSA bacteremia.
Mental status up till this morning 09/11 had been poor and nearly unreponsive with no focal cranial nerve or motor deficits
CT head no acute abnormalities, global atrophy seen
This morning 09/11 patient is wide awake, conversant, disoriented with difficulty with complex commands and memory impairment, no focal cranial nerve or motor deficits
CSF showed 14 WBC, total protein 255, no growth from CSF cultures and negative PCR meningitis/encephalitis panel
Suspect the CSF is due to either bacteremia and blood brain barrier breakdown, ischemic stroke in the context of bacteremia, or ESRD. Negative culture and PCR panel makes a primary bactereial meningitis unlikely.
Presumed that patient has toxic metabolic encephalopathy predominantly due to sepsis and bacteremia on top of dementia and ESRD predisposing to delirium/TME (most likely Alzheimer's), no strong evidence of seizure activity here. Seems improving
mental status but this will probably wax and wane.
Subjective/Objective
Subjective Data
Date of Service: September 12, 2023
Patient this morning awakens easily, talks with me, denies pain or complaints, he is surprised to hear he got sick, did not remember how he got here or that he is in the hospital
Objective Data
Vital Signs
Temp Pulse Resp BP Pulse Ox
96.7 F L 96 20 128/60 95
09/12/23 03:58 09/12/23 06:00 09/12/23 06:00 09/12/23 06:00 09/11/23 20:10
Lab Results
09/12/23 03:55
09/12/23 03:55
PT 19.0 Sec (11.4-14.6) H 09/12/23 03:55
INR 1.58 09/12/23 03:55
APTT 37.5 Sec (23.4-35.0) H 09/10/23 12:52
Sodium 135 mmol/L (135-145) 09/12/23 03:55
Potassium 4.1 mmol/L (3.5-5.1) 09/12/23 03:55
BUN 45 mg/dl (9-20) H 09/12/23 03:55
Glucose 144 mg/dl (70-99) H 09/12/23 03:55
Calcium 8.6 mg/dl (8.4-10.2) 09/12/23 03:55
Patient Allergies
gabapentin Adverse Reaction (Verified 09/10/23 10:50)
spastic movements
Review of Systems
-
History Source: Patient
All other systems: Reviewed and negative
Constitutional: No Symptoms
EENT: No Symptoms Reported
Respiratory: No Symptoms
Cardiac: No Symptoms
Abdomen/GI: No Symptoms
Genitourinary: No Symptoms
Musculoskeletal: No Symptoms
Skin: No Symptoms
Neuro: See existing Neuro Note
Endocrine: No Symptoms
Hematologic / Lymphatic: No Symptoms
Allergy / Immunology: No Symptoms
Physical Exam
-
General: No Apparent Distress
Eyes: Other (Clear)
HEENT: Other (Obvious bruising and ecchymosses across face)
Neck: No Bruits Bilaterally and Full Range of Motion
Respiratory: Clear to Auscultation and No Dyspnea; Negative Wheezes
Cardiac: Murmur
GI: Normal Bowel Sounds
Skin: Unremarkable, Warm and Dry
Extremities: No Cyanosis
Psych: Confused and Apparent Dementia; Negative Agitated or Intact Judgement/Insight
Extended Neurological Exam
Attention Span & Concentration: Other (Awake and conversational, says his name, 's and children's names, knows his and marriage date, doesn't know year, month, POTUS, can count to 20 and name months of the year forwards, difficulty with more
complex commands cannot perform 100 minus 7)
Memory: Reduced
Tremor: Other (Bilateral postural hand tremor)
Involuntary Movement: None
Speech: Other (Comprehension of 1 and 2 step command intact, naming intact, repetition intact); Negative Expressive Aphasia, Receptive Aphasia or Dysarthric
Cranial Nerve II: Left Eye: Pupillary Reactivity Unremarkable, Pupillary Size Unremarkable and Visual Nicole Intact
Cranial Nerve II: Right Eye: Pupillary Reactivity Unremarkable, Pupillary Size Unremarkable and Visual Nicole Intact
Cranial Nerves III, IV, : Extraocular Movement: Extraocular Movement Full in all Directions
Cranial Nerve VII: Facial Symmetry: Normal Facial Symmetry
Muscle Strength, Overall: Full Throughout
Muscle Bulk & Tone: Bulk Unremarkable
Pronator Drift: No Drift in Upper Extremities
Deep Tendon Reflexes: Trace Throughout
Touch Sensation: Unremarkable
Coordination: [id number] Testing Unremarkable
Data Reviewed
-
CT Head: Report Reviewed and Image Reviewed
Labs: Report Reviewed
--- NOTE | 2023-09-12 09:12 | CM ---
Addendum entered by Siomara Celestin RN 09/12/23 17:38:
Spoke with patient's son Christopher and ;
he is assisted with bathing/dressing by and son.
His sleep schedule is erratic and he gets up in the middle of the night.
Patient has had 4-5 recent falls.
Patient sundowns and gets agitated.
Additional DME; w/c, commode, lift device (not a chair lift)
SNF - none
PCP- Kelsy Strickland
Pharmacy - [facility]
Son transports patient to [facility].
Son and do not want patient to go to SNF for rehab. They would like patient to return home, perhaps with additional supports in place. Suggested family consider hiring a caregiver.
Message from Dr Coombs - he's not ready to work with therapy.
Plan will need PT/OT when medically appropriate.
Plan follow up after PT/OT Evals.
Original Note:
Patient with Hx dementia, ESRD on HD, fall with Dx Sepsis, TME. Room air. Receiving IV Abx. Per nurse assessment; forgetful, trying to get OOB. Medsitter.
Spoke with patient's Iveth; anxious and only had short conversation, as she kept saying she needs to urgently get an update from her 's nurse as 2 caregivers were at the house and she is not sure if she needs them. Patient's
asked CM to call again at another time.
The patient resides with his and son in a 2 story house with 1 JULI, and first floor bedroom/bathroom.
He has been independent with ADLs and ambulates with his RW.
DME - hospital bed, RW, SPC, hearing aides
Current with [facility] for SN & PT
Spoke with patient's son Christopher; he said he was aware that his mother was anxious and he will be happy to speak with CM however now is not a good time. He agrees to talk later today.
Message to Dr Coombs requesting PT/OT Evals due to fall prior to admission.
Plan contact son or to complete initial assessment.
Plan follow up after PT/OT Evals.
[2023-09-12] MEDS: COLACE 200 MG PO ×2 (09:24→20:14)
[2023-09-12] MEDS: PROTONIX 40 MG PO ×2 (09:24→20:14)
[2023-09-12] MEDS: TYLENOL 1000 MG PO ×2 (09:24→20:14)
[2023-09-12] MEDS: VITAMIN D3 (cholecalciferol) 50 MCG PO (09:24)
[2023-09-12] MEDS: DESENEX/MITRAZOL/ZEASORB 1 APPLIC TOPICAL ×2 (09:25→21:34)
[2023-09-12] MEDS: VITAMIN B-12 1000 MCG PO (09:25)
--- NOTE | 2023-09-12 09:27 | W.PN.ID1 ---
Date of Service
Date of Service: September 12, 2023
Today's Communication
José Miguel today.
See below.
Assessment / Plan
# Relapsed Staph aureus bacteremia, TAVR IE
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
# Sepsis: fever resolved,now hypothermic. Leukocytosis - trending down
# s/p fall with scalp trauma (09/04 on Eliquis) - face/neck ecchymosis
# Acute change in mental status - improved
# ESRD on HD via AVF
- CT head: left frontal scalp hematoma
- CT chest, abd, pelvis no acute pathology
- CSF: Xanthochromic , 14 WBC, 10 RBC, 8% granulocytes, 11% lymphs, 81% macrophages, protein 255
Meningo-encephalitis panel negative. Cx neg to date.
- Continue Vancomycin for TECHNICAL CLERK penetration until septic emboli ruled out.
-Continue IV cefazolin.
- Follow blood cx's in am.
- TTE: no gross vege
- Spoke to Cardiology. For JOSÉ MIGUEL today. Patient is not surgical candidate.
- When able MRI brain to evaluate for septic emboli and spine to evaluate for abscess
-Follow wbc.
#Additional Past Medical History:
Dementia
DM
ESRD on HD via LUE AVF
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
pAfib
CHF
chronic back pain
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
Appendectomy
Chief Complaint
-: Clinical Sepsis and Bacteremia
Subjective / Review of Systems
Pt calm, sitting up in chair, answers questions appropriately.
He is feeling better. Denies PHILLIPS or worsening back pain.
Vital Signs / Physical Exam
Vital Signs
Vital Signs
Temp Pulse Resp BP Pulse Ox
98.7 F 89 22 129/57 95
09/12/23 07:25 09/12/23 08:00 09/12/23 08:00 09/12/23 08:00 09/11/23 20:10
Physical Exam
Constitutional: No Acute Distress and Comfortable
Eyes: Other (icteric)
Cardiovascular: Regular Rate and S1/S2
Pulmonary: Clear
Gastrointestinal: Soft, Non Tender and Non Distended
Genito-Urinary: Negative CVA Tenderness
Musculoskeletal: Negative Spinal Tenderness
Neurological: Awake and Alert
Psychological: Calm
Objective Data
Lab Data
Lab Results
09/12/23 03:55
09/12/23 03:55
PT 19.0 Sec (11.4-14.6) H 09/12/23 03:55
INR 1.58 09/12/23 03:55
APTT 37.5 Sec (23.4-35.0) H 09/10/23 12:52
Estimated Creat Clear 19 ml/min 09/12/23 03:55
Lactic Acid 1.8 mmol/L (0.7-2.0) 09/11/23 09:05
Total Bilirubin 7.9 mg/dl (0.2-1.3) H 09/12/23 03:55
AST 68 U/L (17-59) H 09/12/23 03:55
ALT 35 U/L (0-50) 09/12/23 03:55
Alkaline Phosphatase 697 U/L (38-126) H 09/12/23 03:55
Most recent labs reviewed.
Micro Results:
09/11/23 04:14 MRSA Screen - Final
Nose No Methicillin Resistant Staphylococcus aureus isolated.
09/12/23 03:55 Blood Culture - Pending
Blood/Venous
09/10/23 16:20 CSF Culture - Preliminary
Csf No Growth After 18-24 Hours
Gram Stain - Preliminary
09/10/23 14:42 Blood Culture - Preliminary
Blood/Venous Staphylococcus aureus
Gram Stain - Final
09/10/23 14:42 Blood Culture - Preliminary
Blood/Venous Positive culture in progress
Gram Stain - Preliminary
09/10/23 16:20 Meningitis/Encephalitis Panel (PCR) - Final
Csf
09/10/23 17:29 Influenza Types A & B (ELIANA) - Final
Nasal Swab Negative for Influenza A & B, NAAT
Negative results must be combined with clinical observations
and patient history.
Nucleic Acid Amplification test (NAAT)performed on the
[employer] platform.
09/10/23 CT c/a/p: No acute posttraumatic abnormality in the chest, abdomen, or pelvis within the limitations of motion artifact. Small chronic loculated right pleural effusion with pleural thickening. Mild abdominal ascites.
09/10/[address]: No acute intracranial abnormality within the limitations of motion artifact. Left frontal scalp hematoma. No CT evidence for an acute facial bone fracture.
Care Review
Plan reviewed with: Physician (Dr. Mason)
--- NOTE | 2023-09-12 09:32 | W.PN.HOSP.TC ---
Today's Communication/Plan
-
IV antibiotics. HAN. MRI of the brain and cervical spine.
Assessment / Plan
Assessment / Plan
Physical exam:
General: Acutely ill
HEENT: Normocephalic, traumatic head and neck with large ecchymosis extending from forehead down to the base of the neck only sparing perioral area and Moist Mucous Membranes
Respiratory: Bilateral crackles; Negative Wheezes or Rhonchi
Cardiac: Irregular rate and rhythm and S1/S2
GI: Soft, Nontender and Nondistended
Musculoskeletal: No Clubbing, No Cyanosis. Bilateral edema. Bruises in extremities as well.
Neuro: Alert. Disoriented. Moves all 4 extremities. Babinski positive
A/P:
Toxic metabolic encephalopathy, unclear etiology:
-Although etiology unclear differential includes stroke, medications, septic emboli, sepsis overall, seizures, other. Likely septic encephalopathy at this point.
-Neurology consult
-Psychiatry consult as well to help with medications for agitation.
-Plan for MRI of the brain when able to accommodate due to his mental status
-Plan for HAN today
-Hold Eliquis
-Aspirin per rectum for now per neurology or by mouth if able to take oral
-Start thiamine and consider pyridoxine per neurology
-CSF abnormal but not consistent with bacterial meningitis--> WBC in the CSF 14, CSF glucose elevated 131, CSF total protein elevated 255.
-Discussed with at bedside yesterday and will meet with her this afternoon again.
-Patient on narcotics as outpatient so ordered IV Dilaudid.
-Patient at high risk of deterioration and if mentation worsens might require intubation. Discussed with and she reiterates CODE STATUS full code ( expresses that she does not agree much but that has been his wishes in the past but if he
does continues to deteriorate would need to have more discussions).
-Speech therapy cleared him to start regular diet today.
-Prognosis guarded
Sepsis of unclear etiology, concerns for recurrent infective endocarditis:
-Persistent leukocytosis but started to trend down now, WBC 29.1-->21.8
-On IV cefazolin and vancomycin
-Appreciated ID consult
-Communicated with ID today
-Positive blood culture on 09/09--> Staph Aureus waiting for identification.
-Will repeat blood cultures today
-Plan for MRI brain and cervical once more stable
-Status post LP. CSF abnormal but not consistent with bacterial meningitis--> WBC in the CSF 14, CSF glucose elevated 131, CSF total protein elevated 255.
-Seen and reviewed CT scan of the head, chest, abdomen and pelvis.
-Requested cardiology consult light of history of TAVR prior endocarditis and bacteremia (also family request cardiology to be involved). Plan for HAN today.
-History of recent MSSA bacteremia with possible vegetation back in July.
Chronic pain, dependence on chronic narcotics:
-Holding oral narcotics but ordered IV Dilaudid to avoid withdrawal. On the other hand try to avoid oversedation as well.
End-stage renal disease on hemodialysis:
-HD per renal
-Plan for HD in am
-Nephrology consult appreciated
Elevated LFTs:
-Possibly related to sepsis
-Plan for MRCP eventually
-GI consult appreciated
Fall with trauma/Extensive ecchymosis on face and neck after recent facial trauma:
-Hold Eliquis
-CT of facial no fractures
-Discussed with ENT over the phone and they would like to follow-up as outpatient but nothing that they would do as inpatient (Nilay Stoner). They also recommend holding anticoagulation for few days.
Diabetes mellitus type 2 with hyperglycemia:
-Continue insulin sliding scale but increase to moderate resistance
-Continue to monitor and avoid hypoglycemia or excessive hyperglycemia
Permanent atrial fibrillation:
-Holding Eliquis
-On amiodarone but not sure able to tolerate
Severe aortic stenosis status post TAVR:
-Continue to monitor
Nonobstructive CAD:
-Continue to monitor
Moderate to severe tricuspid regurgitation:
-Continue to monitor
Dementia:
-Continue to monitor mental status and behavior
-Psychiatry on board
BART:
-On CPAP as outpatient
-Doubt able to tolerate at this point but we will reevaluate down the line
DVT prophylaxis
SCDs
CODE STATUS
Full code
Total time spent on today's encounter was 52 minutes which included time spent in counseling the patient/family regarding diagnosis and treatment plan as listed above, goals of care, and symptom management. Case was discussed with nursing staff,
specialists, and care coordinators/case management. All labs and imaging personally reviewed by me. Remainder the time spent in detailed review of previous records, lab data, imaging, and other medical provider documentation.
Anticipated Discharge: > 48 hours
Subjective/Interval History
-
Date of Service: September 12, 2023
Patient more alert today. Still disoriented. Afebrile.
Objective Data
-
Labs:
Laboratory Results
09/12/23
03:55
WBC 21.8 H
Hgb 11.1 L
Hct 34.6 L
Plt Count 165
PT 19.0 H
INR 1.58
Sodium 135
Potassium 4.1
Chloride 96 L
Carbon Dioxide 24
BUN 45 H
Creatinine 3.4 H
Glucose 144 H
Calcium 8.6
Total Bilirubin 7.9 H
AST 68 H
ALT 35
Alkaline Phosphatase 697 H
Vital Signs:
Vital Signs
Temp Pulse Resp BP Pulse Ox
98.7 F 89 22 129/57 95
09/12/23 07:25 09/12/23 08:00 09/12/23 08:00 09/12/23 08:00 09/11/23 20:10
I&O
09/11/23 09/12/23 09/13/23
06:59 06:59 06:59
Intake Total 800 / 800
Balance 800 / 800
Review of Systems
-
Unable to obtain full review of systems at this time due to: Dementia
--- NOTE | 2023-09-12 10:04 | W.PN.CD ---
Today's Communication / Plan
-
discussed with ID: HAN today
Impression / Plan
-
Bacteremia, Staphylococcus aureus
-Recent MSSA bacteremia with MV IE s/p 6 weeks of cefazolin
-No endocarditis on TTE
-ID plans for eventual MRI of the brain to evaluate for septic emboli
-discussed with ID: HAN today
Change in mental status with agitation: significantly improved
Atrial fibrillation, permanent
-Rate controlled on amiodarone and Toprol XL
-Oral Anticoagulation: Apixaban 2.5mg BID (age 83, creatinine > 1.5), on hold
-[id number]: score at least 4 (age 75 or more, Diabetes Mellitus, Vascular disease)
-He was evaluated for Watchman but developed endocarditis
Severe aortic stenosis S/P TAVR ([employer] Evolut 29)
-Peak/mean gradients 16/8mmHg without AR
CAD, non obstructive by cardiac cath (10/2022)
Moderate-severe tricuspid regurgitation
ESRD on HD
Anemia of chronic disease
Type 2 diabetes mellitus
Dementia
Physical Exam
Vital Signs/Labs
Vital Signs
Temp Pulse Resp BP Pulse Ox
98.7 F 89 22 129/57 95
09/12/23 07:25 09/12/23 08:00 09/12/23 08:00 09/12/23 08:00 09/11/23 20:10
09/11/23 09/12/23 09/13/23
06:59 06:59 06:59
Actual Weight 100 kg 98.4 kg
09/12/23 03:55
09/12/23 03:55
PT 19.0 Sec (11.4-14.6) H 09/12/23 03:55
INR 1.58 09/12/23 03:55
APTT 37.5 Sec (23.4-35.0) H 09/10/23 12:52
Physical Exam
Constitutional: No acute distress and Comfortable
EENT: Moist mucous membranes
Cardiovascular: Pedal edema is absent, JVD pressure is normal, Systolic murmur absent and Rhythm/rate is irregular
Respiratory: Respiratory effort normal and Lungs clear to auscul.
GI: Soft, Distention absent and Flat
Neuro/Psych: Alert and Oriented
Data Reviewed
-
Date of Service: September 12, 2023
EKG: Other (Tele: A fib 80s)
Labs: Labs Reviewed by me
--- NOTE | 2023-09-12 10:30 | W.PN.NEPH.PH ---
Today's Communication / Plan
-
Dialysis tomorrow
Maintain antibiotics in the setting of staph bacteremia
Assessment/Plan
-
Impression:
End-stage renal disease Saturday dialysis
History of MSSA bacteremia and endocarditis/leukocytosis
Status post falls
Hypertension
Anemia
Atrial fibrillation (OAT)
Hyperphosphatemia
History of duodenal ulceration
s/p TAVR 12/13/22 (Aortic Stenosis)
Type 2 diabetes
Secondary hyperparathyroidism
History of diastolic congestive heart failure
Dementia
Left upper extremity AV fistula
Chronic pain: opioid dependence
Hyperphosphatemia
Plan:
Hd tomorrow,orders provided
Patient may be too disoriented and restless for dialysis and will require restraint
Status post LP given history of MSSA bacteremia and confusion: CSF cx negative but noted staph bacteremia, remains on vancomycin and cefazolin
MARGARITA on HD
currently npo (off binders)
-
-
Date of Service: September 12, 2023
CC / HPI / ROS
-
Chief Complaint:
End-stage renal disease
History of Present Illness:
ESRD Saturday
Hemodynamically stable
Remains on vancomycin and cefazolin for bacteremia
Review of Systems:
Remains confused but more oriented today
Less agitated
No fevers overnight
Labs
-
Labs:
WBC 21.8 10^3/uL (4.8-10.8) H 09/12/23 03:55
RBC 3.55 10^6/uL (4.70-6.10) L 09/12/23 03:55
Hgb 11.1 g/dL (13.0-18.0) L 09/12/23 03:55
Hct 34.6 % (39.0-52.0) L 09/12/23 03:55
Plt Count 165 10^3/uL (130-400) 09/12/23 03:55
Sodium 135 mmol/L (135-145) 09/12/23 03:55
Potassium 4.1 mmol/L (3.5-5.1) 09/12/23 03:55
Chloride 96 mmol/L (98-107) L 09/12/23 03:55
Carbon Dioxide 24 mmol/L (22-30) 09/12/23 03:55
BUN 45 mg/dl (9-20) H 09/12/23 03:55
Creatinine 3.4 mg/dL (0.7-1.3) H 09/12/23 03:55
eGFR 17.09 09/12/23 03:55
Glucose 144 mg/dl (70-99) H 09/12/23 03:55
Calcium 8.6 mg/dl (8.4-10.2) 09/12/23 03:55
Albumin 3.2 g/dl (3.5-5.0) L 09/12/23 03:55
Physical Exam
-
Vital Signs:
Vital Signs
Temp Pulse Resp BP Pulse Ox
98.7 F 96 23 121/68 95
09/12/23 07:25 09/12/23 10:00 09/12/23 10:00 09/12/23 10:00 09/11/23 20:10
Cardiovascular:: Regular rate and rhythm
Respiratory:: Bilateral: Coarse
Lung Excursion:: Normal
Abdomen:: Nontender and Soft
Bowel Sounds:: Normal
Extremity Edema:: None: Bilateral:
Daniels Catheter: No
--- NOTE | 2023-09-12 10:55 | PHA.VAN.FU ---
Vancomycin Assessment / Plan
- Assessment
Hemodialysis Schedule: MWF
Last Hemodialysis performed: 09/10
WBC's are: Trending Down
Concomitant Antimicrobials: cefazolin
- Assessment - Therapeutic Drug Monitoring
Random Level: 12.2 - drawn ~12.5H after previous dose of 750mg
- Dosing Plan
Dosing by Level: Hold off on dosing today
Dosing Comments: re-dose with Vancomycin 1000mg with HD tomorrow (since level on lower side)
- Monitoring Plan
No level(s) ordered at this time: consider pre-HD level for Mon
- Follow Up
Pharmacy will continue to follow.
Vancomycin Follow UP
- -
Patient Age: 83
Patient Sex: Male
Vancomycin Day #: 3
Indication: Endocarditis
Requesting Provider: Dr. Hannon / Gilbert
Pertinent Antimicrobial Allergies:
no pertinent antibiotic allergies
Height / Weight:
Height 5 ft 9 in
Actual Weight 98.4 kg
Pertinent Past Medical History: BMI ~32.6, ESRD on HD, recent MSSA bacteremia, DM
- Vital Signs / Lab Results
Temp Pulse Resp BP Pulse Ox
98.7 F 96 23 121/68 96
09/12/23 07:25 09/12/23 10:00 09/12/23 10:00 09/12/23 10:00 09/12/23 10:30
Lab Results - Hematology
09/10/23 09/11/23 09/12/23
12:52 04:09 03:55
WBC 30.8 H 29.1 H 21.8 H
Lab Results - Chemistry
09/10/23 09/10/23 09/11/23
12:52 15:17 04:09
BUN 56 H 58 H 70 H
Creatinine 4.0 H 4.3 H* 5.2 H*
Estimated Creat Clear 16 15 12
Albumin Cancelled 3.7 3.0 L
09/12/23
03:55
BUN 45 H
Creatinine 3.4 H
Estimated Creat Clear 19
Albumin 3.2 L
09/10/23 09/10/23 09/11/23
14:42 19:55 04:09
Lactic Acid 3.3 H 2.6 H 2.2 H
09/11/23
09:05
Lactic Acid 1.8
Microbiology Results
09/10/23 14:42 Blood Culture - Preliminary
Blood/Venous Staphylococcus aureus
Gram Stain - Preliminary
09/10/23 14:42 Blood Culture - Preliminary
Blood/Venous Staphylococcus aureus
Gram Stain - Final
09/11/23 04:14 MRSA Screen - Final
Nose No Methicillin Resistant Staphylococcus aureus isolated.
09/10/23 16:20 CSF Culture - Preliminary
Csf No Growth After 18-24 Hours
Gram Stain - Preliminary
09/10/23 16:20 Meningitis/Encephalitis Panel (PCR) - Final
Csf
09/10/23 17:29 Influenza Types A & B (ELIANA) - Final
Nasal Swab Negative for Influenza A & B, NAAT
Negative results must be combined with clinical observations
and patient history.
Nucleic Acid Amplification test (NAAT)performed on the
[employer] platform.
Therapeutic Drug Monitoring
Random Vancomycin 12.2 ug/ml 09/12/23 03:55
--- NOTE | 2023-09-12 11:11 | PTCARENOTE ---
I spoke with patient's approx. 0930 this morning. seemed quite anxious and had asked that I make the doctor aware to call her. was made aware and he reported he could call her around lunch time. She asked why they MRI's have not
been done yet and that she is concerned for her . I answered all questions to best of RN ability.
called again approx 11:00 and asked why no one has called her yet. I reported that the doctor would call around lunch time. She stated 'I don't know why I haven't received any calls to coordinate his care.' She sounded tearful and said 'I just
want to know what's going on with him.' I advised that I was answering all her questions to the best of my ability and doctors would call when able. I advised that he was going for a HAN procedure, which said he would call her, but did
not understand why he 'has not gone for the MRCP yet.' I advised HAN could be done now therefore patient is going for that. Both and made aware.
11:16 called patient's multiple times and left a voicemail - she did not answer.
--- NOTE | 2023-09-12 11:45 | PTCARENOTE ---
Patient sent for HAN.
[2023-09-12 13:16] LABS: Glucose - Point of Care 137 mg/dl (70-99)
--- NOTE | 2023-09-12 13:55 | PTOTSP ---
Speech Language Pathology
Pt seen for clinical bedside swallow evaluation. Pt and family denied any hx of dysphagia. Reported PNA x1 in the past year. P.O. trials of puree, regular solids, and thin liquids provided. Adequate mastication, bolus formation, and A-P transit
noted with no oral residue. No overt signs of aspiration.
Recommend:
(1) Initiate regular solids/thin liquids
(2) General aspiration precautions
(3) Meds as tolerated
(4) RURAL ROUTE CARRIER to sign off. Please reconsult as indicated
[2023-09-12] MEDS: ASPIRIN 300 MG RECTAL (14:37)
--- NOTE | 2023-09-12 14:37 | W.PN.UPDATE ---
Update Note
Progress Note Update
patient seen chart reviewed. discussed w nursing. family ( and son ) at bedside. the patient is much much improved today. notes from various specialties including neuro appreciated. the patient was communicative superficially and pleasant.
there is a baseline of some dementia. son described his father's decline over the past few months but son says this is the first time patient coujld actually talk w him. for now would continue with ativan as a prn. nursing feels ativan prn has been
helpful and when necessary patient is very redirectable. psych will sign off.
[2023-09-12] MEDS: ANCEF 5 IV (14:38)
--- NOTE | 2023-09-12 15:50 | W.PN.GI.CBS2 ---
Addendum entered and electronically signed by Jroge Rodriguez MD 09/12/23 18:01:
I saw and examined the patient.
The COMPUTER TRAINING SPECIALIST or PA's note was reviewed and I agree with the note.
Comment: 83-year-old male presenting with sepsis found to have Staph aureus also has recent endocarditis. Suspect elevated liver enzymes are due to cholestasis of sepsis. Ultrasound done with no biliary dilation. Biliary disease typically does
not present with Staph aureus. I canceled MRI at this time as not necessary. Per , patient having some chronic GI issues for the last few months with abdominal pain and nausea and vomiting. He underwent a CT scan with IV contrast which is
unremarkable. I sent a message to our office to set up an appointment with Dr. Pires who is his outpatient GI doctor which Hannah will add on the appointment once it is made. We will start a diet and see if he can tolerate it.
Original Note:
Today's Communication / Plan
-
etiology of LFT elevation related to sepsis with fever/leukocytosis, elevated lactate - with bacteremia with recent endocarditis with vegetation, biliary etiology with elevated LFT's underlying chronic liver issue with concern for cirrhosis on US,
vs other with recent abdominal pain and nausea vs other
cont LFT trend-- some improvement
repeat echo as noted
pt unable to do MRI 09/10 with agitation and also due for MRI neck/ cervical spine
US and CT as noted
for diet advancement if not tolerating or abdominal pain consider MRI with ongoing GI issues prior to admission after other imaging completed -- pt did have recent Ozempic several month ago stopped with GI symptoms
some chronic alk phos elevation and mild elevation with endocarditis in July
cont abx - ID following
hepatitis panel pending
some elevated INR but on chronic Eliquis
updated
Assessment / Plan
-
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
07/2023(recently completed Cefazolin course x 6 week course), dementia, hypertension, diabetes, hyperlipidemia, diastolic heart failure, obstructive sleep apnea, iron deficiency anemia, GERD, Jc's esophagus colon polyps, and chronic back pain.
He has been seen past year for anemia with last EGD in March, with 3 non bleeding angioectasia and last colonoscopy 2020 with 11 TA polyps On admission hbg was stable 11.5 but patient presented with confusion, bruising, after fall several
days ago, leukocytosis with concern for sepsis (lactate3.3, fever 103.2) but also noted with jaundice with initial bilirubin 12.1, d bili 10.1, ASt 82, ALT 46, alk phos 1105, albumin 3with INR 1.6(in setting of chronic Eliquis use). Limited US
admission with normal gallbladder with no evidence for biliary ductal dilation, and nodular contour with concern for cirrhosis. 09/09 CT chest/A/P with IV contrast no post traumatic abnormality, chronic effusion, mild ascites liver unremarkable.
Per Pt will often state no to symptoms but noted with some nausea and abdominal pain prior to admission. ? hx prior liver vs renal cyst with removal but no hx liver problems or hepatitis in past. She also report recent Ozempic use from
March til May/early June then stopped with multiple other issues. She report some chronic constipation with laxative use and black stool prior to admission. He did recently have OP IV iron infusion.
-increased LFT's
-sepsis with fever/leukocytosis/elevated lactate
-recent MSSA endocarditis with concern for vegetation on TAVR CAGE and leaflet 07/2023(recently completed Cefazolin course x 6 week course) now recurrent MSSA bacteremia
-nausea/abdominal pain
-s/p fall with scalp hematoma/ecchymosis
-agitation
-afib prior CV on Eliquis prior to admission
-Us with possible cirrhosis not seen on CT
-hx anemia with prior noted AVM's with treatment
-hypoalbuminemia
-coagulopathy with chronic Eliquis use
other medical problems:
-ESRD on HD
-colon polyps
-jc's
-dementia
-DM
- with prior TAVR
-hyperlipidemia
-CHF
-sleep apnea
-chronic back pain
PLAN:
etiology of LFT elevation related to sepsis with fever/leukocytosis, elevated lactate - with bacteremia with recent endocarditis with vegetation, biliary etiology with elevated LFT's underlying chronic liver issue with concern for cirrhosis on US,
vs other with recent abdominal pain and nausea vs other
cont LFT trend-- some improvement
repeat echo as noted
pt unable to do MRI 09/10 with agitation and also due for MRI neck/ cervical spine
US and CT as noted
for diet advancement if not tolerating or abdominal pain consider MRI with ongoing GI issues prior to admission after other imaging completed -- pt did have recent Ozempic several month ago stopped with GI symptoms
some chronic alk phos elevation and mild elevation with endocarditis in July
cont abx - ID following
hepatitis panel pending
some elevated INR but on chronic Eliquis
updated
Subjective
Subjective
Date of Service: September 12, 2023
09/11 brown stool on regular diet but has not started diet yet just cleared by speech per hx abdominal pain with nausea several months still with some confusion
Objective
Data Reviewed
Laboratory Data:
Laboratory Results
09/12/23 03:55
09/12/23 03:55
Laboratory Results
PT 19.0 Sec (11.4-14.6) H 09/12/23 03:55
INR 1.58 09/12/23 03:55
APTT 37.5 Sec (23.4-35.0) H 09/10/23 12:52
Total Bilirubin 7.9 mg/dl (0.2-1.3) H 09/12/23 03:55
AST 68 U/L (17-59) H 09/12/23 03:55
ALT 35 U/L (0-50) 04/04/24 03:55
Alkaline Phosphatase 697 U/L (38-126) H 09/12/23 03:55
Lipase Cancelled 09/10/23 12:52
Vital Signs and I&O:
Vital Signs
Temp Pulse Resp BP Pulse Ox
97.8 F 86 21 112/59 97
09/12/23 15:29 09/12/23 13:06 09/12/23 13:06 09/12/23 13:06 09/12/23 13:06
I&O
09/11/23 09/12/23 09/13/23
06:59 06:59 06:59
Intake Total 800 / 800
Balance 800 / 800
Physical Exam
Physical Exam
HEENT: Moist mucous membranes and Other (jaundice marked bruising throughout with large facial bruise)
Cardiology: Normal Sinus Rhythm
Pulmonary: Clear
GI: Soft, Distended (minimal ) and Tender (minimal tenderness on exam)
Extremities: No Edema
Neuro: Other (forgetful but some improved mentation from yesterday)
[2023-09-12 17:00] LABS: Glucose - Point of Care 144 mg/dl (70-99)
--- NOTE | 2023-09-12 18:01 | W.PN.UPDATE ---
Update Note
Progress Note Update
billing purposes
[2023-09-12] MEDS: ATIVAN 1 MG IV ×2 (18:34→22:35)
[2023-09-12] MEDS: TOPROL XL 25 MG PO (21:32)
[2023-09-12] MEDS: STERILE WATER FOR INJECTION IV (22:07)
[2023-09-12 22:33] LABS: Glucose - Point of Care 195 mg/dl (70-99)
--- NOTE | 2023-09-12 23:20 | PTCARENOTE ---
Addendum entered by Ivet Pham RN 09/13/23 05:01:
Pt was able to get around 4 hours consecutive sleep.
Original Note:
Pt continuously attempting to get out of bed. Med sitter in room. Pt toiled on BSCX1-2. Pt had complaints of pain, PRN medication given. Pt redirected easily,only lasting a minute or two and needing more redirection. Pt then becoming more agitated,
redirection no longer working. Pt given PRN for agitation. Reassessment Pt appears to be sleeping comfortably, respiration even and unlabored. Vitals stable at this time. Assessment care and vitals as charted.
[2023-09-13] VITALS (23 sets, daily range): BP systolic 105–154; BP diastolic 51–94; BMI 32.1
[2023-09-13] MEDS: DILAUDID 0.25 MG IV ×4 (01:14→21:04)
[2023-09-13 05:05] LABS: Hepatitis B Surface Antigen Negative (Negative)
[2023-09-13 05:18] LABS: % Basophils 0.1 % (0-2); % Eosinophils 0.4 % (0-6); % Immature Granulocytes 0.6 % (0-0.5); % Lymphocytes 4.7 % (20.5-51.1); % Monocytes 8.2 % (1.7-9.3); Absolute Eosinophils 0.1 10^3/uL (0-0.7); Absolute Immature Granulocytes 0.1 10^3/uL (0-0.05); Absolute Lymphocytes 0.7 10^3/uL (1.2-3.4); Absolute Monocytes 1.3 10^3/uL (0.1-0.6); Absolute Neutrophils 13.4 10^3/uL (1.4-6.5); Hematocrit 38.7 % (39.0-52.0); Hemoglobin 12.6 g/dL (13.0-18.0); Mean Corp Hgb Conc. 32.6 g/dL (33.0-37.0); Mean Corpuscular Volume 95.3 fL (80.0-94.0); Nucleated Red Blood Cells % 0 % (-); Platelet Count 161 10^3/uL (130-400); Red Blood Cell Count 4.06 10^6/uL (4.70-6.10); Red Cell Dist. Width 22.3 % (11.5-14.5); White Blood Cell Count 15.7 10^3/uL (4.8-10.8)
[2023-09-13 05:23] LABS: Hepatitis B Core Ab, Total Negative (Negative); Hepatitis B Surface Antibody Negative; Hepatitis C Antibody Negative (Negative)
[2023-09-13 05:33] LABS: Hepatitis A Antibody, Total Negative (Negative)
--- NOTE | 2023-09-13 05:45 | W.PN.GI.CBS2 ---
Today's Communication / Plan
-
See assessment and plan for details.
Assessment / Plan
-
1. Elevated LFTs: Secondary to Staph aureus bacteremia and intrahepatic cholestasis of sepsis, no duct dilation on ultrasound, no other lesions on CT scan with contrast, LFTs and leukocytosis trending down. His exam is benign and no abdominal
tenderness. His decreased appetite is multifactorial, again more likely related to his recent infection. At this point would hold on further workup though continue to trend his LFTs. We will sign off for now, please call back with any further
questions or change in his improving LFTs.
Subjective
Subjective
Date of Service: September 13, 2023
No new events overnight, no fevers, patient denies abdominal pain, states that he ate yesterday though per nursing only had about 10% of dinner.
Objective
Data Reviewed
Laboratory Data:
Laboratory Results
09/13/23 04:51
Laboratory Results
PT 19.0 Sec (11.4-14.6) H 09/12/23 03:55
INR 1.58 09/12/23 03:55
APTT 37.5 Sec (23.4-35.0) H 09/10/23 12:52
Total Bilirubin 7.9 mg/dl (0.2-1.3) H 09/12/23 03:55
AST 68 U/L (17-59) H 09/12/23 03:55
ALT 35 U/L (0-50) 09/12/23 03:55
Alkaline Phosphatase 697 U/L (38-126) H 09/12/23 03:55
Lipase Cancelled 09/10/23 12:52
Vital Signs and I&O:
Vital Signs
Temp Pulse Resp BP Pulse Ox
98.4 F 87 20 119/85 94
09/13/23 03:50 09/13/23 04:00 09/13/23 04:00 09/13/23 04:00 09/13/23 03:50
I&O
09/11/23 09/12/23 09/13/23
06:59 06:59 06:59
Intake Total 800 / 800 320 / 320
Output Total 0 / 0
Balance 800 / 800 320 / 320
Physical Exam
Physical Exam
General: NAD
Abdomen: normal bowel sounds, soft, no tenderness, no masses or bruits, no ascites
[2023-09-13 06:09] LABS: ALT (SGPT) 30 U/L (0-50); AST (SGOT) 84 U/L (17-59); Albumin 3.9 g/dl (3.5-5.0); Alkaline Phosphatase 809 U/L (38-126); Blood Urea Nitrogen 63 mg/dl (9-20); Carbon Dioxide 24 mmol/L (22-30); Chloride 92 mmol/L (98-107); Estimated Creatinine Clearance 14 ml/min; Glucose 142 mg/dl (70-99); Potassium 3.9 mmol/L (3.5-5.1); Sodium 134 mmol/L (135-145); Total Bilirubin 11.2 mg/dl (0.2-1.3); Total Protein 7.4 g/dl (6.3-8.2); eGFR 11.59
--- NOTE | 2023-09-13 06:29 | W.PN.NEURO.1 ---
Addendum entered and electronically signed by Shayan Brewer MD 09/13/23 12:03:
I reviewed the brain MRI images as well as the radiology report and agree with the radiology report, several small areas of acute ischemic infarction that are punctate and embolic appearing, 1 in the right thalamus and 2 in the right occipital lobe.
These infarcts are most likely due to bacteremia and endocarditis. This also explains the elevated white blood cells in the CSF.
Would continue the aspirin for now.
On 09/19 would be acceptable to stop the aspirin and resume apixaban for anticoagulation, areas of stroke are very small and without any hemorrhage.
Original Note:
Today's Communication / Plan
-
-Pending MRI brain and cervical spine without contrast
-Continue to hold Eliquis in the setting of suspected endocarditis, possible ischemic strokes to the brain
-Continue aspirin
-Goal normotension
-Neurologic checks
-Follow blood cultures, continue antibiotics
Will follow
Neuro Assessment/Plan
Assessment
83 year old man with history of dementia (very likely Alzheimer's disease), ESRD on HD, permanent atrial fibrillation, aortic stenosis s/p TAVR, non obstructive CAD, BART presenting to hospital with confusion, fall, forehead trauma. Was found this
admission to have MSSA bacteremia.
Mental status until morning of 09/11 had been poor and nearly unresponsive with no focal cranial nerve or motor deficits, AM of 09/11 patient confused (known dementia) but awake and conversant
CT head no acute abnormalities, global atrophy seen
This morning 09/11 patient is wide awake, conversant, disoriented with difficulty with complex commands and memory impairment, no focal cranial nerve or motor deficits
CSF showed 14 WBC, total protein 255, no growth from CSF cultures and negative PCR meningitis/encephalitis panel
Suspect the CSF WBC's are due to either bacteremia and blood brain barrier breakdown vs ischemic stroke in the context of bacteremia. Negative culture and PCR panel makes a primary bacterial meningitis unlikely.
09/11 HAN showing possible vegetation versus artifact on the TAVR, unable to rule out endocarditis
Presumed that patient has toxic metabolic encephalopathy predominantly due to sepsis and bacteremia on top of dementia and ESRD predisposing to delirium/TME (most likely Alzheimer's), no strong evidence of seizure activity here. Seems improving
mental status but this will probably wax and wane.
Subjective/Objective
Subjective Data
Date of Service: September 13, 2023
No acute events, had HAN yesterday
Objective Data
Vital Signs
Temp Pulse Resp BP Pulse Ox
98.4 F 87 20 119/85 94
09/13/23 03:50 09/13/23 04:00 09/13/23 04:00 09/13/23 04:00 09/13/23 03:50
Lab Results
09/13/23 04:51
09/13/23 04:51
PT 19.0 Sec (11.4-14.6) H 09/12/23 03:55
INR 1.58 09/12/23 03:55
APTT 37.5 Sec (23.4-35.0) H 09/10/23 12:52
Sodium 134 mmol/L (135-145) L 09/13/23 04:51
Potassium 3.9 mmol/L (3.5-5.1) 09/13/23 04:51
BUN 63 mg/dl (9-20) H 09/13/23 04:51
Glucose 142 mg/dl (70-99) H 09/13/23 04:51
Calcium 9.0 mg/dl (8.4-10.2) 09/13/23 04:51
Patient Allergies
gabapentin Adverse Reaction (Verified 09/10/23 10:50)
spastic movements
Review of Systems
-
History Source: Patient
All other systems: Reviewed and negative
Constitutional: No Symptoms
EENT: No Symptoms Reported
Respiratory: No Symptoms
Cardiac: No Symptoms
Abdomen/GI: No Symptoms
Genitourinary: No Symptoms
Musculoskeletal: No Symptoms
Skin: No Symptoms
Neuro: See existing Neuro Note; Negative Headache or Weakness
Endocrine: No Symptoms
Hematologic / Lymphatic: No Symptoms
Allergy / Immunology: No Symptoms
Physical Exam
-
General: Comfortable and Appears Stated Age
Eyes: No Ptosis
HEENT: Normocephalic, Atraumatic and Moist Mucous Membranes
Neck: Full Range of Motion
Respiratory: Clear to Auscultation and No Dyspnea; Negative Wheezes or Rales
Cardiac: Regular Rhythm, S1/S2 and Murmur
GI: Soft and Non-tender
Skin: Warm and Dry; Negative Rash
Extremities: No Edema
Psych: Confused and Apparent Dementia; Negative Agitated
Extended Neurological Exam
Mood & Affect: Mood Unremarkable and Affect Unremarkable
Attention Span & Concentration: Other (Awake, thinks he is in [place] in [place] in a hospital there, says his name and , counts to 20 outloud, confused, impaired memory to any recent events)
Memory: Reduced
Tremor: Other (Bilateral postural hand tremor)
Involuntary Movement: None
Speech: Negative Expressive Aphasia, Receptive Aphasia or Dysarthric
Cranial Nerve II: Left Eye: Pupillary Reactivity Unremarkable and Pupillary Size Unremarkable
Cranial Nerve II: Right Eye: Pupillary Reactivity Unremarkable, Pupillary Size Unremarkable and Visual Nicole Intact
Cranial Nerves III, IV, : Extraocular Movement: Extraocular Movement Full in all Directions
Cranial Nerve VII: Facial Symmetry: Normal Facial Symmetry
Cranial Nerve VIII: Hearing: Unremarkable Hearing to Normal Conversational Volume
Cranial Nerve XII: Tongue Protusion: Midline
Muscle Strength, Overall: Full Throughout
Pronator Drift: No Drift in Upper Extremities
Touch Sensation: Unremarkable
Coordination: [id number] Testing Unremarkable
Babinski Sign: Absent Bilaterally
Data Reviewed
-
CT Head: Report Reviewed and Image Reviewed
MRI Head: Ordered and Pending
MRI Cervical Spine: Ordered and Pending
[2023-09-13 08:07] LABS: Glucose - Point of Care 161 mg/dl (70-99)
[2023-09-13] MEDS: TYLENOL 1000 MG PO ×2 (08:12→20:02)
[2023-09-13] MEDS: NOVOLOG FLEXPEN-MODERATE RESISTANCE 1 UNITS SC ×2 (08:12→13:13)
[2023-09-13] MEDS: DESENEX/MITRAZOL/ZEASORB 1 APPLIC TOPICAL ×2 (08:13→20:02)
[2023-09-13] MEDS: VITAMIN D3 (cholecalciferol) 50 MCG PO (08:13)
[2023-09-13] MEDS: COLACE 200 MG PO ×2 (08:13→20:02)
[2023-09-13] MEDS: VITAMIN B-12 1000 MCG PO (08:13)
[2023-09-13] MEDS: PROTONIX 40 MG PO ×2 (08:13→20:02)
[2023-09-13] MEDS: ASPIRIN 300 MG RECTAL (08:13)
[2023-09-13] MEDS: ATIVAN 1 MG IV ×2 (08:52→22:53)
--- NOTE | 2023-09-13 09:01 | W.PN.ID1 ---
Date of Service
Date of Service: September 13, 2023
Today's Communication
Sustained bacteremia
MRI brain, C/T/L spine
Assessment / Plan
# Relapsed Staph aureus (MSSA) bacteremia, sustained, TAVR IE
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
# Sepsis: improving. Leukocytosis - trending down
# s/p fall with scalp trauma (09/04 on Eliquis) - face/neck ecchymosis
# Acute change in mental status - improved
# ESRD on HD via AVF
- CT head: left frontal scalp hematoma
- CT chest, abd, pelvis no acute pathology
- CSF: Xanthochromic , 14 WBC, 10 RBC, 8% granulocytes, 11% lymphs, 81% macrophages, protein 255
Meningo-encephalitis panel negative. Cx neg to date.
- 09/12/23 HAN: Continued mobile echodensity on aortic side of TAVR valve measuring 0.3 cm x 0.3 cm differential includes endocarditis vs artifact. Patient is not surgical candidate.
-09/12/23 repeat blood cx remains positive
- MRI brain, C/T/L spine wo contrast to eval for ischemic/septic emboli, discitis, epidural abscess.
Pt with chronic back but due to dementia unable to determine if there is acute change
- Continue Vancomycin for ZOO DIRECTOR penetration until septic emboli ruled out.
-Continue IV cefazolin.
- Repat blood cx's daily until clear
-Follow wbc.
#Additional Past Medical History:
Dementia
DM
ESRD on HD via LUE AVF
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
pAfib
CHF
chronic back pain
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
Appendectomy
Chief Complaint
-: Clinical Sepsis and Bacteremia
Subjective / Review of Systems
Denies pain. Per nurse, on dilaudid for chronic back pain.
Vital Signs / Physical Exam
Vital Signs
Vital Signs
Temp Pulse Resp BP Pulse Ox
97.5 F 83 19 114/58 94
09/13/23 07:52 09/13/23 06:00 09/13/23 06:00 09/13/23 06:00 09/13/23 03:50
Physical Exam
Constitutional: No Acute Distress and Comfortable
Cardiovascular: Regular Rate and S1/S2
Pulmonary: Clear
Gastrointestinal: Soft, Non Tender and Non Distended
Genito-Urinary: Negative CVA Tenderness
Extremities: Negative Edema
Neurological: Awake and Alert
Objective Data
Lab Data
Lab Results
09/13/23 04:51
09/13/23 04:51
PT 19.0 Sec (11.4-14.6) H 09/12/23 03:55
INR 1.58 09/12/23 03:55
APTT 37.5 Sec (23.4-35.0) H 09/10/23 12:52
Estimated Creat Clear 14 ml/min 09/13/23 04:51
Lactic Acid 1.8 mmol/L (0.7-2.0) 09/11/23 09:05
Total Bilirubin 11.2 mg/dl (0.2-1.3) H 09/13/23 04:51
AST 84 U/L (17-59) H 09/13/23 04:51
ALT 30 U/L (0-50) 09/13/23 04:51
Alkaline Phosphatase 809 U/L (38-126) H 09/13/23 04:51
Most recent labs reviewed.
Micro Results:
09/12/23 03:55 Blood Culture - Preliminary
Blood/Venous Positive culture in progress
Gram Stain - Preliminary
09/13/23 04:51 Blood Culture - Pending
Blood/Venous
09/10/23 14:42 Blood Culture - Preliminary
Blood/Venous Staphylococcus aureus
Gram Stain - Final
09/10/23 16:20 CSF Culture - Preliminary
Csf No Growth After 48 Hours
Gram Stain - Preliminary
09/10/23 14:42 Blood Culture - Preliminary
Blood/Venous Staphylococcus aureus
Gram Stain - Preliminary
09/11/23 04:14 MRSA Screen - Final
Nose No Methicillin Resistant Staphylococcus aureus isolated.
09/10/23 16:20 Meningitis/Encephalitis Panel (PCR) - Final
Csf
09/10/23 17:29 Influenza Types A & B (ELIANA) - Final
Nasal Swab Negative for Influenza A & B, NAAT
Negative results must be combined with clinical observations
and patient history.
Nucleic Acid Amplification test (NAAT)performed on the
[employer] platform.
09/10/23 CT c/a/p: No acute posttraumatic abnormality in the chest, abdomen, or pelvis within the limitations of motion artifact. Small chronic loculated right pleural effusion with pleural thickening. Mild abdominal ascites.
09/10/[address]: No acute intracranial abnormality within the limitations of motion artifact. Left frontal scalp hematoma. No CT evidence for an acute facial bone fracture.
--- NOTE | 2023-09-13 09:30 | PTCARENOTE ---
Patient very restless this morning. He wanted to get up therefore, got him up to the chair for breakfast. Pt did eat some eggs, cereal and coffee. I spoke with patient's and updated her to best of RN ability. Patient then spoke with her as
well. Pt then called for MRI's. Pt was medicated with Ativan IV, see MAR, for MRI's with good effect. Pt drowsy but arousable and sent for MRI's. Pt allowed off monitor per . Assessment, care and VS as charted.
--- NOTE | 2023-09-13 10:19 | W.PN.CD ---
Today's Communication / Plan
-
discussed IV Abx, then lifelong suppression with ID
-also discussed with by phone
amiodarone stopped this admission
cont Toprol XL
resume eliquis when able (based on MRI results)
please call us with additional questions
we will arrange for follow up with us
Impression / Plan
-
Bacteremia, Staphylococcus aureus
-Recent MSSA bacteremia with MV IE s/p 6 weeks of cefazolin
-No endocarditis on TTE
-plan for eventual MRI of the brain to evaluate for septic emboli
-HAN: small mobile echodensity on TAVR, cannot rule out endocarditis
-no significant regurgitation, no abscess, and not a good surgical candidate
-discussed with ID: plan for 6 weeks IV Abx, then lifelong suppression
-also discussed this plan with by phone
Change in mental status with agitation: significantly improved
Atrial fibrillation, permanent
-Rate controlled Toprol XL
-amiodarone stopped this admission
-Oral Anticoagulation: Apixaban 2.5mg BID (age 83, creatinine > 1.5), on hold
-[id number]: score at least 4 (age 75 or more, Diabetes Mellitus, Vascular disease)
-He was evaluated for Watchman but developed endocarditis
Severe aortic stenosis S/P TAVR (Medtronic Evolut 29)
-Peak/mean gradients 16/8mmHg without AR
CAD, non obstructive by cardiac cath (10/2022)
Moderate-severe tricuspid regurgitation
ESRD on HD
Anemia of chronic disease
Type 2 diabetes mellitus
Dementia
Physical Exam
Vital Signs/Labs
Vital Signs
Temp Pulse Resp BP Pulse Ox
97.5 F 84 23 129/70 94
09/13/23 07:52 09/13/23 08:00 09/13/23 08:00 09/13/23 08:00 09/13/23 03:50
09/12/23 09/13/23 09/14/23
06:59 06:59 06:59
Actual Weight 98.4 kg 98.4 kg
09/13/23 04:51
09/13/23 04:51
PT 19.0 Sec (11.4-14.6) H 09/12/23 03:55
INR 1.58 09/12/23 03:55
APTT 37.5 Sec (23.4-35.0) H 09/10/23 12:52
Physical Exam
Cardiovascular: Rhythm/rate is irregular
Data Reviewed
-
Date of Service: September 13, 2023
EKG: Other (Tele: A fib 90s)
Labs: Labs Reviewed by me
--- NOTE | 2023-09-13 12:16 | PHA.VAN.FU ---
Vancomycin Assessment / Plan
- Assessment
Hemodialysis Schedule: MWF
Last Hemodialysis performed: Saturday09/13/23
WBC's are: Trending Down
In the past 24 hrs, patient has been: Afebrile
Concomitant Antimicrobials: cefazolin
- Dosing Plan
Continue: vancomycin prn HD MWF
Dosing Comments: 1000 mg ordered post HD today
- Monitoring Plan
No level(s) ordered at this time: will consider levels if still on on for Saturday
- Follow Up
Pharmacy will continue to follow.
Vancomycin Follow UP
- -
Patient Age: 83
Patient Sex: Male
Vancomycin Day #: 4
Indication: Endocarditis
Requesting Provider: Dr. Hannon / Gilbert
Pertinent Antimicrobial Allergies:
no pertinent antibiotic allergies
Height / Weight:
Height 5 ft 9 in
Actual Weight 98.4 kg
Pertinent Past Medical History: BMI ~32.6, ESRD on HD, recent MSSA bacteremia, DM
- Vital Signs / Lab Results
Temp Pulse Resp BP Pulse Ox
97.3 F 79 8 130/66 99
09/13/23 11:31 09/13/23 10:57 09/13/23 10:57 09/13/23 10:56 09/13/23 11:55
Lab Results - Hematology
09/10/23 09/11/23 09/12/23
12:52 04:09 03:55
WBC 30.8 H 29.1 H 21.8 H
09/13/23
04:51
WBC 15.7 H
Lab Results - Chemistry
09/10/23 09/10/23 09/11/23
12:52 15:17 04:09
BUN 56 H 58 H 70 H
Creatinine 4.0 H 4.3 H* 5.2 H*
Estimated Creat Clear 16 15 12
Albumin Cancelled 3.7 3.0 L
09/12/23 09/13/23
03:55 04:51
BUN 45 H 63 H
Creatinine 3.4 H 4.7 H*
Estimated Creat Clear 19 14
Albumin 3.2 L 3.9
09/10/23 09/10/23 09/11/23
14:42 19:55 04:09
Lactic Acid 3.3 H 2.6 H 2.2 H
09/11/23
09:05
Lactic Acid 1.8
Microbiology Results
09/10/23 14:42 Blood Culture - Final
Blood/Venous S aureus-Methicillin Sensitive
Gram Stain - Final
09/10/23 14:42 Blood Culture - Final
Blood/Venous S aureus-Methicillin Sensitive
Gram Stain - Final
09/12/23 03:55 Blood Culture - Preliminary
Blood/Venous Positive culture in progress
Gram Stain - Preliminary
09/10/23 16:20 CSF Culture - Preliminary
Csf No Growth After 48 Hours
Gram Stain - Preliminary
09/11/23 04:14 MRSA Screen - Final
Nose No Methicillin Resistant Staphylococcus aureus isolated.
Therapeutic Drug Monitoring
Random Vancomycin 12.2 ug/ml 09/12/23 03:55
--- NOTE | 2023-09-13 12:36 | CM ---
CM following re: discharge planning.
Reviewed pt's chart, met with pt. Pt's spouse, daughter and a son at bedside.
Pt's family stated that pt has good support and care at home, known to [facility] and family brings the pt to [facility] center. Per spouse she is experiencing difficulties to care for pt in evenings and night due to pt's owning
behavior. Psychiatry consult noted.
PT and OT will evaluate the pt to determine a level of care at discharge.
D/C plan: short term rehab: acute vs SNF vs VN with resumptions of outpatient HD treatment. PT/OT will confirm a level of care.
CM will follow with discharge plan updates as hospitalization progresses
[2023-09-13 12:40] LABS: Glucose - Point of Care 150 mg/dl (70-99)
--- NOTE | 2023-09-13 14:08 | W.PN.NEPH.HD ---
Assessment
-
pt seen during HD
vitals stable
below EDW, limited UF specially poor po intake
no MARGARITA hb >12
abx per ID
AVF function well
Progress Note - Hemodialysis
-
Date of Service: September 13, 2023
Duration: 30 minutes and 3 hours
Potassium Bath: 3
Calcium Bath: 2.5
Opti-Dialyzer: 160
Ultrafiltration: Other (0.5kg)
Blood Flow: 400
Dialysate Flow: 600
Heparin: no
EPO: no
--- NOTE | 2023-09-13 14:31 | W.PN.HOSP.TC ---
Today's Communication/Plan
-
transfer tele
continue abx
pt/ot as tolerated
Assessment / Plan
Assessment / Plan
MRI brain
Approximately three tiny foci of nonhemorrhagic acute/subacute infarcts, one in the right thalamus and two in the right occipital lobe. Findings may reflect embolic etiology.
HAN
Normal LV size and function with no regional wall motion abnormalities. LVEF is 55 to 60% by visual estimation. Dilated RV with normal systolic function. Moderate mitral regurgitation, likely calcification of mitral leaflets at approximately A2 and
P2/P3 better appreciated on this study, however, cannot
rule out focal endocarditis. S/p TAVR with Medtronic Evolut 29. The valve is well-seated with no significant stenosis. Trivial paravalvular aortic regurgitation. Continued mobile echodensity (view 24 and 27) on aortic side of TAVR valve
measuring 0.3 cm x 0.3 cm differential includes endocarditis vs artifact.
Moderate to severe tricuspid regurgitation. Compared to prior TTE on September 11, 2023, small echodensity/calcifications noted as detailed above.

Toxic metabolic encephalopathy from septic brain emboli
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
-Neurology evaluated and recommended to resume Eliquis on 09/19 continue on aspirin until that
-CSF showing minimal increase WBC of 14, glucose 131 total protein 255, elevated WBC in CSF from septic emboli to brain.
-Avoid sedating medication
-Treatment undergoing for underlying endocarditis
MSSA endocarditis
Sepsis
-WBC has been trending down
-HAN showing TAVR valve vegetation
-Initial blood culture growing MSSA, repeat cultures positive on 09/11
-Currently on IV cefazolin and vancomycin
-ID following and help appreciated
-As mentioned above MRI brain showing likely septic emboli. MRI C-spine negative. MRI T/L-spine pending
End-stage renal disease on hemodialysis:
Hyponatremia
-Nephrology following and getting periodic HD
Direct bilirubinemia
Acute transaminitis
-Possibly related to sepsis
-Plan for MRCP eventually
-GI consult appreciated
Fall with trauma/Extensive ecchymosis on face and neck after recent facial trauma:
-Hold Eliquis
-CT of facial no fractures
-Dr Coombs - Discussed with ENT over the phone and they would like to follow-up as outpatient but nothing that they would do as inpatient (Nilay Stoner). They also recommend holding anticoagulation for few days.
Diabetes mellitus type 2 with hyperglycemia:
-Continue insulin sliding scale but increase to moderate resistance
-Continue to monitor and avoid hypoglycemia or excessive hyperglycemia
Permanent atrial fibrillation:
-Holding Eliquis
-On amiodarone but not sure able to tolerate
Severe aortic stenosis status post TAVR:
Nonobstructive CAD:
Moderate to severe tricuspid regurgitation:
Dementia: -Continue to monitor mental status and behavior
BART: -On CPAP as outpatient
DVT prophylaxis SCDs
CODE STATUS Full code
Of note PDMP reviewed got narcotics from July only. no previous scripts., no narcotic dependance.
Case discussed with ID
Total time spent : 53 mins
I personally saw and examined the patient.
I have reviewed all diagnostic interpretations and treatment plans as written.
Time includes patient management by me, time spent at the patients bedside, time to review lab and imaging results, discussing patient care, documentation in the medical record, and time spent with the family or caregiver and discussing care plan
with RN/Consultants.
Anticipated Discharge: > 48 hours
Subjective/Interval History
-
Date of Service: September 13, 2023
Patient sitting comfortably in bed, remains reorientate
afebrile in night
Objective Data
-
Labs:
Laboratory Results
09/13/23
04:51
WBC 15.7 H
Hgb 12.6 L
Hct 38.7 L
Plt Count 161
Sodium 134 L
Potassium 3.9
Chloride 92 L
Carbon Dioxide 24
BUN 63 H
Creatinine 4.7 H*
Glucose 142 H
Calcium 9.0
Total Bilirubin 11.2 H
AST 84 H
ALT 30
Alkaline Phosphatase 809 H
Vital Signs:
Vital Signs
Temp Pulse Resp BP Pulse Ox
97.3 F 79 8 130/66 99
09/13/23 11:31 09/13/23 10:57 09/13/23 10:57 09/13/23 10:56 09/13/23 11:55
I&O
09/12/23 09/13/23 09/14/23
06:59 06:59 06:59
Intake Total 320 / 320
Output Total 0 / 0
Balance 320 / 320
Review of Systems
-
Respiratory: Reports No Symptoms
Cardiac: Reports No Symptoms
Abdomen/GI: Reports No Symptoms
Physical Exam
-
General: No Apparent Distress
HEENT: Normocephalic and Atraumatic; Negative Oxygen
Respiratory: Clear to Auscultation
Cardiac: Regular Rhythm and S1/S2
GI: Soft and Nontender
Musculoskeletal: No Edema
Neuro: Awake, Alert and No Motor Deficits
Psych: Calm
[2023-09-13] MEDS: VANCOCIN 200 IV (14:33)
[2023-09-13] MEDS: ANCEF 5 IV (15:41)
--- NOTE | 2023-09-13 17:36 | PHA.KIN.INIT ---
Assessment / Plan
- Assessment
Renal Function: Patient has ESRD, on chronic Hemodialysis
Hemodialysis Schedule: MWF
Has Patient Previously Received this Agent: No/Unknown
- Plan
Gentamicin 240mg IVPB x1 (~3 mg/kg ABW)
Will obtain pre-HD level Mon 09/16/23
Initial Pharmacokinetics Note
- -
Patient Age: 83
Patient Sex: Male
Antibiotic: Gentamicin
Antibiotic Day #: 1 (day 1 of gentamicin)
Indication: Endocarditis
Requesting Provider: Dr. Hunt
Pertinent Antimicrobial Allergies:
no pertinent antibiotic allergies
Height / Weight:
Height 5 ft 9 in
Actual Weight 98.4 kg
IBW in k.7
Adjusted BW in k.8
- Vital Signs / Lab results
Temp Pulse Resp BP Pulse Ox
97.5 F 83 18 142/69 98
09/13/23 15:45 09/13/23 16:00 09/13/23 16:00 09/13/23 16:00 09/13/23 16:00
Maximum Temperature:
Lab Results - Hematology
09/11/23 09/12/23 09/13/23
04:09 03:55 04:51
WBC 29.1 H 21.8 H 15.7 H
Lab Results - Chemistry
09/11/23 09/12/23 09/13/23
04:09 03:55 04:51
BUN 70 H 45 H 63 H
Creatinine 5.2 H* 3.4 H 4.7 H*
Estimated Creat Clear 12 19 14
Albumin 3.0 L 3.2 L 3.9
09/10/23 09/11/23 09/11/23
19:55 04:09 09:05
Lactic Acid 2.6 H 2.2 H 1.8
Microbiology Results
09/10/23 16:20 CSF Culture - Preliminary
Csf No Growth After 72 Hours
Gram Stain - Preliminary
09/10/23 14:42 Blood Culture - Final
Blood/Venous S aureus-Methicillin Sensitive
Gram Stain - Final
09/10/23 14:42 Blood Culture - Final
Blood/Venous S aureus-Methicillin Sensitive
Gram Stain - Final
09/12/23 03:55 Blood Culture - Preliminary
Blood/Venous Positive culture in progress
Gram Stain - Preliminary
09/11/23 04:14 MRSA Screen - Final
Nose No Methicillin Resistant Staphylococcus aureus isolated.
Historical Micro:
Concomitant Antimicrobials:
[2023-09-13 17:45] LABS: Glucose - Point of Care 124 mg/dl (70-99)
[2023-09-13] MEDS: NOVOLOG FLEXPEN-MODERATE RESISTANCE SC (17:48)
[2023-09-13] MEDS: GENTAMICIN 56 MG IV (18:31)
[2023-09-13] MEDS: STERILE WATER FOR INJECTION IV (19:09)
[2023-09-13] MEDS: TOPROL XL 25 MG PO (20:02)
[2023-09-13 21:48] LABS: Glucose - Point of Care 129 mg/dl (70-99)
--- NOTE | 2023-09-13 21:53 | PTCARENOTE ---
pt oxygen dropping to 86% RA while sleeping. 2L NC applied- now 97%. medsitter in place. care ongoing.
[2023-09-13 23:55] LABS: Urine Albumin 2+ (Neg - Trace); Urine Bilirubin 3+ (Negative); Urine Character Very Cloudy (Clear); Urine Color Brown; Urine Glucose Trace (Negative); Urine Ketone 1+ (Negative); Urine Leukocyte 1+ (Negative); Urine Nitrite Positive (Negative); Urine Occult Blood 2+ (Negative); Urine Specific Gravity 1.015 (<1.030); Urine Urobilinogen 2+ (Neg - 1+)
[2023-09-14] VITALS (14 sets, daily range): BP systolic 93–164; BP diastolic 56–82; PULSE 96; O2SAT 97; BMI 32.1
[2023-09-14 00:13] LABS: Urine Bacteria Many (Negative); Urine Squamous Cell 0-2 /LPF (Few); Urine White Cell 30-40 /HPF (0-5)
[2023-09-14] MEDS: DILAUDID 0.25 MG IV ×2 (00:48→10:11)
--- NOTE | 2023-09-14 02:46 | PTCARENOTE ---
pt frequently trying to get OOB, screaming and yelling out, attempted to call patients - no answer. medicated with PRN meds as able. medsitter in place. positive environment maintained, frequent reorientation given but only lasts for a few
seconds. care ongoing.
[2023-09-14] MEDS: ATIVAN 1 MG IV ×4 (04:18→23:08)
[2023-09-14] MEDS: NOVOLOG FLEXPEN-MODERATE RESISTANCE SC ×2 (07:33→12:14)
[2023-09-14 07:45] LABS: Glucose - Point of Care 139 mg/dl (70-99)
--- NOTE | 2023-09-14 08:48 | W.PN.ID1 ---
Date of Service
Date of Service: September 14, 2023
Today's Communication
Changed abx's to cefepime + gentamicin.
See below.
Assessment / Plan
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
# Sepsis: improving. Leukocytosis - trending down
# s/p falls with scalp trauma (09/04 on Eliquis) - face/neck ecchymosis
# Acute change in mental status - improved
# Dementia
#Chronic back pain
# ESRD on HD via AVF
- 09/12/23 HAN: Continued mobile echodensity on aortic side of TAVR valve measuring 0.3 cm x 0.3 cm differential includes endocarditis vs artifact. Patient is not surgical candidate.
-09/12/23 repeat blood cx remains positive
- 09/13/23 MRI brain/C spine wo contrast: limtited by motion artifact: 3 punctate acute/subacute infarct suspicious for embolic CVA
- MRI T/L spine pending
- DC IV cefazolin (poor [employer]OUNDER penetration.
-DC Vancomycin.
-Start cefepime 1g IV q24. Monitor for change in mental status.
Plan for 6 weeks followed by po suppression.
-Add IV gentamicin (d2)x 2 weeks.
- Avoid rifampin as pt with poor appetite, (many patients cannot tolerate rifampin).
- Repat blood cx's daily until clear
-Follow wbc.
#Additional Past Medical History:
Dementia
DM
ESRD on HD via LUE AVF
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
pAfib
CHF
chronic back pain
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
Appendectomy
Chief Complaint
-: Clinical Sepsis and Bacteremia
Subjective / Review of Systems
Wants to get up and sit in chair.
Vital Signs / Physical Exam
Vital Signs
Vital Signs
Temp Pulse Resp BP Pulse Ox
98.5 F 95 26 144/78 95
09/14/23 03:20 09/14/23 06:00 09/14/23 06:00 09/14/23 06:00 09/14/23 00:00
Physical Exam
Constitutional: Chronically Ill
Eyes: Other (icteric)
Cardiovascular: Regular Rate and S1/S2
Pulmonary: Clear
Gastrointestinal: Non Tender and Non Distended
Extremities: Negative Edema
Neurological: Awake and Alert
Psychological: Confused and Other (Restless, trying t get out of bed.)
Objective Data
Lab Data
PT 19.0 Sec (11.4-14.6) H 09/12/23 03:55
INR 1.58 09/12/23 03:55
APTT 37.5 Sec (23.4-35.0) H 09/10/23 12:52
Estimated Creat Clear 14 ml/min 09/13/23 04:51
Lactic Acid 1.8 mmol/L (0.7-2.0) 09/11/23 09:05
Total Bilirubin 11.2 mg/dl (0.2-1.3) H 09/13/23 04:51
AST 84 U/L (17-59) H 09/13/23 04:51
ALT 30 U/L (0-50) 09/13/23 04:51
Alkaline Phosphatase 809 U/L (38-126) H 09/13/23 04:51
Most recent labs reviewed.
Micro Results:
09/13/23 04:51 Blood Culture - Preliminary
Blood/Venous No Growth in 24 hours- Final report to follow
09/14/23 04:12 Blood Culture - Pending
Blood/Venous
09/13/23 23:32 Urine Culture - Pending
Urine
09/10/23 16:20 CSF Culture - Preliminary
Csf No Growth After 72 Hours
Gram Stain - Preliminary
09/10/23 14:42 Blood Culture - Final
Blood/Venous S aureus-Methicillin Sensitive
Gram Stain - Final
09/10/23 14:42 Blood Culture - Final
Blood/Venous S aureus-Methicillin Sensitive
Gram Stain - Final
09/12/23 03:55 Blood Culture - Preliminary
Blood/Venous Positive culture in progress
Gram Stain - Preliminary
09/11/23 04:14 MRSA Screen - Final
Nose No Methicillin Resistant Staphylococcus aureus isolated.
09/10/23 16:20 Meningitis/Encephalitis Panel (PCR) - Final
Csf
09/10/23 17:29 Influenza Types A & B (ELIANA) - Final
Nasal Swab Negative for Influenza A & B, NAAT
Negative results must be combined with clinical observations
and patient history.
Nucleic Acid Amplification test (NAAT)performed on the
[employer] platform.
09/10/23 CT c/a/p: No acute posttraumatic abnormality in the chest, abdomen, or pelvis within the limitations of motion artifact. Small chronic loculated right pleural effusion with pleural thickening. Mild abdominal ascites.
09/10/[address]: No acute intracranial abnormality within the limitations of motion artifact. Left frontal scalp hematoma. No CT evidence for an acute facial bone fracture.
09/13/23 Brain MRI wo contrast: Approximately three tiny foci of nonhemorrhagic acute/subacute infarcts, one in the right thalamus and two in the right occipital lobe. Findings may reflect embolic etiology.
09/13/23 MRI C spine wo contrast: No suspicious epidural collections. Mild multilevel degenerative changes of the cervical spine as detailed.
Care Review
Plan reviewed with: Physician (Dr. Leroy Feng)
--- NOTE | 2023-09-14 08:57 | PHA.KIN.UP ---
Assessment / Plan
- Assessment
Hemodialysis Schedule: MWF
In the past 24 hrs, patient has been: Afebrile
- Plan: Continue Present Regimen
Continue: Dose by levels on HD days
No level ordered at this time: will obtain pre HD level Mon 09/16/23
- Dosing by Levels
Dosing Today: Hold off on dosing today
- Follow Up
Pharmacy will continue to follow.
FollowUp Pharmacokinetics Note
- -
Patient Age: 83
Patient Sex: Male
Antibiotic: Gentamicin
Antibiotic Day #: 1 (day 1 of gentamicin)
Indication: Endocarditis
Requesting Provider: Dr. Hunt
Pertinent Antimicrobial Allergies:
no pertinent antibiotic allergies
Height / Weight:
Height 5 ft 9 in
Actual Weight 98.4 kg
IBW in k.7
Adjusted BW in k.8
Pertinent Past Medical History: BMI ~32.6, ESRD on HD, recent MSSA bacteremia, DM
- Vital Signs / Lab Results
Temp Pulse Resp BP Pulse Ox
98.5 F 95 26 144/78 95
09/14/23 03:20 09/14/23 06:00 09/14/23 06:00 09/14/23 06:00 09/14/23 00:00
Lab Results - Hematology
09/12/23 09/13/23
03:55 04:51
WBC 21.8 H 15.7 H
Lab Results - Chemistry
09/12/23 09/13/23
03:55 04:51
BUN 45 H 63 H
Creatinine 3.4 H 4.7 H*
Estimated Creat Clear 19 14
Albumin 3.2 L 3.9
09/11/23
09:05
Lactic Acid 1.8
Lab Results - Urine
09/13/23
23:32
Urine Nitrite (Reflex) Positive A
Leukocyte Esterase Rfl 1+ A
Ur Squamous Epith Cells 0-2
Microbiology Results
09/13/23 04:51 Blood Culture - Preliminary
Blood/Venous No Growth in 24 hours- Final report to follow
09/10/23 16:20 CSF Culture - Preliminary
Csf No Growth After 72 Hours
Gram Stain - Preliminary
09/10/23 14:42 Blood Culture - Final
Blood/Venous S aureus-Methicillin Sensitive
Gram Stain - Final
09/10/23 14:42 Blood Culture - Final
Blood/Venous S aureus-Methicillin Sensitive
Gram Stain - Final
09/12/23 03:55 Blood Culture - Preliminary
Blood/Venous Positive culture in progress
Gram Stain - Preliminary
09/11/23 04:14 MRSA Screen - Final
Nose No Methicillin Resistant Staphylococcus aureus isolated.
Concomitant Antimicrobials:
Therapeutic Drug Monitoring
Random Vancomycin 12.2 ug/ml 09/12/23 03:55
[2023-09-14] MEDS: ASPIRIN RECTAL (08:58)
[2023-09-14] MEDS: TYLENOL 1000 MG PO ×2 (08:59→20:32)
[2023-09-14] MEDS: VITAMIN D3 (cholecalciferol) 50 MCG PO (08:59)
[2023-09-14] MEDS: VITAMIN B-12 1000 MCG PO (08:59)
[2023-09-14] MEDS: PROTONIX 40 MG PO ×2 (08:59→20:32)
[2023-09-14] MEDS: COLACE 200 MG PO ×2 (08:59→20:32)
[2023-09-14] MEDS: DESENEX/MITRAZOL/ZEASORB 1 APPLIC TOPICAL ×2 (08:59→20:33)
[2023-09-14 10:04] LABS: Hemoglobin 11.7 g/dL (13.0-18.0); Mean Corp Hgb Conc. 33.4 g/dL (33.0-37.0); Mean Corpuscular Hgb 31.2 pg (27.0-31.0); Mean Corpuscular Volume 93.3 fL (80.0-94.0); Mean Platelet Volume 10.2 fL (7.4-10.4); Platelet Count 162 10^3/uL (130-400); Red Blood Cell Count 3.75 10^6/uL (4.70-6.10); Red Cell Dist. Width 21.2 % (11.5-14.5); White Blood Cell Count 15.9 10^3/uL (4.8-10.8)
[2023-09-14 10:11] LABS: Blood Urea Nitrogen 37 mg/dl (9-20); Calcium 8.5 mg/dl (8.4-10.2); Carbon Dioxide 31 mmol/L (22-30); Chloride 89 mmol/L (98-107); Estimated Creatinine Clearance 19 ml/min; Glucose 142 mg/dl (70-99); Potassium 3.7 mmol/L (3.5-5.1); Sodium 132 mmol/L (135-145); eGFR 17.09
[2023-09-14 12:15] LABS: Glucose - Point of Care 149 mg/dl (70-99)
[2023-09-14] MEDS: STERILE WATER FOR INJECTION 10 ML IV (13:50)
[2023-09-14] MEDS: MAXIPIME 1000 MG IV (13:50)
--- NOTE | 2023-09-14 14:07 | W.PN.HOSP.TC ---
Today's Communication/Plan
-
continue abx per ID
remains encephalopathic, continue supportive measure
Assessment / Plan
Assessment / Plan
MRI brain
Approximately three tiny foci of nonhemorrhagic acute/subacute infarcts, one in the right thalamus and two in the right occipital lobe. Findings may reflect embolic etiology.
HAN
Normal LV size and function with no regional wall motion abnormalities. LVEF is 55 to 60% by visual estimation. Dilated RV with normal systolic function. Moderate mitral regurgitation, likely calcification of mitral leaflets at approximately A2 and
P2/P3 better appreciated on this study, however, cannot
rule out focal endocarditis. S/p TAVR with Medtronic Evolut 29. The valve is well-seated with no significant stenosis. Trivial paravalvular aortic regurgitation. Continued mobile echodensity (view 24 and 27) on aortic side of TAVR valve
measuring 0.3 cm x 0.3 cm differential includes endocarditis vs artifact.
Moderate to severe tricuspid regurgitation. Compared to prior TTE on September 11, 2023, small echodensity/calcifications noted as detailed above.

Toxic metabolic encephalopathy from septic brain emboli
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
-Neurology evaluated and recommended to resume Eliquis on 09/19 continue on aspirin until that
-CSF showing minimal increase WBC of 14, glucose 131 total protein 255, elevated WBC in CSF from septic emboli to brain.
-Avoid sedating medication
-On abx for underlying endocarditis treatment.
MSSA endocarditis
Sepsis
-WBC has been trending down
-HAN showing TAVR valve vegetation
-Initial blood culture growing MSSA, repeat cultures positive on 4/4
-Currently on IV cefazolin and vancomycin
-ID following and help appreciated
-As mentioned above MRI brain showing likely septic emboli. MRI C-spine negative. MRI T/L-spine pending
End-stage renal disease on hemodialysis:
Hyponatremia
-Nephrology following and getting periodic HD
Direct bilirubinemia
Acute transaminitis
-Possibly related to sepsis
-GI consult appreciated
Fall with trauma/Extensive ecchymosis on face and neck after recent facial trauma:
-Hold Eliquis
-CT of facial no fractures
-Dr Coombs - Discussed with ENT over the phone and they would like to follow-up as outpatient but nothing that they would do as inpatient (Nilay Stoner). They also recommend holding anticoagulation for few days.
Diabetes mellitus type 2 with hyperglycemia:
-Continue insulin sliding scale but increase to moderate resistance
-Continue to monitor and avoid hypoglycemia or excessive hyperglycemia
Permanent atrial fibrillation:
-Holding Eliquis
-On amiodarone but not sure able to tolerate
Severe aortic stenosis status post TAVR:
Nonobstructive CAD:
Moderate to severe tricuspid regurgitation:
Dementia: -Continue to monitor mental status and behavior
BART: -On CPAP as outpatient
DVT prophylaxis SCDs
CODE STATUS Full code
Of note PDMP reviewed got narcotics from July only. no previous scripts., no narcotic dependance.
Anticipated Discharge: > 48 hours
Subjective/Interval History
-
Date of Service: September 14, 2023
remains confused and agitated
no complains overnight
Objective Data
-
Labs:
Laboratory Results
09/14/23
09:28
WBC 15.9 H
Hgb 11.7 L
Hct 35.0 L
Plt Count 162
Sodium 132 L
Potassium 3.7
Chloride 89 L
Carbon Dioxide 31 H
BUN 37 H
Creatinine 3.4 H
Glucose 142 H
Calcium 8.5
Vital Signs:
Vital Signs
Temp Pulse Resp BP Pulse Ox
98.3 F 97 21 142/74 100
09/14/23 11:32 09/14/23 12:41 09/14/23 12:41 09/14/23 12:41 09/14/23 12:26
I&O
09/13/23 09/14/23 09/15/23
06:59 06:59 06:59
Intake Total 320 / 320 600 / 600
Output Total 0 / 0 200 / 200
Balance 320 / 320 400 / 400
Review of Systems
-
Respiratory: Reports No Symptoms
Cardiac: Reports No Symptoms
Abdomen/GI: Reports No Symptoms
Physical Exam
-
General: No Apparent Distress
HEENT: Negative Oxygen
Respiratory: Clear to Auscultation
Cardiac: Regular Rhythm and S1/S2; Negative Murmur
GI: Soft, Nontender and Nondistended
Musculoskeletal: No Edema
Neuro: Awake, Alert and No Motor Deficits
Psych: Calm
--- NOTE | 2023-09-14 16:05 | PTCARENOTE ---
Assumed care of patient at beginning of this shift from previous RN with medsitter in use. Patient Ox1-2, frequent periods of calling out when no one is in room. Given ativan IV and dilaudid IV prn doses; patient only able to sleep for short periods
of time. Was due for aspirin 300mg suppository; reviewed with Dr Feng who stated he would change to po. Patient's and adult children were up to visit. PT/OT in and got patient OOB to chair with RW stating his legs were very weak and buckling.
Chair alarm was placed. Patient stated he needed to have bm; attempted to transfer to commode with 2 person assist but patient was too unsteady. Bed cruz used on chair; patient did not have bm. Needed 3 person assist to transfer back to bed d/t very
unsteady. See worklist for full assessment; see MAR for med administration. Transferred to room 421; report given to Reynaldo GAY. [place] text sent to Dr Feng to order aspirin as order has not been changed yet.
--- NOTE | 2023-09-14 16:14 | TRANSFER ---
Pt admitted into room 421 from IMU. Pt pulled over from stretcher to bed, AAOx1. Bed alarm and medsitter in place, telemetry applied. A fib on monitor. Pt napping at this time, call arnold within reach, bed locked in lowest position. Plan of care
ongoing.
--- NOTE | 2023-09-14 16:55 | W.PN.NEPH.PH ---
Today's Communication / Plan
-
HD on Saturday
Assessment/Plan
-
Impression:
End-stage renal disease Saturday dialysis
History of MSSA bacteremia and endocarditis/leukocytosis
Status post falls
Hypertension
Anemia
Atrial fibrillation (OAT)
Hyperphosphatemia
History of duodenal ulceration
s/p TAVR 12/13/22 (Aortic Stenosis)
Type 2 diabetes
Secondary hyperparathyroidism
History of diastolic congestive heart failure
Dementia
Left upper extremity AV fistula
Chronic pain: opioid dependence
Hyperphosphatemia
Plan:
Hd on Saturday
encourage po intake
Bp stable
abx per ID
-
-
Date of Service: September 14, 2023
CC / HPI / ROS
-
Chief Complaint:
End-stage renal disease
History of Present Illness:
ESRD Saturday
Hemodynamically stable
cefepime and genta MSSA
Review of Systems:
Remains confused but more oriented today
offers no pain
No fevers overnight
Labs
-
Labs:
WBC 15.9 10^3/uL (4.8-10.8) H 09/14/23 09:28
RBC 3.75 10^6/uL (4.70-6.10) L 09/14/23 09:28
Hgb 11.7 g/dL (13.0-18.0) L 09/14/23 09:28
Hct 35.0 % (39.0-52.0) L 09/14/23 09:28
Plt Count 162 10^3/uL (130-400) 09/14/23 09:28
Sodium 132 mmol/L (135-145) L 09/14/23 09:28
Potassium 3.7 mmol/L (3.5-5.1) 09/14/23 09:28
Chloride 89 mmol/L (98-107) L 09/14/23 09:28
Carbon Dioxide 31 mmol/L (22-30) H 09/14/23 09:28
BUN 37 mg/dl (9-20) H 09/14/23 09:28
Creatinine 3.4 mg/dL (0.7-1.3) H 09/14/23 09:28
eGFR 17.09 09/14/23 09:28
Glucose 142 mg/dl (70-99) H 09/14/23 09:28
Calcium 8.5 mg/dl (8.4-10.2) 09/14/23 09:28
Albumin 3.9 g/dl (3.5-5.0) 09/13/23 04:51
Physical Exam
-
Vital Signs:
Vital Signs
Temp Pulse Resp BP Pulse Ox
98.3 F 97 21 142/74 100
09/14/23 11:32 09/14/23 12:41 09/14/23 12:41 09/14/23 12:41 09/14/23 12:26
Cardiovascular:: Regular rate and rhythm
Respiratory:: Bilateral: CTA (anteriorly)
Lung Excursion:: Normal
Abdomen:: Nontender and Soft
Extremity Edema:: None: Bilateral:
Daniels Catheter: No
Other Findings::
facial brusing
[2023-09-14 17:28] LABS: Glucose - Point of Care 157 mg/dl (70-99)
[2023-09-14] MEDS: NOVOLOG FLEXPEN-MODERATE RESISTANCE 1 UNITS SC (18:11)
[2023-09-14 21:14] LABS: Glucose - Point of Care 180 mg/dl (70-99)
[2023-09-14] MEDS: TOPROL XL 25 MG PO (22:01)
[2023-09-14] MEDS: NSS (PRESERVATIVE FREE) 0.5 ML IV (23:09)
[2023-09-15 01:29] LABS: Lyme Disease DNA by PCR Not Detected; Lyme Source Serum
[2023-09-15 03:00] VITALS: BP 171/74
[2023-09-15 06:00] VITALS: BMI 32.5
[2023-09-15 06:26] LABS: Hematocrit 34.4 % (39.0-52.0); Hemoglobin 11.6 g/dL (13.0-18.0); Mean Corp Hgb Conc. 33.7 g/dL (33.0-37.0); Mean Corpuscular Hgb 30.8 pg (27.0-31.0); Mean Corpuscular Volume 91.2 fL (80.0-94.0); Mean Platelet Volume 9.8 fL (7.4-10.4); Platelet Count 173 10^3/uL (130-400); Red Blood Cell Count 3.77 10^6/uL (4.70-6.10); Red Cell Dist. Width 20.7 % (11.5-14.5); White Blood Cell Count 14.1 10^3/uL (4.8-10.8)
[2023-09-15 06:56] LABS: Blood Urea Nitrogen 46 mg/dl (9-20); Calcium 8.7 mg/dl (8.4-10.2); Carbon Dioxide 24 mmol/L (22-30); Chloride 91 mmol/L (98-107); Estimated Creatinine Clearance 16 ml/min; Glucose 138 mg/dl (70-99); Potassium 3.9 mmol/L (3.5-5.1); Sodium 132 mmol/L (135-145); eGFR 13.65
[2023-09-15 07:10] VITALS: BP 169/84
[2023-09-15 07:10] LABS: Glucose - Point of Care 138 mg/dl (70-99)
[2023-09-15] MEDS: NOVOLOG FLEXPEN-MODERATE RESISTANCE SC ×3 (07:14→17:19)
[2023-09-15] MEDS: VITAMIN D3 (cholecalciferol) 50 MCG PO (08:00)
[2023-09-15] MEDS: PROTONIX 40 MG PO ×2 (08:00→20:48)
[2023-09-15] MEDS: COLACE 200 MG PO ×2 (08:00→20:47)
[2023-09-15] MEDS: LOW STRENGTH ASPIRIN 81 MG PO (08:00)
[2023-09-15] MEDS: VITAMIN B-12 1000 MCG PO (08:00)
[2023-09-15] MEDS: ATIVAN 1 MG IV ×2 (08:00→23:00)
[2023-09-15] MEDS: TYLENOL 1000 MG PO ×3 (08:00→20:48)
[2023-09-15] MEDS: DESENEX/MITRAZOL/ZEASORB 1 APPLIC TOPICAL ×2 (08:01→20:57)
[2023-09-15 11:21] VITALS: BP 182/97
[2023-09-15 11:30] LABS: Glucose - Point of Care 135 mg/dl (70-99)
[2023-09-15] MEDS: HEPARIN 5000 UNITS SC ×2 (11:30→20:50)
[2023-09-15] MEDS: PROCARDIA XL (EXTENDED RELEASE) 30 MG PO ×2 (11:30→21:07)
[2023-09-15] MEDS: ROXICODONE 5 MG PO ×2 (11:42→22:40)
--- NOTE | 2023-09-15 11:55 | PHA.KIN.UP ---
Assessment / Plan
- Assessment
Hemodialysis Schedule: MWF
WBC's are: Trending Down (15.9->14.1)
In the past 24 hrs, patient has been: Afebrile
- Plan: Continue Present Regimen
Continue: dose by level on HD days - next HD day Friday 09/15
- Dosing by Levels
Dosing Today: Hold off on dosing today
Next random level due: 09/16/23 0600 next HD day
- Follow Up
Pharmacy will continue to follow.
FollowUp Pharmacokinetics Note
- -
Patient Age: 83
Patient Sex: Male
Antibiotic: Gentamicin
Antibiotic Day #: 3 (day 1 of gentamicin 09/13)
Indication: Endocarditis
Requesting Provider: Dr. Hunt
Pertinent Antimicrobial Allergies:
no pertinent antibiotic allergies
Height / Weight:
Height 5 ft 9 in
Actual Weight 99.819 kg
IBW in k.7
Adjusted BW in k.8
Pertinent Past Medical History: BMI ~32.6, ESRD on HD, recent MSSA bacteremia, DM
- Vital Signs / Lab Results
Temp Pulse Resp BP Pulse Ox
97.4 F 92 18 182/97 99
09/15/23 11:21 09/15/23 11:21 09/15/23 11:21 09/15/23 11:21 09/15/23 11:21
Lab Results - Hematology
09/13/23 09/14/23 09/15/23
04:51 09:28 06:07
WBC 15.7 H 15.9 H 14.1 H
Lab Results - Chemistry
09/13/23 09/14/23 09/15/23
04:51 09:28 06:07
BUN 63 H 37 H 46 H
Creatinine 4.7 H* 3.4 H 4.1 H*
Estimated Creat Clear 14 19 16
Albumin 3.9
Microbiology Results
09/13/23 23:32 Urine Culture - Final
Urine NO GROWTH
09/14/23 04:12 Blood Culture - Preliminary
Blood/Venous Positive culture in progress
Gram Stain - Preliminary
09/12/23 03:55 Blood Culture - Preliminary
Blood/Venous S aureus-Methicillin Sensitive
Gram Stain - Preliminary
09/10/23 16:20 CSF Culture - Final
Csf NO GROWTH-FINAL REPORT
Gram Stain - Final
09/13/23 04:51 Blood Culture - Preliminary
Blood/Venous Positive culture in progress
Gram Stain - Preliminary
09/10/23 14:42 Blood Culture - Final
Blood/Venous S aureus-Methicillin Sensitive
Gram Stain - Final
09/10/23 14:42 Blood Culture - Final
Blood/Venous S aureus-Methicillin Sensitive
Gram Stain - Final
Concomitant Antimicrobials:
Therapeutic Drug Monitoring
Random Vancomycin 12.2 ug/ml 09/12/23 03:55
--- NOTE | 2023-09-15 14:03 | W.PN.NEPH.PH ---
Today's Communication / Plan
-
HD tomorrow
Assessment/Plan
-
Impression:
End-stage renal disease Saturday dialysis
History of MSSA bacteremia and endocarditis/leukocytosis
Status post falls
Hypertension
Anemia
Atrial fibrillation (OAT)
Hyperphosphatemia
History of duodenal ulceration
s/p TAVR 12/13/22 (Aortic Stenosis)
Type 2 diabetes
Secondary hyperparathyroidism
History of diastolic congestive heart failure
Dementia
Left upper extremity AV fistula
Chronic pain: opioid dependence
Hyperphosphatemia
Plan:
Hd on Saturday
encourage po intake, may benefit from protein supplements
Bp labile trend
abx per ID
-
-
Date of Service: September 15, 2023
CC / HPI / ROS
-
Chief Complaint:
End-stage renal disease
History of Present Illness:
ESRD Saturday
BP labile
cefepime and genta for MSSA
Review of Systems:
MS better today
no n/v but po intake is poor
offers no pain
No fevers overnight
Labs
-
Labs:
WBC 14.1 10^3/uL (4.8-10.8) H 09/15/23 06:07
RBC 3.77 10^6/uL (4.70-6.10) L 09/15/23 06:07
Hgb 11.6 g/dL (13.0-18.0) L 09/15/23 06:07
Hct 34.4 % (39.0-52.0) L 09/15/23 06:07
Plt Count 173 10^3/uL (130-400) 09/15/23 06:07
Sodium 132 mmol/L (135-145) L 09/15/23 06:07
Potassium 3.9 mmol/L (3.5-5.1) 09/15/23 06:07
Chloride 91 mmol/L (98-107) L 09/15/23 06:07
Carbon Dioxide 24 mmol/L (22-30) 09/15/23 06:07
BUN 46 mg/dl (9-20) H 09/15/23 06:07
Creatinine 4.1 mg/dL (0.7-1.3) H* 09/15/23 06:07
eGFR 13.65 09/15/23 06:07
Glucose 138 mg/dl (70-99) H 09/15/23 06:07
Calcium 8.7 mg/dl (8.4-10.2) 09/15/23 06:07
Albumin 3.9 g/dl (3.5-5.0) 09/13/23 04:51
Physical Exam
-
Vital Signs:
Vital Signs
Temp Pulse Resp BP Pulse Ox
97.4 F 92 18 182/97 99
09/15/23 11:21 09/15/23 11:21 09/15/23 11:21 09/15/23 11:21 09/15/23 11:21
Cardiovascular:: Regular rate and rhythm
Respiratory:: Bilateral: CTA
Lung Excursion:: Normal
Abdomen:: Nontender and Soft
Extremity Edema:: None: Bilateral:
Daniels Catheter: No
Other Findings::
facial bruising +
--- NOTE | 2023-09-15 14:10 | W.PN.HOSP.TC ---
Today's Communication/Plan
-
continue abx
f/u blood cs report
Assessment / Plan
Assessment / Plan
MRI brain
Approximately three tiny foci of nonhemorrhagic acute/subacute infarcts, one in the right thalamus and two in the right occipital lobe. Findings may reflect embolic etiology.
HAN
Normal LV size and function with no regional wall motion abnormalities. LVEF is 55 to 60% by visual estimation. Dilated RV with normal systolic function. Moderate mitral regurgitation, likely calcification of mitral leaflets at approximately A2 and
P2/P3 better appreciated on this study, however, cannot
rule out focal endocarditis. S/p TAVR with Medtronic Evolut 29. The valve is well-seated with no significant stenosis. Trivial paravalvular aortic regurgitation. Continued mobile echodensity (view 24 and 27) on aortic side of TAVR valve
measuring 0.3 cm x 0.3 cm differential includes endocarditis vs artifact.
Moderate to severe tricuspid regurgitation. Compared to prior TTE on September 11, 2023, small echodensity/calcifications noted as detailed above.

Toxic metabolic encephalopathy from septic brain emboli - resolved
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
-Neurology evaluated and recommended to resume Eliquis on 09/19 continue on aspirin until that
-CSF showing minimal increase WBC of 14, glucose 131 total protein 255, elevated WBC in CSF from septic emboli to brain.
-Avoid sedating medication
-On abx for underlying endocarditis treatment.
MSSA endocarditis
Sepsis
-WBC has been trending down
-HAN showing TAVR valve vegetation
-Initial blood culture growing MSSA, repeat cultures positive on 09/11,5,6;
-ID following and help appreciated
-As mentioned above MRI brain showing likely septic emboli. MRI C-spine negative. MRI T/L-spine pending
-On IV cefepime and gentamicin
End-stage renal disease on hemodialysis:
Hyponatremia
-Nephrology following and getting periodic HD
Direct bilirubinemia
Acute transaminitis
-Possibly related to sepsis
-GI consult appreciated
Fall with trauma/Extensive ecchymosis on face and neck after recent facial trauma:
-Hold Eliquis
-CT of facial no fractures
-Dr Coombs - Discussed with ENT over the phone and they would like to follow-up as outpatient but nothing that they would do as inpatient (Nilay Stoner). They also recommend holding anticoagulation for few days.
-Tried to remove sutures, minimal bleed and oozing, should attemp few days later.
Diabetes mellitus type 2 with hyperglycemia:
-Continue insulin sliding scale but increase to moderate resistance
-Continue to monitor and avoid hypoglycemia or excessive hyperglycemia
Permanent atrial fibrillation:
-Neuro cleared to start eliquis on 09/19.
-On amiodarone but not sure able to tolerate
Severe aortic stenosis status post TAVR:
Nonobstructive CAD:
Moderate to severe tricuspid regurgitation:
Dementia: -Continue to monitor mental status and behavior
BART: -On CPAP as outpatient
DVT prophylaxis SCDs
CODE STATUS Full code
Of note PDMP reviewed got narcotics from July only. no previous scripts., no narcotic dependance.
09/14 Discussed with family care plan and all question answered.
Anticipated Discharge: > 48 hours
Subjective/Interval History
-
Date of Service: September 15, 2023
Denies of having any issues
Mentation better
fam,dinah at bedside
Objective Data
-
Labs:
Laboratory Results
09/15/23
06:07
WBC 14.1 H
Hgb 11.6 L
Hct 34.4 L
Plt Count 173
Sodium 132 L
Potassium 3.9
Chloride 91 L
Carbon Dioxide 24
BUN 46 H
Creatinine 4.1 H*
Glucose 138 H
Calcium 8.7
Vital Signs:
Vital Signs
Temp Pulse Resp BP Pulse Ox
97.4 F 92 18 182/97 99
09/15/23 11:21 09/15/23 11:21 09/15/23 11:21 09/15/23 11:21 09/15/23 11:21
I&O
09/14/23 09/15/23 09/16/23
06:59 06:59 06:59
Intake Total 600 / 600 100 / 100
Output Total 200 / 200
Balance 400 / 400 100 / 100
Review of Systems
-
Respiratory: Reports No Symptoms
Cardiac: Reports No Symptoms
Abdomen/GI: Reports No Symptoms
Physical Exam
-
General: No Apparent Distress
HEENT: Negative Oxygen
Respiratory: Clear to Auscultation
Cardiac: Regular Rhythm and S1/S2; Negative Murmur
GI: Soft, Nontender and Nondistended
Musculoskeletal: No Edema
Neuro: Awake, Alert and No Motor Deficits
Psych: Calm
--- NOTE | 2023-09-15 14:38 | W.PN.ID1 ---
Date of Service
Date of Service: September 15, 2023
Today's Communication
See below.
Assessment / Plan
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
# Sepsis: improving. Leukocytosis - trending down
# s/p falls with scalp trauma (09/04 on Eliquis) - face/neck ecchymosis
# Acute change in mental status - improved
# Dementia
#Chronic back pain
# ESRD on HD via AVF
- 09/12/23 HAN: Continued mobile echodensity on aortic side of TAVR valve measuring 0.3 cm x 0.3 cm differential includes endocarditis vs artifact. Patient is not surgical candidate.
-09/12/23 repeat blood cx positive
09/12/24 bcx neg to ate
- 09/13/23 MRI brain/C spine wo contrast: limtited by motion artifact: 3 punctate acute/subacute infarct suspicious for embolic CVA
- MRI T/L spine toay
- Continue cefepime 1g IV q24 (+ANODIZE MACHINE OPERATOR penetration) then outpt 2g MoWe, 3gFri with HD x 6 weeks followed by chronic po abx suppression. Monitor for change in mental status while on cefepime.
-Continue IV gentamicin (d 3 )
- Avoid rifampin as pt with poor appetite, (many patients cannot tolerate rifampin).
- Repeat blood cx's daily until clear
-Follow wbc.
#Additional Past Medical History:
Dementia
DM
ESRD on HD via LUE AVF
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
pAfib
CHF
chronic back pain
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
Appendectomy
Chief Complaint
-: Clinical Sepsis and Bacteremia
Subjective / Review of Systems
and daughter at bedside.
Per , mental status improving.
She is concerned about oxycodone 5mg prn. He normally takes 10mg bid to control chronic back pain.
Vital Signs / Physical Exam
Vital Signs
Vital Signs
Temp Pulse Resp BP Pulse Ox
97.4 F 92 18 182/97 99
09/15/23 11:21 09/15/23 11:21 09/15/23 11:21 09/15/23 11:21 09/15/23 11:21
Physical Exam
Constitutional: No Acute Distress
Cardiovascular: Regular Rate
Gastrointestinal: Soft, Non Tender and Non Distended
Extremities: Negative Edema
Objective Data
Lab Data
Lab Results
09/15/23 06:07
09/15/23 06:07
PT 19.0 Sec (11.4-14.6) H 09/12/23 03:55
INR 1.58 09/12/23 03:55
APTT 37.5 Sec (23.4-35.0) H 09/10/23 12:52
Estimated Creat Clear 16 ml/min 09/15/23 06:07
Lactic Acid 1.8 mmol/L (0.7-2.0) 09/11/23 09:05
Total Bilirubin 11.2 mg/dl (0.2-1.3) H 09/13/23 04:51
AST 84 U/L (17-59) H 09/13/23 04:51
ALT 30 U/L (0-50) 09/13/23 04:51
Alkaline Phosphatase 809 U/L (38-126) H 09/13/23 04:51
Most recent labs reviewed.
Micro Results:
09/13/23 04:51 Blood Culture - Preliminary
Blood/Venous S aureus-Methicillin Sensitive
Gram Stain - Preliminary
09/13/23 23:32 Urine Culture - Final
Urine NO GROWTH
09/15/23 06:07 Blood Culture - Pending
Blood/Venous
09/14/23 04:12 Blood Culture - Preliminary
Blood/Venous Positive culture in progress
Gram Stain - Preliminary
09/12/23 03:55 Blood Culture - Preliminary
Blood/Venous S aureus-Methicillin Sensitive
Gram Stain - Preliminary
09/10/23 16:20 CSF Culture - Final
Csf NO GROWTH-FINAL REPORT
Gram Stain - Final
09/10/23 14:42 Blood Culture - Final
Blood/Venous S aureus-Methicillin Sensitive
Gram Stain - Final
09/10/23 14:42 Blood Culture - Final
Blood/Venous S aureus-Methicillin Sensitive
Gram Stain - Final
09/11/23 04:14 MRSA Screen - Final
Nose No Methicillin Resistant Staphylococcus aureus isolated.
09/10/23 16:20 Meningitis/Encephalitis Panel (PCR) - Final
Csf
09/10/23 17:29 Influenza Types A & B (ELIANA) - Final
Nasal Swab Negative for Influenza A & B, NAAT
Negative results must be combined with clinical observations
and patient history.
Nucleic Acid Amplification test (NAAT)performed on the
[employer] platform.
09/10/23 CT c/a/p: No acute posttraumatic abnormality in the chest, abdomen, or pelvis within the limitations of motion artifact. Small chronic loculated right pleural effusion with pleural thickening. Mild abdominal ascites.
09/10/[address]: No acute intracranial abnormality within the limitations of motion artifact. Left frontal scalp hematoma. No CT evidence for an acute facial bone fracture.
09/13/23 Brain MRI wo contrast: Approximately three tiny foci of nonhemorrhagic acute/subacute infarcts, one in the right thalamus and two in the right occipital lobe. Findings may reflect embolic etiology.
09/13/23 MRI C spine wo contrast: No suspicious epidural collections. Mild multilevel degenerative changes of the cervical spine as detailed.
[2023-09-15] MEDS: MAXIPIME 1000 MG IV (15:35)
[2023-09-15] MEDS: STERILE WATER FOR INJECTION 10 ML IV (15:36)
[2023-09-15 16:38] VITALS: BP 102/49; PULSE 87
[2023-09-15 17:04] LABS: Glucose - Point of Care 142 mg/dl (70-99)
[2023-09-15 19:22] VITALS: BP 114/54
[2023-09-15] MEDS: NAMENDA 5 MG PO (20:49)
[2023-09-15 21:10] LABS: Glucose - Point of Care 141 mg/dl (70-99)
[2023-09-15] MEDS: TOPROL XL 25 MG PO (22:59)
[2023-09-15] MEDS: NSS (PRESERVATIVE FREE) 0.5 ML IV (23:01)
[2023-09-15 23:06] VITALS: BP 131/65
[2023-09-16 02:44] VITALS: BP 111/80
[2023-09-16 06:00] VITALS: BMI 32.3
[2023-09-16 08:08] LABS: Hematocrit 35.1 % (39.0-52.0); Hemoglobin 11.6 g/dL (13.0-18.0); Mean Corpuscular Hgb 30.5 pg (27.0-31.0); Mean Corpuscular Volume 92.4 fL (80.0-94.0); Mean Platelet Volume 9.9 fL (7.4-10.4); Platelet Count 195 10^3/uL (130-400); Red Cell Dist. Width 20.3 % (11.5-14.5); White Blood Cell Count 13.4 10^3/uL (4.8-10.8)
[2023-09-16 08:27] LABS: Gentamicin Random 2.7 ug/ml
--- NOTE | 2023-09-16 08:29 | W.PN.HOSP.TC ---
Today's Communication/Plan
-
Continue IV antibiotics.
Assessment / Plan
Assessment / Plan
Physical exam:
General: Chronically ill
HEENT: Normocephalic, traumatic head and neck with large ecchymosis extending from forehead down to the base of the neck only sparing perioral area and Moist Mucous Membranes
Respiratory: Clear to Auscultation; Negative Wheezes, Rales or Rhonchi
Cardiac: Irregular Rate and rhythm and S1/S2
GI: Soft, Nontender and Nondistended
Musculoskeletal: No Clubbing, No Cyanosis and No Edema
Neuro: Awake, Alert and Disoriented
Psych: Calm
A/P:
MRI brain
Approximately three tiny foci of nonhemorrhagic acute/subacute infarcts, one in the right thalamus and two in the right occipital lobe. Findings may reflect embolic etiology.
HAN
Normal LV size and function with no regional wall motion abnormalities. LVEF is 55 to 60% by visual estimation. Dilated RV with normal systolic function. Moderate mitral regurgitation, likely calcification of mitral leaflets at approximately A2 and
P2/P3 better appreciated on this study, however, cannot
rule out focal endocarditis. S/p TAVR with [employer] Evolut 29. The valve is well-seated with no significant stenosis. Trivial paravalvular aortic regurgitation. Continued mobile echodensity (view 24 and 27) on aortic side of TAVR valve
measuring 0.3 cm x 0.3 cm differential includes endocarditis vs artifact.
Moderate to severe tricuspid regurgitation. Compared to prior TTE on September 11, 2023, small echodensity/calcifications noted as detailed above.

Toxic metabolic encephalopathy from septic brain emboli - resolved
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
-Neurology evaluated and recommended to resume Eliquis on 09/19 continue on aspirin until that
-CSF showing minimal increase WBC of 14, glucose 131 total protein 255, elevated WBC in CSF from septic emboli to brain.
-Avoid sedating medication
-On abx for underlying endocarditis treatment.
MSSA endocarditis
Sepsis
-WBC has been trending down
-HAN showing TAVR valve vegetation
-Initial blood culture growing MSSA, repeat cultures positive on 09/11,5,6;
-ID following and help appreciated
-As mentioned above MRI brain showing likely septic emboli. MRI C-spine negative. MRI T/L-spine pending
-On IV cefepime and gentamicin
End-stage renal disease on hemodialysis:
Hyponatremia
-Nephrology following and getting periodic HD
Direct bilirubinemia
Acute transaminitis
-Possibly related to sepsis
-GI consult appreciated--> no need for further images per GI.
Fall with trauma/Extensive ecchymosis on face and neck after recent facial trauma:
-Hold Eliquis
-CT of facial no fractures
-Discussed with ENT over the phone and they would like to follow-up as outpatient but nothing that they would do as inpatient (Nilay Stoner). They also recommend holding anticoagulation for few days.
-Tried to remove sutures, minimal bleed and oozing, should attemp few days later.
Diabetes mellitus type 2 with hyperglycemia:
-Continue insulin sliding scale but increase to moderate resistance
-Continue to monitor and avoid hypoglycemia or excessive hyperglycemia
Permanent atrial fibrillation:
-Neuro cleared to start eliquis on 09/19.
-On amiodarone but not sure able to tolerate
Severe aortic stenosis status post TAVR:
Nonobstructive CAD:
Moderate to severe tricuspid regurgitation:
Dementia: -Continue to monitor mental status and behavior
BART: -On CPAP as outpatient
DVT prophylaxis SCDs
CODE STATUS Full code
Of note PDMP reviewed got narcotics from July only. no previous scripts., appears no narcotic dependance based on that search but family said he has been on narcotics for quite some time so will need to clarify.
Anticipated Discharge: > 48 hours
Subjective/Interval History
-
Date of Service: September 16, 2023
Patient seen and examined today. No new complaints.
Objective Data
-
Labs:
Laboratory Results
09/16/23
07:44
WBC 13.4 H
Hgb 11.6 L
Hct 35.1 L
Plt Count 195
Sodium Pending
Potassium Pending
Chloride Pending
Carbon Dioxide Pending
BUN Pending
Creatinine Pending
Glucose Pending
Calcium Pending
Vital Signs:
Vital Signs
Temp Pulse Resp BP Pulse Ox
97.3 F 76 18 111/80 99
09/16/23 02:44 09/16/23 02:44 09/16/23 02:44 09/16/23 02:44 09/16/23 02:44
I&O
09/15/23 09/16/23 09/17/23
06:59 06:59 06:59
Intake Total 880 / 880
Output Total 300 / 300
Balance 580 / 580
[2023-09-16 08:31] VITALS: BP 133/68
--- NOTE | 2023-09-16 08:31 | PHA.KIN.UP ---
Assessment / Plan
- Assessment
Hemodialysis Schedule: MWF
Last Hemodialysis performed: 09/12
WBC's are: Trending Down
In the past 24 hrs, patient has been: Afebrile
Level Today was: Random (pre-HD = 2.7)
- Dosing by Levels
Dosing Today: Hold off on dosing today
Next random level due: consider pre-HD level Wed and re-dose when pre-HD level < 1
- Follow Up
Pharmacy will continue to follow.
FollowUp Pharmacokinetics Note
- -
Patient Age: 83
Patient Sex: Male
Antibiotic: Gentamicin
Antibiotic Day #: 4
Indication: Endocarditis
Requesting Provider: Dr. Hunt
Pertinent Antimicrobial Allergies:
no pertinent antibiotic allergies
Height / Weight:
Height 5 ft 9 in
Actual Weight 99.138 kg
IBW in k.7
Adjusted BW in k.8
Pertinent Past Medical History: BMI ~32.6, ESRD on HD, recent MSSA bacteremia, DM
- Vital Signs / Lab Results
Temp Pulse Resp BP Pulse Ox
97.3 F 76 18 111/80 99
09/16/23 02:44 09/16/23 02:44 09/16/23 02:44 09/16/23 02:44 09/16/23 02:44
Lab Results - Hematology
09/14/23 09/15/23 09/16/23
09:28 06:07 07:44
WBC 15.9 H 14.1 H 13.4 H
Lab Results - Chemistry
09/14/23 09/15/23
09:28 06:07
BUN 37 H 46 H
Creatinine 3.4 H 4.1 H*
Estimated Creat Clear 19 16
Microbiology Results
09/15/23 06:07 Blood Culture - Preliminary
Blood/Venous No Growth in 24 hours- Final report to follow
09/13/23 04:51 Blood Culture - Preliminary
Blood/Venous S aureus-Methicillin Sensitive
Gram Stain - Preliminary
09/13/23 23:32 Urine Culture - Final
Urine NO GROWTH
09/14/23 04:12 Blood Culture - Preliminary
Blood/Venous Positive culture in progress
Gram Stain - Preliminary
09/12/23 03:55 Blood Culture - Preliminary
Blood/Venous S aureus-Methicillin Sensitive
Gram Stain - Preliminary
09/10/23 16:20 CSF Culture - Final
Csf NO GROWTH-FINAL REPORT
Gram Stain - Final
Concomitant Antimicrobials:
Therapeutic Drug Monitoring
Random Gentamicin 2.7 ug/ml 09/16/23 07:44
Random Vancomycin 12.2 ug/ml 09/12/23 03:55
[2023-09-16 08:39] LABS: Glucose - Point of Care 133 mg/dl (70-99)
[2023-09-16 08:52] LABS: Blood Urea Nitrogen 55 mg/dl (9-20); Calcium 8.5 mg/dl (8.4-10.2); Carbon Dioxide 27 mmol/L (22-30); Chloride 89 mmol/L (98-107); Estimated Creatinine Clearance 12 ml/min; Glucose 122 mg/dl (70-99); Sodium 131 mmol/L (135-145); eGFR 10.26
[2023-09-16] MEDS: DESENEX/MITRAZOL/ZEASORB 1 APPLIC TOPICAL ×2 (09:03→20:13)
[2023-09-16] MEDS: LOW STRENGTH ASPIRIN 81 MG PO (09:04)
[2023-09-16] MEDS: NOVOLOG FLEXPEN-MODERATE RESISTANCE SC ×3 (09:04→16:22)
[2023-09-16] MEDS: TYLENOL 1000 MG PO ×2 (09:05→19:47)
[2023-09-16] MEDS: COLACE 200 MG PO ×2 (09:05→19:48)
[2023-09-16] MEDS: VITAMIN D3 (cholecalciferol) 50 MCG PO (09:06)
[2023-09-16] MEDS: ROXICODONE 5 MG PO ×3 (09:06→20:31)
[2023-09-16] MEDS: HEPARIN 5000 UNITS SC ×2 (09:07→19:50)
[2023-09-16] MEDS: PROTONIX 40 MG PO ×2 (09:07→19:47)
[2023-09-16] MEDS: VITAMIN B-12 1000 MCG PO (09:08)
[2023-09-16] MEDS: NAMENDA 5 MG PO ×2 (09:08→19:49)
[2023-09-16] MEDS: PROCARDIA XL (EXTENDED RELEASE) 30 MG PO ×2 (09:08→20:12)
[2023-09-16 12:09] LABS: Glucose - Point of Care 182 mg/dl (70-99)
[2023-09-16] MEDS: MANNITOL 12.5 GRAMS IV ×2 (13:04→14:07)
[2023-09-16] MEDS: FLEXBUMIN 25% FOR HEMODIALYSIS 12.5 GRAMS IV ×2 (13:04→14:07)
[2023-09-16] MEDS: MAXIPIME 1000 MG IV (13:18)
[2023-09-16] MEDS: STERILE WATER FOR INJECTION 10 ML IV (13:18)
--- NOTE | 2023-09-16 14:18 | W.PN.NEPH.HD ---
Assessment
-
resting comfortably on HD
Progress Note - Hemodialysis
-
Date of Service: September 16, 2023
Duration: 30 minutes and 3 hours
Potassium Bath: 3
Calcium Bath: 2.5
Opti-Dialyzer: 160
Ultrafiltration: Other
Blood Flow: 400
Dialysate Flow: 600
--- NOTE | 2023-09-16 15:55 | W.PN.ID1 ---
Date of Service
Date of Service: September 16, 2023
Today's Communication
Repeat blood cx's daily until clear x 2 sets, at least
Assessment / Plan
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
# Sepsis: improving. Leukocytosis - trending down
# s/p falls with scalp trauma (09/04 on Eliquis) - face/neck ecchymosis
# Acute change in mental status - improved
# Dementia
#Chronic back pain
# ESRD on HD via AVF
- 09/12/23 HAN: Continued mobile echodensity on aortic side of TAVR valve measuring 0.3 cm x 0.3 cm differential includes endocarditis vs artifact. Patient is not surgical candidate.
-09/14/23 repeat blood cx still positive
09/14/24 bcx neg to date
- 09/13/23 MRI brain/C-spine wo contrast: limited by motion artifact: 3 punctate acute/subacute infarct suspicious for embolic CVA
- 09/15/23 MRI T/L spine wo contrast: no discitis/epidural abscess
- Repeat blood cx's daily until clear x 2 sets, at least
- Continue cefepime 1g IV q24 (+FORMING MACHINE TENDER penetration) then outpt 2g MoWe, 3gFri with HD x 6 weeks fron neg bcx followed by chronic po abx suppression. Monitor for change in mental status while on cefepime.
-Continue IV gentamicin (d )
-Follow wbc.
#Additional Past Medical History:
Dementia
DM
ESRD on HD via LUE AVF
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
pAfib
CHF
chronic back pain
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
Appendectomy
Chief Complaint
-: Clinical Sepsis and Bacteremia
Subjective / Review of Systems
No distress.
Vital Signs / Physical Exam
Vital Signs
Vital Signs
Temp Pulse Resp BP Pulse Ox
97.9 F 83 18 133/68 98
09/16/23 08:31 09/16/23 08:31 09/16/23 08:31 09/16/23 08:31 09/16/23 08:31
Physical Exam
Constitutional: No Acute Distress
Cardiovascular: Regular Rate and S1/S2
Pulmonary: Clear
Gastrointestinal: Soft, Non Tender and Non Distended
Objective Data
Lab Data
Lab Results
09/16/23 07:44
09/16/23 07:44
PT 19.0 Sec (11.4-14.6) H 09/12/23 03:55
INR 1.58 09/12/23 03:55
APTT 37.5 Sec (23.4-35.0) H 09/10/23 12:52
Estimated Creat Clear 12 ml/min 09/16/23 07:44
Lactic Acid 1.8 mmol/L (0.7-2.0) 09/11/23 09:05
Total Bilirubin 11.2 mg/dl (0.2-1.3) H 09/13/23 04:51
AST 84 U/L (17-59) H 09/13/23 04:51
ALT 30 U/L (0-50) 09/13/23 04:51
Alkaline Phosphatase 809 U/L (38-126) H 09/13/23 04:51
Most recent labs reviewed.
Micro Results:
09/16/23 09:10 Blood Culture - Pending
Blood/Venous
09/14/23 04:12 Blood Culture - Preliminary
Blood/Venous S aureus-Methicillin Sensitive
Gram Stain - Preliminary
09/15/23 06:07 Blood Culture - Preliminary
Blood/Venous No Growth in 24 hours- Final report to follow
09/13/23 04:51 Blood Culture - Preliminary
Blood/Venous S aureus-Methicillin Sensitive
Gram Stain - Preliminary
09/13/23 23:32 Urine Culture - Final
Urine NO GROWTH
09/12/23 03:55 Blood Culture - Preliminary
Blood/Venous S aureus-Methicillin Sensitive
Gram Stain - Preliminary
09/10/23 16:20 CSF Culture - Final
Csf NO GROWTH-FINAL REPORT
Gram Stain - Final
09/10/23 14:42 Blood Culture - Final
Blood/Venous S aureus-Methicillin Sensitive
Gram Stain - Final
09/10/23 14:42 Blood Culture - Final
Blood/Venous S aureus-Methicillin Sensitive
Gram Stain - Final
09/11/23 04:14 MRSA Screen - Final
Nose No Methicillin Resistant Staphylococcus aureus isolated.
09/10/23 16:20 Meningitis/Encephalitis Panel (PCR) - Final
Csf
09/10/23 17:29 Influenza Types A & B (ELIANA) - Final
Nasal Swab Negative for Influenza A & B, NAAT
Negative results must be combined with clinical observations
and patient history.
Nucleic Acid Amplification test (NAAT)performed on the
[employer] platform.
09/10/23 CT c/a/p: No acute posttraumatic abnormality in the chest, abdomen, or pelvis within the limitations of motion artifact. Small chronic loculated right pleural effusion with pleural thickening. Mild abdominal ascites.
09/10/[address]: No acute intracranial abnormality within the limitations of motion artifact. Left frontal scalp hematoma. No CT evidence for an acute facial bone fracture.
09/13/23 Brain MRI wo contrast: Approximately three tiny foci of nonhemorrhagic acute/subacute infarcts, one in the right thalamus and two in the right occipital lobe. Findings may reflect embolic etiology.
09/13/23 MRI C spine wo contrast: No suspicious epidural collections. Mild multilevel degenerative changes of the cervical spine as detailed.
[2023-09-16 16:21] LABS: Glucose - Point of Care 90 mg/dl (70-99)
[2023-09-16 19:15] VITALS: BP 138/56
--- NOTE | 2023-09-16 19:23 | W.PN.UPDATE ---
Update Note
Progress Note Update
Called by operators to come and speak to the patient's family regarding his pain medications and their concerns. They state that he is on 10 mg of oxycodone with 1000 mg of acetaminophen at the same time twice daily as prescribed by his pain
management doctor. They feel that the patient will tell doctors what they want to hear as opposed to whether or not he is truly in pain. They feel that he is in pain because he is complaining to them that his back hurts and that they do not wish
to 'eleuterio his pain with medications'. They feel that the 5 mg of oxycodone that he has been on here is not holding him. They do indicate that they would like him as comfortable as possible.
I have reviewed his chart, and restarted the 10 mg of oxycodone with the 1000 g of acetaminophen twice daily and left in place the 5 mg of oxycodone every 8 hours as needed. His attending physician can discuss this with them moving forward. They
wish to be involved with any discussions regarding medication changes moving forward.
[2023-09-16 21:41] LABS: Glucose - Point of Care 125 mg/dl (70-99)
[2023-09-16] MEDS: TOPROL XL 25 MG PO (21:44)
[2023-09-16] MEDS: ATIVAN 1 MG IV (21:49)
[2023-09-16] MEDS: NSS (PRESERVATIVE FREE) 0.5 ML IV (21:51)
[2023-09-17] MEDS: ROXICODONE 5 MG PO ×2 (02:20→13:21)
[2023-09-17 02:30] VITALS: BP 119/58
[2023-09-17] MEDS: ATIVAN 1 MG IV ×2 (02:51→20:11)
[2023-09-17] MEDS: NSS (PRESERVATIVE FREE) 0.5 ML IV ×2 (02:54→20:12)
[2023-09-17 06:00] VITALS: BMI 31.9
[2023-09-17 07:04] LABS: Glucose - Point of Care 121 mg/dl (70-99)
[2023-09-17 07:15] VITALS: BP 141/71
[2023-09-17 07:46] LABS: Hematocrit 32.4 % (39.0-52.0); Hemoglobin 10.7 g/dL (13.0-18.0); Mean Corpuscular Hgb 30.8 pg (27.0-31.0); Mean Corpuscular Volume 93.4 fL (80.0-94.0); Mean Platelet Volume 9.7 fL (7.4-10.4); Platelet Count 181 10^3/uL (130-400); Red Blood Cell Count 3.47 10^6/uL (4.70-6.10); Red Cell Dist. Width 20.3 % (11.5-14.5); White Blood Cell Count 14.1 10^3/uL (4.8-10.8)
[2023-09-17] MEDS: NOVOLOG FLEXPEN-MODERATE RESISTANCE SC ×2 (07:48→13:12)
[2023-09-17] MEDS: LOW STRENGTH ASPIRIN 81 MG PO (07:49)
[2023-09-17] MEDS: PROTONIX 40 MG PO (07:52)
[2023-09-17] MEDS: VITAMIN B-12 1000 MCG PO (07:52)
[2023-09-17] MEDS: COLACE 200 MG PO (07:52)
[2023-09-17] MEDS: VITAMIN D3 (cholecalciferol) 50 MCG PO (07:52)
[2023-09-17] MEDS: PROCARDIA XL (EXTENDED RELEASE) 30 MG PO (07:52)
[2023-09-17] MEDS: NAMENDA 5 MG PO (07:52)
[2023-09-17] MEDS: HEPARIN 5000 UNITS SC ×2 (07:53→20:03)
[2023-09-17] MEDS: DESENEX/MITRAZOL/ZEASORB 1 APPLIC TOPICAL ×2 (07:53→20:26)
[2023-09-17] MEDS: ROXICODONE 10 MG PO (07:53)
[2023-09-17] MEDS: TYLENOL 1000 MG PO (07:54)
[2023-09-17] MEDS: TYLENOL PO ×2 (08:12→20:19)
[2023-09-17 08:49] LABS: Blood Urea Nitrogen 32 mg/dl (9-20); Calcium 8.4 mg/dl (8.4-10.2); Carbon Dioxide 28 mmol/L (22-30); Chloride 92 mmol/L (98-107); Estimated Creatinine Clearance 18 ml/min; Glucose 112 mg/dl (70-99); Potassium 3.8 mmol/L (3.5-5.1); Sodium 132 mmol/L (135-145)
--- NOTE | 2023-09-17 09:07 | PHA.VAN.FU ---
Addendum entered and electronically signed by Jo-Ann Grant RPH 09/17/23 09:20:
Utilized vancomycin template rather than gentamicin document template.
It is day #5 of Gentamicin not vancomycin
Original Note:
Vancomycin Assessment / Plan
- Assessment
Hemodialysis Schedule: MWF
Last Hemodialysis performed: Mon 09/15
WBC's are: Stable
In the past 24 hrs, patient has been: Afebrile
Concomitant Antimicrobials: cefepime
- Dosing Plan
Dosing by Level: Hold off on dosing today (re-dose with 80mg [~ 1mg/kg adjusted body weight] when pre-HD < 1)
May also consider re-dosing when level < 2, as HD will clear about 50% for 1st re-dosing
- Monitoring Plan
Random Level: 10 prior to HD
- Follow Up
Pharmacy will continue to follow.
Vancomycin Follow UP
- -
Patient Age: 83
Patient Sex: Male
Vancomycin Day #: 5
Indication: Endocarditis
Requesting Provider: Dr. Hunt
Pertinent Antimicrobial Allergies:
no pertinent antibiotic allergies
Height / Weight:
Height 5 ft 9 in
Actual Weight 98.061 kg
IBW in k.7
Adjusted BW in k.8
Pertinent Past Medical History: BMI ~32.6, ESRD on HD, recent MSSA bacteremia, DM
- Vital Signs / Lab Results
Temp Pulse Resp BP Pulse Ox
97.3 F 84 16 141/71 95
09/17/23 07:15 09/17/23 07:15 09/17/23 07:15 09/17/23 07:15 09/17/23 07:15
Lab Results - Hematology
09/14/23 09/15/23 09/16/23
09:28 06:07 07:44
WBC 15.9 H 14.1 H 13.4 H
09/17/23
07:10
WBC 14.1 H
Lab Results - Chemistry
09/14/23 09/15/23 09/16/23
09:28 06:07 07:44
BUN 37 H 46 H 55 H
Creatinine 3.4 H 4.1 H* 5.2 H*
Estimated Creat Clear 19 16 12
09/17/23
07:10
BUN 32 H
Creatinine 3.5 H
Estimated Creat Clear 18
Microbiology Results
09/15/23 06:07 Blood Culture - Preliminary
Blood/Venous No Growth in 48 hours- Final report to follow
09/14/23 04:12 Blood Culture - Preliminary
Blood/Venous S aureus-Methicillin Sensitive
Gram Stain - Preliminary
09/13/23 04:51 Blood Culture - Preliminary
Blood/Venous S aureus-Methicillin Sensitive
Gram Stain - Preliminary
09/13/23 23:32 Urine Culture - Final
Urine NO GROWTH
Therapeutic Drug Monitoring
Random Gentamicin 2.7 ug/ml 09/16/23 07:44
Random Vancomycin 12.2 ug/ml 09/12/23 03:55
--- NOTE | 2023-09-17 09:18 | W.PN.HOSP.TC ---
Today's Communication/Plan
-
Continue IV antibiotics. [employer] consult.
Assessment / Plan
Assessment / Plan
Physical exam:
General: Chronically ill
HEENT: Normocephalic, traumatic head and neck with large ecchymosis extending from forehead down to the base of the neck only sparing perioral area and Moist Mucous Membranes
Respiratory: Clear to Auscultation; Negative Wheezes, Rales or Rhonchi
Cardiac: Irregular Rate and rhythm and S1/S2
GI: Soft, Nontender and Nondistended
Musculoskeletal: No Clubbing, No Cyanosis and No Edema
Neuro: Awake, Alert and Disoriented
Psych: Calm
A/P:
MRI brain
Approximately three tiny foci of nonhemorrhagic acute/subacute infarcts, one in the right thalamus and two in the right occipital lobe. Findings may reflect embolic etiology.
HAN
Normal LV size and function with no regional wall motion abnormalities. LVEF is 55 to 60% by visual estimation. Dilated RV with normal systolic function. Moderate mitral regurgitation, likely calcification of mitral leaflets at approximately A2 and
P2/P3 better appreciated on this study, however, cannot
rule out focal endocarditis. S/p TAVR with Med[employer] Evolut 29. The valve is well-seated with no significant stenosis. Trivial paravalvular aortic regurgitation. Continued mobile echodensity (view 24 and 27) on aortic side of TAVR valve
measuring 0.3 cm x 0.3 cm differential includes endocarditis vs artifact.
Moderate to severe tricuspid regurgitation. Compared to prior TTE on September 11, 2023, small echodensity/calcifications noted as detailed above.

Toxic metabolic encephalopathy from septic brain emboli - resolved
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
-Neurology evaluated and recommended to resume Eliquis on 09/19 continue on aspirin until that
-CSF showing minimal increase WBC of 14, glucose 131 total protein 255, elevated WBC in CSF from septic emboli to brain.
-Avoid sedating medication
-On abx for underlying endocarditis treatment.
-Discussed with family at bedside today
MSSA endocarditis
Sepsis
-WBC has been trending down-->today WBC 14.1
-HAN showing TAVR valve vegetation
-Initial blood culture growing MSSA, repeat cultures positive on 09/11,5,6;
-ID following and help appreciated
-As mentioned above MRI brain showing likely septic emboli. MRI C-spine negative. MRI T/L-spine pending
-On IV cefepime and gentamicin
End-stage renal disease on hemodialysis:
Hyponatremia
-Nephrology following and getting periodic HD
Direct bilirubinemia
Acute transaminitis
-Possibly related to sepsis
-GI consult appreciated--> no need for further images per GI.
Fall with trauma/Extensive ecchymosis on face and neck after recent facial trauma:
-Hold Eliquis
-CT of facial no fractures
-Discussed with ENT over the phone and they would like to follow-up as outpatient but nothing that they would do as inpatient (Nilay Stoner). They also recommend holding anticoagulation for few days.
-Tried to remove sutures, minimal bleed and oozing, should attemp few days later.
Diabetes mellitus type 2 with hyperglycemia:
-Continue insulin sliding scale but increase to moderate resistance
-Continue to monitor and avoid hypoglycemia or excessive hyperglycemia
Permanent atrial fibrillation:
-Neuro cleared to start eliquis on 09/19.
-On amiodarone but not sure able to tolerate
Severe aortic stenosis status post TAVR:
Nonobstructive CAD:
Moderate to severe tricuspid regurgitation:
Dementia: -Continue to monitor mental status and behavior
BART: -On CPAP as outpatient
DVT prophylaxis SCDs
CODE STATUS Full code
Chronic pain medications and Narcotic dependence:
-Of note PDMP reviewed by Dr Ron Feng and got narcotics from July only. no previous scripts-->appears no narcotic dependance based on that search. The issue he was getting some of his narcotics from [place] pharmacy prior and just
recently transferred to [facility] pharmacy. Family will clarify with our pharmacy and will look into to make sure our records reflect accurate information.
-Upon review with family said he has been on narcotics for quite some time. Cross cover physician discussed with family yesterday as well and clarified.
-He is back on oxycodone 10 mg twice a day and at 1000 mg of acetaminophen twice a day +5 mg of oxycodone every 8 hours as needed.
-Rehab consulted today
Total time spent on today's encounter was 52 minutes which included time spent in counseling the patient/family regarding diagnosis and treatment plan as listed above, goals of care, and symptom management. Case was discussed with nursing staff,
specialists, and care coordinators/case management. All labs and imaging personally reviewed by me. Remainder the time spent in detailed review of previous records, lab data, imaging, and other medical provider documentation.
Anticipated Discharge: 24 - 48 hours
Subjective/Interval History
-
Date of Service: September 17, 2023
Patient comfortable today in terms of pain. Afebrile
Objective Data
-
Labs:
Laboratory Results
09/17/23
07:10
WBC 14.1 H
Hgb 10.7 L
Hct 32.4 L
Plt Count 181
Sodium 132 L
Potassium 3.8
Chloride 92 L
Carbon Dioxide 28
BUN 32 H
Creatinine 3.5 H
Glucose 112 H
Calcium 8.4
Vital Signs:
Vital Signs
Temp Pulse Resp BP Pulse Ox
97.3 F 84 16 141/71 95
09/17/23 07:15 09/17/23 07:15 09/17/23 07:15 09/17/23 07:15 09/17/23 07:15
I&O
09/16/23 09/17/23 09/18/23
06:59 06:59 06:59
Intake Total 880 / 880
Output Total 300 / 300
Balance 580 / 580
--- NOTE | 2023-09-17 11:25 | VNURNOTE ---
Patient is current with [facility] since 07/25 w/ SN/PT, will monitor progress and plan at discharge.
[2023-09-17 11:57] LABS: Glucose - Point of Care 143 mg/dl (70-99)
--- NOTE | 2023-09-17 12:54 | W.PN.ID1 ---
Date of Service
Date of Service: September 17, 2023
Today's Communication
Follow repeat blood cx's.
Continue abx's.
Assessment / Plan
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
# Sepsis: improving.
#Leukocytosis
# s/p falls with scalp trauma (09/04 on Eliquis) - face/neck ecchymosis
# Acute change in mental status - improved
# Dementia
#Chronic back pain
# ESRD on HD via AVF
- 09/12/23 HAN: Continued mobile echodensity on aortic side of TAVR valve measuring 0.3 cm x 0.3 cm differential includes endocarditis vs artifact. Patient is not surgical candidate.
-09/14/23 repeat blood cx still positive
09/14/24 bcx neg to date
- 09/13/23 MRI brain/C-spine wo contrast: limited by motion artifact: 3 punctate acute/subacute infarct suspicious for embolic CVA
- 09/15/23 MRI T/L spine wo contrast: no discitis/epidural abscess
- Repeat blood cx's daily until clear x 2 sets, at least
- Continue cefepime 1g IV q24 (+RETIREMENT SPECIALIST penetration) then outpt 2g MoWe, 3gFri with HD x 6 weeks from neg bcx followed by chronic po abx suppression. Monitor for change in mental status while on cefepime.
-Continue IV gentamicin (d )
-Follow wbc.
#Additional Past Medical History:
Dementia
DM
ESRD on HD via LUE AVF
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
pAfib
CHF
chronic back pain
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
Appendectomy
Chief Complaint
-: Bacteremia
Subjective / Review of Systems
Resting comfortably.
Vital Signs / Physical Exam
Vital Signs
Vital Signs
Temp Pulse Resp BP Pulse Ox
97.3 F 84 16 141/71 95
09/17/23 07:15 09/17/23 07:15 09/17/23 07:15 09/17/23 07:15 09/17/23 07:15
Physical Exam
Constitutional: No Acute Distress
Pulmonary: Other (decreased BS right base)
Gastrointestinal: Soft, Non Tender and Non Distended
Extremities: Negative Edema
Objective Data
Lab Data
Lab Results
09/17/23 07:10
09/17/23 07:10
PT 19.0 Sec (11.4-14.6) H 09/12/23 03:55
INR 1.58 09/12/23 03:55
APTT 37.5 Sec (23.4-35.0) H 09/10/23 12:52
Estimated Creat Clear 18 ml/min 09/17/23 07:10
Lactic Acid 1.8 mmol/L (0.7-2.0) 09/11/23 09:05
Total Bilirubin 11.2 mg/dl (0.2-1.3) H 09/13/23 04:51
AST 84 U/L (17-59) H 09/13/23 04:51
ALT 30 U/L (0-50) 09/13/23 04:51
Alkaline Phosphatase 809 U/L (38-126) H 09/13/23 04:51
Most recent labs reviewed.
Micro Results:
09/16/23 09:10 Blood Culture - Preliminary
Blood/Venous No Growth in 24 hours- Final report to follow
09/17/23 07:10 Blood Culture - Pending
Blood/Venous
09/15/23 06:07 Blood Culture - Preliminary
Blood/Venous No Growth in 48 hours- Final report to follow
09/14/23 04:12 Blood Culture - Preliminary
Blood/Venous S aureus-Methicillin Sensitive
Gram Stain - Preliminary
09/13/23 04:51 Blood Culture - Preliminary
Blood/Venous S aureus-Methicillin Sensitive
Gram Stain - Preliminary
09/13/23 23:32 Urine Culture - Final
Urine NO GROWTH
09/12/23 03:55 Blood Culture - Preliminary
Blood/Venous S aureus-Methicillin Sensitive
Gram Stain - Preliminary
09/10/23 16:20 CSF Culture - Final
Csf NO GROWTH-FINAL REPORT
Gram Stain - Final
09/10/23 14:42 Blood Culture - Final
Blood/Venous S aureus-Methicillin Sensitive
Gram Stain - Final
09/10/23 14:42 Blood Culture - Final
Blood/Venous S aureus-Methicillin Sensitive
Gram Stain - Final
09/11/23 04:14 MRSA Screen - Final
Nose No Methicillin Resistant Staphylococcus aureus isolated.
09/10/23 16:20 Meningitis/Encephalitis Panel (PCR) - Final
Csf
09/10/23 17:29 Influenza Types A & B (ELIANA) - Final
Nasal Swab Negative for Influenza A & B, NAAT
Negative results must be combined with clinical observations
and patient history.
Nucleic Acid Amplification test (NAAT)performed on the
SHEEX platform.
09/10/23 CT c/a/p: No acute posttraumatic abnormality in the chest, abdomen, or pelvis within the limitations of motion artifact. Small chronic loculated right pleural effusion with pleural thickening. Mild abdominal ascites.
09/10/[address]: No acute intracranial abnormality within the limitations of motion artifact. Left frontal scalp hematoma. No CT evidence for an acute facial bone fracture.
09/13/23 Brain MRI wo contrast: Approximately three tiny foci of nonhemorrhagic acute/subacute infarcts, one in the right thalamus and two in the right occipital lobe. Findings may reflect embolic etiology.
09/13/23 MRI C spine wo contrast: No suspicious epidural collections. Mild multilevel degenerative changes of the cervical spine as detailed.
[2023-09-17] MEDS: MAXIPIME 1000 MG IV (13:12)
[2023-09-17] MEDS: STERILE WATER FOR INJECTION 10 ML IV (13:13)
[2023-09-17 14:25] VITALS: BMI 31.9
[2023-09-17 14:40] VITALS: BP 105/58; PULSE 73; O2SAT 97
[2023-09-17 15:28] VITALS: BP 105/58
[2023-09-17] MEDS: NOVOLOG FLEXPEN-MODERATE RESISTANCE 1 UNITS SC (16:15)
[2023-09-17 16:16] LABS: Glucose - Point of Care 156 mg/dl (70-99)
--- NOTE | 2023-09-17 16:38 | CON.MD ---
Documented by User: Flores Evans PA-C 09/19/23 10:05
Consultation - Medical
-
Referring Provider: Dr. Hari Coombs
Chief Complaint: Bacteremia
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
mobile echolucency at tip of TAVR cage and echodensity on mitral valve. He follows with Dr. Nguyen, ID, and just finished 6 week course of cefazolin with HD on 08/31/23. Per , patient has been getting progressively weaker since discharge from ""hospital. He has been falling at home. On 09/04, he came to ED after fall and hitting his head against the kitchen counter. CT of head and C-spine unremarkable. He was discharged home. Seen by his PCP for progressive ecchymosis of the face, neck who
then sent him to the ED on 09/10/2023. Found to be febrile with wbc of 30.8 and more confused. He received vancomycin and Zosyn
09/13/23 Brain MRI wo contrast: Approximately three tiny foci of nonhemorrhagic acute/subacute infarcts, one in the right thalamus and two in the right occipital lobe. Findings may reflect embolic etiology.
09/13/23 MRI C spine wo contrast: No suspicious epidural collections. Mild multilevel degenerative changes of the cervical spine as detailed.
Past Medical History: Dementia, diabetes, end-stage renal disease on hemodialysis via left upper extremity AVF, paroxysmal A-fib, CHF, chronic back pain, patient denies prior stroke
Procedure History: s/p TAVR (12/2022), Appendectomy
Family History: Patient denied.
Social History:
Functional Level Premorbidly: Independent with all activities with RW assist.
Functional Level Currently: Bed mobility�mod assist x 2 to get to the edge of bed, sit to stand transfer�mod assist, stand to sit�mod assist, patient was able to take some steps over to bedside chair with mod/max assist x 2. Knees buckling
throughout mobility, forward flexed posture, weak gait. ambulates 50 feet x 2 with rolling walker, min�mod assist for balance safety.
Tobacco: Former smoker
Alcohol: Denies
Drug use: Denies
Lives with: Family
24-hour assistance available: yes, son and . Son drives him to HD
Number of floors: Multilevel
# steps to enter: 1
# steps to second floor: FF
Potential First floor set up:yes
Driving: Not since accident
Occupation: Retired
�
Allergies:
Allergy/AdvReac Type Severity Reaction Status Date / Time
gabapentin AdvReac spastic Verified 09/10/23 10:50
movements
Review of Systems:
Constitutional: (x) Normal _
Eye: (x) Normal _
Ear/Nose/Throat: (x) Normal _
Respiratory: (x) Normal _
Cardiovascular: (x) PAD, Afib, TAVR
Gastrointestinal: (x) Normal _
Genitourinary: (x) esrd on HD
Musculoskeletal: (x) Normal _
Integumentary: (x) Normal _
Neurologic: (x) Normal _
Psychiatric: (x) alter mental status, paranoid
Endocrine: (x) Normal _
Hematologic/Lymphatic: (x) bacteremia
Allergic/Immunologic: (x) Normal _
Medications:
Active Current Visit Medication List
Category Date Time Status
0.9% Sodium Chloride [Nss (Preservative Free)] Med 09/14/23 23:04 Active
0.5 ml IV Q4HPRN PRN
Acetaminophen [Tylenol] Med 09/17/23 08:00 Active
1,000 mg PO BID
Acetaminophen [Tylenol] Med 09/10/23 19:46 Active
1,000 mg PO DAILYPRN PRN
Albumin Human 25% 50 ml [Flexbumin 25% For Hemodialysis Med 09/18/23 08:00 Active
]
12.5 grams IV HD-Q1HPRN PRN
Aspirin Chewable [Low Strength Aspirin] Med 09/15/23 08:00 Active
81 mg PO DAILY
Cefepime HCl [Maxipime] Med 09/14/23 14:00 Active
1,000 mg IV Q24H
Cholecalciferol (Vitamin D3) [VITAMIN D3 ( Med 09/11/23 08:00 Active
cholecalciferol)]
50 mcg PO DAILY
Cyanocobalamin [Vitamin B-12] Med 09/11/23 08:00 Active
1,000 mcg PO DAILY
Dextrose 50%-Water [Dextrose 50% Syringe] Med 09/11/23 10:34 Active
12.5 grams IV [id number] PRN
Docusate Sodium [Colace] Med 09/10/23 20:00 Active
200 mg PO BID
Duloxetine Delayed Release [Cymbalta Delayed Release] Med 09/11/23 08:00 Hold
30 mg PO DAILY
Flush (0.9% Sodium Chloride) [Flush (Nss)] Med 09/10/23 20:00 Active
See Dose Instructions IV PER PROTOCOL
[facility] Pharmacy to Dose 1 each Med 09/13/23 18:00 Active
Pharmacy To Prepare [Call Pharmacy To Prepare] 0
ml
IV PER PROTOCOL
Glucagon [GlucaGen] Med 09/11/23 10:34 Active
1 mg IM PRN PRN
Heparin Med 09/15/23 11:00 Active
5,000 units SC Q12
Insulin Aspart Corrective Mod [Novolog Flexpen-Moderate Med 09/13/23 07:30 Active
Resistance]
See Protocol SC AC
Lorazepam [Ativan] Med 09/11/23 05:36 Active
1 mg IV Q4HPRN PRN
Mannitol Med 09/18/23 08:00 Active
12.5 grams IV HD-Q1HPRN PRN
Memantine HCl [Namenda] Med 09/10/23 20:00 Active
5 mg PO BID
Metoprolol Xl [Toprol Xl] Med 09/10/23 22:00 Active
25 mg PO HS
Miconazole Nitrate [Desenex/Mitrazol/Zeasorb] Med 09/11/23 08:00 Active
See Dose Instructions TOPICAL BID
NIFEdipine EXTENDED RELEASE [Procardia Xl (Extended Med 09/15/23 11:00 Active
Release)]
30 mg PO BID
Oxycodone [Roxicodone] Med 09/17/23 08:00 Active
10 mg PO BID
Oxycodone [Roxicodone] Med 09/15/23 10:26 Active
5 mg PO Q8HPRN PRN
Pantoprazole [Protonix] Med 09/10/23 20:00 Active
40 mg PO Q12
Sterile Water [Sterile Water For Injection] Med 09/14/23 14:00 Active
10 ml IV Q24H
betamethasone, augmented Med 09/10/23 19:46 Hold
1 applic TOPICAL BIDPRN PRN
ferric citrate [Auryxia] Med 09/11/23 07:30 Pending
420 mg PO MoWeFr@0730,1630
ferric citrate [Auryxia] Med 09/12/23 07:30 Pending
420 mg PO SuTuThSa@0730,1130,1630
Vitals:
Temp Pulse Resp BP Pulse Ox
98.3 F 93 18 122/68 98
09/18/23 15:00 09/18/23 15:00 09/18/23 15:00 09/18/23 15:00 09/18/23 15:00
Height 5 ft 9 in
Actual Weight 98.118 kg
Body Mass Index (BMI) 32.0
Physical Exam:
General Appearance/Observation: Well-developed, well-nourished individual in no apparent distress.
Pain/Comfort Assessment: Denies
Mood/Affect: Appropriate
Integumentary/Operative Site:
�� Pressure Ulcer Evaluation: absent over heels.
��
�� Other Type of Wound: ecchymosis bilateral UE, face, neck. Multiple small scabbed wounds
��
Eyes: Conjunctiva/Lids: normal ��� Pupils: pupils equal round and reactive to light and Accommodation. Healing cut above left eyebrow
Ears/Nose/Throat: oral mucosa moist,� throat clear.������������ Lips/Teeth/Gums: normal
Neck: No muscle spasm or tenderness
Cardiovascular: Heart: irregular, murmur
Pulses: dorsalis pedis 1+ bilaterally
Respiratory: Respiratory Effort/Chest Expansion: normal ������ Auscultation: Clear to auscultation bilaterally
Gastrointestinal: abdomen not tender, no distension, normal abdominal bowel sounds
Genitourinary: No Daniels
Extremities: Edema: bilateral legs Cyanosis: None Trophic changes: venous wounds- bilateral legs wrapped in JAYLA
Neurology Exam:
Orientation: Alert, Oriented to self, not year, time, place
Memory: Impaired for immediate medical concerns
Higher cortical function- unable to count backwards by 2
Repetition: Impaired
Comprehension: Impaired
Two step command:
Naming: Intact, but unable to tell correct time on clock
Cranial Nerves:
�� CNII: Pupillary light reflex: Intact��� Visual Field: Intact
�� CN III, IV, : Extraocular muscles: Intact
�� CN V: Facial Sensation at Forehead: Intact, Maxilla: Intact, Mandible: Intact
�� CN VII: Facial movement: Symmetric
�� CN VIII: Hearing: Normal
�� CN IX/X: Speech & swallow: hypophonia, Position of Uvula: Midline
�� CN XI: Shoulder shrug: Symmetric
�� CN XII: Tongue protrusion: Midline
Sensory:
�� Light touch: Intact in bilateral upper and diminished in lower extremities.
�
Reflexes:
�� Biceps: 1+ bilaterally
�� Brachioradialis: 1+ bilaterally
�� Triceps: 1+ bilaterally
�� Patellar: absent bilaterally
�� Achilles: absent bilaterally
�� Babinski: Down going bilaterally
�� Clonus: None
�� Yen: Negative bilaterally
Cerebellar: Dysmetria/Ataxia: some impairment with nose to finger coordination bilaterally
Musculoskeletal:
Motor: (Manual muscle scale 0-5)
Muscle SA EF WE EE FF FA HF KE DF EHL PF
Right� 4 5 4 4 3 3 4 4 4
Left 4 5 4 4 3 3 4 4 4
Tone: Normal in all extremities
Range of Motion: Passively within normal limits in all extremities
Lab Results
Labs
WBC 14.1 10^3/uL (4.8-10.8) H 09/17/23 07:10
RBC 3.47 10^6/uL (4.70-6.10) L 09/17/23 07:10
Hgb 10.7 g/dL (13.0-18.0) L 09/17/23 07:10
Hct 32.4 % (39.0-52.0) L 09/17/23 07:10
MCV 93.4 fL (80.0-94.0) 09/17/23 07:10
MCH 30.8 pg (27.0-31.0) 09/17/23 07:10
MCHC 33.0 g/dL (33.0-37.0) 09/17/23 07:10
RDW 20.3 % (11.5-14.5) H 09/17/23 07:10
Plt Count 181 10^3/uL (130-400) 09/17/23 07:10
MPV 9.7 fL (7.4-10.4) 09/17/23 07:10
Abs Immat Gran (auto) 0.1 10^3/uL (0-0.05) H 09/13/23 04:51
Absolute Neuts (auto) 13.4 10^3/uL (1.4-6.5) H 09/13/23 04:51
Absolute Lymphs (auto) 0.7 10^3/uL (1.2-3.4) L 09/13/23 04:51
Absolute Monos (auto) 1.3 10^3/uL (0.1-0.6) H 09/13/23 04:51
Absolute Eos (auto) 0.1 10^3/uL (0-0.7) 09/13/23 04:51
Absolute Basos (auto) 0.0 10^3/uL (0-0.2) 09/13/23 04:51
CBC Comment 09/11/23 04:09
Immature Gran % 0.6 % (0-0.5) H 09/13/23 04:51
Neutrophils % 86.0 % (42.2-75.2) H 09/13/23 04:51
Lymphocytes % 4.7 % (20.5-51.1) L 09/13/23 04:51
Monocytes % 8.2 % (1.7-9.3) 09/13/23 04:51
Eosinophils % 0.4 % (0-6) 09/13/23 04:51
Basophils % 0.1 % (0-2) 09/13/23 04:51
Nucleated RBC % 0 % (-) 09/13/23 04:51
Normal RBC Morphology No 09/10/23 12:52
Hypochromasia +1 09/10/23 12:52
Anisocytosis +1 09/10/23 12:52
Target Cells +1 09/10/23 12:52
PT 19.0 Sec (11.4-14.6) H 09/12/23 03:55
INR 1.58 09/12/23 03:55
APTT 37.5 Sec (23.4-35.0) H 09/10/23 12:52
Fibrinogen 481 MG/DL (199-459) H 09/10/23 19:55
D-Dimer 3.41 ug/mlFEU (0.00-0.50) H 09/10/23 19:55
Sodium 132 mmol/L (135-145) L 09/17/23 07:10
Potassium 3.8 mmol/L (3.5-5.1) 09/17/23 07:10
Chloride 92 mmol/L (98-107) L 09/17/23 07:10
Carbon Dioxide 28 mmol/L (22-30) 09/17/23 07:10
BUN 32 mg/dl (9-20) H 09/17/23 07:10
Creatinine 3.5 mg/dL (0.7-1.3) H 09/17/23 07:10
Estimated Creat Clear 18 ml/min 09/17/23 07:10
eGFR 16.50 09/17/23 07:10
Glucose 112 mg/dl (70-99) H 09/17/23 07:10
Hemoglobin A1c 5.5 % (4.0-5.6) 09/11/23 04:09
Lactic Acid 1.8 mmol/L (0.7-2.0) 09/11/23 09:05
Calcium 8.4 mg/dl (8.4-10.2) 09/17/23 07:10
Total Bilirubin 11.2 mg/dl (0.2-1.3) H 09/13/23 04:51
Direct Bilirubin 8.0 mg/dl (0.0-0.4) H 09/11/23 04:09
AST 84 U/L (17-59) H 09/13/23 04:51
ALT 30 U/L (0-50) 09/13/23 04:51
Alkaline Phosphatase 809 U/L (38-126) H 09/13/23 04:51
Ammonia 24 umol/L (9-30) 09/10/23 14:42
Total Protein 7.4 g/dl (6.3-8.2) 09/13/23 04:51
Albumin 3.9 g/dl (3.5-5.0) 09/13/23 04:51
Lipase Cancelled 09/10/23 12:52
Urine Color Brown 09/13/23 23:32
Urine Clarity Very cloudy (Clear) 09/13/23 23:32
Urine pH 5.0 (5.0-9.0) 09/13/23 23:32
Ur Specific [place] 1.015 (<1.030) 09/13/23 23:32
Urine Ketones 1+ (Negative) A 09/13/23 23:32
Ur Occult Blood Reflex 2+ (Negative) A 09/13/23 23:32
Urine Nitrite (Reflex) Positive (Negative) A 09/13/23 23:32
Urine Bilirubin 3+ (Negative) A 09/13/23 23:32
Urine Urobilinogen 2+ (Neg - 1+) A 09/13/23 23:
Leukocyte Esterase Rfl 1+ (Negative) A 09/13/23 23:32
Urine RBC 7-10 /HPF (0-2) A 09/13/23 23:32
Urine WBC (Reflex) 30-40 /HPF (0-5) A 09/13/23 23:32
Ur Squamous Epith Cells 0-2 /LPF (Few) 09/13/23 23:32
Urine Bacteria (Reflex) Many (Negative) A 09/13/23 23:32
Urine Glucose Trace (Negative) A 09/13/23 23:32
Urine Albumin (Reflex) 2+ (Neg - Trace) A 09/13/23 23:32
CSF Appearance Clear 09/10/23 16:20
CSF Appearance Clear 09/10/23 16:20
CSF Color Xanthochromic 09/10/23 16:20
CSF Color Xanthochromic 09/10/23 16:20
CSF WBC 14 mm^3 (0-5) H* 09/10/23 16:20
CSF WBC 15 mm^3 (0-5) H* 09/10/23 16:20
CSF RBC 10 mm^3 09/10/23 16:20
CSF RBC 10 mm^3 09/10/23 16:20
CSF Cell Count Tube # 1 09/10/23 16:20
CSF Cell Count Tube # 4 09/10/23 16:20
CSF Granulocytes 5 % 09/10/23 16:20
CSF Granulocytes 8 % 09/10/23 16:20
CSF Lymphocytes 11 % 09/10/23 16:20
CSF Lymphocytes 11 % 09/10/23 16:20
CSF Macrophages 79 % 09/10/23 16:20
CSF Macrophages 81 % 09/10/23 16:20
CSF Glucose 131 mg/dl (40-70) H 09/10/23 16:20
CSF Total Protein 255 mg/dl (12-60) H 09/10/23 16:20
Random Gentamicin 2.7 ug/ml 09/16/23 07:44
Random Vancomycin 12.2 ug/ml 09/12/23 03:55
Acetaminophen < 10 ug/ml (10-30) L 09/10/23 14:42
Alcohol, Quantitative None detected mg/dl 09/10/23 14:42
Lyme Specimen Source Serum 09/10/23 15:17
Lyme Disease DNA (PCR) Not detected 09/10/23 15:17
Hepatitis A IgM Ab Cancelled 09/12/23 03:55
Hepatitis A Ab Total Negative (Negative) 09/12/23 03:55
Hep Bs Antigen Negative (Negative) 09/12/23 03:55
Hep Bs Antibody Negative 09/12/23 03:55
Hep B Core Total Ab Negative (Negative) 09/12/23 03:55
Hepatitis C Antibody Negative (Negative) 09/12/23 03:55
SARS-CoV-2 Antigen Negative (Negative) 09/10/23 17:29
POC Glucose 156 mg/dl (70-99) H 09/17/23 16:14
Blood Type A POS 09/10/23 14:42
Antibody Screen Negative (Negative) 09/10/23 14:42
�
Diagnostic Results: as per HPI
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
TAVR cage and echodensity on mitral valve. He follows with Dr. Nguyen, ID, and just finished 6 week course of cefazolin with HD on 08/31/23. Per , patient has been getting progressively weaker since discharge from hospital. He has been falling at
home. On 09/04 he came to ED after fall and hitting his head against the kitchen counter. CT of head and C-spine unremarkable. He was discharged home. Seen by his PCP for progressive ecchymosis of the face, neck who then sent him to the ED on
09/10/2023. Found to be febrile with wbc of 30.8 and more confused. He received vancomycin and Zosyn. Being treated for Relapsed MSSA bacteremia, sustained TAVR endocarditis. Also to be found on MRI of brain with three tiny foci of nonhemorrhagic
acute/subacute infarcts, one in the right thalamus and two in the right occipital lobe. Findings may reflect embolic etiology.
Plan
PT/OT to increase independence with ADLs, improve balance, coordination, endurance, strength, mobility, community reintegration, decreased burden of care on others and family education.
Deconditioning/ambulatory dysfunction: Multifactorial with multiple comorbidities and ongoing bacteremia treatment
Relapsed Staph aureus (MSSA) bacteremia, sustained, TAVR endocarditis, # HVAC R TECH septic emboli- Completed 6 weeks of cefazolin on 08/31/23 for MSSA bacteremia, suspect TAVR, MV IE . As of 09/12/23 HAN: Continued mobile echodensity on aortic side of TAVR
valve measuring 0.3 cm x 0.3 cm differential includes endocarditis vs artifact. Patient is not surgical candidate. repeat blood cx still positive.
Per ID- Repeat blood cultures daily until clear x 2 sets, at least. from neg blood cultures followed by chronic po antibiotics suppression. Monitor for change in mental status while on cefepime. Continue IV gentamicin 80mg IV MWF after HD x 14d
through 09/27/23.
Cefepime (+HVAC R TECH penetration) 2g IV MoWe, 3g IV Fri after HD through 10/25/23, from neg blood cultures followed by chronic po antibiotics suppression. Followed by lifelong chronic suppression with cephalexin 1000mg po q24h.
Follow WBC. (09/18) wbc - 11.9 (09/18) blood culture :No Growth in 48 hours- Final report to follow
Toxic metabolic encephalopathy from septic brain emboli -
CVA:Brain MRI with three tiny foci of nonhemorrhagic acute/subacute infarcts, one in the right thalamus and two in the right occipital lobe. Findings may reflect embolic etiology.
Neurology evaluated and recommended resuming Eliquis on 09/19. Continue on aspirin until then. Secondary prophylaxis with aspirin, statin, and blood pressure control (SBP less than 180 and diastolic less than 100 to participate with therapy for
ischemic stroke). Continue to monitor neurologic status.
ESRD on HD: Via AVF. (09/16) bun 32, creatinine 3.5. he needed to be wrist restained during HD since was paranoid and high risk of pulling HD needle
Falls: Likely multifactorial. scalp trauma (09/04 on Eliquis) - face/neck ecchymosis
HTN: Metoprolol XL 25 Hs, nifedipine XL
HLD: Statin
FEN: Evaluated by speech-Adequate mastication, bolus formation, and A-P transit noted with no oral residue. No overt signs of aspiration. recommending- regular solids/thin liquids, General aspiration precautions,meds as tolerated.
Atrial fibrillation:�Apixaban 2.5mg BID (age 83, creatinine > 1.5), on hold .Per chart, Eliquis to be resumed on 09/19, on ASA, metoprolol XL 25 at bedtime, nifedipine XL 30 twice daily. Was evaluated for Watchman but developed endocarditis
�����������������������������
DM II: Accu-Cheks, insulin sliding scale,
Anemia: Likely multifactorial.� Continue to monitor. ferric Citrate
Bilateral lower extremity edema: Consider TEDS as able. Increased fluid will cause more force requirement to move lower extremities which requires more strength and increases fatigue.
Dementia: Namenda 5 mg twice daily
Psych: Psychology consult.� Monitor mood, duloxetine delayed release 30 mg daily lorazepam 1 mg IV every 4 as needed. Per HD note, patient needed to be wrist restained during HD since was paranoid and high risk of pulling HD needle. Would appreciate
psych follow up for medication adjustments as needed prior to discharge. IV meds would have to be converted to PO as well.
Skin: monitor for pressure sores/rashes/lesions.
Pain: acetaminophen or oxycodone, as needed.
Bowel: Colace 200mg bid and Senna, PRN bisacodyl.
Bladder: Time void, PVRs, PRN straight cath.
GI Prophylaxis: Pantoprazole
DVT Prophylaxis: Heparin 5000 units every 12
Pulmonary: Incentive spirometry
Morbid obesity: Continue to intellectual property counsel patient about diet adjustments to control obesity. Body habitus and increased force to move body and extremities causes further difficulty with functional tasks.
Safety: Continue to reinforce assistance with all transfers.
Code Status:� Full code
Dispo (date/plan/equipment needs): Home with family care.� Social history reviewed.
Functional and Medical Goals: Modified Independent with ADL�s, ambulation, transfers
Summary of recommendations: Patient with deconditioning and ambulatory dysfunction currently functioning at the level of Bed mobility�mod assist x 2 to get to the edge of bed, sit to stand transfer�mod assist, stand to sit�mod assist, patient was
able to take some steps over to bedside chair with mod/max assist x 2. Knees buckling throughout mobility, forward flexed posture, weak gait. ambulates 50 feet x 2 with rolling walker, min�mod assist for balance safety due to multiple
comorbidities and ongoing treatment for Relapsed Staph aureus (MSSA) bacteremia, sustained, TAVR endocarditis, Would benefit from acute inpatient rehabilitation once he is medically stable, afebrile. Would appreciate psych input regarding mood,
paranoia prior to discharge.
- Discharge Destination: Acute inpatient rehabilitation
Deconditioning/ambulatory dysfunction: Multifactorial with multiple comorbidities and ongoing bacteremia treatment
Relapsed Staph aureus (MSSA) bacteremia, sustained, TAVR endocarditis, # HVAC R TECH septic emboli- Completed 6 weeks of cefazolin on 08/31/23 for MSSA bacteremia, suspect TAVR, MV IE . As of 09/12/23 HAN: Continued mobile echodensity on aortic side of TAVR
valve measuring 0.3 cm x 0.3 cm differential includes endocarditis vs artifact. Patient is not surgical candidate. repeat blood cx still positive.
Per ID- Repeat blood cultures daily until clear x 2 sets, at least. from neg blood cultures followed by chronic po antibiotics suppression. Monitor for change in mental status while on cefepime. Continue IV gentamicin 80mg IV MWF after HD x
14d through 09/27/23.
Cefepime (+HVAC R TECH penetration) 2g IV MoWe, 3g IV Fri after HD through 10/25/23, from neg blood cultures followed by chronic po antibiotics suppression. Followed by lifelong chronic suppression with cephalexin 1000mg po q24h.
Follow WBC. (09/18) wbc - 11.9 (09/18) blood culture :No Growth in 48 hours- Final report to follow
Psych: Psychology consult. Duloxetine delayed release 30 mg daily, lorazepam 1 mg IV every 4 as needed. (09/17) Per HD note, patient needed to be wrist restained during HD since was paranoid and high risk of pulling HD needle. Would appreciate psych
follow up for medication adjustments prior to discharge to address mood and potential mental status change while on Cefepime. IV meds would have to be converted to PO as well.
CVA:Brain MRI with three tiny foci of nonhemorrhagic acute/subacute infarcts, one in the right thalamus and two in the right occipital lobe. Findings may reflect embolic etiology.
Neurology evaluated and recommended resuming Eliquis on 09/19. Continue on aspirin until then. Secondary prophylaxis with aspirin, statin, and blood pressure control (SBP less than 180 and diastolic less than 100 to participate with therapy for
ischemic stroke). Continue to monitor neurologic status.
Atrial Fibrillation-Apixaban 2.5mg BID (age 83, creatinine > 1.5), on hold . Eliquis to be resumed on 09/19 per chart, on ASA, metoprolol XL 25 at bedtime, nifedipine XL 30 twice daily. Was evaluated for Watchman but developed endocarditis
HTN: Metoprolol XL 25 HS, nifedipine XL. Must be off IV BP medications if any prior to transfer.
Skin: monitor for pressure sores/rashes/lesions.
Pain: acetaminophen or oxycodone as needed. Must be stable on p.o. pain medications for at least 24 hours prior to transfer.
Bowel: Colace 200mg bid and Senna, PRN bisacodyl.
Bladder: Time void, PVRs, PRN straight cath.
GI Prophylaxis: Pantoprazole
DVT Prophylaxis: Heparin 5000 units every 12 hours
Pulmonary: Incentive spirometry
�����������������������������
Thank you for allowing me to care for your patient. Please contact me with any questions or concerns.
This note was dictated using a voice recognition system. Please excuse any typographical errors from aircraft engine specialist. If you believe there are any discrepancies, please notify our office.

Documented by User: Jero Costa MD 09/20/23 13:23
Consultation - Medical
-
Referring Provider: Dr. Hari Coombs
Chief Complaint: Bacteremia
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
mobile echolucency at tip of TAVR cage and echodensity on mitral valve. He follows with [facility], and just finished 6 week course of cefazolin with HD on 08/31/23. Per , patient has been getting progressively weaker since discharge from
hospital. He has been falling at home. On 09/04, he came to ED after fall and hitting his head against the kitchen counter. CT of head and C-spine unremarkable. He was discharged home. Seen by his PCP for progressive ecchymosis of the face, neck who
then sent him to the ED on 09/10/2023. Found to be febrile with wbc of 30.8 and more confused. He received vancomycin and Zosyn. Has been having problems with agitation and requiring Ativan IV for dialysis and agitation, being seen by psychiatry.
09/13/23 Brain MRI wo contrast: Approximately three tiny foci of nonhemorrhagic acute/subacute infarcts, one in the right thalamus and two in the right occipital lobe. Findings may reflect embolic etiology.
09/13/23 MRI C spine wo contrast: No suspicious epidural collections. Mild multilevel degenerative changes of the cervical spine as detailed.
Past Medical History: Dementia, diabetes, end-stage renal disease on hemodialysis via left upper extremity AVF, paroxysmal A-fib, CHF, chronic back pain, patient denies prior stroke
Procedure History: s/p TAVR (12/2022), Appendectomy
Family History: Patient denied.
Social History:
Functional Level Premorbidly: Independent with all activities with RW assist.
Functional Level Currently: Bed mobility�mod assist x 2 to get to the edge of bed, sit to stand transfer�mod assist, stand to sit�mod assist, patient was able to take some steps over to bedside chair with mod/max assist x 2. Knees buckling
throughout mobility, forward flexed posture, weak gait. ambulates 50 feet x 2 with rolling walker, min�mod assist for balance safety.
Tobacco: Former smoker
Alcohol: Denies
Drug use: Denies
Lives with: Family
24-hour assistance available: yes, son and . Son drives him to HD
Number of floors: Multilevel
# steps to enter: 1
# steps to second floor: FF
Potential First floor set up:yes
Driving: Not since accident
Occupation: Retired
�
Allergies:
Allergy/AdvReac Type Severity Reaction Status Date / Time
gabapentin AdvReac spastic Verified 09/10/23 10:50
movements
Review of Systems:
Constitutional: (x) abNormal _fatigue
Eye: (x) Normal _
Ear/Nose/Throat: (x) Normal _
Respiratory: (x) Normal _
Cardiovascular: (x) PAD, Afib, TAVR
Gastrointestinal: (x) Normal _
Genitourinary: (x) esrd on HD
Musculoskeletal: (x) Normal _
Integumentary: (x) Normal _
Neurologic: (x) Normal _
Psychiatric: (x) alter mental status, paranoid
Endocrine: (x) Normal _
Hematologic/Lymphatic: (x) bacteremia
Allergic/Immunologic: (x) Normal _
Medications:
Active Current Visit Medication List
Category Date Time Status
0.9% Sodium Chloride [Nss (Preservative Free)] Med 09/14/23 23:04 Active
0.5 ml IV Q4HPRN PRN
Acetaminophen [Tylenol] Med 09/17/23 08:00 Active
1,000 mg PO BID
Acetaminophen [Tylenol] Med 09/10/23 19:46 Active
1,000 mg PO DAILYPRN PRN
Albumin Human 25% 50 ml [Flexbumin 25% For Hemodialysis Med 09/20/23 08:00 Active
]
12.5 grams IV HD-Q1HPRN PRN
Aspirin Chewable [Low Strength Aspirin] Med 09/15/23 08:00 Active
81 mg PO DAILY
Cefepime HCl [Maxipime] Med 09/20/23 14:00 Active
1,000 mg IV FR@1400
Cefepime HCl [Maxipime] Med 09/20/23 14:00 Active
2,000 mg IV FR@1400
Cefepime HCl [Maxipime] Med 09/18/23 14:00 Active
2,000 mg IV MOWE
Cholecalciferol (Vitamin D3) [VITAMIN D3 ( Med 09/11/23 08:00 Active
cholecalciferol)]
50 mcg PO DAILY
Cyanocobalamin [Vitamin B-12] Med 09/11/23 08:00 Active
1,000 mcg PO DAILY
Dextrose 50%-Water [Dextrose 50% Syringe] Med 09/11/23 10:34 Active
12.5 grams IV [id number] PRN
Docusate Sodium [Colace] Med 09/10/23 20:00 Active
200 mg PO BID
Duloxetine Delayed Release [Cymbalta Delayed Release] Med 09/11/23 08:00 Hold
30 mg PO DAILY
Flush (0.9% Sodium Chloride) [Flush (Nss)] Med 09/10/23 20:00 Active
See Dose Instructions IV PER PROTOCOL
Gentamicin 80 mg/50 ml [Gentamicin] Med 09/20/23 12:00 Active
80 mg in 50 ml IV MoWeFr@1200
Glucagon [GlucaGen] Med 09/11/23 10:34 Active
1 mg IM PRN PRN
Heparin Med 09/15/23 11:00 Active
5,000 units SC Q12
Insulin Aspart Corrective Mod [Novolog Flexpen-Moderate Med 09/13/23 07:30 Active
Resistance]
See Protocol SC AC
Lorazepam [Ativan] Med 09/11/23 05:36 Active
1 mg IV Q4HPRN PRN
Mannitol Med 09/20/23 08:00 Active
12.5 grams IV HD-Q1HPRN PRN
Memantine HCl [Namenda] Med 09/10/23 20:00 Active
5 mg PO BID
Metoprolol Xl [Toprol Xl] Med 09/10/23 22:00 Active
25 mg PO HS
Miconazole Nitrate [Desenex/Mitrazol/Zeasorb] Med 09/11/23 08:00 Active
See Dose Instructions TOPICAL BID
NIFEdipine EXTENDED RELEASE [Procardia Xl (Extended Med 09/15/23 11:00 Active
Release)]
30 mg PO BID
Oxycodone [Roxicodone] Med 09/17/23 08:00 Active
10 mg PO BID
Oxycodone [Roxicodone] Med 09/15/23 10:26 Active
5 mg PO Q8HPRN PRN
Pantoprazole [Protonix] Med 09/10/23 20:00 Active
40 mg PO Q12
Petrolatum/Mineral Oil [Hydrophor] Med 09/18/23 08:00 Active
See Dose Instructions TOPICAL DAILY
Sterile Water [Sterile Water For Injection] Med 09/20/23 14:00 Active
10 ml IV FR@1400
Sterile Water [Sterile Water For Injection] Med 09/20/23 14:00 Active
10 ml IV FR@1400
Sterile Water [Sterile Water For Injection] Med 09/18/23 14:00 Active
10 ml IV MoWe
betamethasone, augmented Med 09/10/23 19:46 Hold
1 applic TOPICAL BIDPRN PRN
ferric citrate [Auryxia] Med 09/11/23 07:30 Pending
420 mg PO MoWeFr@0730,1630
ferric citrate [Auryxia] Med 09/12/23 07:30 Pending
420 mg PO SuTuThSa@0730,1130,1630
Vitals:
Temp Pulse Resp BP Pulse Ox
97.9 F 84 20 123/82 97
09/20/23 07:00 09/20/23 07:00 09/20/23 07:00 09/20/23 07:00 09/20/23 07:00
Height 5 ft 9 in
Actual Weight 99.127 kg
Body Mass Index (BMI) 32.3
Physical Exam:
General Appearance/Observation: Well-developed, well-nourished male in no apparent distress.
Pain/Comfort Assessment: Denies
Mood/Affect: Appears sedated
Integumentary/Operative Site: ecchymosis bilateral UE, face, neck. Multiple small scabbed wounds. AV fistula access.
��
Eyes: Conjunctiva/Lids: normal ��� Pupils: pupils equal round and reactive to light and Accommodation. Healing cut above left eyebrow
Ears/Nose/Throat: oral mucosa moist,� throat clear.������������ Lips/Teeth/Gums: normal
Cardiovascular: Heart: irregular, murmur
Pulses: dorsalis pedis 1+ bilaterally
Respiratory: Respiratory Effort/Chest Expansion: normal ������ Auscultation: Clear to auscultation bilaterally
Gastrointestinal: abdomen not tender, no distension, normal abdominal bowel sounds
Genitourinary: No Daniels
Extremities: Edema: bilateral legs Cyanosis: None Trophic changes: venous wounds- bilateral legs wrapped in JAYLA
Neurology Exam:
Orientation: Alert, Oriented to self, not year, time, place
Memory: Impaired for immediate medical concerns
Higher cortical function- unable to count backwards by 2
Repetition: Impaired
Comprehension: Impaired
Two step command: Impaired
Naming: Intact, but unable to tell correct time on clock
Cranial Nerves:
�� CNII: Pupillary light reflex: Intact��� Visual Field: Intact
�� CN III, IV, : Extraocular muscles: Intact
�� CN V: Facial Sensation at Forehead: Intact, Maxilla: Intact, Mandible: Intact
�� CN VII: Facial movement: Symmetric
�� CN VIII: Hearing: Normal
�� CN IX/X: Speech & swallow: hypophonia, Position of Uvula: Midline
�� CN XI: Shoulder shrug: Symmetric
�� CN XII: Tongue protrusion: Midline
Sensory:
�� Light touch: Intact in bilateral upper and diminished in lower extremities.
�
Reflexes:
�� Biceps: 1+ bilaterally
�� Brachioradialis: 1+ bilaterally
�� Triceps: 1+ bilaterally
�� Patellar: absent bilaterally
�� Achilles: absent bilaterally
�� Babinski: Down going bilaterally
�� Clonus: None
�� Yen: Negative bilaterally
Cerebellar: Dysmetria/Ataxia: some impairment with nose to finger coordination bilaterally
Musculoskeletal: Motor: (Manual muscle scale 0-5)
Muscle SA EF WE EE FF FA HF KE DF EHL PF
Right� 3 5 4 4 4 2 4 4 4 4
Left 3 5 4 4 4 2 4 4 4 4
Tone: Normal in all extremities
Range of Motion: Passively within functional limits in all extremities
Lab Results
Laboratory Data
09/20/23 08:22
09/20/23 08:22
PT 19.0 Sec (11.4-14.6) H 09/12/23 03:55
INR 1.58 09/12/23 03:55
APTT 37.5 Sec (23.4-35.0) H 09/10/23 12:52
Total Bilirubin 11.2 mg/dl (0.2-1.3) H 09/13/23 04:51
Direct Bilirubin 8.0 mg/dl (0.0-0.4) H 09/11/23 04:09
AST 84 U/L (17-59) H 09/13/23 04:51
ALT 30 U/L (0-50) 09/13/23 04:51
Alkaline Phosphatase 809 U/L (38-126) H 09/13/23 04:51
Total Protein 7.4 g/dl (6.3-8.2) 09/13/23 04:51
Albumin 3.9 g/dl (3.5-5.0) 09/13/23 04:51
Diagnostic Results: as per HPI
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
TAVR cage and echodensity on mitral valve. He follows with Dr. Nguyen, ID, and just finished 6 week course of cefazolin with HD on 08/31/23. Per , patient has been getting progressively weaker since discharge from hospital. He has been falling at
home. On 09/04 he came to ED after fall and hitting his head against the kitchen counter. CT of head and C-spine unremarkable. He was discharged home. Seen by his PCP for progressive ecchymosis of the face, neck who then sent him to the ED on
09/10/2023. Found to be febrile with wbc of 30.8 and more confused. He received vancomycin and Zosyn. Being treated for Relapsed MSSA bacteremia, sustained TAVR endocarditis. Also to be found on MRI of brain with three tiny foci of nonhemorrhagic
acute/subacute infarcts, one in the right thalamus and two in the right occipital lobe. Findings may reflect embolic etiology.
Plan
PT/OT to increase independence with ADLs, improve balance, coordination, endurance, strength, mobility, community reintegration, decreased burden of care on others and family education.
Deconditioning/ambulatory dysfunction: Multifactorial with multiple comorbidities and ongoing bacteremia treatment
Relapsed Staph aureus (MSSA) bacteremia, sustained, TAVR endocarditis, # HVAC R TECH septic emboli- Completed 6 weeks of cefazolin on 08/31/23 for MSSA bacteremia, suspect TAVR, MV IE . As of 09/12/23 HAN: Continued mobile echodensity on aortic side of TAVR
valve measuring 0.3 cm x 0.3 cm differential includes endocarditis vs artifact. Patient is not surgical candidate. repeat blood cx still positive.
Per ID- Repeat blood cultures daily until clear x 2 sets, at least. from neg blood cultures followed by chronic po antibiotics suppression. Monitor for change in mental status while on cefepime. Continue IV gentamicin 80mg IV MWF after HD x 14d
through 09/27/23.
Cefepime (+HVAC R TECH penetration) 2g IV MoWe, 3g IV Fri after HD through 10/25/23, from neg blood cultures followed by chronic po antibiotics suppression. Followed by lifelong chronic suppression with cephalexin 1000mg po q24h.
Follow WBC. (09/18) wbc - 11.9 (09/18) blood culture :No Growth in 48 hours- Final report to follow
Toxic metabolic encephalopathy from septic brain emboli -treatment as above
CVA:Brain MRI with three tiny foci of nonhemorrhagic acute/subacute infarcts, one in the right thalamus and two in the right occipital lobe. Findings may reflect embolic etiology.
Neurology evaluated and recommended resuming Eliquis on 09/19. Continue on aspirin until then. Secondary prophylaxis with aspirin, statin, and blood pressure control (SBP less than 180 and diastolic less than 100 to participate with therapy for
ischemic stroke). Continue to monitor neurologic status.
ESRD on HD: Via AVF. (09/16) bun 32, creatinine 3.5. he needed to be wrist restained during HD since was paranoid and high risk of pulling HD needle
Falls: Likely multifactorial. scalp trauma (09/04 on Eliquis) - face/neck ecchymosis
HTN: Metoprolol XL 25 Hs, nifedipine XL
HLD: Statin
FEN: Evaluated by speech-Adequate mastication, bolus formation, and A-P transit noted with no oral residue. No overt signs of aspiration. recommending- regular solids/thin liquids, General aspiration precautions,meds as tolerated.
Atrial fibrillation:�Apixaban 2.5mg BID (age 83, creatinine > 1.5), on hold .Per chart, Eliquis to be resumed on 09/19, on ASA, metoprolol XL 25 at bedtime, nifedipine XL 30 twice daily. Was evaluated for Watchman but developed endocarditis ������
DM II: Accu-Cheks, insulin sliding scale,
Anemia: Likely multifactorial.� Continue to monitor. ferric Citrate
Bilateral lower extremity edema: Consider TEDS as able. Increased fluid will cause more force requirement to move lower extremities which requires more strength and increases fatigue.
Dementia: Namenda 5 mg twice daily
Psych: Psychology consult.� Monitor mood, duloxetine delayed release 30 mg daily lorazepam 1 mg IV every 4 as needed. Per HD note, patient needed to be wrist restained during HD since was paranoid and high risk of pulling HD needle. Would appreciate
psych follow up for medication adjustments as needed prior to discharge. IV meds would have to be converted to PO as well.
Skin: monitor for pressure sores/rashes/lesions.
Pain: acetaminophen as needed. Try to avoid sedating pain medications.
Bowel: Colace 200mg bid and Senna, PRN bisacodyl.
Bladder: Time void, PVRs, PRN straight cath.
GI Prophylaxis: Pantoprazole
DVT Prophylaxis: Heparin 5000 units every 12
Pulmonary: Incentive spirometry
Obesity: Continue to intellectual property counsel patient about diet adjustments to control obesity. Body habitus and increased force to move body and extremities causes further difficulty with functional tasks.
Safety: Continue to reinforce assistance with all transfers.
Code Status:� Full code
Dispo (date/plan/equipment needs): Home with family care.� Social history reviewed.
Functional and Medical Goals: Modified Independent with ADL�s, ambulation, transfers
Summary of recommendations: Patient with deconditioning and ambulatory dysfunction currently functioning at the level of Bed mobility�mod assist x 2 to get to the edge of bed, sit to stand transfer�mod assist, stand to sit�mod assist, patient was
able to take some steps over to bedside chair with mod/max assist x 2. Knees buckling throughout mobility, forward flexed posture, weak gait. ambulates 50 feet x 2 with rolling walker, min�mod assist for balance safety due to multiple
comorbidities and ongoing treatment for Relapsed Staph aureus (MSSA) bacteremia, sustained, TAVR endocarditis, Would benefit from acute inpatient rehabilitation once he is medically stable, afebrile. Would appreciate psych input regarding mood,
paranoia prior to discharge.
Discharge Destination: Acute inpatient rehabilitation
Deconditioning/ambulatory dysfunction: Multifactorial with multiple comorbidities and ongoing bacteremia treatment
Relapsed Staph aureus (MSSA) bacteremia, sustained, TAVR endocarditis, # HVAC R TECH septic emboli- Completed 6 weeks of cefazolin on 08/31/23 for MSSA bacteremia, suspect TAVR, MV IE . As of 09/12/23 HAN: Continued mobile echodensity on aortic side of TAVR
valve, not surgical candidate. repeat blood cx still positive.
Per ID- Repeat blood cultures daily until clear x 2 sets, at least. from neg blood cultures followed by chronic po antibiotics suppression. Monitor for change in mental status while on cefepime. Continue IV gentamicin 80mg IV MWF after HD x
14d through 09/27/23. Cefepime (+HVAC R TECH penetration) 2g IV MoWe, 3g IV Fri after HD through 10/25/23, from neg blood cultures followed by chronic po antibiotics suppression. Followed by lifelong chronic suppression with cephalexin 1000mg po q24h.
Follow WBC. (09/18) wbc - 11.9 (09/18) blood culture :No Growth in 48 hours- Final report to follow
Psych: Duloxetine delayed release 30 mg daily, lorazepam 1 mg IV every 4 as needed, patient needed to be wrist restained during HD since was paranoid and high risk of pulling HD needle. Psychiatry following, not safe for dischrge to rehab setting
with frequent need for IV Ativan and restraints for dialysis.
CVA:three tiny foci of nonhemorrhagic acute/subacute infarcts, may reflect embolic etiology. Eliquis on 09/19. Continue on aspirin until then. Secondary prophylaxis with aspirin, statin, and blood pressure control (SBP less than 180 and diastolic
less than 100 to participate with therapy for ischemic stroke). Continue to monitor neurologic status.
Atrial Fibrillation-Apixaban 2.5mg BID (age 83, creatinine > 1.5), on hold . Eliquis to be resumed on 09/19 per chart, on ASA, metoprolol XL 25 at bedtime, nifedipine XL 30 twice daily. Was evaluated for Watchman but developed endocarditis
HTN: Metoprolol XL 25 HS, nifedipine XL. Must be off IV BP medications if any prior to transfer.
Pain: acetaminophen as needed. Try to avoid sedating pain medications.
Bowel: Colace 200mg bid and Senna, PRN bisacodyl.
GI Prophylaxis: Pantoprazole
DVT Prophylaxis: Heparin 5000 units every 12 hours
Pulmonary: Incentive spirometry
Thank you for allowing me to care for your patient. Please contact me with any questions or concerns.
Attending statement:
I saw and examined the patient/06/02. Reviewed care plan with physician visitor use assistant. I agree with the above subjective, physical exam, and plan as documented above.
--- NOTE | 2023-09-17 18:06 | PTCARENOTE ---
Patient out of bed to chair for about 2 hours, max assist of 1 with stand by assist on other side. Denied pain. Appetite good, able to feed himself with a set up. Did receive a PRN Oxy 5 mg at lunch time prior to getting back to bed. In good
spirits today.
[2023-09-17] MEDS: PROCARDIA XL (EXTENDED RELEASE) PO (20:19)
[2023-09-17] MEDS: PROTONIX PO (20:19)
[2023-09-17] MEDS: ROXICODONE PO (20:19)
[2023-09-17] MEDS: COLACE PO (20:19)
[2023-09-17] MEDS: NAMENDA PO (20:19)
[2023-09-17] MEDS: TOPROL XL PO (20:20)
--- NOTE | 2023-09-17 20:20 | PTCARENOTE ---
Pt refused PO meds and knocked them out of this RN's hand. Pt agitated and medicated with ativan per order.
[2023-09-17 21:37] LABS: Glucose - Point of Care 137 mg/dl (70-99)
[2023-09-17 23:31] VITALS: BP 105/45
[2023-09-18 05:35] VITALS: BMI 32.0
--- NOTE | 2023-09-18 06:19 | PTCARENOTE ---
Pt picking at scabs, skin and caused 2 abrasions to R forearm and L upper arm.
[2023-09-18] MEDS: TYLENOL 1000 MG PO ×2 (07:22→20:33)
[2023-09-18] MEDS: LOW STRENGTH ASPIRIN 81 MG PO (07:22)
[2023-09-18] MEDS: HEPARIN 5000 UNITS SC ×2 (07:22→20:32)
[2023-09-18] MEDS: COLACE 200 MG PO ×2 (07:23→20:33)
[2023-09-18] MEDS: VITAMIN D3 (cholecalciferol) 50 MCG PO (07:23)
[2023-09-18] MEDS: ROXICODONE 10 MG PO ×2 (07:23→20:34)
[2023-09-18] MEDS: VITAMIN B-12 1000 MCG PO (07:23)
[2023-09-18] MEDS: PROTONIX 40 MG PO ×2 (07:23→20:33)
[2023-09-18] MEDS: NAMENDA 5 MG PO ×2 (07:23→20:33)
[2023-09-18] MEDS: PROCARDIA XL (EXTENDED RELEASE) 30 MG PO ×2 (07:24→20:34)
[2023-09-18] MEDS: DESENEX/MITRAZOL/ZEASORB 1 APPLIC TOPICAL ×2 (07:33→20:34)
[2023-09-18] MEDS: NOVOLOG FLEXPEN-MODERATE RESISTANCE SC ×2 (07:39→16:54)
[2023-09-18 07:40] LABS: Glucose - Point of Care 144 mg/dl (70-99)
[2023-09-18] MEDS: HYDROPHOR 1 APPLIC TOPICAL (07:40)
[2023-09-18 07:55] LABS: % Basophils 0.2 % (0-2); % Eosinophils 0.4 % (0-6); % Immature Granulocytes 1.5 % (0-0.5); % Lymphocytes 3.7 % (20.5-51.1); % Monocytes 15.7 % (1.7-9.3); % Neutrophils 78.5 % (42.2-75.2); Absolute Eosinophils 0.1 10^3/uL (0-0.7); Absolute Immature Granulocytes 0.2 10^3/uL (0-0.05); Absolute Lymphocytes 0.4 10^3/uL (1.2-3.4); Absolute Monocytes 1.8 10^3/uL (0.1-0.6); Absolute Neutrophils 9.1 10^3/uL (1.4-6.5); Hematocrit 35.7 % (39.0-52.0); Hemoglobin 11.7 g/dL (13.0-18.0); Mean Corp Hgb Conc. 32.8 g/dL (33.0-37.0); Mean Corpuscular Hgb 30.8 pg (27.0-31.0); Mean Corpuscular Volume 93.9 fL (80.0-94.0); Mean Platelet Volume 9.4 fL (7.4-10.4); Nucleated Red Blood Cells % 0 % (-); Platelet Count 179 10^3/uL (130-400); Red Cell Dist. Width 20.1 % (11.5-14.5); White Blood Cell Count 11.6 10^3/uL (4.8-10.8)
[2023-09-18 08:00] VITALS: BP 137/68; BMI 32.0
[2023-09-18 08:12] LABS: Gentamicin Random 1.2 ug/ml
[2023-09-18 08:34] LABS: Blood Urea Nitrogen 42 mg/dl (9-20); Calcium 8.2 mg/dl (8.4-10.2); Carbon Dioxide 28 mmol/L (22-30); Chloride 94 mmol/L (98-107); Estimated Creatinine Clearance 14 ml/min; Glucose 133 mg/dl (70-99); Potassium 3.7 mmol/L (3.5-5.1); Sodium 133 mmol/L (135-145); eGFR 12.21
--- NOTE | 2023-09-18 08:42 | PHA.KIN.UP ---
Addendum entered and electronically signed by Jo-Ann Grant Edgar 09/18/23 15:58:
Gentamicin dose scanned twice today - once at 13:51 by bedside nurse and once at 15:14 by HD nurse. Confirmed with floor nurse, patient only received a single dose.
Original Note:
Assessment / Plan
- Assessment
Hemodialysis Schedule: MWF
In the past 24 hrs, patient has been: Afebrile
Level Today was: Random (pre-HD = 1.2)
Level Comments: pre-HD level appropriate for re-dosing today
- Plan: Adjust Regimen Based on Level
Dose will be adjusted to: Gent 80mg (~1mg/kg adj body weight) MWF after HD
Repeat Level due (date): consider pre-HD level Fri or Mon
Goal level < 1 (or approaching 1) prior to HD for synergy
- Follow Up
Pharmacy will continue to follow.
FollowUp Pharmacokinetics Note
- -
Patient Age: 83
Patient Sex: Male
Antibiotic: Gentamicin
Antibiotic Day #: 6
Indication: Endocarditis
Requesting Provider: Dr. Hunt
Pertinent Antimicrobial Allergies:
no pertinent antibiotic allergies
Height / Weight:
Height 5 ft 9 in
Actual Weight 98.118 kg
IBW in k.7
Adjusted BW in k.8
Pertinent Past Medical History: BMI ~32.6, ESRD on HD, recent MSSA bacteremia, DM
- Vital Signs / Lab Results
Temp Pulse Resp BP Pulse Ox
98.1 F 96 16 105/45 99
09/17/23 23:31 09/17/23 23:31 09/17/23 23:31 09/17/23 23:31 09/17/23 23:31
Lab Results - Hematology
09/16/23 09/17/23 09/18/23
07:44 07:10 07:19
WBC 13.4 H 14.1 H 11.6 H
Lab Results - Chemistry
09/16/23 09/17/23 09/18/23
07:44 07:10 07:19
BUN 55 H 32 H 42 H
Creatinine 5.2 H* 3.5 H 4.5 H*
Estimated Creat Clear 12 18 14
Microbiology Results
09/17/23 07:10 Blood Culture - Preliminary
Blood/Venous No Growth in 24 hours- Final report to follow
09/15/23 06:07 Blood Culture - Preliminary
Blood/Venous No Growth in 72 hours- Final report to follow
09/16/23 09:10 Blood Culture - Preliminary
Blood/Venous No Growth in 24 hours- Final report to follow
09/14/23 04:12 Blood Culture - Preliminary
Blood/Venous S aureus-Methicillin Sensitive
Gram Stain - Preliminary
Concomitant Antimicrobials: cefepime
Therapeutic Drug Monitoring
Random Gentamicin 1.2 ug/ml 09/18/23 07:19
Random Vancomycin 12.2 ug/ml 09/12/23 03:55
--- NOTE | 2023-09-18 10:24 | W.PN.HOSP.TC ---
Today's Communication/Plan
-
Continue IV antibiotics. Discharge planning as soon as cleared by ID.
Assessment / Plan
Assessment / Plan
Physical exam:
General: Chronically ill
HEENT: Normocephalic, traumatic head and neck with large ecchymosis extending from forehead down to the base of the neck only sparing perioral area and Moist Mucous Membranes
Respiratory: Clear to Auscultation; Negative Wheezes, Rales or Rhonchi
Cardiac: Irregular Rate and rhythm and S1/S2
GI: Soft, Nontender and Nondistended
Musculoskeletal: No Clubbing, No Cyanosis and No Edema
Neuro: Awake, Alert and Disoriented
Psych: Calm
A/P:
MRI brain
Approximately three tiny foci of nonhemorrhagic acute/subacute infarcts, one in the right thalamus and two in the right occipital lobe. Findings may reflect embolic etiology.
HAN
Normal LV size and function with no regional wall motion abnormalities. LVEF is 55 to 60% by visual estimation. Dilated RV with normal systolic function. Moderate mitral regurgitation, likely calcification of mitral leaflets at approximately A2 and
P2/P3 better appreciated on this study, however, cannot
rule out focal endocarditis. S/p TAVR with Med[employer]onic Evolut 29. The valve is well-seated with no significant stenosis. Trivial paravalvular aortic regurgitation. Continued mobile echodensity (view 24 and 27) on aortic side of TAVR valve
measuring 0.3 cm x 0.3 cm differential includes endocarditis vs artifact.
Moderate to severe tricuspid regurgitation. Compared to prior TTE on September 11, 2023, small echodensity/calcifications noted as detailed above.

Toxic metabolic encephalopathy from septic brain emboli - resolved
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
-Neurology evaluated and recommended to resume Eliquis on 09/19 continue on aspirin until that
-CSF showing minimal increase WBC of 14, glucose 131 total protein 255, elevated WBC in CSF from septic emboli to brain.
-Avoid sedating medication
-On abx for underlying endocarditis treatment.
-Discussed with family at bedside today
MSSA endocarditis
Sepsis
-WBC has been trending down-->today WBC 11.6
-AHN showing TAVR valve vegetation
-Initial blood culture growing MSSA, repeat cultures positive on 09/11,,; blood cultures no growth since 09/14.
-ID following and help appreciated
-As mentioned above MRI brain showing likely septic emboli. MRI C-spine negative. MRI T/L-spine pending
-On IV cefepime and gentamicin
End-stage renal disease on hemodialysis:
Hyponatremia
-Nephrology following and getting periodic HD
Direct bilirubinemia
Acute transaminitis
-Possibly related to sepsis
-GI consult appreciated--> no need for further images per GI.
Fall with trauma/Extensive ecchymosis on face and neck after recent facial trauma:
-Hold Eliquis
-CT of facial no fractures
-Discussed with ENT over the phone and they would like to follow-up as outpatient but nothing that they would do as inpatient (Nilay Stoner). They also recommend holding anticoagulation for few days.
-Tried to remove sutures, minimal bleed and oozing, should attemp few days later.
Diabetes mellitus type 2 with hyperglycemia:
-Continue insulin sliding scale but increase to moderate resistance
-Continue to monitor and avoid hypoglycemia or excessive hyperglycemia
Permanent atrial fibrillation:
-Neuro cleared to start eliquis on 09/19.
-On amiodarone but not sure able to tolerate
Severe aortic stenosis status post TAVR:
Nonobstructive CAD:
Moderate to severe tricuspid regurgitation:
Dementia: -Continue to monitor mental status and behavior
BART: -On CPAP as outpatient
DVT prophylaxis SCDs
CODE STATUS Full code
Chronic pain medications and Narcotic dependence:
-Of note PDMP reviewed by Dr Ron Feng and got narcotics from July only. no previous scripts-->appears no narcotic dependance based on that search. The issue he was getting some of his narcotics from [place] pharmacy prior and just
recently transferred to [facility]. Family will clarify with our pharmacy and will look into to make sure our records reflect accurate information.
-Upon review with family said he has been on narcotics for quite some time. Cross cover physician discussed with family yesterday as well and clarified.
-He is back on oxycodone 10 mg twice a day and at 1000 mg of acetaminophen twice a day +5 mg of oxycodone every 8 hours as needed.
-Rehab consulted yesterday--> await for their assessment
-Discussed with family at bedside again today on 09/17 and they are agreeable with current plan of care.
Anticipated Discharge: 24 - 48 hours
Subjective/Interval History
-
Date of Service: September 18, 2023
Patient denies any new complaints. Afebrile.
Objective Data
-
Labs:
Laboratory Results
09/18/23
07:19
WBC 11.6 H
Hgb 11.7 L
Hct 35.7 L
Plt Count 179
Sodium 133 L
Potassium 3.7
Chloride 94 L
Carbon Dioxide 28
BUN 42 H
Creatinine 4.5 H*
Glucose 133 H
Calcium 8.2 L
Vital Signs:
Vital Signs
Temp Pulse Resp BP Pulse Ox
98.4 F 83 16 137/68 98
09/18/23 08:00 09/18/23 08:00 09/18/23 08:00 09/18/23 08:00 09/18/23 08:00
I&O
09/17/23 09/18/23 09/19/23
06:59 06:59 06:59
Intake Total 780 / 780
Balance 780 / 780
[2023-09-18 11:11] LABS: Glucose - Point of Care 164 mg/dl (70-99)
[2023-09-18] MEDS: NOVOLOG FLEXPEN-MODERATE RESISTANCE 1 UNITS SC (11:24)
--- NOTE | 2023-09-18 12:44 | CM ---
Awaiting PMR consult re [facility].
Scripts received for IV anbx with HD, added to chart.
Plan: acute vs skilled rehab
[2023-09-18] MEDS: MAXIPIME 2000 MG IV ×2 (13:09→15:37)
[2023-09-18] MEDS: STERILE WATER FOR INJECTION 10 ML IV (13:09)
[2023-09-18] MEDS: FLEXBUMIN 25% FOR HEMODIALYSIS 12.5 GRAMS IV ×2 (13:15→14:15)
[2023-09-18] MEDS: MANNITOL 12.5 GRAMS IV (13:22)
--- NOTE | 2023-09-18 13:46 | W.PN.ID1 ---
Date of Service
Date of Service: September 18, 2023
Today's Communication
Continue gentamicin 80mg IV MWF after HD x 14d through 09/27/23.
Cefepime (+SITE RELIABILITY ENGINEER penetration) 2g IV MoWe, 3g IV Fri after HD through 10/25/23 , followed by leifelong chronic suppression with cephalexin 1000mg po q24h.
Assessment / Plan
# Relapsed Staph aureus (MSSA) bacteremia (09/09 -09/13),
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
# SITE RELIABILITY ENGINEER septic emboli
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
# s/p Sepsis
#Leukocytosis continues to trend down
# s/p falls with scalp trauma (09/04 on Eliquis) - face/neck ecchymosis
# Dementia
#Chronic back pain
# ESRD on HD via AVF
- 09/12/23 HAN: Continued mobile echodensity on aortic side of TAVR valve measuring 0.3 cm x 0.3 cm differential includes endocarditis vs artifact. Patient is not surgical candidate.
- Blood cultures have cleared from 09/15/23
- 09/13/23 MRI brain/C-spine wo contrast: limited by motion artifact: 3 punctate acute/subacute infarct suspicious for embolic CVA
- 09/15/23 MRI T/L spine wo contrast: no discitis/epidural abscess
-Plan:
Continue gentamicin 80mg IV MWF after HD x 14d through 09/27/23.
Cefepime (+SITE RELIABILITY ENGINEER penetration) 2g IV MoWe, 3g IV Fri after HD through 10/25/23 , followed by leifelong chronic suppression with cephalexin 1000mg po q24h.
Infusion sheets submitted to bilingual case manager to fax to dialysis.
- Monitor for change in mental status while on cefepime.
#Additional Past Medical History:
Dementia
DM
ESRD on HD via LUE AVF
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
pAfib
CHF
chronic back pain
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
Appendectomy
Chief Complaint
-: Bacteremia and Other (Endocarditis)
Subjective / Review of Systems
Feels OK today.
Vital Signs / Physical Exam
Vital Signs
Vital Signs
Temp Pulse Resp BP Pulse Ox
98.4 F 83 16 137/68 98
09/18/23 08:00 09/18/23 08:00 09/18/23 08:00 09/18/23 08:00 09/18/23 08:00
Physical Exam
Constitutional: No Acute Distress
Pulmonary: Clear (anterior)
Gastrointestinal: Soft, Non Tender and Non Distended
Neurological: Awake
Objective Data
Lab Data
Lab Results
09/18/23 07:19
09/18/23 07:19
PT 19.0 Sec (11.4-14.6) H 09/12/23 03:55
INR 1.58 09/12/23 03:55
APTT 37.5 Sec (23.4-35.0) H 09/10/23 12:52
Estimated Creat Clear 14 ml/min 09/18/23 07:19
Lactic Acid 1.8 mmol/L (0.7-2.0) 09/11/23 09:05
Total Bilirubin 11.2 mg/dl (0.2-1.3) H 09/13/23 04:51
AST 84 U/L (17-59) H 09/13/23 04:51
ALT 30 U/L (0-50) 09/13/23 04:51
Alkaline Phosphatase 809 U/L (38-126) H 09/13/23 04:51
Most recent labs reviewed.
Micro Results:
09/12/23 03:55 Blood Culture - Final
Blood/Venous S aureus-Methicillin Sensitive
Gram Stain - Final
09/16/23 09:10 Blood Culture - Preliminary
Blood/Venous No Growth in 48 hours- Final report to follow
09/17/23 07:10 Blood Culture - Preliminary
Blood/Venous No Growth in 24 hours- Final report to follow
09/15/23 06:07 Blood Culture - Preliminary
Blood/Venous No Growth in 72 hours- Final report to follow
09/14/23 04:12 Blood Culture - Preliminary
Blood/Venous S aureus-Methicillin Sensitive
Gram Stain - Preliminary
09/13/23 04:51 Blood Culture - Preliminary
Blood/Venous S aureus-Methicillin Sensitive
Gram Stain - Preliminary
09/13/23 23:32 Urine Culture - Final
Urine NO GROWTH
09/10/23 16:20 CSF Culture - Final
Csf NO GROWTH-FINAL REPORT
Gram Stain - Final
09/10/23 14:42 Blood Culture - Final
Blood/Venous S aureus-Methicillin Sensitive
Gram Stain - Final
09/10/23 14:42 Blood Culture - Final
Blood/Venous S aureus-Methicillin Sensitive
Gram Stain - Final
09/11/23 04:14 MRSA Screen - Final
Nose No Methicillin Resistant Staphylococcus aureus isolated.
09/10/23 16:20 Meningitis/Encephalitis Panel (PCR) - Final
Csf
09/10/23 17:29 Influenza Types A & B (ELIANA) - Final
Nasal Swab Negative for Influenza A & B, NAAT
Negative results must be combined with clinical observations
and patient history.
Nucleic Acid Amplification test (NAAT)performed on the
[employer] platform.
09/10/23 CT c/a/p: No acute posttraumatic abnormality in the chest, abdomen, or pelvis within the limitations of motion artifact. Small chronic loculated right pleural effusion with pleural thickening. Mild abdominal ascites.
09/10/[address]: No acute intracranial abnormality within the limitations of motion artifact. Left frontal scalp hematoma. No CT evidence for an acute facial bone fracture.
09/13/23 Brain MRI wo contrast: Approximately three tiny foci of nonhemorrhagic acute/subacute infarcts, one in the right thalamus and two in the right occipital lobe. Findings may reflect embolic etiology.
09/13/23 MRI C spine wo contrast: No suspicious epidural collections. Mild multilevel degenerative changes of the cervical spine as detailed.
Care Review
Plan reviewed with: Other (Kitchen Food Server, Chinyere Goodson)
[2023-09-18] MEDS: GENTAMICIN 50 IV ×2 (13:51→15:14)
[2023-09-18] MEDS: NSS (PRESERVATIVE FREE) 0.5 ML IV (14:02)
[2023-09-18] MEDS: ATIVAN 1 MG IV (14:02)
[2023-09-18] MEDS: ROXICODONE 5 MG PO (14:03)
--- NOTE | 2023-09-18 14:14 | PTCARENOTE ---
Patient restless and agitated during dialysis , stated he 'wants to get out of here' attempts to pull at his tubes. Rec'd Ativan prn and roxycodone 5mg for c/o back pain. Dialysis nurse in room at all times .
[2023-09-18 15:00] VITALS: BP 122/68
[2023-09-18 16:54] LABS: Glucose - Point of Care 104 mg/dl (70-99)
--- NOTE | 2023-09-18 17:06 | W.PN.NEPH.HD ---
Assessment
-
pt seen during HD
vitals stable
no wt gain hence no UF
encourage PO intake
AVF functions well
abx per ID
he needed to be wrist restained during HD since was paranoid and high risk of pulling HD needle
Progress Note - Hemodialysis
-
Date of Service: September 18, 2023
Duration: 30 minutes and 3 hours
Potassium Bath: 3
Calcium Bath: 2.5
Opti-Dialyzer: 160
Ultrafiltration: Other (0)
Blood Flow: 400
Dialysate Flow: 600
Heparin: no
EPO: no
--- NOTE | 2023-09-18 17:17 | PTCARENOTE ---
Dialysis complete and restraints removed at 1600. Was continually yelling ' I dont want to be on dialysis '. Out of bed to chair at present .
[2023-09-18] MEDS: TOPROL XL 25 MG PO (20:35)
[2023-09-18 21:24] LABS: Glucose - Point of Care 211 mg/dl (70-99)
[2023-09-18 23:17] VITALS: BP 118/72
[2023-09-19] MEDS: ATIVAN 1 MG IV ×2 (01:27→23:18)
[2023-09-19] MEDS: NSS (PRESERVATIVE FREE) 0.5 ML IV (01:27)
[2023-09-19 05:41] VITALS: BMI 32.4
[2023-09-19] MEDS: TYLENOL 1000 MG PO ×2 (07:23→20:27)
[2023-09-19] MEDS: PROTONIX 40 MG PO ×2 (07:25→20:26)
[2023-09-19] MEDS: VITAMIN B-12 1000 MCG PO (07:25)
[2023-09-19] MEDS: COLACE 200 MG PO ×2 (07:25→20:25)
[2023-09-19] MEDS: NAMENDA 5 MG PO ×2 (07:26→20:26)
[2023-09-19] MEDS: VITAMIN D3 (cholecalciferol) 50 MCG PO (07:27)
[2023-09-19] MEDS: PROCARDIA XL (EXTENDED RELEASE) 30 MG PO ×2 (07:27→20:26)
[2023-09-19] MEDS: HEPARIN 5000 UNITS SC ×2 (07:27→20:25)
[2023-09-19] MEDS: ROXICODONE 10 MG PO ×2 (07:27→20:27)
[2023-09-19] MEDS: LOW STRENGTH ASPIRIN 81 MG PO (07:27)
[2023-09-19 07:30] VITALS: BP 136/75; BMI 32.4
[2023-09-19] MEDS: DESENEX/MITRAZOL/ZEASORB 1 APPLIC TOPICAL ×2 (07:32→20:31)
[2023-09-19] MEDS: HYDROPHOR 1 APPLIC TOPICAL (07:32)
[2023-09-19 07:55] LABS: % Basophils 0.1 % (0-2); % Eosinophils 0.4 % (0-6); % Immature Granulocytes 1.8 % (0-0.5); % Lymphocytes 4.4 % (20.5-51.1); % Monocytes 13.8 % (1.7-9.3); % Neutrophils 79.5 % (42.2-75.2); Absolute Eosinophils 0.1 10^3/uL (0-0.7); Absolute Immature Granulocytes 0.2 10^3/uL (0-0.05); Absolute Lymphocytes 0.5 10^3/uL (1.2-3.4); Absolute Monocytes 1.6 10^3/uL (0.1-0.6); Absolute Neutrophils 9.5 10^3/uL (1.4-6.5); Hematocrit 34.4 % (39.0-52.0); Hemoglobin 11.1 g/dL (13.0-18.0); Mean Corp Hgb Conc. 32.3 g/dL (33.0-37.0); Mean Corpuscular Hgb 30.9 pg (27.0-31.0); Mean Corpuscular Volume 95.8 fL (80.0-94.0); Mean Platelet Volume 9.2 fL (7.4-10.4); Nucleated Red Blood Cells % 0 % (-); Platelet Count 161 10^3/uL (130-400); Red Blood Cell Count 3.59 10^6/uL (4.70-6.10); Red Cell Dist. Width 19.7 % (11.5-14.5); White Blood Cell Count 11.9 10^3/uL (4.8-10.8)
[2023-09-19 08:18] LABS: Blood Urea Nitrogen 26 mg/dl (9-20); Calcium 8.7 mg/dl (8.4-10.2); Carbon Dioxide 28 mmol/L (22-30); Chloride 92 mmol/L (98-107); Estimated Creatinine Clearance 20 ml/min; Glucose 133 mg/dl (70-99); Potassium 3.6 mmol/L (3.5-5.1); Sodium 133 mmol/L (135-145); eGFR 18.38
[2023-09-19 08:18] LABS: Glucose - Point of Care 143 mg/dl (70-99)
--- NOTE | 2023-09-19 08:21 | W.PN.HOSP.TC ---
Today's Communication/Plan
-
IV antibiotics.
Assessment / Plan
Assessment / Plan
Physical exam:
General: Chronically ill
HEENT: Normocephalic, traumatic head and neck with large ecchymosis extending from forehead down to the base of the neck only sparing perioral area and Moist Mucous Membranes
Respiratory: Clear to Auscultation; Negative Wheezes, Rales or Rhonchi
Cardiac: Irregular Rate and rhythm and S1/S2
GI: Soft, Nontender and Nondistended
Musculoskeletal: No Clubbing, No Cyanosis and No Edema
Neuro: Awake, Alert and Disoriented
Psych: Calm
A/P:
MRI brain
Approximately three tiny foci of nonhemorrhagic acute/subacute infarcts, one in the right thalamus and two in the right occipital lobe. Findings may reflect embolic etiology.
HAN
Normal LV size and function with no regional wall motion abnormalities. LVEF is 55 to 60% by visual estimation. Dilated RV with normal systolic function. Moderate mitral regurgitation, likely calcification of mitral leaflets at approximately A2 and
P2/P3 better appreciated on this study, however, cannot
rule out focal endocarditis. S/p TAVR with Medtronic Evolut 29. The valve is well-seated with no significant stenosis. Trivial paravalvular aortic regurgitation. Continued mobile echodensity (view 24 and 27) on aortic side of TAVR valve
measuring 0.3 cm x 0.3 cm differential includes endocarditis vs artifact.
Moderate to severe tricuspid regurgitation. Compared to prior TTE on September 11, 2023, small echodensity/calcifications noted as detailed above.

Toxic metabolic encephalopathy from septic brain emboli - resolved
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
-Neurology evaluated and recommended to resume Eliquis on 09/19 continue on aspirin until that
-CSF showing minimal increase WBC of 14, glucose 131 total protein 255, elevated WBC in CSF from septic emboli to brain.
-Avoid sedating medication
-On abx for underlying endocarditis treatment.
-Discussed with family at bedside today
MSSA endocarditis
Sepsis
-WBC has been trending down-->today WBC 11.9
-HAN showing TAVR valve vegetation
-Initial blood culture growing MSSA, repeat cultures positive on 09/11,,; blood cultures no growth since 09/14.
-ID following and help appreciated
-As mentioned above MRI brain showing likely septic emboli. MRI C-spine negative. MRI T/L-spine pending
-On IV cefepime and gentamicin
End-stage renal disease on hemodialysis:
Hyponatremia
-Nephrology following and getting periodic HD
Direct bilirubinemia
Acute transaminitis
-Possibly related to sepsis
-GI consult appreciated--> no need for further images per GI.
Fall with trauma/Extensive ecchymosis on face and neck after recent facial trauma:
-Hold Eliquis
-CT of facial no fractures
-Discussed with ENT over the phone and they would like to follow-up as outpatient but nothing that they would do as inpatient (Nilay Stoner). They also recommend holding anticoagulation for few days.
-Tried to remove sutures, minimal bleed and oozing, should attemp few days later.
Diabetes mellitus type 2 with hyperglycemia:
-Continue insulin sliding scale but increase to moderate resistance
-Continue to monitor and avoid hypoglycemia or excessive hyperglycemia
Permanent atrial fibrillation:
-Neuro cleared to start eliquis on 09/19.
-On amiodarone but not sure able to tolerate
Severe aortic stenosis status post TAVR:
Nonobstructive CAD:
Moderate to severe tricuspid regurgitation:
Dementia: -Continue to monitor mental status and behavior
BART: -On CPAP as outpatient
DVT prophylaxis SCDs
CODE STATUS Full code
Chronic pain medications and Narcotic dependence:
-Of note PDMP reviewed by Dr Ron Feng and got narcotics from July only. no previous scripts-->appears no narcotic dependance based on that search. The issue he was getting some of his narcotics from [place] pharmacy prior and just
recently transferred to [facility] pharmacy. Family will clarify with our pharmacy and will look into to make sure our records reflect accurate information.
-Upon review with family said he has been on narcotics for quite some time. Cross cover physician discussed with family yesterday as well and clarified.
-He is back on oxycodone 10 mg twice a day and at 1000 mg of acetaminophen twice a day +5 mg of oxycodone every 8 hours as needed.
-Rehab consulted yesterday--> await for their assessment
-Discussed with family at bedside again today on 09/18 and they are agreeable with current plan of care.
Anticipated Discharge: 24 - 48 hours
Subjective/Interval History
-
Date of Service: September 19, 2023
Patient denies any new complaints. Afebrile
Objective Data
-
Labs:
Laboratory Results
09/19/23
07:34
WBC 11.9 H
Hgb 11.1 L
Hct 34.4 L
Plt Count 161
Sodium 133 L
Potassium 3.6
Chloride 92 L
Carbon Dioxide 28
BUN 26 H
Creatinine 3.2 H
Glucose 133 H
Calcium 8.7
Vital Signs:
Vital Signs
Temp Pulse Resp BP Pulse Ox
97.5 F 86 18 136/75 97
09/19/23 07:30 09/19/23 07:30 09/19/23 07:30 09/19/23 07:30 09/19/23 07:30
I&O
09/18/23 09/19/23 09/20/23
06:59 06:59 06:59
Intake Total 780 / 780 720 / 720
Balance 780 / 780 720 / 720
[2023-09-19] MEDS: NOVOLOG FLEXPEN-MODERATE RESISTANCE SC ×2 (09:11→17:07)
--- NOTE | 2023-09-19 09:15 | PHA.KIN.UP ---
Assessment / Plan
- Assessment
Hemodialysis Schedule: MWF
Last Hemodialysis performed: 09/17
WBC's are: Stable
In the past 24 hrs, patient has been: Afebrile
- Plan: Continue Present Regimen
Continue: Gent 80mg MWF after HD
Level ordered to be drawn: 09/19 prior to HD (if remains admitted)
If discharged today, consider pre-HD level Fri or Mon
- Follow Up
Pharmacy will continue to follow.
FollowUp Pharmacokinetics Note
- -
Patient Age: 83
Patient Sex: Male
Antibiotic: Gentamicin
Antibiotic Day #: 7
Indication: Endocarditis
Requesting Provider: Dr. Hunt
Pertinent Antimicrobial Allergies:
no pertinent antibiotic allergies
Height / Weight:
Height 5 ft 9 in
Actual Weight 99.337 kg
IBW in k.7
Adjusted BW in k.8
Pertinent Past Medical History: BMI ~32.6, ESRD on HD, recent MSSA bacteremia, DM
- Vital Signs / Lab Results
Temp Pulse Resp BP Pulse Ox
97.5 F 86 18 136/75 97
09/19/23 07:30 09/19/23 07:30 09/19/23 07:30 09/19/23 07:30 09/19/23 07:30
Lab Results - Hematology
09/17/23 09/18/23 09/19/23
07:10 07:19 07:34
WBC 14.1 H 11.6 H 11.9 H
Lab Results - Chemistry
09/17/23 09/18/23 09/19/23
07:10 07:19 07:34
BUN 32 H 42 H 26 H
Creatinine 3.5 H 4.5 H* 3.2 H
Estimated Creat Clear 18 14 20
Microbiology Results
09/17/23 07:10 Blood Culture - Preliminary
Blood/Venous No Growth in 48 hours- Final report to follow
09/15/23 06:07 Blood Culture - Preliminary
Blood/Venous No Growth in 4 days- Final report to follow
09/12/23 03:55 Blood Culture - Final
Blood/Venous S aureus-Methicillin Sensitive
Gram Stain - Final
09/16/23 09:10 Blood Culture - Preliminary
Blood/Venous No Growth in 48 hours- Final report to follow
Concomitant Antimicrobials: cefepime
Therapeutic Drug Monitoring
Random Gentamicin 1.2 ug/ml 09/18/23 07:19
Random Vancomycin 12.2 ug/ml 09/12/23 03:55
--- NOTE | 2023-09-19 09:38 | W.PN.ID1 ---
Date of Service
Date of Service: September 19, 2023
Today's Communication
See below for antibiotic regimen.
From ID standpoint, OK to dc to Rehab/SNF.
Assessment / Plan
# Relapsed Staph aureus (MSSA) bacteremia (09/09 -09/13),
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
# PONDMAN septic emboli
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
# s/p Sepsis
#Leukocytosis continues to trend down
# s/p falls with scalp trauma (09/04 on Eliquis) - face/neck ecchymosis
# Dementia
#Chronic back pain
# ESRD on HD via AVF
- 09/12/23 HAN: Continued mobile echodensity on aortic side of TAVR valve measuring 0.3 cm x 0.3 cm differential includes endocarditis vs artifact. Patient is not surgical candidate.
- Blood cultures have cleared from 09/15/23
- 09/13/23 MRI brain/C-spine wo contrast: limited by motion artifact: 3 punctate acute/subacute infarct suspicious for embolic CVA
- 09/15/23 MRI T/L spine wo contrast: no discitis/epidural abscess
-Plan:
Continue gentamicin 80mg IV MWF after HD x 14d through 09/27/23.
Cefepime (+PONDMAN penetration) 2g IV MoWe, 3g IV Fri after HD through 10/25/23 , followed by lifelong chronic suppression with cephalexin 1000mg po q24h.
Follow weekly CBC with dif, CMP q Saturday.
Follow random pre-HD gentamicin level 09/22 or 09/24 if discharged.
Infusion sheets submitted to case resolution specialist to fax to dialysis/rehab
- Monitor for change in mental status while on cefepime.
- From ID standpoint, OK to dc to Rehab/SNF.
-Follow up with Dr. Hunt in 3 weeks.
#Additional Past Medical History:
Dementia
DM
ESRD on HD via LUE AVF
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
pAfib
CHF
chronic back pain
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
Appendectomy
Chief Complaint
-: Bacteremia and Other (Endocarditis)
Subjective / Review of Systems
Sitting up in chair. Feels OK.
Vital Signs / Physical Exam
Vital Signs
Vital Signs
Temp Pulse Resp BP Pulse Ox
97.5 F 86 18 136/75 97
09/19/23 07:30 09/19/23 07:30 09/19/23 07:30 09/19/23 07:30 09/19/23 07:30
Physical Exam
Constitutional: No Acute Distress and Comfortable
Cardiovascular: Regular Rate and S1/S2
Pulmonary: Other (decreased BS right base)
Gastrointestinal: Soft, Non Tender and Non Distended
Extremities: Negative Edema
Skin: Jaundice
Neurological: Negative Meningeal Signs
Objective Data
Lab Data
Lab Results
09/19/23 07:34
09/19/23 07:34
PT 19.0 Sec (11.4-14.6) H 09/12/23 03:55
INR 1.58 09/12/23 03:55
APTT 37.5 Sec (23.4-35.0) H 09/10/23 12:52
Estimated Creat Clear 20 ml/min 09/19/23 07:34
Lactic Acid 1.8 mmol/L (0.7-2.0) 09/11/23 09:05
Total Bilirubin 11.2 mg/dl (0.2-1.3) H 09/13/23 04:51
AST 84 U/L (17-59) H 09/13/23 04:51
ALT 30 U/L (0-50) 09/13/23 04:51
Alkaline Phosphatase 809 U/L (38-126) H 09/13/23 04:51
Most recent labs reviewed.
Micro Results:
09/16/23 09:10 Blood Culture - Preliminary
Blood/Venous No Growth in 72 hours- Final report to follow
09/17/23 07:10 Blood Culture - Preliminary
Blood/Venous No Growth in 48 hours- Final report to follow
09/15/23 06:07 Blood Culture - Preliminary
Blood/Venous No Growth in 4 days- Final report to follow
09/12/23 03:55 Blood Culture - Final
Blood/Venous S aureus-Methicillin Sensitive
Gram Stain - Final
09/14/23 04:12 Blood Culture - Preliminary
Blood/Venous S aureus-Methicillin Sensitive
Gram Stain - Preliminary
09/13/23 04:51 Blood Culture - Preliminary
Blood/Venous S aureus-Methicillin Sensitive
Gram Stain - Preliminary
09/13/23 23:32 Urine Culture - Final
Urine NO GROWTH
09/10/23 16:20 CSF Culture - Final
Csf NO GROWTH-FINAL REPORT
Gram Stain - Final
09/10/23 14:42 Blood Culture - Final
Blood/Venous S aureus-Methicillin Sensitive
Gram Stain - Final
09/10/23 14:42 Blood Culture - Final
Blood/Venous S aureus-Methicillin Sensitive
Gram Stain - Final
09/11/23 04:14 MRSA Screen - Final
Nose No Methicillin Resistant Staphylococcus aureus isolated.
09/10/23 16:20 Meningitis/Encephalitis Panel (PCR) - Final
Csf
09/10/23 17:29 Influenza Types A & B (ELIANA) - Final
Nasal Swab Negative for Influenza A & B, NAAT
Negative results must be combined with clinical observations
and patient history.
Nucleic Acid Amplification test (NAAT)performed on the
[employer] platform.
4/2/24 CT c/a/p: No acute posttraumatic abnormality in the chest, abdomen, or pelvis within the limitations of motion artifact. Small chronic loculated right pleural effusion with pleural thickening. Mild abdominal ascites.
09/10/[address]: No acute intracranial abnormality within the limitations of motion artifact. Left frontal scalp hematoma. No CT evidence for an acute facial bone fracture.
09/13/23 Brain MRI wo contrast: Approximately three tiny foci of nonhemorrhagic acute/subacute infarcts, one in the right thalamus and two in the right occipital lobe. Findings may reflect embolic etiology.
09/13/23 MRI C spine wo contrast: No suspicious epidural collections. Mild multilevel degenerative changes of the cervical spine as detailed.
[2023-09-19 12:03] LABS: Glucose - Point of Care 175 mg/dl (70-99)
[2023-09-19] MEDS: NOVOLOG FLEXPEN-MODERATE RESISTANCE 1 UNITS SC (12:07)
[2023-09-19 12:50] VITALS: BP 119/53; PULSE 81
--- NOTE | 2023-09-19 14:16 | CM ---
Patient seen bedside.
Sitting in chair.
patient for HD tomorrow.
Spoke with spouse, explained medsitter is being discontinued and will need to be evaluated overnight.
also discussed the possibility of patient going home with services.
CM will touch base with spouse in am re plan.
Plan: [facility] tomorrow, needs to be off medsitter x 24.
IV anbx scrips faxed to [phone], please also send with d/c packet.
[2023-09-19 16:00] VITALS: BP 130/59
[2023-09-19 16:47] LABS: Glucose - Point of Care 123 mg/dl (70-99)
--- NOTE | 2023-09-19 18:04 | W.PN.NEPH.PH ---
Today's Communication / Plan
-
HD tomorrow
Assessment/Plan
-
Impression:
End-stage renal disease Saturday dialysis
History of MSSA bacteremia and endocarditis/leukocytosis
Status post falls
Hypertension
Anemia
Atrial fibrillation (OAT)
Hyperphosphatemia
History of duodenal ulceration
s/p TAVR 12/13/22 (Aortic Stenosis)
Type 2 diabetes
Secondary hyperparathyroidism
History of diastolic congestive heart failure
Dementia
Left upper extremity AV fistula
Chronic pain: opioid dependence
Hyperphosphatemia
Plan:
Hd tomorrow
encourage po intake, may benefit from protein supplements
Bp labile trend
abx per ID
-
-
Date of Service: September 19, 2023
CC / HPI / ROS
-
Chief Complaint:
End-stage renal disease
History of Present Illness:
ESRD Saturday
BP stable
cefepime and genta for MSSA
Review of Systems:
MS not baseline remains confused
No fevers overnight
Labs
-
Labs:
WBC 11.9 10^3/uL (4.8-10.8) H 09/19/23 07:34
RBC 3.59 10^6/uL (4.70-6.10) L 09/19/23 07:34
Hgb 11.1 g/dL (13.0-18.0) L 09/19/23 07:34
Hct 34.4 % (39.0-52.0) L 09/19/23 07:34
Plt Count 161 10^3/uL (130-400) 09/19/23 07:34
Sodium 133 mmol/L (135-145) L 09/19/23 07:34
Potassium 3.6 mmol/L (3.5-5.1) 09/19/23 07:34
Chloride 92 mmol/L (98-107) L 09/19/23 07:34
Carbon Dioxide 28 mmol/L (22-30) 09/19/23 07:34
BUN 26 mg/dl (9-20) H 09/19/23 07:34
Creatinine 3.2 mg/dL (0.7-1.3) H 09/19/23 07:34
eGFR 18.38 09/19/23 07:34
Glucose 133 mg/dl (70-99) H 09/19/23 07:34
Calcium 8.7 mg/dl (8.4-10.2) 09/19/23 07:34
Albumin 3.9 g/dl (3.5-5.0) 09/13/23 04:51
Physical Exam
-
Vital Signs:
Vital Signs
Temp Pulse Resp BP Pulse Ox
97.4 F 84 16 130/59 100
09/19/23 16:00 09/19/23 16:00 09/19/23 16:00 09/19/23 16:00 09/19/23 16:00
Cardiovascular:: Regular rate and rhythm
Respiratory:: Bilateral: Coarse
Lung Excursion:: Normal
Abdomen:: Nontender and Soft
Extremity Edema:: None: Bilateral:
Daniels Catheter: No
[2023-09-19] MEDS: TOPROL XL 25 MG PO (20:27)
[2023-09-19 22:13] LABS: Glucose - Point of Care 143 mg/dl (70-99)
[2023-09-19 23:00] VITALS: BP 131/67
[2023-09-20 06:00] VITALS: BMI 32.3
[2023-09-20 07:00] VITALS: BP 123/82
[2023-09-20] MEDS: PROTONIX PO (08:30)
[2023-09-20] MEDS: NAMENDA PO (08:30)
[2023-09-20] MEDS: PROCARDIA XL (EXTENDED RELEASE) PO (08:30)
[2023-09-20] MEDS: HEPARIN SC ×3 (08:30→20:45)
[2023-09-20] MEDS: LOW STRENGTH ASPIRIN PO (08:30)
[2023-09-20] MEDS: COLACE PO (08:30)
[2023-09-20] MEDS: VITAMIN D3 (cholecalciferol) PO (08:30)
[2023-09-20] MEDS: VITAMIN B-12 PO (08:30)
[2023-09-20 08:45] LABS: Glucose - Point of Care 112 mg/dl (70-99)
[2023-09-20 08:47] LABS: % Basophils 0.2 % (0-2); % Eosinophils 1.2 % (0-6); % Immature Granulocytes 1.6 % (0-0.5); % Lymphocytes 5.8 % (20.5-51.1); % Monocytes 13.7 % (1.7-9.3); % Neutrophils 77.5 % (42.2-75.2); Absolute Eosinophils 0.1 10^3/uL (0-0.7); Absolute Immature Granulocytes 0.2 10^3/uL (0-0.05); Absolute Lymphocytes 0.7 10^3/uL (1.2-3.4); Absolute Monocytes 1.7 10^3/uL (0.1-0.6); Absolute Neutrophils 9.4 10^3/uL (1.4-6.5); Hematocrit 31.6 % (39.0-52.0); Hemoglobin 10.5 g/dL (13.0-18.0); Mean Corp Hgb Conc. 33.2 g/dL (33.0-37.0); Mean Corpuscular Hgb 31.3 pg (27.0-31.0); Mean Corpuscular Volume 94.3 fL (80.0-94.0); Mean Platelet Volume 9.9 fL (7.4-10.4); Nucleated Red Blood Cells % 0 % (-); Platelet Count 193 10^3/uL (130-400); Red Blood Cell Count 3.35 10^6/uL (4.70-6.10); Red Cell Dist. Width 19.1 % (11.5-14.5); White Blood Cell Count 12.2 10^3/uL (4.8-10.8)
[2023-09-20] MEDS: TYLENOL 1000 MG PO ×2 (08:58→20:37)
[2023-09-20] MEDS: ROXICODONE 10 MG PO ×2 (08:58→20:38)
[2023-09-20] MEDS: NOVOLOG FLEXPEN-MODERATE RESISTANCE SC ×3 (09:06→18:20)
--- NOTE | 2023-09-20 09:14 | W.PN.HOSP.TC ---
Today's Communication/Plan
-
Continue current management. Psychiatry consult.
Assessment / Plan
Assessment / Plan
Physical exam:
General: Chronically ill
HEENT: Normocephalic, traumatic head and neck with large ecchymosis extending from forehead down to the base of the neck only sparing perioral area and Moist Mucous Membranes
Respiratory: Clear to Auscultation; Negative Wheezes, Rales or Rhonchi
Cardiac: Irregular Rate and rhythm and S1/S2
GI: Soft, Nontender and Nondistended
Musculoskeletal: No Clubbing, No Cyanosis and No Edema
Neuro: Awake, Alert and Disoriented
Psych: Calm
A/P:
MRI brain
Approximately three tiny foci of nonhemorrhagic acute/subacute infarcts, one in the right thalamus and two in the right occipital lobe. Findings may reflect embolic etiology.
HAN
Normal LV size and function with no regional wall motion abnormalities. LVEF is 55 to 60% by visual estimation. Dilated RV with normal systolic function. Moderate mitral regurgitation, likely calcification of mitral leaflets at approximately A2 and
P2/P3 better appreciated on this study, however, cannot
rule out focal endocarditis. S/p TAVR with Medtronic Evolut 29. The valve is well-seated with no significant stenosis. Trivial paravalvular aortic regurgitation. Continued mobile echodensity (view 24 and 27) on aortic side of TAVR valve
measuring 0.3 cm x 0.3 cm differential includes endocarditis vs artifact.
Moderate to severe tricuspid regurgitation. Compared to prior TTE on September 11, 2023, small echodensity/calcifications noted as detailed above.

Toxic metabolic encephalopathy from septic brain emboli - resolved
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
-Neurology evaluated and recommended to resume Eliquis on 09/19 continue on aspirin until that
-CSF showing minimal increase WBC of 14, glucose 131 total protein 255, elevated WBC in CSF from septic emboli to brain.
-Avoid sedating medication
-On abx for underlying endocarditis treatment.
-Discussed with family at bedside yesterday
-Rehab requested psychiatry follow-up. Discussed with psychiatry today and reconsulted
MSSA endocarditis
Sepsis
-WBC has been trending down-->today WBC 11.9
-HAN showing TAVR valve vegetation
-Initial blood culture growing MSSA, repeat cultures positive on 09/11,,; blood cultures no growth since 09/14.
-ID following and help appreciated
-As mentioned above MRI brain showing likely septic emboli. MRI C-spine negative. MRI T/L-spine pending
-On IV cefepime and gentamicin
End-stage renal disease on hemodialysis:
Hyponatremia
-Nephrology following and getting periodic HD
Direct bilirubinemia
Acute transaminitis
-Possibly related to sepsis
-GI consult appreciated--> no need for further images per GI.
Fall with trauma/Extensive ecchymosis on face and neck after recent facial trauma:
-Hold Eliquis
-CT of facial no fractures
-Discussed with ENT over the phone and they would like to follow-up as outpatient but nothing that they would do as inpatient (Nilay Stoner). They also recommend holding anticoagulation for few days.
-Tried to remove sutures, minimal bleed and oozing, should attemp few days later.
Diabetes mellitus type 2 with hyperglycemia:
-Continue insulin sliding scale but increase to moderate resistance
-Continue to monitor and avoid hypoglycemia or excessive hyperglycemia
Permanent atrial fibrillation:
-Neuro cleared to start eliquis on 09/19.
-On amiodarone but not sure able to tolerate
Severe aortic stenosis status post TAVR:
Nonobstructive CAD:
Moderate to severe tricuspid regurgitation:
Dementia: -Continue to monitor mental status and behavior
BART: -On CPAP as outpatient
DVT prophylaxis SCDs
CODE STATUS Full code
Chronic pain medications and Narcotic dependence:
-Of note PDMP reviewed by Dr Ron Feng and got narcotics from July only. no previous scripts-->appears no narcotic dependance based on that search. The issue he was getting some of his narcotics from [place] pharmacy prior and just
recently transferred to [facility] pharmacy. Family will clarify with our pharmacy and will look into to make sure our records reflect accurate information.
-Upon review with family said he has been on narcotics for quite some time. [facility] physician discussed with family yesterday as well and clarified.
-He is back on oxycodone 10 mg twice a day and at 1000 mg of acetaminophen twice a day +5 mg of oxycodone every 8 hours as needed.
-Rehab consulted yesterday--> await for their assessment
-Discussed with family at bedside again today on 09/18 and they are agreeable with current plan of care.
Anticipated Discharge: 24 - 48 hours
Subjective/Interval History
-
Date of Service: September 20, 2023
Patient denies chest pain or shortness of breath. Afebrile
Objective Data
-
Labs:
Laboratory Results
09/20/23
08:22
WBC Pending
Hgb Pending
Hct Pending
Plt Count Pending
Sodium Pending
Potassium Pending
Chloride Pending
Carbon Dioxide Pending
BUN Pending
Creatinine Pending
Glucose Pending
Calcium Pending
Vital Signs:
Vital Signs
Temp Pulse Resp BP Pulse Ox
97.9 F 84 20 123/82 97
09/20/23 07:00 09/20/23 07:00 09/20/23 07:00 09/20/23 07:00 09/20/23 07:00
I&O
09/19/23 09/20/23 09/21/23
06:59 06:59 06:59
Intake Total 720 / 720 650 / 650
Balance 720 / 720 650 / 650
[2023-09-20 09:18] LABS: Gentamicin Random 1.2 ug/ml
[2023-09-20 09:22] LABS: Blood Urea Nitrogen 33 mg/dl (9-20); Calcium 8.4 mg/dl (8.4-10.2); Carbon Dioxide 24 mmol/L (22-30); Chloride 93 mmol/L (98-107); Estimated Creatinine Clearance 16 ml/min; Glucose 117 mg/dl (70-99); Potassium 3.7 mmol/L (3.5-5.1); Sodium 130 mmol/L (135-145); eGFR 14.49
--- NOTE | 2023-09-20 09:27 | PHA.KIN.UP ---
Assessment / Plan
- Assessment
Hemodialysis Schedule: MWF
Last Hemodialysis performed: 09/17
WBC's are: Stable
In the past 24 hrs, patient has been: Afebrile
Level Today was: Random (pre-HD = 1.2)
- Plan: Level Appropriate
Continue present regimen of: Gentamicin 80mg after HD MWF
No levels ordered at this time: Recheck trough at minimum of weekly intervals, Repeat sooner for changes in renal function or clinical status
Next Level Due (date): may consider repeat level Saturday, if still admitted
- Follow Up
Pharmacy will continue to follow.
FollowUp Pharmacokinetics Note
- -
Patient Age: 83
Patient Sex: Male
Antibiotic: Gentamicin
Antibiotic Day #: 8
Indication: Endocarditis
Requesting Provider: Dr. Hunt
Pertinent Antimicrobial Allergies:
no pertinent antibiotic allergies
Height / Weight:
Height 5 ft 9 in
Actual Weight 99.127 kg
IBW in k.7
Adjusted BW in k.8
Pertinent Past Medical History: BMI ~32.6, ESRD on HD, recent MSSA bacteremia, DM
- Vital Signs / Lab Results
Temp Pulse Resp BP Pulse Ox
97.9 F 84 20 123/82 97
09/20/23 07:00 09/20/23 07:00 09/20/23 07:00 09/20/23 07:00 09/20/23 07:00
Lab Results - Hematology
09/18/23 09/19/23 09/20/23
07:19 07:34 08:22
WBC 11.6 H 11.9 H 12.2 H
Lab Results - Chemistry
09/18/23 09/19/23 09/20/23
07:19 07:34 08:22
BUN 42 H 26 H 33 H
Creatinine 4.5 H* 3.2 H 3.9 H
Estimated Creat Clear 14 20 16
Microbiology Results
09/16/23 09:10 Blood Culture - Preliminary
Blood/Venous No Growth in 4 days- Final report to follow
09/17/23 07:10 Blood Culture - Preliminary
Blood/Venous No Growth in 72 hours- Final report to follow
09/15/23 06:07 Blood Culture - Final
Blood/Venous No Growth - Final Report
09/13/23 04:51 Blood Culture - Final
Blood/Venous S aureus-Methicillin Sensitive
Gram Stain - Final
09/12/23 03:55 Blood Culture - Final
Blood/Venous S aureus-Methicillin Sensitive
Gram Stain - Final
Concomitant Antimicrobials: cefepime
Therapeutic Drug Monitoring
Random Gentamicin 1.2 ug/ml 09/20/23 08:22
Random Vancomycin 12.2 ug/ml 09/12/23 03:55
[2023-09-20] MEDS: DESENEX/MITRAZOL/ZEASORB 1 APPLIC TOPICAL ×2 (09:55→20:38)
[2023-09-20] MEDS: ATIVAN 1 MG IV ×2 (11:19→21:52)
[2023-09-20] MEDS: GENTAMICIN 50 IV (11:19)
[2023-09-20 11:37] LABS: Glucose - Point of Care 98 mg/dl (70-99)
--- NOTE | 2023-09-20 12:42 | W.PN.UPDATE ---
Update Note
Progress Note Update
patient seen chart reviewed. discussed w nursing dialysis nurse and with dr linares. this patient is known to me as i had seem him earlier in this stay for recommendations re agitation. he has hx of many medical comorbidities. he had had a TAVR
procedure, developed mssa bacteremia/ bacterial endocarditis. he suffered a serious fall which caused major contusions. he was admitted for confusion and abdominal pain subsequent to the fall. he has a hx dementia and is in chronic pain. he has
suffered emboli thought possibly the cause of tme. he has esrd and is on dialysis. he has niddm, afib . he takes opiates for chronic pain as well as cymbalta and has had prn ativan for agitation. when i initially saw him nursing reported the
ativan helped and it was suggested by this pattern chart writer that if ativan stopped workin gzyprexa might be considered as it does not prolong qtc and at that time qtc was prolonged. it is NOT prolonged at this point. namenda and cymbalta had been dc'ed bc of
qtc prolongation and have now been restarted. on the first visit the patient was unable to interact with me bc tme. on my second visit a day or two later he was much better and was able to talk to me although was still confused. today he is very
confused and withdrawn. i could barely get him to answer but when he did while he knew he was at he told me it was june of 1929. while nursing reports he is cooperative generally he remains very confused likely a combination of tme secondary
to medical illness and dementia. would not recommend changing psych meds at this point. as i noted in the earlier consult, amiodarone can have negative effects in elderly including contributing to tme dizziness issues w ambulation. sedating meds
such as opiates bzp too can contribute to tme. i would ask whether the full code status should be reconsidered and discussion broached w family,. psych signing off again.
[2023-09-20] MEDS: HYDROPHOR 1 APPLIC TOPICAL (12:56)
--- NOTE | 2023-09-20 14:22 | W.PN.NEPH.HD ---
Assessment
-
- doing well on HD
- prolonged bleeding after HD
Progress Note - Hemodialysis
-
Date of Service: September 20, 2023
Duration: 30 minutes and 3 hours
Potassium Bath: 3
Calcium Bath: 2.5
Opti-Dialyzer: 160
Ultrafiltration: Other
Blood Flow: 400
Dialysate Flow: 600
[2023-09-20 14:50] LABS: Glucose - Point of Care 109 mg/dl (70-99)
[2023-09-20 15:00] VITALS: BP 117/62
--- NOTE | 2023-09-20 15:17 | W.PN.ID1 ---
Date of Service
Date of Service: September 20, 2023
Today's Communication
Continue abx. Monitor blood cultures / WBC.
Assessment / Plan
# Relapsed Staph aureus (MSSA) bacteremia (09/09 -09/13),
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
# CLERICAL ASSOCIATE septic emboli
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
# s/p Sepsis
#Leukocytosis continues to trend down
# s/p falls with scalp trauma (09/04 on Eliquis) - face/neck ecchymosis
# Dementia
#Chronic back pain
# ESRD on HD via AVF
- 09/12/23 HAN: Continued mobile echodensity on aortic side of TAVR valve measuring 0.3 cm x 0.3 cm differential includes endocarditis vs artifact. Patient is not surgical candidate.
- Blood cultures have cleared from 09/15/23
- 09/13/23 MRI brain/C-spine wo contrast: limited by motion artifact: 3 punctate acute/subacute infarct suspicious for embolic CVA
- 09/15/23 MRI T/L spine wo contrast: no discitis/epidural abscess
-Plan:
Continue gentamicin 80mg IV MWF after HD x 14d through 09/27/23.
Cefepime (+CLERICAL ASSOCIATE penetration) 2g IV MoWe, 3g IV Sat after HD through 10/25/23 , followed by lifelong chronic suppression with cephalexin 1000mg po q24h.
Follow weekly CBC with dif, CMP q Saturday.
Follow random pre-HD gentamicin level 09/22 or 09/24 if discharged.
Infusion sheets submitted to dependency case manager to fax to dialysis/rehab
- Monitor for change in mental status while on cefepime.
- From ID standpoint, OK to dc to Rehab/SNF.
-Follow up with Dr. Hunt in 3 weeks.
#Additional Past Medical History:
Dementia
DM
ESRD on HD via LUE AVF
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
pAfib
CHF
chronic back pain
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
Appendectomy
Chief Complaint
-: Bacteremia and Other (Endocarditis)
Subjective / Review of Systems
Review of Systems: No Fever and No Chills
Vital Signs / Physical Exam
Vital Signs
Vital Signs
Temp Pulse Resp BP Pulse Ox
97.9 F 84 20 123/82 97
09/20/23 07:00 09/20/23 07:00 09/20/23 07:00 09/20/23 07:00 09/20/23 07:00
Physical Exam
Constitutional: No Acute Distress, Comfortable, Chronically Ill and Non-toxic
Eyes: No Conjunctival Hemorrhage and Sclera Anicteric
Cardiovascular: S1/S2; Negative S3/S4
Pulmonary: Non Labored
Extremities: Negative Splinter Hemorrhage or Jan[place]ay Lesions
Musculoskeletal: Negative Joint Swelling
Neurological: Awake and Alert
Psychological: Calm
Objective Data
Lab Data
Lab Results
09/20/23 08:22
09/20/23 08:22
PT 19.0 Sec (11.4-14.6) H 09/12/23 03:55
INR 1.58 09/12/23 03:55
APTT 37.5 Sec (23.4-35.0) H 09/10/23 12:52
Estimated Creat Clear 16 ml/min 09/20/23 08:22
Lactic Acid 1.8 mmol/L (0.7-2.0) 09/11/23 09:05
Total Bilirubin 11.2 mg/dl (0.2-1.3) H 09/13/23 04:51
AST 84 U/L (17-59) H 09/13/23 04:51
ALT 30 U/L (0-50) 09/13/23 04:51
Alkaline Phosphatase 809 U/L (38-126) H 09/13/23 04:51
Most recent labs reviewed.
Micro Results:
09/14/23 04:12 Blood Culture - Final
Blood/Venous S aureus-Methicillin Sensitive
Gram Stain - Final
09/16/23 09:10 Blood Culture - Preliminary
Blood/Venous No Growth in 4 days- Final report to follow
09/17/23 07:10 Blood Culture - Preliminary
Blood/Venous No Growth in 72 hours- Final report to follow
09/15/23 06:07 Blood Culture - Final
Blood/Venous No Growth - Final Report
09/13/23 04:51 Blood Culture - Final
Blood/Venous S aureus-Methicillin Sensitive
Gram Stain - Final
09/12/23 03:55 Blood Culture - Final
Blood/Venous S aureus-Methicillin Sensitive
Gram Stain - Final
09/13/23 23:32 Urine Culture - Final
Urine NO GROWTH
09/10/23 16:20 CSF Culture - Final
Csf NO GROWTH-FINAL REPORT
Gram Stain - Final
09/10/23 14:42 Blood Culture - Final
Blood/Venous S aureus-Methicillin Sensitive
Gram Stain - Final
09/10/23 14:42 Blood Culture - Final
Blood/Venous S aureus-Methicillin Sensitive
Gram Stain - Final
09/11/23 04:14 MRSA Screen - Final
Nose No Methicillin Resistant Staphylococcus aureus isolated.
09/10/23 16:20 Meningitis/Encephalitis Panel (PCR) - Final
Csf
09/10/23 17:29 Influenza Types A & B (ELIANA) - Final
Nasal Swab Negative for Influenza A & B, NAAT
Negative results must be combined with clinical observations
and patient history.
Nucleic Acid Amplification test (NAAT)performed on the
[employer] platform.
09/10/23 CT c/a/p: No acute posttraumatic abnormality in the chest, abdomen, or pelvis within the limitations of motion artifact. Small chronic loculated right pleural effusion with pleural thickening. Mild abdominal ascites.
09/10/[address]: No acute intracranial abnormality within the limitations of motion artifact. Left frontal scalp hematoma. No CT evidence for an acute facial bone fracture.
09/13/23 Brain MRI wo contrast: Approximately three tiny foci of nonhemorrhagic acute/subacute infarcts, one in the right thalamus and two in the right occipital lobe. Findings may reflect embolic etiology.
09/13/23 MRI C spine wo contrast: No suspicious epidural collections. Mild multilevel degenerative changes of the cervical spine as detailed.
--- NOTE | 2023-09-20 15:19 | CM ---
CM spoke with Milton from [facility] not bed yet today, possible bed tomorrow but per Milton no beds available now until possibly next week. CM updated family about possibility of no beds and they are anticipating possible option of taking patient home
with VN. CM will continue to follow for discharge planning needs.
Plan; home with [facility]; vs [facility]; awaiting bed
[2023-09-20] MEDS: MAXIPIME 1000 MG IV (15:27)
[2023-09-20] MEDS: STERILE WATER FOR INJECTION 10 ML IV ×2 (15:28→15:29)
[2023-09-20] MEDS: MAXIPIME 2000 MG IV (15:28)
[2023-09-20 18:19] LABS: Glucose - Point of Care 131 mg/dl (70-99)
[2023-09-20] MEDS: COLACE 200 MG PO (20:37)
[2023-09-20] MEDS: PROCARDIA XL (EXTENDED RELEASE) 30 MG PO (20:38)
[2023-09-20] MEDS: NAMENDA 5 MG PO (20:38)
[2023-09-20] MEDS: TOPROL XL 25 MG PO (20:38)
[2023-09-20] MEDS: PROTONIX 40 MG PO (20:38)
[2023-09-20 21:38] LABS: Glucose - Point of Care 146 mg/dl (70-99)
[2023-09-20 23:23] VITALS: BP 154/63
[2023-09-21] MEDS: ATIVAN 1 MG IV ×2 (01:54→14:52)
[2023-09-21 04:46] VITALS: BMI 32.1
[2023-09-21 08:07] LABS: Glucose - Point of Care 133 mg/dl (70-99)
[2023-09-21 08:14] VITALS: BP 148/64
[2023-09-21 08:29] LABS: Hematocrit 33.8 % (39.0-52.0); Mean Corp Hgb Conc. 32.5 g/dL (33.0-37.0); Mean Corpuscular Hgb 30.7 pg (27.0-31.0); Mean Corpuscular Volume 94.4 fL (80.0-94.0); Mean Platelet Volume 9.6 fL (7.4-10.4); Platelet Count 206 10^3/uL (130-400); Red Blood Cell Count 3.58 10^6/uL (4.70-6.10); Red Cell Dist. Width 19.4 % (11.5-14.5); White Blood Cell Count 15.3 10^3/uL (4.8-10.8)
--- NOTE | 2023-09-21 08:44 | W.PN.HOSP.TC ---
Today's Communication/Plan
-
IV antibiotics. Benzo as needed.
Assessment / Plan
Assessment / Plan
Physical exam:
General: Chronically ill
HEENT: Normocephalic, traumatic head and neck with large ecchymosis extending from forehead down to the base of the neck only sparing perioral area and Moist Mucous Membranes
Respiratory: Clear to Auscultation; Negative Wheezes, Rales or Rhonchi
Cardiac: Irregular Rate and rhythm and S1/S2
GI: Soft, Nontender and Nondistended
Musculoskeletal: No Clubbing, No Cyanosis and No Edema
Neuro: Awake, Alert and Disoriented
Psych: Calm
A/P:
MRI brain
Approximately three tiny foci of nonhemorrhagic acute/subacute infarcts, one in the right thalamus and two in the right occipital lobe. Findings may reflect embolic etiology.
HAN
Normal LV size and function with no regional wall motion abnormalities. LVEF is 55 to 60% by visual estimation. Dilated RV with normal systolic function. Moderate mitral regurgitation, likely calcification of mitral leaflets at approximately A2 and
P2/P3 better appreciated on this study, however, cannot
rule out focal endocarditis. S/p TAVR with Medtronic Evolut 29. The valve is well-seated with no significant stenosis. Trivial paravalvular aortic regurgitation. Continued mobile echodensity (view 24 and 27) on aortic side of TAVR valve
measuring 0.3 cm x 0.3 cm differential includes endocarditis vs artifact.
Moderate to severe tricuspid regurgitation. Compared to prior TTE on September 11, 2023, small echodensity/calcifications noted as detailed above.

Toxic metabolic encephalopathy from septic brain emboli - resolved
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
-Neurology evaluated and recommended to resume Eliquis on 09/19 continue on aspirin until that
-CSF showing minimal increase WBC of 14, glucose 131 total protein 255, elevated WBC in CSF from septic emboli to brain.
-Avoid sedating medication
-On abx for underlying endocarditis treatment.
-Discussed with family at bedside yesterday
-Rehab requested psychiatry follow-up. Discussed with psychiatry and reconsulted yesterday.
-Discussed with and she requested increased doses of Ativan at night time-will increase but to use judiciously since it can increased sedation. Also can consider Zyprexa as psych suggested or Seroquel if needed.
MSSA endocarditis
Sepsis
-WBC has been trending down-->today WBC 11.9
-HAN showing TAVR valve vegetation
-Initial blood culture growing MSSA, repeat cultures positive on 09/11,,; blood cultures no growth since 09/14.
-ID following and help appreciated
-As mentioned above MRI brain showing likely septic emboli. MRI C-spine negative. MRI T/L-spine pending
-On IV cefepime and gentamicin
End-stage renal disease on hemodialysis:
Hyponatremia
-Nephrology following and getting periodic HD
Direct bilirubinemia
Acute transaminitis
-Possibly related to sepsis
-GI consult appreciated--> no need for further images per GI.
Fall with trauma/Extensive ecchymosis on face and neck after recent facial trauma:
-Hold Eliquis
-CT of facial no fractures
-Discussed with ENT over the phone and they would like to follow-up as outpatient but nothing that they would do as inpatient (Nilay Stoner). They also recommend holding anticoagulation for few days.
-Tried to remove sutures, minimal bleed and oozing, should attemp few days later.
Diabetes mellitus type 2 with hyperglycemia:
-Continue insulin sliding scale but increase to moderate resistance
-Continue to monitor and avoid hypoglycemia or excessive hyperglycemia
Permanent atrial fibrillation:
-Neuro cleared to start eliquis on 09/19.
-On amiodarone but not sure able to tolerate
Severe aortic stenosis status post TAVR:
Nonobstructive CAD:
Moderate to severe tricuspid regurgitation:
Dementia: -Continue to monitor mental status and behavior
BART: -On CPAP as outpatient
DVT prophylaxis SCDs
CODE STATUS Full code
Chronic pain medications and Narcotic dependence:
-Of note PDMP reviewed by Dr Ron Feng and got narcotics from July only. no previous scripts-->appears no narcotic dependance based on that search. The issue he was getting some of his narcotics from [place] pharmacy prior and just
recently transferred to [facility] pharmacy. Family will clarify with our pharmacy and will look into to make sure our records reflect accurate information.
-Upon review with family said he has been on narcotics for quite some time. [facility] cover physician discussed with family yesterday as well and clarified.
-He is back on oxycodone 10 mg twice a day and at 1000 mg of acetaminophen twice a day +5 mg of oxycodone every 8 hours as needed.
-Rehab consulted yesterday--> await for their assessment
-Discussed with family at bedside again today on 09/20 and they are agreeable with current plan of care.
Anticipated Discharge: > 48 hours
Subjective/Interval History
-
Date of Service: September 21, 2023
Patient with agitation at times. Afebrile
Objective Data
-
Labs:
Laboratory Results
09/21/23
07:21
WBC 15.3 H
Hgb 11.0 L
Hct 33.8 L
Plt Count 206
Sodium Pending
Potassium Pending
Chloride Pending
Carbon Dioxide Pending
BUN Pending
Creatinine Pending
Glucose Pending
Calcium Pending
Vital Signs:
Vital Signs
Temp Pulse Resp BP Pulse Ox
98.2 F 96 18 148/64 93
09/21/23 08:14 09/21/23 08:14 09/21/23 08:14 09/21/23 08:14 09/21/23 08:14
I&O
09/20/23 09/21/23 09/22/23
06:59 06:59 06:59
Intake Total 650 / 650
Balance 650 / 650
[2023-09-21] MEDS: NOVOLOG FLEXPEN-MODERATE RESISTANCE SC ×2 (09:00→18:27)
[2023-09-21] MEDS: COLACE PO ×2 (09:00→09:56)
--- NOTE | 2023-09-21 09:00 | PHA.KIN.UP ---
Assessment / Plan
- Assessment
Hemodialysis Schedule: MWF
Last Hemodialysis performed: 09/20/23
WBC's are: Trending Up (12.2>15.3)
In the past 24 hrs, patient has been: Afebrile
Level Comments: Last level 09/20/23 pre-HD 1.2
- Dosing by Levels
Dosing Today: Hold off on dosing today (Dose on hemodialysis treatment days)
Next random level due: Plan to order random gentamicin level for Saturday09/23/23 if still inpatient
- Follow Up
Pharmacy will continue to follow.
FollowUp Pharmacokinetics Note
- -
Patient Age: 83
Patient Sex: Male
Antibiotic: Gentamicin
Antibiotic Day #: 9
Indication: Endocarditis
Requesting Provider: Dr. Hunt
Pertinent Antimicrobial Allergies:
no pertinent antibiotic allergies
Height / Weight:
Height 5 ft 9 in
Actual Weight 98.571 kg
IBW in k.7
Adjusted BW in k.8
Pertinent Past Medical History: BMI ~32.6, ESRD on HD, recent MSSA bacteremia, DM
- Vital Signs / Lab Results
Temp Pulse Resp BP Pulse Ox
98.2 F 96 18 148/64 93
09/21/23 08:14 09/21/23 08:14 09/21/23 08:14 09/21/23 08:14 09/21/23 08:14
Lab Results - Hematology
09/19/23 09/20/23 09/21/23
07:34 08:22 07:21
WBC 11.9 H 12.2 H 15.3 H
Lab Results - Chemistry
09/19/23 09/20/23
07:34 08:22
BUN 26 H 33 H
Creatinine 3.2 H 3.9 H
Estimated Creat Clear 20 16
Microbiology Results
09/17/23 07:10 Blood Culture - Preliminary
Blood/Venous No Growth in 4 days- Final report to follow
09/14/23 04:12 Blood Culture - Final
Blood/Venous S aureus-Methicillin Sensitive
Gram Stain - Final
09/16/23 09:10 Blood Culture - Preliminary
Blood/Venous No Growth in 4 days- Final report to follow
09/15/23 06:07 Blood Culture - Final
Blood/Venous No Growth - Final Report
09/13/23 04:51 Blood Culture - Final
Blood/Venous S aureus-Methicillin Sensitive
Gram Stain - Final
Concomitant Antimicrobials:
Therapeutic Drug Monitoring
Random Gentamicin 1.2 ug/ml 09/20/23 08:22
Random Vancomycin 12.2 ug/ml 09/12/23 03:55
[2023-09-21 09:01] LABS: Blood Urea Nitrogen 22 mg/dl (9-20); Calcium 8.8 mg/dl (8.4-10.2); Carbon Dioxide 29 mmol/L (22-30); Chloride 92 mmol/L (98-107); Estimated Creatinine Clearance 21 ml/min; Glucose 130 mg/dl (70-99); Potassium 3.7 mmol/L (3.5-5.1); Sodium 133 mmol/L (135-145); eGFR 19.09
[2023-09-21] MEDS: HEPARIN SC ×3 (09:30→21:40)
[2023-09-21] MEDS: HYDROPHOR 1 APPLIC TOPICAL (09:54)
[2023-09-21] MEDS: TYLENOL 1000 MG PO ×2 (09:55→21:42)
[2023-09-21] MEDS: VITAMIN D3 (cholecalciferol) 50 MCG PO (09:56)
[2023-09-21] MEDS: PROCARDIA XL (EXTENDED RELEASE) 30 MG PO ×2 (09:56→21:43)
[2023-09-21] MEDS: PROTONIX 40 MG PO ×2 (09:59→21:43)
[2023-09-21] MEDS: ROXICODONE 10 MG PO ×2 (09:59→21:44)
[2023-09-21] MEDS: NAMENDA 5 MG PO ×2 (10:00→21:44)
[2023-09-21] MEDS: VITAMIN B-12 1000 MCG PO (10:01)
[2023-09-21] MEDS: LOW STRENGTH ASPIRIN 81 MG PO (10:01)
[2023-09-21] MEDS: DESENEX/MITRAZOL/ZEASORB 1 APPLIC TOPICAL ×2 (10:43→21:40)
--- NOTE | 2023-09-21 12:42 | CM ---
hairmasters manager spoke with patient and family and they requested a referral to [facility], and [facility], referrals sent to both facilities.
Plan; Per family their first choice would be [facility] then [facility].
[2023-09-21 12:59] LABS: Glucose - Point of Care 193 mg/dl (70-99)
[2023-09-21] MEDS: RENVELA PO ×2 (13:20→18:27)
[2023-09-21] MEDS: NOVOLOG FLEXPEN-MODERATE RESISTANCE 1 UNITS SC (13:38)
--- NOTE | 2023-09-21 15:30 | PTCARENOTE ---
1440 Pt anxious, restless, attempting to remove wrist restraints and almost removed IV from right hand. When assisted pt with pt tech to readjust wrist restraints, pt pushing our hands away or attempting to get out of bed. Ativan 1 mg IV given as
ordered, noted pt calmer and resting in bed at intervals. Bed alarm and med sitter in place, continue to monitor pt closely.
[2023-09-21 16:33] VITALS: BP 111/56
[2023-09-21 18:11] LABS: Glucose - Point of Care 145 mg/dl (70-99)
[2023-09-21 21:15] LABS: Glucose - Point of Care 150 mg/dl (70-99)
[2023-09-21] MEDS: TOPROL XL 25 MG PO (21:42)
[2023-09-21] MEDS: COLACE 200 MG PO (21:43)
[2023-09-21 23:00] VITALS: BP 128/55
[2023-09-22 06:00] VITALS: BMI 32.5
[2023-09-22 07:00] VITALS: BP 130/54
[2023-09-22] MEDS: VITAMIN D3 (cholecalciferol) 50 MCG PO (07:41)
[2023-09-22] MEDS: PROTONIX 40 MG PO ×2 (07:41→19:54)
[2023-09-22] MEDS: COLACE 200 MG PO ×2 (07:41→19:54)
[2023-09-22] MEDS: RENVELA 800 MG PO ×3 (07:41→17:46)
[2023-09-22] MEDS: LOW STRENGTH ASPIRIN 81 MG PO (07:41)
[2023-09-22] MEDS: VITAMIN B-12 1000 MCG PO (07:41)
[2023-09-22] MEDS: TYLENOL 1000 MG PO ×2 (07:41→19:54)
[2023-09-22] MEDS: NAMENDA 5 MG PO ×2 (07:41→19:59)
[2023-09-22] MEDS: PROCARDIA XL (EXTENDED RELEASE) 30 MG PO ×2 (07:42→20:08)
[2023-09-22] MEDS: ROXICODONE 10 MG PO ×2 (07:42→19:54)
[2023-09-22] MEDS: DESENEX/MITRAZOL/ZEASORB 1 APPLIC TOPICAL ×2 (07:42→19:58)
[2023-09-22] MEDS: HEPARIN 5000 UNITS SC ×2 (07:42→21:31)
[2023-09-22] MEDS: HYDROPHOR 1 APPLIC TOPICAL (07:43)
[2023-09-22 07:47] LABS: Glucose - Point of Care 173 mg/dl (70-99)
[2023-09-22] MEDS: NOVOLOG FLEXPEN-MODERATE RESISTANCE 1 UNITS SC (07:47)
--- NOTE | 2023-09-22 08:57 | W.PN.HOSP.TC ---
Today's Communication/Plan
-
IV antibiotics.
Assessment / Plan
Assessment / Plan
Physical exam:
General: Chronically ill
HEENT: Normocephalic, traumatic head and neck with large ecchymosis extending from forehead down to the base of the neck only sparing perioral area and Moist Mucous Membranes
Respiratory: Clear to Auscultation; Negative Wheezes, Rales or Rhonchi
Cardiac: Irregular Rate and rhythm and S1/S2
GI: Soft, Nontender and Nondistended
Musculoskeletal: No Clubbing, No Cyanosis and No Edema
Neuro: Awake, Alert and Disoriented
Psych: Calm
A/P:
MRI brain
Approximately three tiny foci of nonhemorrhagic acute/subacute infarcts, one in the right thalamus and two in the right occipital lobe. Findings may reflect embolic etiology.
HAN
Normal LV size and function with no regional wall motion abnormalities. LVEF is 55 to 60% by visual estimation. Dilated RV with normal systolic function. Moderate mitral regurgitation, likely calcification of mitral leaflets at approximately A2 and
P2/P3 better appreciated on this study, however, cannot
rule out focal endocarditis. S/p TAVR with Medtronic Evolut 29. The valve is well-seated with no significant stenosis. Trivial paravalvular aortic regurgitation. Continued mobile echodensity (view 24 and 27) on aortic side of TAVR valve
measuring 0.3 cm x 0.3 cm differential includes endocarditis vs artifact.
Moderate to severe tricuspid regurgitation. Compared to prior TTE on September 11, 2023, small echodensity/calcifications noted as detailed above.

Toxic metabolic encephalopathy from septic brain emboli - resolved
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
-Neurology evaluated and recommended to resume Eliquis on 09/19 continue on aspirin until that
-CSF showing minimal increase WBC of 14, glucose 131 total protein 255, elevated WBC in CSF from septic emboli to brain.
-On abx for underlying endocarditis treatment. On cefepime and gentamicin.
-Rehab requested psychiatry follow-up. Discussed with psychiatry and reconsulted as well.
-Discussed with and she requested increased doses of Ativan at night time-will increase but to use judiciously since it can increased sedation. Also can consider Zyprexa as psych suggested or Seroquel if needed.
-Discussed with family at bedside today on 09/21. I told family we will try to avoid restraints unless absolutely needed especially since we are working on discharge disposition.
-regional transportation manager on discharge disposition, either acute rehab or SNF (most likely the latter).
MSSA endocarditis
Sepsis
-WBC has been trending down and slight up but relatively stable and afebrile-->today WBC 14.5
-HAN showing TAVR valve vegetation
-Initial blood culture growing MSSA, repeat cultures positive on 09/11,5,6; blood cultures no growth 09/14,,.
-ID following and help appreciated
-As mentioned above MRI brain showing likely septic emboli. MRI C-spine negative. MRI T/L-spine pending
-On IV cefepime and gentamicin
End-stage renal disease on hemodialysis:
Hyponatremia
-Nephrology following and getting periodic HD
Direct bilirubinemia
Acute transaminitis
-Possibly related to sepsis
-GI consult appreciated--> no need for further images per GI.
-Will repeat in am
Fall with trauma/Extensive ecchymosis on face and neck after recent facial trauma:
-Hold Eliquis
-CT of facial no fractures
-Discussed with ENT over the phone and they would like to follow-up as outpatient but nothing that they would do as inpatient (Nilay Stoner). They also recommend holding anticoagulation for few days.
-Tried to remove sutures, minimal bleed and oozing, should attemp few days later.
Diabetes mellitus type 2 with hyperglycemia:
-Continue insulin sliding scale but increase to moderate resistance
-Continue to monitor and avoid hypoglycemia or excessive hyperglycemia
Permanent atrial fibrillation:
-Neuro cleared to start Eliquis on 09/19 but will wait for tomorrow 09/22 to make sure stable and will discuss with family.
-Off amiodarone
-Cont B-cora
Severe aortic stenosis status post TAVR:
Nonobstructive CAD:
Moderate to severe tricuspid regurgitation:
Dementia: -Continue to monitor mental status and behavior
BART: -On CPAP as outpatient
DVT prophylaxis SCDs
CODE STATUS Full code
Chronic pain medications and Narcotic dependence:
-Of note PDMP reviewed by Dr Ron Feng and got narcotics from July only. no previous scripts-->appears no narcotic dependance based on that search. When I discussed with family the issue he was getting some of his narcotics from [place]
pharmacy prior and just recently transferred to [place]'s pharmacy. Family will clarify with our pharmacy and will look into to make sure our records reflect accurate information.
-Upon review with family said he has been on narcotics for quite some time.
-He is back on oxycodone 10 mg twice a day and at 1000 mg of acetaminophen twice a day +5 mg of oxycodone every 8 hours as needed.
-Rehab consulted--> await for their response.
-Discussed with family at bedside again today on 09/21 and they are agreeable with current plan of care.
Anticipated Discharge: 24 - 48 hours
Subjective/Interval History
-
Date of Service: September 22, 2023
Patient denies any chest pain or shortness of breath. Remains afebrile. Reported agitation on and off but currently he is alert and calm but family at bedside at the time of my evaluation as well.
Objective Data
-
Labs:
Laboratory Results
09/22/23
08:36
WBC Pending
Hgb Pending
Hct Pending
Plt Count Pending
Sodium Pending
Potassium Pending
Chloride Pending
Carbon Dioxide Pending
BUN Pending
Creatinine Pending
Glucose Pending
Calcium Pending
Vital Signs:
Vital Signs
Temp Pulse Resp BP Pulse Ox
97.7 F 79 18 130/63 98
09/22/23 07:00 09/22/23 07:42 09/22/23 07:00 09/22/23 07:42 09/22/23 07:00
I&O
09/21/23 09/22/23 09/23/23
06:59 06:59 06:59
Intake Total 780 / 780
Balance 780 / 780
[2023-09-22 09:01] LABS: % Basophils 0.3 % (0-2); % Eosinophils 0.8 % (0-6); % Immature Granulocytes 0.8 % (0-0.5); % Neutrophils 84.1 % (42.2-75.2); Absolute Eosinophils 0.1 10^3/uL (0-0.7); Absolute Immature Granulocytes 0.1 10^3/uL (0-0.05); Absolute Lymphocytes 0.6 10^3/uL (1.2-3.4); Absolute Monocytes 1.5 10^3/uL (0.1-0.6); Absolute Neutrophils 12.2 10^3/uL (1.4-6.5); Hematocrit 31.7 % (39.0-52.0); Hemoglobin 10.2 g/dL (13.0-18.0); Mean Corp Hgb Conc. 32.2 g/dL (33.0-37.0); Mean Corpuscular Hgb 31.1 pg (27.0-31.0); Mean Corpuscular Volume 96.6 fL (80.0-94.0); Mean Platelet Volume 9.5 fL (7.4-10.4); Nucleated Red Blood Cells % 0 % (-); Platelet Count 180 10^3/uL (130-400); Red Blood Cell Count 3.28 10^6/uL (4.70-6.10); Red Cell Dist. Width 19.4 % (11.5-14.5); White Blood Cell Count 14.5 10^3/uL (4.8-10.8)
--- NOTE | 2023-09-22 09:42 | PTCARENOTE ---
pt awake calling out for help. oriented to name and place. pt very forgetful. repeating questions and requests. following commands. restraints in place for pt safety. bruising noted on face scabs on right hip and both feet. room air breath
sounds clear diminished. pt states pain in back. pain med given as ordered. pt repositioned in bed.
[2023-09-22 10:00] LABS: Blood Urea Nitrogen 31 mg/dl (9-20); Calcium 8.6 mg/dl (8.4-10.2); Carbon Dioxide 26 mmol/L (22-30); Chloride 95 mmol/L (98-107); Estimated Creatinine Clearance 15 ml/min; Glucose 144 mg/dl (70-99); Potassium 3.7 mmol/L (3.5-5.1); Sodium 133 mmol/L (135-145); eGFR 13.26
--- NOTE | 2023-09-22 11:47 | PHA.KIN.UP ---
Assessment / Plan
- Assessment
Hemodialysis Schedule: MWF
WBC's are: Trending Down (15.3>14.5)
In the past 24 hrs, patient has been: Afebrile
- Plan: Continue Present Regimen
Continue: Gentamicin 80mg after HD MWF
Level ordered to be drawn: Pre-HD on 09/23/23 at 06:00
- Follow Up
Pharmacy will continue to follow.
FollowUp Pharmacokinetics Note
- -
Patient Age: 83
Patient Sex: Male
Antibiotic: Gentamicin
Antibiotic Day #: 10
Indication: Endocarditis
Requesting Provider: Dr. Hunt
Pertinent Antimicrobial Allergies:
no pertinent antibiotic allergies
Height / Weight:
Height 5 ft 9 in
Actual Weight 99.79 kg
IBW in k.7
Adjusted BW in k.8
Pertinent Past Medical History: BMI ~32.6, ESRD on HD, recent MSSA bacteremia, DM
- Vital Signs / Lab Results
Temp Pulse Resp BP Pulse Ox
97.7 F 79 18 130/63 98
09/22/23 07:00 09/22/23 07:42 09/22/23 07:00 09/22/23 07:42 09/22/23 07:00
Lab Results - Hematology
09/20/23 09/21/23 09/22/23
08:22 07:21 08:36
WBC 12.2 H 15.3 H 14.5 H
Lab Results - Chemistry
09/20/23 09/21/23 09/22/23
08:22 07:21 08:36
BUN 33 H 22 H 31 H
Creatinine 3.9 H 3.1 H 4.2 H*
Estimated Creat Clear 16 21 15
Microbiology Results
09/17/23 07:10 Blood Culture - Final
Blood/Venous No Growth - Final Report
09/16/23 09:10 Blood Culture - Final
Blood/Venous No Growth - Final Report
09/14/23 04:12 Blood Culture - Final
Blood/Venous S aureus-Methicillin Sensitive
Gram Stain - Final
Concomitant Antimicrobials:
Therapeutic Drug Monitoring
Random Gentamicin 1.2 ug/ml 09/20/23 08:22
Random Vancomycin 12.2 ug/ml 09/12/23 03:55
[2023-09-22 12:04] LABS: Glucose - Point of Care 146 mg/dl (70-99)
[2023-09-22] MEDS: NOVOLOG FLEXPEN-MODERATE RESISTANCE SC (12:08)
--- NOTE | 2023-09-22 13:12 | W.PN.NEPH.PH ---
Today's Communication / Plan
-
- HD tomorrow
Assessment/Plan
-
Impression:
End-stage renal disease Saturday dialysis
History of MSSA bacteremia and endocarditis/leukocytosis
Status post falls
Hypertension
Anemia
Atrial fibrillation (OAT)
Hyperphosphatemia
History of duodenal ulceration
s/p TAVR 12/13/22 (Aortic Stenosis)
Type 2 diabetes
Secondary hyperparathyroidism
History of diastolic congestive heart failure
Dementia
Left upper extremity AV fistula
Chronic pain: opioid dependence
Hyperphosphatemia
Plan:
HD tomorrow
discussed with family about delirium prevention
Bp labile trend
abx per ID
-
-
Date of Service: September 22, 2023
CC / HPI / ROS
-
Chief Complaint:
End-stage renal disease
History of Present Illness:
ESRD Saturday
BP stable
cefepime and genta for MSSA
Review of Systems:
MS not baseline remains confused
No fevers overnight
Labs
-
Labs:
WBC 14.5 10^3/uL (4.8-10.8) H 09/22/23 08:36
RBC 3.28 10^6/uL (4.70-6.10) L 09/22/23 08:36
Hgb 10.2 g/dL (13.0-18.0) L 09/22/23 08:36
Hct 31.7 % (39.0-52.0) L 09/22/23 08:36
Plt Count 180 10^3/uL (130-400) 09/22/23 08:36
Sodium 133 mmol/L (135-145) L 09/22/23 08:36
Potassium 3.7 mmol/L (3.5-5.1) 09/22/23 08:36
Chloride 95 mmol/L (98-107) L 09/22/23 08:36
Carbon Dioxide 26 mmol/L (22-30) 09/22/23 08:36
BUN 31 mg/dl (9-20) H 09/22/23 08:36
Creatinine 4.2 mg/dL (0.7-1.3) H* 09/22/23 08:36
eGFR 13.26 09/22/23 08:36
Glucose 144 mg/dl (70-99) H 09/22/23 08:36
Calcium 8.6 mg/dl (8.4-10.2) 09/22/23 08:36
Albumin 3.9 g/dl (3.5-5.0) 09/13/23 04:51
Physical Exam
-
Vital Signs:
Vital Signs
Temp Pulse Resp BP Pulse Ox
97.7 F 79 18 130/63 98
09/22/23 07:00 09/22/23 07:42 09/22/23 07:00 09/22/23 07:42 09/22/23 07:00
Cardiovascular:: Regular rate and rhythm
Respiratory:: Bilateral: CTA
Lung Excursion:: Normal
Abdomen:: Nontender and Soft
Bowel Sounds:: Normal
Extremity Edema:: +2: Bilateral:
Daniels Catheter: No
--- NOTE | 2023-09-22 14:13 | PTCARENOTE ---
Restraints removed by family at 1115 this am. Pt sitting up in chair eating lunch. Med sitter still in room.
[2023-09-22 14:35] VITALS: BP 96/38; BP 97/49; PULSE 75; O2SAT 96
[2023-09-22 16:09] VITALS: BP 104/77
[2023-09-22] MEDS: NSS (PRESERVATIVE FREE) 0.5 ML IV (16:27)
[2023-09-22] MEDS: ATIVAN 1 MG IV (16:28)
[2023-09-22 16:54] LABS: Glucose - Point of Care 204 mg/dl (70-99)
[2023-09-22] MEDS: NOVOLOG FLEXPEN-MODERATE RESISTANCE 3 UNITS SC (17:44)
--- NOTE | 2023-09-22 20:13 | PTCARENOTE ---
[employer] [facility] medsitter called to say patient was bleeding. This nurse went into room and patient had pulled IV out. Dressing applied to site. Pt with pain on movement in bed. Given 2000 meds including standing pain pill. Pt cleaned up and repositioned
in bed.
[2023-09-22 21:07] LABS: Glucose - Point of Care 122 mg/dl (70-99)
[2023-09-22] MEDS: ATIVAN 2 MG IM (21:31)
--- NOTE | 2023-09-22 22:12 | PTCARENOTE ---
At aprox 2119 pt screaming, pt has no IV site since and IV ativan is ordered PRN. JIM Huber notified and IM ativan ordered and given. Pt currently still screaming but is not trying to get OOB. Bed alarm on and medsitter still present.
[2023-09-22 23:00] VITALS: BP 128/62
[2023-09-22] MEDS: ROXICODONE 5 MG PO (23:47)
[2023-09-22] MEDS: MELATONIN 3 MG PO (23:48)
[2023-09-22] MEDS: TOPROL XL 25 MG PO (23:48)
--- NOTE | 2023-09-23 03:14 | PTCARENOTE ---
Pt restless t/o the night, pulling off gown, covers, dressings, picking at skin, legs over side rails. Medsitter in place, but not effective in preventing pt from pulling off things. Frequent reality orientation provided. Close monitoring continued.
[2023-09-23 03:44] VITALS: BMI 32.8
[2023-09-23 07:30] VITALS: BP 139/58
[2023-09-23 07:55] LABS: Hematocrit 29.7 % (39.0-52.0); Hemoglobin 9.8 g/dL (13.0-18.0); Mean Corpuscular Hgb 31.3 pg (27.0-31.0); Mean Corpuscular Volume 94.9 fL (80.0-94.0); Mean Platelet Volume 9.4 fL (7.4-10.4); Platelet Count 189 10^3/uL (130-400); Red Blood Cell Count 3.13 10^6/uL (4.70-6.10); Red Cell Dist. Width 18.9 % (11.5-14.5); White Blood Cell Count 15.4 10^3/uL (4.8-10.8)
[2023-09-23 08:08] LABS: Glucose - Point of Care 152 mg/dl (70-99)
[2023-09-23 08:11] LABS: Gentamicin Random 1.2 ug/ml
[2023-09-23 08:23] LABS: Albumin 3.3 g/dl (3.5-5.0); Chloride 92 mmol/L (98-107); Potassium 3.6 mmol/L (3.5-5.1); Sodium 134 mmol/L (135-145)
[2023-09-23 08:41] LABS: ALT (SGPT) 26 U/L (0-50); AST (SGOT) 57 U/L (17-59); Alkaline Phosphatase 938 U/L (38-126); Blood Urea Nitrogen 37 mg/dl (9-20); Calcium 8.5 mg/dl (8.4-10.2); Carbon Dioxide 26 mmol/L (22-30); Estimated Creatinine Clearance 13 ml/min; Glucose 132 mg/dl (70-99); Total Bilirubin 7.2 mg/dl (0.2-1.3); Total Protein 6.1 g/dl (6.3-8.2); eGFR 10.51
--- NOTE | 2023-09-23 09:02 | PHA.VAN.FU ---
Addendum entered and electronically signed by Jo-Ann Grant Edgar 09/23/23 09:48:
Correction: wrong documentation template used. Patient is on day 11 of Gentamicin not day 6 vancomycin.
Original Note:
Vancomycin Assessment / Plan
- Assessment
Hemodialysis Schedule: MWF
Last Hemodialysis performed: 09/19
WBC's are: Trending Up
In the past 24 hrs, patient has been: Afebrile
Concomitant Antimicrobials: cefepime
- Assessment - Therapeutic Drug Monitoring
Random Level: pre-HD = 1.2
- Dosing Plan
Continue: Gent 80mg MoWeFr after HD
- Monitoring Plan
Level(s) appropriate: Recheck trough at minimum of weekly intervals, Repeat sooner for changes in renal function or clinical status
Next Level Due (Date): ~09/29 - no further levels necessary unless course extended beyond 09/26
- Follow Up
Pharmacy will continue to follow.
Vancomycin Follow UP
- -
Patient Age: 83
Patient Sex: Male
Vancomycin Day #: 6
Indication: Endocarditis
Requesting Provider: Dr. Hunt
Pertinent Antimicrobial Allergies:
no pertinent antibiotic allergies
Height / Weight:
Height 5 ft 9 in
Actual Weight 100.6 kg
IBW in k.7
Adjusted BW in k.8
Pertinent Past Medical History: BMI ~32.6, ESRD on HD, recent MSSA bacteremia, DM
- Vital Signs / Lab Results
Temp Pulse Resp BP Pulse Ox
97.4 F 75 17 139/58 95
09/23/23 07:30 09/23/23 07:30 09/23/23 07:30 09/23/23 07:30 09/23/23 07:30
Lab Results - Hematology
09/20/23 09/21/23 09/22/23
08:22 07:21 08:36
WBC 12.2 H 15.3 H 14.5 H
09/23/23
07:29
WBC 15.4 H
Lab Results - Chemistry
09/20/23 09/21/23 09/22/23
08:22 07:21 08:36
BUN 33 H 22 H 31 H
Creatinine 3.9 H 3.1 H 4.2 H*
Estimated Creat Clear 16 21 15
Albumin
09/23/23
07:29
BUN 37 H
Creatinine 5.1 H*
Estimated Creat Clear 13
Albumin 3.3 L
Microbiology Results
09/17/23 07:10 Blood Culture - Final
Blood/Venous No Growth - Final Report
09/16/23 09:10 Blood Culture - Final
Blood/Venous No Growth - Final Report
Therapeutic Drug Monitoring
Random Gentamicin 1.2 ug/ml 09/23/23 07:29
Random Vancomycin 12.2 ug/ml 09/12/23 03:55
[2023-09-23] MEDS: NOVOLOG FLEXPEN-MODERATE RESISTANCE 1 UNITS SC (09:45)
[2023-09-23] MEDS: PROCARDIA XL (EXTENDED RELEASE) 30 MG PO ×2 (09:46→21:09)
[2023-09-23] MEDS: PROTONIX 40 MG PO ×2 (09:46→21:09)
[2023-09-23] MEDS: LOW STRENGTH ASPIRIN 81 MG PO (09:46)
[2023-09-23] MEDS: HYDROPHOR 1 APPLIC TOPICAL (09:46)
[2023-09-23] MEDS: RENVELA 800 MG PO ×2 (09:46→19:05)
[2023-09-23] MEDS: COLACE 200 MG PO ×2 (09:47→21:11)
[2023-09-23] MEDS: DESENEX/MITRAZOL/ZEASORB 1 APPLIC TOPICAL ×2 (09:47→21:13)
[2023-09-23] MEDS: NAMENDA 5 MG PO ×2 (09:47→21:10)
[2023-09-23] MEDS: HEPARIN 5000 UNITS SC (09:48)
[2023-09-23] MEDS: VITAMIN D3 (cholecalciferol) 50 MCG PO (09:49)
[2023-09-23] MEDS: ROXICODONE 10 MG PO ×2 (09:49→21:10)
[2023-09-23] MEDS: TYLENOL 1000 MG PO ×2 (09:49→21:10)
[2023-09-23] MEDS: VITAMIN B-12 1000 MCG PO (09:50)
[2023-09-23 11:52] LABS: Glucose - Point of Care 183 mg/dl (70-99)
--- NOTE | 2023-09-23 12:21 | W.PN.ID1 ---
Date of Service
Date of Service: September 23, 2023
Today's Communication
- Continue gentamicin 80mg IV MWF after HD x 14d through 09/27/23.
- Last dose of cefepime 2g after HD totoday
- On 09/25/23vresume cefazolin 2g IV MoWe, 3g IV Fri after HD through 10/25/23 , followed by lifelong chronic suppression with cephalexin 1000mg po q24h.
Assessment / Plan
# Relapsed Staph aureus (MSSA) bacteremia (09/09 -09/13),
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
# WRIST LINER septic emboli
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
# s/p Sepsis
#Leukocytosis continues to trending up slightly
# Change in mental status
# s/p falls with scalp trauma (09/04 on Eliquis) - face/neck ecchymosis
#Chronic back pain
# ESRD on HD via AVF
- 09/12/23 HAN: Continued mobile echodensity on aortic side of TAVR valve measuring 0.3 cm x 0.3 cm differential includes endocarditis vs artifact. Patient is not surgical candidate.
- Blood cultures have cleared from 09/15/23
- 09/13/23 MRI brain/C-spine wo contrast: limited by motion artifact: 3 punctate acute/subacute infarct suspicious for embolic CVA
- 09/15/23 MRI T/L spine wo contrast: no discitis/epidural abscess
-Plan:
- Unsure if change of mental status is due to cefepime vs delirium
Plan to dc cefepime after today dose and change to cefazolin.
Today is day 14 of IV abx ( IV vancomycin, then cefepime) that achieve WRIST LINER penetration to cover the MSSA septic emboli to brain, which should be sufficient
- Continue gentamicin 80mg IV MWF after HD x 14d through 09/27/23.
- Last dose of cefepime 2g after HD today
- On 09/25/23vresume cefazolin 2g IV MoWe, 3g IV Sat after HD through 10/25/23 , followed by lifelong chronic suppression with cephalexin 1000mg po q24h.
Follow weekly CBC with dif, CMP q Saturday.
Follow random pre-HD gentamicin level 09/22
- Updated Infusion sheets submitted to child support case officer to fax to dialysis
- Follow mental status off cefepime.
-Follow wbc
#Additional Past Medical History:
Dementia
DM
ESRD on HD via LUE AVF
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
pAfib
CHF
chronic back pain
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
Appendectomy
Chief Complaint
-: Bacteremia and Other (Endocarditis)
Subjective / Review of Systems
Spoke to and daughter at bedside. Pt has episodes of confusion. Per , yesterday was bad. Today is better. However he is not back to his baseline mental status.
Vital Signs / Physical Exam
Vital Signs
Vital Signs
Temp Pulse Resp BP Pulse Ox
97.4 F 75 17 139/58 95
09/23/23 07:30 09/23/23 07:30 09/23/23 07:30 09/23/23 07:30 09/23/23 07:30
Physical Exam
Constitutional: No Acute Distress
Cardiovascular: Regular Rate
Pulmonary: Clear (anteriorly)
Gastrointestinal: Soft, Non Tender and Non Distended
Extremities: Negative Edema
Objective Data
Lab Data
Lab Results
09/23/23 07:29
09/23/23 07:29
PT 19.0 Sec (11.4-14.6) H 09/12/23 03:55
INR 1.58 09/12/23 03:55
APTT 37.5 Sec (23.4-35.0) H 09/10/23 12:52
Estimated Creat Clear 13 ml/min 09/23/23 07:29
Lactic Acid 1.8 mmol/L (0.7-2.0) 09/11/23 09:05
Total Bilirubin 7.2 mg/dl (0.2-1.3) H 09/23/23 07:29
AST 57 U/L (17-59) 09/23/23 07:29
ALT 26 U/L (0-50) 09/23/23 07:29
Alkaline Phosphatase 938 U/L (38-126) H 09/23/23 07:29
Most recent labs reviewed.
Micro Results:
09/17/23 07:10 Blood Culture - Final
Blood/Venous No Growth - Final Report
09/16/23 09:10 Blood Culture - Final
Blood/Venous No Growth - Final Report
09/14/23 04:12 Blood Culture - Final
Blood/Venous S aureus-Methicillin Sensitive
Gram Stain - Final
09/15/23 06:07 Blood Culture - Final
Blood/Venous No Growth - Final Report
09/13/23 04:51 Blood Culture - Final
Blood/Venous S aureus-Methicillin Sensitive
Gram Stain - Final
09/12/23 03:55 Blood Culture - Final
Blood/Venous S aureus-Methicillin Sensitive
Gram Stain - Final
09/13/23 23:32 Urine Culture - Final
Urine NO GROWTH
09/10/23 16:20 CSF Culture - Final
Csf NO GROWTH-FINAL REPORT
Gram Stain - Final
09/10/23 14:42 Blood Culture - Final
Blood/Venous S aureus-Methicillin Sensitive
Gram Stain - Final
09/10/23 14:42 Blood Culture - Final
Blood/Venous S aureus-Methicillin Sensitive
Gram Stain - Final
09/11/23 04:14 MRSA Screen - Final
Nose No Methicillin Resistant Staphylococcus aureus isolated.
09/10/23 16:20 Meningitis/Encephalitis Panel (PCR) - Final
Csf
09/10/23 17:29 Influenza Types A & B (ELIANA) - Final
Nasal Swab Negative for Influenza A & B, NAAT
Negative results must be combined with clinical observations
and patient history.
Nucleic Acid Amplification test (NAAT)performed on the
[employer] platform.
09/10/23 CT c/a/p: No acute posttraumatic abnormality in the chest, abdomen, or pelvis within the limitations of motion artifact. Small chronic loculated right pleural effusion with pleural thickening. Mild abdominal ascites.
09/10/[address]: No acute intracranial abnormality within the limitations of motion artifact. Left frontal scalp hematoma. No CT evidence for an acute facial bone fracture.
09/13/23 Brain MRI wo contrast: Approximately three tiny foci of nonhemorrhagic acute/subacute infarcts, one in the right thalamus and two in the right occipital lobe. Findings may reflect embolic etiology.
09/13/23 MRI C spine wo contrast: No suspicious epidural collections. Mild multilevel degenerative changes of the cervical spine as detailed.
Care Review
Plan reviewed with: Physician (Dr. Catie Feng)
--- NOTE | 2023-09-23 13:32 | W.PN.NEPH.HD ---
Assessment
-
Patient seen on dialysis
HD via left upper extremity AV fistula
Systolic blood pressure stable with current u/f
Progress Note - Hemodialysis
-
Date of Service: September 23, 2023
Duration: 30 minutes and 3 hours
Potassium Bath: 3
Calcium Bath: 2.5
Opti-Dialyzer: 160
Ultrafiltration: Other (1.5 kg)
Blood Flow: 400
Dialysate Flow: 600
Heparin: No heparin
EPO: None
[2023-09-23] MEDS: RENVELA PO (13:47)
[2023-09-23] MEDS: NOVOLOG FLEXPEN-MODERATE RESISTANCE SC ×2 (13:48→19:02)
[2023-09-23] MEDS: MAALOX 30 ML PO (14:23)
[2023-09-23] MEDS: RISPERDAL M-TAB (ORALLY DISINTEGRATING) 1 MG PO (14:43)
[2023-09-23 15:30] VITALS: BP 123/56
[2023-09-23] MEDS: GENTAMICIN 50 IV (15:37)
[2023-09-23] MEDS: MAXIPIME 2000 MG IV (15:39)
[2023-09-23] MEDS: STERILE WATER FOR INJECTION 10 ML IV (15:39)
--- NOTE | 2023-09-23 15:44 | CM ---
Spoke with spouse and daughter bedside.
Patient remains on medsitter.
HD today.
Discussed options with family: skilled rehab once off medsitter vs home with services.
Per spouse they are possibly interested in home.
They would want ambulance transport to and from HD.
They would like [facility], and they are looking into private caregivers.
CM called multiple ambulance companies that would be unable to provide transport.
Spoke with 3 ambulance companies that possibly could do transport.
[facility] [phone]
[facility]- [phone]
[facility] could possible do transport as private pay only. [phone]
Spoke with child welfare social worker Mayi at [facility] and she also was unable to secure ambulance transport.
Spoke with Cesia at [facility] P# [phone] re IV anbx, she will let me know if they can do them.
IV antibiotic scripts faxed to [facility] at [phone].
Will update spouse with ambulance companies.
She also found and contacted [facility].
Plan: possibly home with services vs skilled rehab
[2023-09-23 15:56] LABS: Glucose - Point of Care 114 mg/dl (70-99)
--- NOTE | 2023-09-23 16:33 | VNURNOTE ---
[facility] resumption of care in 'saved' mode until patient is closer to discharge home.
Liaison discussed case with CM and possibility of going to rehab prior to returning home.
Home Health liaison spoke to patient's Iveth and had lengthy discussion regarding all services and limitations at home with [facility]
SN/PT/OT could come out to home 2x per week and DISH MAKER 1x per week. CUSTOMER SALES ADVISOR for follow up on community resources and nursing home plan.
Iveth asked Liaison to arrange for ambulance transport to and from .
Liaison explained that or the HD center would need to arrange for that.
Iveth confirmed having [facility] contact number.
Private caregivers discussed and list provided to her email.
[2023-09-23] MEDS: ATIVAN 1 MG PO ×2 (16:59→22:54)
--- NOTE | 2023-09-23 17:20 | W.PN.HOSP.TC ---
Today's Communication/Plan
-
discharge planning
Assessment / Plan
Assessment / Plan
MRI brain
Approximately three tiny foci of nonhemorrhagic acute/subacute infarcts, one in the right thalamus and two in the right occipital lobe. Findings may reflect embolic etiology.
HAN
Normal LV size and function with no regional wall motion abnormalities. LVEF is 55 to 60% by visual estimation. Dilated RV with normal systolic function. Moderate mitral regurgitation, likely calcification of mitral leaflets at approximately A2 and
P2/P3 better appreciated on this study, however, cannot
rule out focal endocarditis. S/p TAVR with Medtronic Evolut 29. The valve is well-seated with no significant stenosis. Trivial paravalvular aortic regurgitation. Continued mobile echodensity (view 24 and 27) on aortic side of TAVR valve
measuring 0.3 cm x 0.3 cm differential includes endocarditis vs artifact.
Moderate to severe tricuspid regurgitation. Compared to prior TTE on September 11, 2023, small echodensity/calcifications noted as detailed above.
THORACIC SPINE:
1. No MRI evidence for acute infectious discitis in the thoracic spine.
2. SEVERE POSTERIOR EPIDURAL LIPOMATOSIS in the thoracic spine causing MODERATE to SEVERE CENTRAL CANAL STENOSIS at T3-T5.
3. Moderately exaggerated upper thoracic kyphosis.
4. Mild multilevel disc desiccation in the thoracic spine.
5. SEVERE RIGHT LOWER LOBE PNEUMONIA with an adjacent SMALL RIGHT EMPYEMA.
6. Small left pleural effusion.
LUMBAR SPINE:
1. No MRI evidence for acute infectious discitis in the lumbar spine.
2. Mild multilevel disc desiccation in the lumbar spine.
3. Mild to moderate central canal stenosis at L3/L4 and L4/L5.
4. 2 mm grade 1 anterolisthesis of L4 on L5 secondary to severe left and moderate right facet joint arthrosis.
5. Moderate amount of edema in the posterior inferior paraspinal muscles and throughout the parapelvic muscles.
6. Severe diffuse posterior subcutaneous edema in the lower back.

Toxic metabolic encephalopathy from septic brain emboli - resolved
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
-Neurology evaluated and recommended to resume Eliquis on 09/19 continue on aspirin until that
-CSF showing minimal increase WBC of 14, glucose 131 total protein 255, elevated WBC in CSF from septic emboli to brain.
-On abx for underlying endocarditis treatment. On cefepime and gentamicin.
-Patient to go by psychiatry on [facility]. With patient confusion/mentation issue not an ideal candidate.
MSSA endocarditis
Sepsis
-WBC has been trending down and slight up but relatively stable and afebrile-->today WBC 14.5
-HAN showing TAVR valve vegetation
-Initial blood culture growing MSSA, repeat cultures positive on 09/11,5,6; blood cultures no growth 09/14,8,.
-ID following and help appreciated
-As mentioned above MRI brain showing likely septic emboli.
-MRI C-spine negative. MRI T/L spine report as above
-On IV cefepime and gentamicin
End-stage renal disease on hemodialysis:
Hyponatremia
-Nephrology following and getting periodic HD
-Patient having increased bleeding from AV fistula site. Anticoagulation needs to be held. Patient had pressure bandage on.
Direct bilirubinemia
Acute transaminitis
-Possibly related to sepsis
-GI consult appreciated--> no need for further images per GI.
Fall with trauma/Extensive ecchymosis on face and neck after recent facial trauma:
-CT of facial no fractures
-Dr Coombs discussed with ENT over the phone and they would like to follow-up as outpatient but nothing that they would do as inpatient (Nilay Stoner). They also recommend holding anticoagulation for few days.
-Sutures removed.
Diabetes mellitus type 2 with hyperglycemia:
-Continue insulin sliding scale but increase to moderate resistance
-Continue to monitor and avoid hypoglycemia or excessive hyperglycemia
Permanent atrial fibrillation:
-Neuro cleared to start Eliquis on 09/19 but will wait for tomorrow 09/22 to make sure stable and will discuss with family.
-Off amiodarone
-Cont B-cora
Severe aortic stenosis status post TAVR:
Nonobstructive CAD:
Moderate to severe tricuspid regurgitation:
Dementia: -Continue to monitor mental status and behavior
BART: -On CPAP as outpatient
DVT prophylaxis SCDs
CODE STATUS Full code
09/22 patient will be difficult to be placed in rehab due to behavioral issues. Patient family prefers for patient to be home with home care. Case management working on arrangement.
Anticipated Discharge: 24 - 48 hours
Subjective/Interval History
-
Date of Service: September 23, 2023
confusion better but over the weekend
Continue to require medsitter
Objective Data
-
Labs:
Laboratory Results
09/23/23
07:29
WBC 15.4 H
Hgb 9.8 L
Hct 29.7 L
Plt Count 189
Sodium 134 L
Potassium 3.6
Chloride 92 L
Carbon Dioxide 26
BUN 37 H
Creatinine 5.1 H*
Glucose 132 H
Calcium 8.5
Total Bilirubin 7.2 H
AST 57
ALT 26
Alkaline Phosphatase 938 H
Vital Signs:
Vital Signs
Temp Pulse Resp BP Pulse Ox
97.8 F 77 17 123/56 99
09/23/23 15:30 09/23/23 15:30 09/23/23 15:30 09/23/23 15:30 09/23/23 15:30
I&O
09/22/23 09/23/23 09/24/23
06:59 06:59 06:59
Intake Total 780 / 780 900 / 900
Balance 780 / 780 900 / 900
Review of Systems
-
Respiratory: Reports No Symptoms
Cardiac: Reports No Symptoms
Abdomen/GI: Reports No Symptoms
Physical Exam
-
General: No Apparent Distress
HEENT: Negative Oxygen
Respiratory: Clear to Auscultation
Cardiac: Regular Rhythm and S1/S2; Negative Murmur
GI: Soft, Nontender and Nondistended
Musculoskeletal: No Edema
Neuro: Awake and No Motor Deficits; Negative Oriented
Psych: Calm
[2023-09-23] MEDS: TOPROL XL 25 MG PO (21:09)
[2023-09-23] MEDS: STERILE WATER FOR INJECTION 2.10000000000000009 ML IM (21:11)
[2023-09-23] MEDS: ZYPREXA 5 MG IM (21:11)
[2023-09-23 21:16] LABS: Glucose - Point of Care 183 mg/dl (70-99)
[2023-09-23 23:00] VITALS: BP 117/34
[2023-09-24 06:00] VITALS: BMI 32.4
[2023-09-24 07:30] VITALS: BP 133/91
[2023-09-24 08:14] LABS: Glucose - Point of Care 154 mg/dl (70-99)
--- NOTE | 2023-09-24 08:47 | PHA.KIN.UP ---
Assessment / Plan
- Assessment
Hemodialysis Schedule: MWF
Last Hemodialysis performed: Mon 09/22
WBC's are: Stable
In the past 24 hrs, patient has been: Afebrile
Level Comments: cefazolin
- Plan: Level Appropriate
Continue present regimen of: Gent 80mg MoWeFr after HD
No levels ordered at this time: Recheck trough at minimum of weekly intervals, Repeat sooner for changes in renal function or clinical status
Next Level Due (date): ~09/29 - no further levels necessary unless course extended beyond 09/26
- Follow Up
Pharmacy will continue to follow.
FollowUp Pharmacokinetics Note
- -
Patient Age: 83
Patient Sex: Male
Antibiotic: Gentamicin
Antibiotic Day #: 12
Indication: Endocarditis
Requesting Provider: Dr. Hunt
Pertinent Antimicrobial Allergies:
no pertinent antibiotic allergies
Height / Weight:
Height 5 ft 9 in
Actual Weight 99.535 kg
IBW in k.7
Adjusted BW in k.8
Pertinent Past Medical History: BMI ~32.6, ESRD on HD, recent MSSA bacteremia, DM
- Vital Signs / Lab Results
Temp Pulse Resp BP Pulse Ox
97.6 F 79 17 133/91 96
09/24/23 07:30 09/24/23 07:30 09/24/23 07:30 09/24/23 07:30 09/24/23 07:30
Lab Results - Hematology
09/22/23 09/23/23
08:36 07:29
WBC 14.5 H 15.4 H
Lab Results - Chemistry
09/21/23 09/22/23 09/23/23
07:21 08:36 07:29
BUN 22 H 31 H 37 H
Creatinine 3.1 H 4.2 H* 5.1 H*
Estimated Creat Clear
Albumin 3.3 L
Microbiology Results
09/17/23 07:10 Blood Culture - Final
Blood/Venous No Growth - Final Report
Concomitant Antimicrobials:
Therapeutic Drug Monitoring
Random Gentamicin 1.2 ug/ml 09/23/23 07:29
Random Vancomycin 12.2 ug/ml 09/12/23 03:55
[2023-09-24] MEDS: NOVOLOG FLEXPEN-MODERATE RESISTANCE 1 UNITS SC (09:40)
[2023-09-24] MEDS: RENVELA PO ×3 (09:43→18:51)
--- NOTE | 2023-09-24 10:36 | CM ---
Addendum entered by Chinyere Goodson 09/24/23 11:30:
Spoke with [facility], the facility would not be able to give the Gentamycin and they would be able to start the Cefazolin next week.
[facility] requested clinicals be faxed to facility, H+P, ID and Nephrology.
Reviewed with family, clinicals faxed to [phone].
Medical necessity form presented by family for ambulance transport completed and given back to family, copy on chart.
Await TCB from [facility] if they can accept patient back to HD.
Original Note:
Spoke with Christine from [facility] P# [phone], transferred to [facility].
Per [facility] they are only able to get the Cefazolin (starting next week), not the Gentamycin.
[facility] concerned patient will not be able to pivot to HD chair, and concerned that patient has been on a med-sitter.
[facility] will discuss with their MD if they will be accepting patient back.
Await TCB from [facility].
Cm will continue to follow for d/c plan.
[2023-09-24] MEDS: NAMENDA PO (11:02)
[2023-09-24] MEDS: DESENEX/MITRAZOL/ZEASORB 1 APPLIC TOPICAL ×2 (11:02→21:20)
[2023-09-24] MEDS: HYDROPHOR 1 APPLIC TOPICAL (11:02)
[2023-09-24] MEDS: ROXICODONE PO (11:03)
[2023-09-24] MEDS: VITAMIN B-12 PO (11:03)
[2023-09-24] MEDS: VITAMIN D3 (cholecalciferol) PO (11:04)
[2023-09-24] MEDS: PROCARDIA XL (EXTENDED RELEASE) PO (11:05)
[2023-09-24] MEDS: COLACE PO ×2 (11:05→20:54)
[2023-09-24] MEDS: PROTONIX PO (11:05)
[2023-09-24] MEDS: LOW STRENGTH ASPIRIN PO (12:29)
[2023-09-24] MEDS: TYLENOL PO (12:29)
--- NOTE | 2023-09-24 13:06 | W.PN.ID1 ---
Date of Service
Date of Service: September 24, 2023
Today's Communication
Continue gentamicin and cefazolin.
Assessment / Plan
# Relapsed Staph aureus (MSSA) bacteremia (09/09 -09/13),
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
# [employer] septic emboli
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
# s/p Sepsis
#Leukocytosis continues to trending up slightly
# Change in mental status
# s/p falls with scalp trauma (09/04 on Eliquis) - face/neck ecchymosis
#Chronic back pain
# ESRD on HD via AVF
- 09/12/23 HAN: Continued mobile echodensity on aortic side of TAVR valve measuring 0.3 cm x 0.3 cm differential includes endocarditis vs artifact. Patient is not surgical candidate.
- Blood cultures have cleared from 09/15/23
- 09/13/23 MRI brain/C-spine wo contrast: limited by motion artifact: 3 punctate acute/subacute infarct suspicious for embolic CVA
- 09/15/23 MRI T/L spine wo contrast: no discitis/epidural abscess
-Plan:
- Unsure if change of mental status is due to cefepime vs delirium
- s/p 14 of IV abx ( IV vancomycin, then cefepime) that achieved [employer] penetration to cover the MSSA septic emboli to brain, last dose 09/23/23
- Follow mental status off cefepime.
- Continue gentamicin 80mg IV MWF after HD x 14d through 09/27/23.
- On 09/25/23 resume cefazolin 2g IV MoWe, 3g IV Fri after HD through 10/25/23 , followed by lifelong chronic suppression with cephalexin 1000mg po q24h.
Follow weekly CBC with dif, CMP q Saturday.
- Updated Infusion sheets submitted to gearcase assembler to fax to dialysis
-Follow wbc
#Additional Past Medical History:
Dementia
DM
ESRD on HD via LUE AVF
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
pAfib
CHF
chronic back pain
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
Appendectomy
Chief Complaint
-: Bacteremia and Other (Endocarditis)
Subjective / Review of Systems
Family at bedside. Had emesis after breakfast.
Vital Signs / Physical Exam
Vital Signs
Vital Signs
Temp Pulse Resp BP Pulse Ox
97.6 F 79 17 133/91 96
09/24/23 07:30 09/24/23 07:30 09/24/23 07:30 09/24/23 07:30 09/24/23 07:30
Physical Exam
Constitutional: Chronically Ill
Cardiovascular: Regular Rate and S1/S2
Pulmonary: Clear
Gastrointestinal: Soft, Non Tender and Non Distended
Extremities: Negative Edema
Neurological: Other (drowsy)
Objective Data
Lab Data
Lab Results
09/23/23 07:29
09/23/23 07:29
PT 19.0 Sec (11.4-14.6) H 09/12/23 03:55
INR 1.58 09/12/23 03:55
APTT 37.5 Sec (23.4-35.0) H 09/10/23 12:52
Estimated Creat Clear 13 ml/min 09/23/23 07:29
Lactic Acid 1.8 mmol/L (0.7-2.0) 09/11/23 09:05
Total Bilirubin 7.2 mg/dl (0.2-1.3) H 09/23/23 07:29
AST 57 U/L (17-59) 09/23/23 07:29
ALT 26 U/L (0-50) 09/23/23 07:29
Alkaline Phosphatase 938 U/L (38-126) H 09/23/23 07:29
Most recent labs reviewed.
Micro Results:
09/17/23 07:10 Blood Culture - Final
Blood/Venous No Growth - Final Report
09/16/23 09:10 Blood Culture - Final
Blood/Venous No Growth - Final Report
09/14/23 04:12 Blood Culture - Final
Blood/Venous S aureus-Methicillin Sensitive
Gram Stain - Final
09/15/23 06:07 Blood Culture - Final
Blood/Venous No Growth - Final Report
09/13/23 04:51 Blood Culture - Final
Blood/Venous S aureus-Methicillin Sensitive
Gram Stain - Final
09/12/23 03:55 Blood Culture - Final
Blood/Venous S aureus-Methicillin Sensitive
Gram Stain - Final
09/13/23 23:32 Urine Culture - Final
Urine NO GROWTH
09/10/23 16:20 CSF Culture - Final
Csf NO GROWTH-FINAL REPORT
Gram Stain - Final
09/10/23 14:42 Blood Culture - Final
Blood/Venous S aureus-Methicillin Sensitive
Gram Stain - Final
09/10/23 14:42 Blood Culture - Final
Blood/Venous S aureus-Methicillin Sensitive
Gram Stain - Final
09/11/23 04:14 MRSA Screen - Final
Nose No Methicillin Resistant Staphylococcus aureus isolated.
09/10/23 16:20 Meningitis/Encephalitis Panel (PCR) - Final
Csf
09/10/23 17:29 Influenza Types A & B (ELIANA) - Final
Nasal Swab Negative for Influenza A & B, NAAT
Negative results must be combined with clinical observations
and patient history.
Nucleic Acid Amplification test (NAAT)performed on the
[employer] platform.
09/10/23 CT c/a/p: No acute posttraumatic abnormality in the chest, abdomen, or pelvis within the limitations of motion artifact. Small chronic loculated right pleural effusion with pleural thickening. Mild abdominal ascites.
09/10/[address]: No acute intracranial abnormality within the limitations of motion artifact. Left frontal scalp hematoma. No CT evidence for an acute facial bone fracture.
09/13/23 Brain MRI wo contrast: Approximately three tiny foci of nonhemorrhagic acute/subacute infarcts, one in the right thalamus and two in the right occipital lobe. Findings may reflect embolic etiology.
09/13/23 MRI C spine wo contrast: No suspicious epidural collections. Mild multilevel degenerative changes of the cervical spine as detailed.
[2023-09-24] MEDS: ZOFRAN ODT (ORALLY DISINTEGRATING) 4 MG PO (13:14)
[2023-09-24 13:29] LABS: Glucose - Point of Care 229 mg/dl (70-99)
--- NOTE | 2023-09-24 13:30 | PTCARENOTE ---
1230 Pt ate 60 % of breakfast, noted pt became nausea and vomited moderate amount of food like secretions. Pt's and family at bedside.
DR. Feng notified and ordered Zofran 4 mg po prn. Prior to giving zofran, DR. Feng ordered EKG to check QT interval. DR Feng aware of EKG results and able to give Zofran as ordered. Pt unable to eat lunch, no further vomiting noted, continue to
monitor pt closely.
[2023-09-24] MEDS: NOVOLOG FLEXPEN-MODERATE RESISTANCE 3 UNITS SC (13:38)
--- NOTE | 2023-09-24 14:42 | W.PN.HOSP.TC ---
Today's Communication/Plan
-
See note
Ongoing discharge planning
Assessment / Plan
Assessment / Plan
MRI brain
Approximately three tiny foci of nonhemorrhagic acute/subacute infarcts, one in the right thalamus and two in the right occipital lobe. Findings may reflect embolic etiology.
HAN
Normal LV size and function with no regional wall motion abnormalities. LVEF is 55 to 60% by visual estimation. Dilated RV with normal systolic function. Moderate mitral regurgitation, likely calcification of mitral leaflets at approximately A2 and
P2/P3 better appreciated on this study, however, cannot
rule out focal endocarditis. S/p TAVR with Medtronic Evolut 29. The valve is well-seated with no significant stenosis. Trivial paravalvular aortic regurgitation. Continued mobile echodensity (view 24 and 27) on aortic side of TAVR valve
measuring 0.3 cm x 0.3 cm differential includes endocarditis vs artifact.
Moderate to severe tricuspid regurgitation. Compared to prior TTE on September 11, 2023, small echodensity/calcifications noted as detailed above.
THORACIC SPINE:
1. No MRI evidence for acute infectious discitis in the thoracic spine.
2. SEVERE POSTERIOR EPIDURAL LIPOMATOSIS in the thoracic spine causing MODERATE to SEVERE CENTRAL CANAL STENOSIS at T3-T5.
3. Moderately exaggerated upper thoracic kyphosis.
4. Mild multilevel disc desiccation in the thoracic spine.
5. SEVERE RIGHT LOWER LOBE PNEUMONIA with an adjacent SMALL RIGHT EMPYEMA.
6. Small left pleural effusion.
LUMBAR SPINE:
1. No MRI evidence for acute infectious discitis in the lumbar spine.
2. Mild multilevel disc desiccation in the lumbar spine.
3. Mild to moderate central canal stenosis at L3/L4 and L4/L5.
4. 2 mm grade 1 anterolisthesis of L4 on L5 secondary to severe left and moderate right facet joint arthrosis.
5. Moderate amount of edema in the posterior inferior paraspinal muscles and throughout the parapelvic muscles.
6. Severe diffuse posterior subcutaneous edema in the lower back.

Toxic metabolic encephalopathy from septic brain emboli - resolved
Suspecting underlying mild cognitive impairment
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
-Neurology evaluated and recommended to resume Eliquis on 09/19 continue on aspirin until that
-CSF showing minimal increase WBC of 14, glucose 131 total protein 255, elevated WBC in CSF from septic emboli to brain.
-On abx for underlying endocarditis treatment. On cefepime and gentamicin.
-Patient to go by psychiatry on [facility] request. With patient confusion/mentation issue not an ideal candidate.
-Increasing nighttime Zyprexa to 7.5 mg oral;
MSSA endocarditis
Sepsis
-WBC has been trending down and slight up but relatively stable and afebrile-->today WBC 14.5
-HAN showing TAVR valve vegetation
-Initial blood culture growing MSSA, repeat cultures positive on 09/11,5,6; blood cultures no growth 09/14,8,9.
-ID following and help appreciated
-As mentioned above MRI brain showing likely septic emboli.
-MRI C-spine negative. MRI T/L spine report as above
-On IV cefepime and gentamicin
End-stage renal disease on hemodialysis:
Hyponatremia
-Nephrology following and getting periodic HD
-Patient having increased bleeding from AV fistula site. Anticoagulation needs to be held. Patient had pressure bandage on.
Direct bilirubinemia
Acute transaminitis
-Possibly related to sepsis
-GI consult appreciated--> no need for further images per GI.
Fall with trauma/Extensive ecchymosis on face and neck after recent facial trauma:
-CT of facial no fractures
-Dr Coombs discussed with ENT over the phone and they would like to follow-up as outpatient but nothing that they would do as inpatient (Nilay Stoner). They also recommend holding anticoagulation for few days.
-Sutures removed.
Diabetes mellitus type 2 with hyperglycemia:
-Continue insulin sliding scale but increase to moderate resistance
-Continue to monitor and avoid hypoglycemia or excessive hyperglycemia
Permanent atrial fibrillation:
-Neuro cleared to start Eliquis on 09/19 but will wait for tomorrow 09/22 to make sure stable and will discuss with family.
-Off amiodarone
-Cont B-cora
Nausea/vomiting
-No significant QTc prolongation, provide dose of Zofran SL
Severe aortic stenosis status post TAVR:
Nonobstructive CAD:
Moderate to severe tricuspid regurgitation:
Dementia: -Continue to monitor mental status and behavior
BART: -On CPAP as outpatient
DVT prophylaxis SCDs
CODE STATUS Full code
09/22 patient will be difficult to be placed in rehab due to behavioral issues. Patient family prefers for patient to be home with home care. Case management working on arrangement.
Anticipated Discharge: > 48 hours
Subjective/Interval History
-
Date of Service: September 24, 2023
Sitting comfortably in chair
Remains pleasantly confused
Patient family at bedside
Objective Data
-
Vital Signs:
Vital Signs
Temp Pulse Resp BP Pulse Ox
97.6 F 79 17 133/91 96
09/24/23 07:30 09/24/23 07:30 09/24/23 07:30 09/24/23 07:30 09/24/23 07:30
I&O
09/23/23 09/24/23 09/25/23
06:59 06:59 06:59
Intake Total 900 / 900 240 / 240
Balance 900 / 900 240 / 240
Review of Systems
-
Unable to obtain full review of systems at this time due to: Dementia
Physical Exam
-
General: No Apparent Distress
HEENT: Negative Oxygen
Respiratory: Clear to Auscultation
Cardiac: Regular Rhythm and S1/S2; Negative Murmur
GI: Soft, Nontender and Nondistended
Musculoskeletal: No Edema
Neuro: Awake and No Motor Deficits; Negative Oriented
Psych: Calm
[2023-09-24 15:00] VITALS: BP 133/79
--- NOTE | 2023-09-24 15:28 | W.PN.NEPH.PH ---
Today's Communication / Plan
-
Dialysis tomorrow
Assessment/Plan
-
Impression:
End-stage renal disease Saturday dialysis
History of MSSA bacteremia and endocarditis/leukocytosis
Change in mental status likely due to infectious emboli
Status post falls
Hypertension
Anemia
Atrial fibrillation (OAT)
Hyperphosphatemia
History of duodenal ulceration
s/p TAVR 12/13/22 (Aortic Stenosis)
Type 2 diabetes
Secondary hyperparathyroidism
History of diastolic congestive heart failure
Dementia
Left upper extremity AV fistula
Chronic pain: opioid dependence
Hyperphosphatemia
Plan:
HD tomorrow,orders provided
patient very agitated on HD yesterday making it very difficult to facilitate dialysis, if his mental status does not improve outpatient dialysis may not be possible
Bp labile trend
Anemia continues to worsen
Hemodynamically stable
Ancef/Gentamycin per ID re: MSSA bacteremia
-
-
Date of Service: September 24, 2023
CC / HPI / ROS
-
Chief Complaint:
End-stage renal disease
History of Present Illness:
ESRD Saturday
BP stable
cefepime and gentamycin for MSSA
Review of Systems:
MS not baseline remains confused
No fevers overnight
Labs
-
Labs:
WBC 15.4 10^3/uL (4.8-10.8) H 09/23/23 07:29
RBC 3.13 10^6/uL (4.70-6.10) L 09/23/23 07:29
Hgb 9.8 g/dL (13.0-18.0) L 09/23/23 07:
Hct 29.7 % (39.0-52.0) L 09/23/23 07:29
Plt Count 189 10^3/uL (130-400) 09/23/23 07:29
Sodium 134 mmol/L (135-145) L 09/23/23 07:29
Potassium 3.6 mmol/L (3.5-5.1) 09/23/23 07:29
Chloride 92 mmol/L (98-107) L 09/23/23 07:29
Carbon Dioxide 26 mmol/L (22-30) 09/23/23 07:29
BUN 37 mg/dl (9-20) H 09/23/23 07:29
Creatinine 5.1 mg/dL (0.7-1.3) H* 09/23/23 07:29
eGFR 10.51 09/23/23 07:29
Glucose 132 mg/dl (70-99) H 09/23/23 07:29
Calcium 8.5 mg/dl (8.4-10.2) 09/23/23 07:
Albumin 3.3 g/dl (3.5-5.0) L 09/23/23 07:29
Physical Exam
-
Vital Signs:
Vital Signs
Temp Pulse Resp BP Pulse Ox
97.6 F 79 17 133/91 96
09/24/23 07:30 09/24/23 07:30 09/24/23 07:30 09/24/23 07:30 09/24/23 07:30
Cardiovascular:: Regular rate and rhythm
Respiratory:: Bilateral: Coarse
Lung Excursion:: Normal
Abdomen:: Nontender and Soft
Bowel Sounds:: Normal
Extremity Edema:: +1: Bilateral:
[2023-09-24 17:24] LABS: Glucose - Point of Care 100 mg/dl (70-99)
[2023-09-24] MEDS: NOVOLOG FLEXPEN-MODERATE RESISTANCE SC (18:33)
[2023-09-24 20:38] VITALS: BP 129/56
[2023-09-24] MEDS: ZYPREXA 7.5 MG PO (21:19)
[2023-09-24] MEDS: TOPROL XL 25 MG PO (21:19)
[2023-09-24] MEDS: PROCARDIA XL (EXTENDED RELEASE) 30 MG PO (21:19)
[2023-09-24] MEDS: ATIVAN 1 MG PO (21:19)
[2023-09-24] MEDS: TYLENOL 1000 MG PO (21:19)
[2023-09-24] MEDS: PROTONIX 40 MG PO (21:20)
[2023-09-24] MEDS: ROXICODONE 10 MG PO (21:20)
[2023-09-24] MEDS: NAMENDA 5 MG PO (21:20)
[2023-09-24 22:08] LABS: Glucose - Point of Care 141 mg/dl (70-99)
[2023-09-24 22:30] VITALS: BP 113/46
--- NOTE | 2023-09-25 04:46 | DOWNTIME ---
There was a [employer] Client Representative Personal Service Downtime on 09/25/2023 from 0100 to 09/25/2023 at 0439. Downtime documentation of patient's care, including medication administrations, has been reconciled in the electronic record per guidelines. Refer to the
patient's paper chart under the miscellaneous tab to see printed paper medication records and downtime forms.
[2023-09-25 06:00] VITALS: BMI 32.0
[2023-09-25] MEDS: COLACE PO (07:29)
[2023-09-25 07:30] VITALS: BP 126/54
[2023-09-25] MEDS: NAMENDA 5 MG PO ×2 (07:31→20:56)
[2023-09-25] MEDS: LOW STRENGTH ASPIRIN 81 MG PO (07:31)
[2023-09-25] MEDS: TYLENOL 1000 MG PO ×2 (07:31→20:56)
[2023-09-25] MEDS: PROTONIX 40 MG PO ×2 (07:31→20:57)
[2023-09-25] MEDS: ROXICODONE 10 MG PO ×2 (07:31→21:01)
[2023-09-25] MEDS: ATIVAN 1 MG PO (07:36)
[2023-09-25 08:37] LABS: Glucose - Point of Care 112 mg/dl (70-99)
[2023-09-25 08:39] LABS: Hematocrit 28.2 % (39.0-52.0); Hemoglobin 9.2 g/dL (13.0-18.0); Mean Corp Hgb Conc. 32.6 g/dL (33.0-37.0); Mean Corpuscular Hgb 31.1 pg (27.0-31.0); Mean Corpuscular Volume 95.3 fL (80.0-94.0); Mean Platelet Volume 10.1 fL (7.4-10.4); Platelet Count 171 10^3/uL (130-400); Red Blood Cell Count 2.96 10^6/uL (4.70-6.10); Red Cell Dist. Width 18.9 % (11.5-14.5)
[2023-09-25] MEDS: NOVOLOG FLEXPEN-MODERATE RESISTANCE SC ×2 (08:47→11:55)
[2023-09-25] MEDS: RETACRIT 4000 UNITS IV (08:48)
--- NOTE | 2023-09-25 09:18 | PHA.KIN.UP ---
Assessment / Plan
- Assessment
Hemodialysis Schedule: MWF
Last Hemodialysis performed: Mon 09/22
WBC's are: Trending Down
In the past 24 hrs, patient has been: Afebrile
- Plan: Level Appropriate
Continue present regimen of: Gent 80mg MoWeFr after HD
No levels ordered at this time: Recheck trough at minimum of weekly intervals, Repeat sooner for changes in renal function or clinical status
Next Level Due (date): ~09/29 - no further levels necessary unless course extended beyond 09/26
- Follow Up
Pharmacy will continue to follow.
FollowUp Pharmacokinetics Note
- -
Patient Age: 83
Patient Sex: Male
Antibiotic: Gentamicin
Antibiotic Day #: 13
Indication: Endocarditis
Requesting Provider: Dr. Hunt
Pertinent Antimicrobial Allergies:
no pertinent antibiotic allergies
Height / Weight:
Height 5 ft 9 in
Actual Weight 98.146 kg
IBW in k.7
Adjusted BW in k.8
Pertinent Past Medical History: BMI ~32.6, ESRD on HD, recent MSSA bacteremia, DM
- Vital Signs / Lab Results
Temp Pulse Resp BP Pulse Ox
99.5 F 75 18 126/54 96
09/25/23 07:30 09/25/23 07:30 09/25/23 07:30 09/25/23 07:30 09/25/23 07:30
Lab Results - Hematology
09/23/23 09/25/23
07:29 07:50
WBC 15.4 H 14.0 H
Lab Results - Chemistry
09/22/23 09/23/23
08:36 07:29
BUN 31 H 37 H
Creatinine 4.2 H* 5.1 H*
Estimated Creat Clear 15 13
Albumin 3.3 L
Concomitant Antimicrobials: cefepime
Therapeutic Drug Monitoring
Random Gentamicin 1.2 ug/ml 09/23/23 07:29
Random Vancomycin 12.2 ug/ml 09/12/23 03:55
[2023-09-25 09:23] LABS: Albumin 3.1 g/dl (3.5-5.0); Blood Urea Nitrogen 31 mg/dl (9-20); Calcium 8.6 mg/dl (8.4-10.2); Carbon Dioxide 27 mmol/L (22-30); Chloride 94 mmol/L (98-107); Estimated Creatinine Clearance 15 ml/min; Glucose 115 mg/dl (70-99); Phosphorus 5.3 mg/dl (2.5-4.5); Sodium 130 mmol/L (135-145); eGFR 13.26
[2023-09-25] MEDS: ANCEF 10 IV (11:08)
[2023-09-25] MEDS: GENTAMICIN 50 IV (11:37)
[2023-09-25 11:41] LABS: Glucose - Point of Care 95 mg/dl (70-99)
--- NOTE | 2023-09-25 13:19 | W.PN.NEPH.HD ---
Assessment
-
resting comfortably on HD
Progress Note - Hemodialysis
-
Date of Service: September 25, 2023
Duration: 30 minutes and 3 hours
Potassium Bath: 3
Calcium Bath: 2.5
Opti-Dialyzer: 160
Ultrafiltration: Other
Blood Flow: 400
Dialysate Flow: 600
--- NOTE | 2023-09-25 13:36 | W.PN.ID1 ---
Date of Service
Date of Service: September 25, 2023
Today's Communication
Continue cefazolin and gentamicin.
Assessment / Plan
# Relapsed Staph aureus (MSSA) bacteremia (09/09 -09/13),
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
# Brain septic emboli
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
# s/p Sepsis
#Leukocytosis improved today
# Change in mental status
# s/p falls with scalp trauma (09/04 on Eliquis) - face/neck ecchymosis
#Chronic back pain
# ESRD on HD via AVF
- 09/12/23 HAN: Continued mobile echodensity on aortic side of TAVR valve measuring 0.3 cm x 0.3 cm differential includes endocarditis vs artifact. Patient is not surgical candidate.
- Blood cultures have cleared from 09/15/23
- 09/13/23 MRI brain/C-spine wo contrast: limited by motion artifact: 3 punctate acute/subacute infarct suspicious for embolic CVA
- 09/15/23 MRI T/L spine wo contrast: no discitis/epidural abscess
-Plan:
- Unsure if change of mental status is due to cefepime vs delirium
- s/p 14 of IV abx ( IV vancomycin, then cefepime) that achieved PARCEL POST CARRIER penetration to cover the MSSA septic emboli to brain, last dose 09/23/23
- Follow mental status off cefepime.
- Continue gentamicin 80mg IV MWF after HD x 14d through 09/27/23.
- Continue cefazolin 2g IV MoWe, 3g IV Fri after HD through 10/25/23 , followed by lifelong chronic suppression with cephalexin 1000mg po q24h.
Follow weekly CBC with dif, CMP q Saturday.
- Updated Infusion sheets submitted to piano case maker to fax to dialysis
-Follow wbc
#Additional Past Medical History:
Dementia
DM
ESRD on HD via LUE AVF
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
pAfib
CHF
chronic back pain
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
Appendectomy
Chief Complaint
-: Bacteremia and Other (Endocarditis)
Subjective / Review of Systems
Doesn't want to eat his lunch.
Vital Signs / Physical Exam
Vital Signs
Vital Signs
Temp Pulse Resp BP Pulse Ox
99.5 F 75 18 126/54 96
09/25/23 07:30 09/25/23 07:30 09/25/23 07:30 09/25/23 07:30 09/25/23 10:40
Physical Exam
Constitutional: Chronically Ill
Pulmonary: Clear
Gastrointestinal: Soft, Non Tender and Non Distended
Neurological: Other (Drowsy)
Objective Data
Lab Data
Lab Results
09/25/23 07:50
09/25/23 07:50
PT 19.0 Sec (11.4-14.6) H 09/12/23 03:55
INR 1.58 09/12/23 03:55
APTT 37.5 Sec (23.4-35.0) H 09/10/23 12:52
Estimated Creat Clear 15 ml/min 09/25/23 07:50
Lactic Acid 1.8 mmol/L (0.7-2.0) 09/11/23 09:05
Total Bilirubin 7.2 mg/dl (0.2-1.3) H 09/23/23 07:29
AST 57 U/L (17-59) 09/23/23 07:29
ALT 26 U/L (0-50) 09/23/23 07:29
Alkaline Phosphatase 938 U/L (38-126) H 09/23/23 07:29
Most recent labs reviewed.
Micro Results:
09/17/23 07:10 Blood Culture - Final
Blood/Venous No Growth - Final Report
09/16/23 09:10 Blood Culture - Final
Blood/Venous No Growth - Final Report
09/14/23 04:12 Blood Culture - Final
Blood/Venous S aureus-Methicillin Sensitive
Gram Stain - Final
09/15/23 06:07 Blood Culture - Final
Blood/Venous No Growth - Final Report
09/13/23 04:51 Blood Culture - Final
Blood/Venous S aureus-Methicillin Sensitive
Gram Stain - Final
09/12/23 03:55 Blood Culture - Final
Blood/Venous S aureus-Methicillin Sensitive
Gram Stain - Final
09/13/23 23:32 Urine Culture - Final
Urine NO GROWTH
09/10/23 16:20 CSF Culture - Final
Csf NO GROWTH-FINAL REPORT
Gram Stain - Final
09/10/23 14:42 Blood Culture - Final
Blood/Venous S aureus-Methicillin Sensitive
Gram Stain - Final
09/10/23 14:42 Blood Culture - Final
Blood/Venous S aureus-Methicillin Sensitive
Gram Stain - Final
09/11/23 04:14 MRSA Screen - Final
Nose No Methicillin Resistant Staphylococcus aureus isolated.
09/10/23 16:20 Meningitis/Encephalitis Panel (PCR) - Final
Csf
09/10/23 17:29 Influenza Types A & B (ELIANA) - Final
Nasal Swab Negative for Influenza A & B, NAAT
Negative results must be combined with clinical observations
and patient history.
Nucleic Acid Amplification test (NAAT)performed on the
[employer] platform.
09/10/23 CT c/a/p: No acute posttraumatic abnormality in the chest, abdomen, or pelvis within the limitations of motion artifact. Small chronic loculated right pleural effusion with pleural thickening. Mild abdominal ascites.
09/10/[address]: No acute intracranial abnormality within the limitations of motion artifact. Left frontal scalp hematoma. No CT evidence for an acute facial bone fracture.
09/13/23 Brain MRI wo contrast: Approximately three tiny foci of nonhemorrhagic acute/subacute infarcts, one in the right thalamus and two in the right occipital lobe. Findings may reflect embolic etiology.
09/13/23 MRI C spine wo contrast: No suspicious epidural collections. Mild multilevel degenerative changes of the cervical spine as detailed.
[2023-09-25] MEDS: RENVELA 800 MG PO ×2 (14:00→18:32)
[2023-09-25] MEDS: HYDROPHOR 1 APPLIC TOPICAL (14:44)
[2023-09-25] MEDS: DESENEX/MITRAZOL/ZEASORB 1 APPLIC TOPICAL ×2 (14:44→20:56)
[2023-09-25] MEDS: PROCARDIA XL (EXTENDED RELEASE) PO (14:45)
[2023-09-25] MEDS: VITAMIN D3 (cholecalciferol) PO (14:45)
[2023-09-25] MEDS: RENVELA PO (14:45)
[2023-09-25] MEDS: VITAMIN B-12 PO (14:45)
--- NOTE | 2023-09-25 15:03 | W.PN.HOSP.TC ---
Today's Communication/Plan
-
Continue supportive care
Earliest discharge possible on Saturday
Assessment / Plan
Assessment / Plan
MRI brain
Approximately three tiny foci of nonhemorrhagic acute/subacute infarcts, one in the right thalamus and two in the right occipital lobe. Findings may reflect embolic etiology.
HAN
Normal LV size and function with no regional wall motion abnormalities. LVEF is 55 to 60% by visual estimation. Dilated RV with normal systolic function. Moderate mitral regurgitation, likely calcification of mitral leaflets at approximately A2 and
P2/P3 better appreciated on this study, however, cannot
rule out focal endocarditis. S/p TAVR with Med[employer]onic Evolut 29. The valve is well-seated with no significant stenosis. Trivial paravalvular aortic regurgitation. Continued mobile echodensity (view 24 and 27) on aortic side of TAVR valve
measuring 0.3 cm x 0.3 cm differential includes endocarditis vs artifact.
Moderate to severe tricuspid regurgitation. Compared to prior TTE on September 11, 2023, small echodensity/calcifications noted as detailed above.
THORACIC SPINE:
1. No MRI evidence for acute infectious discitis in the thoracic spine.
2. SEVERE POSTERIOR EPIDURAL LIPOMATOSIS in the thoracic spine causing MODERATE to SEVERE CENTRAL CANAL STENOSIS at T3-T5.
3. Moderately exaggerated upper thoracic kyphosis.
4. Mild multilevel disc desiccation in the thoracic spine.
5. SEVERE RIGHT LOWER LOBE PNEUMONIA with an adjacent SMALL RIGHT EMPYEMA.
6. Small left pleural effusion.
LUMBAR SPINE:
1. No MRI evidence for acute infectious discitis in the lumbar spine.
2. Mild multilevel disc desiccation in the lumbar spine.
3. Mild to moderate central canal stenosis at L3/L4 and L4/L5.
4. 2 mm grade 1 anterolisthesis of L4 on L5 secondary to severe left and moderate right facet joint arthrosis.
5. Moderate amount of edema in the posterior inferior paraspinal muscles and throughout the parapelvic muscles.
6. Severe diffuse posterior subcutaneous edema in the lower back.

Toxic metabolic encephalopathy from septic brain emboli - resolved
Suspecting underlying mild cognitive impairment
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
-Neurology evaluated and recommended to resume Eliquis on 09/19 continue on aspirin until that
-CSF showing minimal increase WBC of 14, glucose 131 total protein 255, elevated WBC in CSF from septic emboli to brain.
-On abx for underlying endocarditis treatment. On cefepime and gentamicin.
-Patient to go by psychiatry [facility]. With patient confusion/mentation issue not an ideal candidate.
-Patient had appropriate response to nighttime Zyprexa 7.5 mg oral. Would hold on increasing further at this point.
MSSA endocarditis
Sepsis
-WBC has been trending down and slight up but relatively stable and afebrile-->today WBC 14.5
-HAN showing TAVR valve vegetation
-Initial blood culture growing MSSA, repeat cultures positive on 09/11,5,6; blood cultures no growth 09/14,8,9.
-ID following and help appreciated
-As mentioned above MRI brain showing likely septic emboli.
-MRI C-spine negative. MRI T/L spine report as above
-On IV cefepime and gentamicin
End-stage renal disease on hemodialysis:
Hyponatremia
-Nephrology following and getting periodic HD
-Patient having increased bleeding from AV fistula site. Anticoagulation needs to be held. Patient had pressure bandage on.
Direct bilirubinemia
Acute transaminitis
-Possibly related to sepsis
-GI consult appreciated--> no need for further images per GI.
Fall with trauma/Extensive ecchymosis on face and neck after recent facial trauma:
-CT of facial no fractures
-Dr Coombs discussed with ENT over the phone and they would like to follow-up as outpatient but nothing that they would do as inpatient (Nilay Stoner). They also recommend holding anticoagulation for few days.
-Sutures removed.
Diabetes mellitus type 2 with hyperglycemia:
-Continue insulin sliding scale but increase to moderate resistance
-Continue to monitor and avoid hypoglycemia or excessive hyperglycemia
Permanent atrial fibrillation:
-Neuro cleared to start Eliquis on 09/19 but will wait for tomorrow 09/22 to make sure stable and will discuss with family.
-Off amiodarone
-Cont B-cora
Nausea/vomiting
-No significant QTc prolongation, provide dose of Zofran SL
Severe aortic stenosis status post TAVR:
Nonobstructive CAD:
Moderate to severe tricuspid regurgitation:
Dementia: -Continue to monitor mental status and behavior
BART: -On CPAP as outpatient
DVT prophylaxis SCDs
CODE STATUS Full code
09/22 patient will be difficult to be placed in rehab due to behavioral issues. Patient family prefers for patient to be home with home care. Case management working on arrangement.
Anticipated Discharge: > 48 hours
Subjective/Interval History
-
Date of Service: September 25, 2023
Patient was able to sleep most of the night with Zyprexa
Seen in room and on currently on dialysis, resting comfortably
Objective Data
-
Labs:
Laboratory Results
09/25/23
07:50
WBC 14.0 H
Hgb 9.2 L
Hct 28.2 L
Plt Count 171
Sodium 130 L
Potassium 4.0
Chloride 94 L
Carbon Dioxide 27
BUN 31 H
Creatinine 4.2 H*
Glucose 115 H
Calcium 8.6
Vital Signs:
Vital Signs
Temp Pulse Resp BP Pulse Ox
99.5 F 75 18 126/54 96
09/25/23 07:30 09/25/23 07:30 09/25/23 07:30 09/25/23 07:30 09/25/23 10:40
I&O
09/24/23 09/25/23 09/26/23
06:59 06:59 06:59
Intake Total 240 / 240
Balance 240 / 240
Review of Systems
-
Unable to obtain full review of systems at this time due to: Dementia
Physical Exam
-
General: No Apparent Distress
HEENT: Negative Oxygen
Neuro: Awake and No Motor Deficits; Negative Oriented
Psych: Calm
[2023-09-25 15:05] LABS: Glucose - Point of Care 154 mg/dl (70-99)
[2023-09-25 15:30] VITALS: BP 150/70
--- NOTE | 2023-09-25 16:01 | CM ---
Spoke with Tatum from [facility], patient will be accepted back for HD starting Saturday09/30/23.
Spoke with patients spouse, she is working on transportation and additional information provided for medicare approval.
Plan: Home with family, will require ambulance transport
Home with VN and outpatient HD at [facility].
[2023-09-25] MEDS: NOVOLOG FLEXPEN-MODERATE RESISTANCE 300 UNITS SC (16:11)
[2023-09-25] MEDS: PROCARDIA XL (EXTENDED RELEASE) 30 MG PO (20:56)
[2023-09-25] MEDS: COLACE 200 MG PO (20:56)
[2023-09-25] MEDS: ZYPREXA 7.5 MG PO (21:01)
[2023-09-25] MEDS: TOPROL XL 25 MG PO (21:01)
[2023-09-25 21:19] LABS: Glucose - Point of Care 137 mg/dl (70-99)
[2023-09-25 23:27] VITALS: BP 133/50
[2023-09-26 05:36] VITALS: BMI 31.4
[2023-09-26 07:00] VITALS: BP 154/57
[2023-09-26 07:26] LABS: Glucose - Point of Care 120 mg/dl (70-99)
[2023-09-26] MEDS: NOVOLOG FLEXPEN-MODERATE RESISTANCE SC (08:33)
[2023-09-26] MEDS: TYLENOL 1000 MG PO ×2 (08:35→19:55)
[2023-09-26] MEDS: VITAMIN D3 (cholecalciferol) 50 MCG PO (08:35)
[2023-09-26] MEDS: PROCARDIA XL (EXTENDED RELEASE) 30 MG PO ×2 (08:35→19:55)
[2023-09-26] MEDS: ROXICODONE 10 MG PO ×2 (08:35→19:54)
[2023-09-26] MEDS: COLACE 200 MG PO ×2 (08:35→19:54)
[2023-09-26] MEDS: VITAMIN B-12 1000 MCG PO (08:35)
[2023-09-26] MEDS: NAMENDA 5 MG PO ×2 (08:35→19:55)
[2023-09-26] MEDS: PROTONIX 40 MG PO ×2 (08:36→19:55)
[2023-09-26] MEDS: LOW STRENGTH ASPIRIN 81 MG PO (08:36)
[2023-09-26] MEDS: RENVELA 800 MG PO ×2 (08:36→19:10)
[2023-09-26] MEDS: HYDROPHOR 1 APPLIC TOPICAL (08:38)
[2023-09-26] MEDS: DESENEX/MITRAZOL/ZEASORB 1 APPLIC TOPICAL ×2 (08:38→19:54)
[2023-09-26 11:35] LABS: Glucose - Point of Care 188 mg/dl (70-99)
[2023-09-26] MEDS: NOVOLOG FLEXPEN-MODERATE RESISTANCE 1 UNITS SC ×2 (12:45→19:08)
[2023-09-26] MEDS: RENVELA PO (12:58)
--- NOTE | 2023-09-26 13:14 | PHA.KIN.UP ---
Assessment / Plan
- Assessment
Hemodialysis Schedule: MWF
Last Hemodialysis performed: 09/24
In the past 24 hrs, patient has been: Afebrile
- Plan: Level Appropriate
Continue present regimen of: Gent 80mg MoWeFr after HD
No levels ordered at this time: Recheck trough at minimum of weekly intervals, Repeat sooner for changes in renal function or clinical status
Next Level Due (date): ~09/29 - no further levels necessary unless course extended beyond 09/26
- Follow Up
Pharmacy will continue to follow.
FollowUp Pharmacokinetics Note
- -
Patient Age: 83
Patient Sex: Male
Antibiotic: Gentamicin
Antibiotic Day #: 14
Indication: Endocarditis
Requesting Provider: Dr. Hunt
Pertinent Antimicrobial Allergies:
no pertinent antibiotic allergies
Height / Weight:
Height 5 ft 9 in
Actual Weight 96.303 kg
IBW in k.7
Adjusted BW in k.8
Pertinent Past Medical History: BMI ~32.6, ESRD on HD, recent MSSA bacteremia, DM
- Vital Signs / Lab Results
Temp Pulse Resp BP Pulse Ox
97.9 F 71 17 154/57 97
09/26/23 07:00 09/26/23 07:00 09/26/23 07:00 09/26/23 07:00 09/26/23 07:00
Lab Results - Hematology
09/25/23
07:50
WBC 14.0 H
Lab Results - Chemistry
09/25/23
07:50
BUN 31 H
Creatinine 4.2 H*
Estimated Creat Clear 15
Albumin 3.1 L
Concomitant Antimicrobials: cefazolin
Therapeutic Drug Monitoring
Random Gentamicin 1.2 ug/ml 09/23/23 07:29
Random Vancomycin 12.2 ug/ml 09/12/23 03:55
[2023-09-26 13:55] VITALS: BP 127/55; PULSE 71; O2SAT 98
[2023-09-26 13:58] VITALS: BP 121/55; PULSE 71; O2SAT 98
--- NOTE | 2023-09-26 14:41 | W.PN.NEPH.PH ---
Today's Communication / Plan
-
- HD tomorrow per usual schedule
Assessment/Plan
-
Impression:
End-stage renal disease Saturday dialysis
History of MSSA bacteremia and endocarditis/leukocytosis
Change in mental status likely due to infectious emboli
Status post falls
Hypertension
Anemia
Atrial fibrillation (OAT)
Hyperphosphatemia
History of duodenal ulceration
s/p TAVR 12/13/22 (Aortic Stenosis)
Type 2 diabetes
Secondary hyperparathyroidism
History of diastolic congestive heart failure
Dementia
Left upper extremity AV fistula
Chronic pain: opioid dependence
Hyperphosphatemia
Plan:
HD tomorrow, orders provided
patient very agitated on HD yesterday making it very difficult to facilitate dialysis, if his mental status does not improve outpatient dialysis may not be possible
Bp labile trend
Anemia continues to worsen
Hemodynamically stable
Ancef/Gentamycin per ID re: MSSA bacteremia
-
-
Date of Service: September 26, 2023
CC / HPI / ROS
-
Chief Complaint:
End-stage renal disease
History of Present Illness:
ESRD Saturday
BP stable
cefepime and gentamycin for MSSA
Review of Systems:
MS not baseline remains confused
No fevers overnight
Labs
-
Labs:
WBC 14.0 10^3/uL (4.8-10.8) H 09/25/23 07:50
RBC 2.96 10^6/uL (4.70-6.10) L 09/25/23 07:50
Hgb 9.2 g/dL (13.0-18.0) L 09/25/23 07:50
Hct 28.2 % (39.0-52.0) L 09/25/23 07:50
Plt Count 171 10^3/uL (130-400) 09/25/23 07:50
Sodium 130 mmol/L (135-145) L 09/25/23 07:50
Potassium 4.0 mmol/L (3.5-5.1) 09/25/23 07:50
Chloride 94 mmol/L (98-107) L 09/25/23 07:50
Carbon Dioxide 27 mmol/L (22-30) 09/25/23 07:50
BUN 31 mg/dl (9-20) H 09/25/23 07:50
Creatinine 4.2 mg/dL (0.7-1.3) H* 09/25/23 07:50
eGFR 13.26 09/25/23 07:50
Glucose 115 mg/dl (70-99) H 09/25/23 07:50
Calcium 8.6 mg/dl (8.4-10.2) 09/25/23 07:50
Phosphorus 5.3 mg/dl (2.5-4.5) H 09/25/23 07:50
Albumin 3.1 g/dl (3.5-5.0) L 09/25/23 07:50
Physical Exam
-
Vital Signs:
Vital Signs
Temp Pulse Resp BP Pulse Ox
97.9 F 71 17 154/57 97
09/26/23 07:00 09/26/23 07:00 09/26/23 07:00 09/26/23 07:00 09/26/23 07:00
Cardiovascular:: Regular rate and rhythm
Respiratory:: Bilateral: Coarse
Lung Excursion:: Normal
Abdomen:: Nontender and Soft
Bowel Sounds:: Normal
Extremity Edema:: +2: Bilateral:
Daniels Catheter: No
--- NOTE | 2023-09-26 14:57 | W.PN.ID1 ---
Date of Service
Date of Service: September 26, 2023
Today's Communication
Tomorrow last day of gentamicin.
Continue cefazolin with HD through 10/24.
Assessment / Plan
# Relapsed Staph aureus (MSSA) bacteremia (09/09 -09/13),
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
# Brain septic emboli
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
# s/p Sepsis
#Leukocytosis improved today
# Change in mental status
# s/p falls with scalp trauma (09/04 on Eliquis) - face/neck ecchymosis
#Chronic back pain
# ESRD on HD via AVF
- 09/12/23 HAN: Continued mobile echodensity on aortic side of TAVR valve measuring 0.3 cm x 0.3 cm differential includes endocarditis vs artifact. Patient is not surgical candidate.
- Blood cultures have cleared from 09/15/23
- 09/13/23 MRI brain/C-spine wo contrast: limited by motion artifact: 3 punctate acute/subacute infarct suspicious for embolic CVA
- 09/15/23 MRI T/L spine wo contrast: no discitis/epidural abscess
-Plan:
- s/p 14 of IV abx ( IV vancomycin, then cefepime) that achieved RESEARCHER penetration to cover the MSSA septic emboli to brain, last dose 09/23/23
- Continue gentamicin 80mg IV MWF after HD x 14d through 09/27/23.
- Continue cefazolin 2g IV MoWe, 3g IV Fri after HD through 10/25/23, followed by lifelong chronic suppression with cephalexin 1000mg po q24h.
Follow weekly CBC with dif, CMP q Saturday.
- Updated Infusion sheets submitted to immigration case worker to fax to dialysis
#Additional Past Medical History:
Dementia
DM
ESRD on HD via LUE AVF
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
pAfib
CHF
chronic back pain
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
Appendectomy
Chief Complaint
-: Bacteremia and Other (Endocarditis)
Subjective / Review of Systems
Sitting up in chair. Per family, patient more alert today.
C/o upper abdominal pain. Appetite remains poor.
Vital Signs / Physical Exam
Vital Signs
Vital Signs
Temp Pulse Resp BP Pulse Ox
97.9 F 71 17 154/57 97
09/26/23 07:00 09/26/23 07:00 09/26/23 07:00 09/26/23 07:00 09/26/23 07:00
Physical Exam
Constitutional: No Acute Distress
Cardiovascular: Regular Rate and S1/S2
Pulmonary: Clear
Gastrointestinal: Soft, Tender (mild epigastric ) and Normal Bowel Sounds
Extremities: Negative Edema
Neurological: Awake
Objective Data
Lab Data
Lab Results
09/25/23 07:50
09/25/23 07:50
PT 19.0 Sec (11.4-14.6) H 09/12/23 03:55
INR 1.58 09/12/23 03:55
APTT 37.5 Sec (23.4-35.0) H 09/10/23 12:52
Estimated Creat Clear 15 ml/min 09/25/23 07:50
Lactic Acid 1.8 mmol/L (0.7-2.0) 09/11/23 09:05
Total Bilirubin 7.2 mg/dl (0.2-1.3) H 09/23/23 07:29
AST 57 U/L (17-59) 09/23/23 07:29
ALT 26 U/L (0-50) 09/23/23 07:29
Alkaline Phosphatase 938 U/L (38-126) H 09/23/23 07:29
Most recent labs reviewed.
Micro Results:
09/17/23 07:10 Blood Culture - Final
Blood/Venous No Growth - Final Report
09/16/23 09:10 Blood Culture - Final
Blood/Venous No Growth - Final Report
09/14/23 04:12 Blood Culture - Final
Blood/Venous S aureus-Methicillin Sensitive
Gram Stain - Final
09/15/23 06:07 Blood Culture - Final
Blood/Venous No Growth - Final Report
09/13/23 04:51 Blood Culture - Final
Blood/Venous S aureus-Methicillin Sensitive
Gram Stain - Final
09/12/23 03:55 Blood Culture - Final
Blood/Venous S aureus-Methicillin Sensitive
Gram Stain - Final
09/13/23 23:32 Urine Culture - Final
Urine NO GROWTH
09/10/23 16:20 CSF Culture - Final
Csf NO GROWTH-FINAL REPORT
Gram Stain - Final
09/10/23 14:42 Blood Culture - Final
Blood/Venous S aureus-Methicillin Sensitive
Gram Stain - Final
09/10/23 14:42 Blood Culture - Final
Blood/Venous S aureus-Methicillin Sensitive
Gram Stain - Final
09/11/23 04:14 MRSA Screen - Final
Nose No Methicillin Resistant Staphylococcus aureus isolated.
09/10/23 16:20 Meningitis/Encephalitis Panel (PCR) - Final
Csf
09/10/23 17:29 Influenza Types A & B (ELIANA) - Final
Nasal Swab Negative for Influenza A & B, NAAT
Negative results must be combined with clinical observations
and patient history.
Nucleic Acid Amplification test (NAAT)performed on the
[employer] platform.
09/10/23 CT c/a/p: No acute posttraumatic abnormality in the chest, abdomen, or pelvis within the limitations of motion artifact. Small chronic loculated right pleural effusion with pleural thickening. Mild abdominal ascites.
09/10/[address]: No acute intracranial abnormality within the limitations of motion artifact. Left frontal scalp hematoma. No CT evidence for an acute facial bone fracture.
09/13/23 Brain MRI wo contrast: Approximately three tiny foci of nonhemorrhagic acute/subacute infarcts, one in the right thalamus and two in the right occipital lobe. Findings may reflect embolic etiology.
09/13/23 MRI C spine wo contrast: No suspicious epidural collections. Mild multilevel degenerative changes of the cervical spine as detailed.
Care Review
Plan reviewed with: Physician (Dr. Leroy eFng)
[2023-09-26 15:00] VITALS: BP 107/50
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
--- NOTE | 2023-09-26 15:42 | CM ---
Spoke with family, still arranging ambulance transport for HD with medicare.
Family will private pay until medicare approves.
family good with d/c home over the weekend with HD resuming Saturday at [facility].
Plan: home with [facility], ambulance transport home.
[2023-09-26 18:35] LABS: Glucose - Point of Care 173 mg/dl (70-99)
[2023-09-26] MEDS: ZYPREXA 7.5 MG PO (21:04)
[2023-09-26] MEDS: TOPROL XL 25 MG PO (21:04)
[2023-09-26 21:31] LABS: Glucose - Point of Care 152 mg/dl (70-99)
[2023-09-26 23:50] VITALS: BP 128/105
[2023-09-27 06:00] VITALS: BMI 32.3
[2023-09-27 06:55] LABS: Glucose - Point of Care 128 mg/dl (70-99)
[2023-09-27 07:00] VITALS: BP 124/53
[2023-09-27 07:55] LABS: Hematocrit 29.9 % (39.0-52.0); Hemoglobin 9.7 g/dL (13.0-18.0); Mean Corp Hgb Conc. 32.4 g/dL (33.0-37.0); Mean Corpuscular Hgb 31.2 pg (27.0-31.0); Mean Corpuscular Volume 96.1 fL (80.0-94.0); Mean Platelet Volume 9.4 fL (7.4-10.4); Platelet Count 165 10^3/uL (130-400); Red Blood Cell Count 3.11 10^6/uL (4.70-6.10); Red Cell Dist. Width 18.6 % (11.5-14.5); White Blood Cell Count 11.4 10^3/uL (4.8-10.8)
[2023-09-27 08:42] LABS: Albumin 3.2 g/dl (3.5-5.0); Blood Urea Nitrogen 33 mg/dl (9-20); Calcium 8.7 mg/dl (8.4-10.2); Carbon Dioxide 27 mmol/L (22-30); Chloride 95 mmol/L (98-107); Estimated Creatinine Clearance 15 ml/min; Glucose 115 mg/dl (70-99); Phosphorus 4.8 mg/dl (2.5-4.5); Sodium 132 mmol/L (135-145); eGFR 12.54
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
--- NOTE | 2023-09-27 09:41 | CM ---
Addendum entered by Chinyere Goodson 09/27/23 11:52:
Ambulance transport arranged for 1:30 PM, family updated.
Addendum entered by Chinyere Goodson 09/27/23 10:47:
IMM completed.
Original Note:
TC to [facility] P#[phone]
They are all set up for resumption of HD, Saturday09/30/23, chair time 10:30 am.
Family is setting up transport.
Patient for HD today.
patient will require ambulance transport home.
Medical necessity forms on chart.
Plan: home with outpatient HD and [facility]

[facility]
[2023-09-27] MEDS: NOVOLOG FLEXPEN-MODERATE RESISTANCE SC ×3 (10:15→16:38)
[2023-09-27] MEDS: RENVELA 800 MG PO ×2 (10:16→18:32)
[2023-09-27] MEDS: PROTONIX 40 MG PO ×2 (10:16→20:43)
[2023-09-27] MEDS: LOW STRENGTH ASPIRIN 81 MG PO (10:16)
[2023-09-27] MEDS: PROCARDIA XL (EXTENDED RELEASE) 30 MG PO ×2 (10:16→20:42)
[2023-09-27] MEDS: ROXICODONE 10 MG PO ×2 (10:17→20:42)
[2023-09-27] MEDS: COLACE 200 MG PO ×2 (10:17→20:42)
[2023-09-27] MEDS: NAMENDA 5 MG PO ×2 (10:17→20:43)
[2023-09-27] MEDS: VITAMIN D3 (cholecalciferol) 50 MCG PO (10:17)
[2023-09-27] MEDS: VITAMIN B-12 1000 MCG PO (10:19)
[2023-09-27] MEDS: TYLENOL 1000 MG PO ×2 (10:19→20:43)
[2023-09-27] MEDS: HYDROPHOR 1 APPLIC TOPICAL (10:20)
[2023-09-27] MEDS: DESENEX/MITRAZOL/ZEASORB 1 APPLIC TOPICAL ×2 (10:21→20:44)
[2023-09-27 11:29] LABS: Glucose - Point of Care 186 mg/dl (70-99)
--- NOTE | 2023-09-27 12:19 | VNURNOTE ---
[facility] referral completed in [facility] after review of chart and discussion with CM.
[2023-09-27] MEDS: FLEXBUMIN 25% FOR HEMODIALYSIS 12.5 GRAMS IV ×2 (12:40→14:28)
[2023-09-27] MEDS: MANNITOL 12.5 GRAMS IV ×2 (12:45→14:15)
--- NOTE | 2023-09-27 13:07 | W.PN.NEPH.HD ---
Assessment
-
Paitent seen on HD
currently resting
sbp stable at u/f
Progress Note - Hemodialysis
-
Date of Service: September 27, 2023
Duration: 30 minutes and 3 hours
Potassium Bath: 3
Calcium Bath: 2.5
Opti-Dialyzer: 160
Ultrafiltration: Other (1kg)
Blood Flow: 400
Dialysate Flow: 600
Heparin: none
EPO: 6K
--- NOTE | 2023-09-27 14:01 | W.PN.ID1 ---
Date of Service
Date of Service: September 27, 2023
Today's Communication
Last day of gent
Continue cefazolin with HD.
F/u with Dr. Hunt in 3 weeks.
Assessment / Plan
# Relapsed Staph aureus (MSSA) bacteremia (09/09 -09/13),
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
# Brain septic emboli
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
# s/p Sepsis
#Leukocytosis improved today
# Change in mental status
# s/p falls with scalp trauma (09/04 on Eliquis) - face/neck ecchymosis
#Chronic back pain
# ESRD on HD via AVF
- 09/12/23 HAN: Continued mobile echodensity on aortic side of TAVR valve measuring 0.3 cm x 0.3 cm differential includes endocarditis vs artifact. Patient is not surgical candidate.
- Blood cultures have cleared from 09/15/23
- 09/13/23 MRI brain/C-spine wo contrast: limited by motion artifact: 3 punctate acute/subacute infarct suspicious for embolic CVA
- 09/15/23 MRI T/L spine wo contrast: no discitis/epidural abscess
-Plan:
- s/p 14 of IV abx ( IV vancomycin, then cefepime) that achieved YARD COUPLER penetration to cover the MSSA septic emboli to brain, last dose 09/23/23
- Last day of gentamicin 80mg IV MWF after HD x 14d through 09/27/23.
- Continue cefazolin 2g IV MoWe, 3g IV Fri after HD through 10/25/23, followed by lifelong chronic suppression with cephalexin 1000mg po q24h.
Follow weekly CBC with dif, CMP q Saturday.
-Follow-up with Dr. Hunt in 3 weeks.
#Additional Past Medical History:
Dementia
DM
ESRD on HD via LUE AVF
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
pAfib
CHF
chronic back pain
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
Appendectomy
Chief Complaint
-: Bacteremia and Other (Endocarditis)
Vital Signs / Physical Exam
Vital Signs
Vital Signs
Temp Pulse Resp BP Pulse Ox
97.8 F 76 16 124/53 98
09/27/23 07:00 09/27/23 07:00 09/27/23 07:00 09/27/23 07:00 09/27/23 07:00
Physical Exam
Constitutional: No Acute Distress and Comfortable
Cardiovascular: Regular Rate and S1/S2
Pulmonary: Clear (anterior chest)
Objective Data
Lab Data
Lab Results
09/27/23 07:36
09/27/23 07:36
PT 19.0 Sec (11.4-14.6) H 09/12/23 03:55
INR 1.58 09/12/23 03:55
APTT 37.5 Sec (23.4-35.0) H 09/10/23 12:52
Estimated Creat Clear 15 ml/min 09/27/23 07:36
Lactic Acid 1.8 mmol/L (0.7-2.0) 09/11/23 09:05
Total Bilirubin 7.2 mg/dl (0.2-1.3) H 09/23/23 07:29
AST 57 U/L (17-59) 09/23/23 07:29
ALT 26 U/L (0-50) 09/23/23 07:29
Alkaline Phosphatase 938 U/L (38-126) H 09/23/23 07:29
Most recent labs reviewed.
Micro Results:
09/17/23 07:10 Blood Culture - Final
Blood/Venous No Growth - Final Report
09/16/23 09:10 Blood Culture - Final
Blood/Venous No Growth - Final Report
09/14/23 04:12 Blood Culture - Final
Blood/Venous S aureus-Methicillin Sensitive
Gram Stain - Final
09/15/23 06:07 Blood Culture - Final
Blood/Venous No Growth - Final Report
09/13/23 04:51 Blood Culture - Final
Blood/Venous S aureus-Methicillin Sensitive
Gram Stain - Final
09/12/23 03:55 Blood Culture - Final
Blood/Venous S aureus-Methicillin Sensitive
Gram Stain - Final
09/13/23 23:32 Urine Culture - Final
Urine NO GROWTH
09/10/23 16:20 CSF Culture - Final
Csf NO GROWTH-FINAL REPORT
Gram Stain - Final
09/10/23 14:42 Blood Culture - Final
Blood/Venous S aureus-Methicillin Sensitive
Gram Stain - Final
09/10/23 14:42 Blood Culture - Final
Blood/Venous S aureus-Methicillin Sensitive
Gram Stain - Final
09/11/23 04:14 MRSA Screen - Final
Nose No Methicillin Resistant Staphylococcus aureus isolated.
09/10/23 16:20 Meningitis/Encephalitis Panel (PCR) - Final
Csf
09/10/23 17:29 Influenza Types A & B (ELIANA) - Final
Nasal Swab Negative for Influenza A & B, NAAT
Negative results must be combined with clinical observations
and patient history.
Nucleic Acid Amplification test (NAAT)performed on the
[employer] platform.
09/10/23 CT c/a/p: No acute posttraumatic abnormality in the chest, abdomen, or pelvis within the limitations of motion artifact. Small chronic loculated right pleural effusion with pleural thickening. Mild abdominal ascites.
09/10/[address]: No acute intracranial abnormality within the limitations of motion artifact. Left frontal scalp hematoma. No CT evidence for an acute facial bone fracture.
09/13/23 Brain MRI wo contrast: Approximately three tiny foci of nonhemorrhagic acute/subacute infarcts, one in the right thalamus and two in the right occipital lobe. Findings may reflect embolic etiology.
09/13/23 MRI C spine wo contrast: No suspicious epidural collections. Mild multilevel degenerative changes of the cervical spine as detailed.
[2023-09-27] MEDS: RETACRIT 6000 UNITS IV (14:43)
[2023-09-27 15:34] VITALS: BP 104/49
[2023-09-27] MEDS: ANCEF 15 MG IV (15:34)
[2023-09-27 16:22] LABS: Glucose - Point of Care 121 mg/dl (70-99)
[2023-09-27] MEDS: RENVELA PO (16:38)
[2023-09-27] MEDS: GENTAMICIN IV (18:15)
[2023-09-27] MEDS: ZYPREXA 7.5 MG PO (20:44)
[2023-09-27] MEDS: TOPROL XL 25 MG PO (20:50)
[2023-09-27 21:07] LABS: Glucose - Point of Care 144 mg/dl (70-99)
[2023-09-27 23:00] VITALS: BP 152/71
[2023-09-28] MEDS: ATIVAN PO (03:53)
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
[2023-09-28 06:00] VITALS: BMI 32.7
[2023-09-28 07:00] VITALS: BP 104/55
[2023-09-28] MEDS: NOVOLOG FLEXPEN-MODERATE RESISTANCE SC (09:18)
[2023-09-28] MEDS: COLACE 200 MG PO (09:19)
[2023-09-28] MEDS: PROTONIX 40 MG PO (09:19)
[2023-09-28] MEDS: ROXICODONE 10 MG PO (09:19)
[2023-09-28] MEDS: PROCARDIA XL (EXTENDED RELEASE) 30 MG PO (09:19)
[2023-09-28] MEDS: VITAMIN B-12 1000 MCG PO (09:19)
[2023-09-28] MEDS: RENVELA 800 MG PO ×2 (09:19→12:07)
[2023-09-28] MEDS: VITAMIN D3 (cholecalciferol) 50 MCG PO (09:20)
[2023-09-28] MEDS: LOW STRENGTH ASPIRIN 81 MG PO (09:20)
[2023-09-28] MEDS: NAMENDA 5 MG PO (09:20)
[2023-09-28] MEDS: TYLENOL 1000 MG PO (09:21)
[2023-09-28] MEDS: DESENEX/MITRAZOL/ZEASORB 1 APPLIC TOPICAL (09:21)
[2023-09-28] MEDS: HYDROPHOR 1 APPLIC TOPICAL (09:24)
--- NOTE | 2023-09-28 09:50 | CM ---
CM following re: discharge planning.
Reviewed pt's chart, met with pt.
According to MD pt is medically stable to be discharged today.
CM note from yesterday noted. Pt will be discharged home with VN and outpatient HD treatment at [facility] P#[phone] and a first outpatient HD treatment is scheduled for Saturday09/30/23, chair time 10:30 am. Both pt and his family
are aware and they will transport pt to HD treatment center.
[facility] PM[facility].
Please fax discharge instructions to:
[facility]

COUNT INCLUDES THE [facility]

D/C plan: home with outpatient HD treatment at [facility], VN and family support.
--- NOTE | 2023-09-28 12:07 | W.PN.NEPH.PH ---
Today's Communication / Plan
-
for discharge on IV ANCEF
next HD Saturday
Assessment/Plan
-
Impression:
End-stage renal disease Saturday dialysis
History of MSSA bacteremia and endocarditis/leukocytosis
Change in mental status likely due to infectious emboli
Status post falls
Hypertension
Anemia
Atrial fibrillation (OAT)
Hyperphosphatemia
History of duodenal ulceration
s/p TAVR 12/13/22 (Aortic Stenosis)
Type 2 diabetes
Secondary hyperparathyroidism
History of diastolic congestive heart failure
Dementia
Left upper extremity AV fistula
Chronic pain: opioid dependence
Hyperphosphatemia
Plan:
HD saturday orders provided
patient very agitated on HD yesterday making it very difficult to facilitate dialysis, if his mental status does not improve outpatient dialysis may not be possible
Bp labile trend
Anemia continues to worsen
Hemodynamically stable
Ancef/Gentamycin per ID re: MSSA bacteremia
for discharge today
-
-
Date of Service: September 28, 2023
CC / HPI / ROS
-
Chief Complaint:
End-stage renal disease
History of Present Illness:
ESRD Saturday
BP stable
Cefazolin for MSSA
Review of Systems:
MS not baseline remains confused
No fevers overnight
Labs
-
Labs:
WBC 11.4 10^3/uL (4.8-10.8) H 09/27/23 07:36
RBC 3.11 10^6/uL (4.70-6.10) L 09/27/23 07:36
Hgb 9.7 g/dL (13.0-18.0) L 09/27/23 07:36
Hct 29.9 % (39.0-52.0) L 09/27/23 07:36
Plt Count 165 10^3/uL (130-400) 09/27/23 07:36
Sodium 132 mmol/L (135-145) L 09/27/23 07:36
Potassium 4.0 mmol/L (3.5-5.1) 09/27/23 07:36
Chloride 95 mmol/L (98-107) L 09/27/23 07:36
Carbon Dioxide 27 mmol/L (22-30) 09/27/23 07:36
BUN 33 mg/dl (9-20) H 09/27/23 07:36
Creatinine 4.4 mg/dL (0.7-1.3) H* 09/27/23 07:36
eGFR 12.54 09/27/23 07:36
Glucose 115 mg/dl (70-99) H 09/27/23 07:36
Calcium 8.7 mg/dl (8.4-10.2) 09/27/23 07:36
Phosphorus 4.8 mg/dl (2.5-4.5) H 09/27/23 07:36
Albumin 3.2 g/dl (3.5-5.0) L 09/27/23 07:36
Physical Exam
-
Vital Signs:
Vital Signs
Temp Pulse Resp BP Pulse Ox
97.5 F 84 18 104/55 99
09/28/23 07:00 09/28/23 07:00 09/28/23 07:00 09/28/23 07:00 09/28/23 07:00
Cardiovascular:: Regular rate and rhythm
Respiratory:: Bilateral: Coarse
Lung Excursion:: Normal
Abdomen:: Nontender and Soft
Extremity Edema:: None: Bilateral:
Daniels Catheter: No
[2023-09-28 13:59] LABS: Glucose - Point of Care 275 mg/dl (70-99)
[2023-09-28] MEDS: NOVOLOG FLEXPEN-MODERATE RESISTANCE 5 UNITS SC (14:01)
--- NOTE | 2023-09-28 15:54 | W.PN.HOSP.TC ---
Today's Communication/Plan
-
d/c home with home care
Assessment / Plan
Assessment / Plan
MRI brain
Approximately three tiny foci of nonhemorrhagic acute/subacute infarcts, one in the right thalamus and two in the right occipital lobe. Findings may reflect embolic etiology.
HAN
Normal LV size and function with no regional wall motion abnormalities. LVEF is 55 to 60% by visual estimation. Dilated RV with normal systolic function. Moderate mitral regurgitation, likely calcification of mitral leaflets at approximately A2 and
P2/P3 better appreciated on this study, however, cannot
rule out focal endocarditis. S/p TAVR with Medtronic Evolut 29. The valve is well-seated with no significant stenosis. Trivial paravalvular aortic regurgitation. Continued mobile echodensity (view 24 and 27) on aortic side of TAVR valve
measuring 0.3 cm x 0.3 cm differential includes endocarditis vs artifact.
Moderate to severe tricuspid regurgitation. Compared to prior TTE on September 11, 2023, small echodensity/calcifications noted as detailed above.
THORACIC SPINE:
1. No MRI evidence for acute infectious discitis in the thoracic spine.
2. SEVERE POSTERIOR EPIDURAL LIPOMATOSIS in the thoracic spine causing MODERATE to SEVERE CENTRAL CANAL STENOSIS at T3-T5.
3. Moderately exaggerated upper thoracic kyphosis.
4. Mild multilevel disc desiccation in the thoracic spine.
5. SEVERE RIGHT LOWER LOBE PNEUMONIA with an adjacent SMALL RIGHT EMPYEMA.
6. Small left pleural effusion.
LUMBAR SPINE:
1. No MRI evidence for acute infectious discitis in the lumbar spine.
2. Mild multilevel disc desiccation in the lumbar spine.
3. Mild to moderate central canal stenosis at L3/L4 and L4/L5.
4. 2 mm grade 1 anterolisthesis of L4 on L5 secondary to severe left and moderate right facet joint arthrosis.
5. Moderate amount of edema in the posterior inferior paraspinal muscles and throughout the parapelvic muscles.
6. Severe diffuse posterior subcutaneous edema in the lower back.

Toxic metabolic encephalopathy from septic brain emboli - Improved
Suspecting underlying mild cognitive impairment
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
-Neurology evaluated and recommended to resume Eliquis on 09/19 continue on aspirin until that
-CSF showing minimal increase WBC of 14, glucose 131 total protein 255, elevated WBC in CSF from septic emboli to brain.
-On abx for underlying endocarditis treatment. On cefepime and gentamicin.
-Patient was evaluated [facility] on family request. With patient confusion/mentation issue not an ideal candidate.
-Patient had appropriate response to nighttime Zyprexa 7.5 mg. Would hold on increasing further at this point.
MSSA endocarditis
Sepsis
-WBC has been trending down and slight up but relatively stable and afebrile-->today WBC 14.5
-HAN showing TAVR valve vegetation
-Initial blood culture growing MSSA, repeat cultures positive on 09/11,5,6; blood cultures no growth 09/14,8,9.
-ID following and help appreciated
-As mentioned above MRI brain showing likely septic emboli.
-MRI C-spine negative. MRI T/L spine report as above
-On IV cefepime and gentamicin
End-stage renal disease on hemodialysis:
Hyponatremia
-Nephrology following and getting periodic HD
-Patient having increased bleeding from AV fistula site. Anticoagulation needs to be held.
Direct bilirubinemia
Acute transaminitis
-Possibly related to sepsis
-GI consult appreciated -> no need for further images per GI.
Fall with trauma/Extensive ecchymosis on face and neck after recent facial trauma:
-CT of facial no fractures
-Dr Coombs discussed with ENT over the phone and they would like to follow-up as outpatient but nothing that they would do as inpatient (Nilay Stoner). They also recommend holding anticoagulation for few days.
-Sutures removed.
Diabetes mellitus type 2 with hyperglycemia:
-Continue insulin sliding scale but increase to moderate resistance
-Continue to monitor and avoid hypoglycemia or excessive hyperglycemia
Permanent atrial fibrillation:
-Off amiodarone
-Cont B-cora
-Having excessive bleeding from AV fistula and also scratching and bleeding to multiple superficial skin wounds. will hold eliquis for now.
Nausea/vomiting
-No significant QTc prolongation, provide dose of Zofran SL
Severe aortic stenosis status post TAVR:
Nonobstructive CAD:
Moderate to severe tricuspid regurgitation:
Dementia: -Continue to monitor mental status and behavior
BART: -On CPAP as outpatient
DVT prophylaxis SCDs
CODE STATUS Full code
09/22 patient will be difficult to be placed in rehab due to behavioral issues. Patient family prefers for patient to be home with home care. Case management working on arrangement.
More than 30 minutes spent in discharge including
Final examination of the patient
Summarizing hospital stay
Instructions for continuing care to all relevant caregivers
Preparation of discharge records, prescriptions, and referral forms
Total time spent (in minutes): 45 mins
Anticipated Discharge: Today
Subjective/Interval History
-
Date of Service: September 28, 2023
no new issues overnight
Objective Data
-
Vital Signs:
Vital Signs
Temp Pulse Resp BP Pulse Ox
97.5 F 84 18 104/55 99
09/28/23 07:00 09/28/23 07:00 09/28/23 07:00 09/28/23 07:00 09/28/23 07:00
I&O
09/27/23 09/28/23 09/29/23
06:59 06:59 06:59
Intake Total 780 / 780 720 / 720
Balance
Review of Systems
-
Respiratory: Reports No Symptoms
Cardiac: Reports No Symptoms
Abdomen/GI: Reports No Symptoms
Physical Exam
-
General: No Apparent Distress
HEENT: Negative Oxygen
Cardiac: Regular Rhythm and S1/S2; Negative Murmur
GI: Soft, Nontender and Nondistended
Skin: Other (Multiple skin abrasions/scratch pop)
Neuro: Awake and No Motor Deficits; Negative Oriented
Psych: Calm
--- NOTE | 2023-09-28 18:06 | W.DCSUMMARY ---
Discharge Summary
Discharge Data
Date of Admission: 09/10/23
Date of Discharge: 09/28/23
-
Pending Results: No
Hospital Course
Discharging Physician : Dr Ron Feng
Disposition : To home with home care
Primary care physician : Dr Kelsy Garibay
Principal Discharge diagnosis :
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
Toxic metabolic encephalopathy
Presumed underlying mild cognitive impairment
End-stage renal disease on hemodialysis
Direct bilirubinemia
Acute transaminitis
Mechanical fall with facial trauma
Permanent atrial fibrillation
Electrolyte imbalance
Chronic Discharge diagnosis :
End-stage renal disease hemodialysis
Type 2 diabetes mellitus
Severe aortic stenosis with history of transcatheter aortic valve placement
Nonobstructive coronary artery disease
Obstructive sleep apnea
History of peptic ulcer disease
Secondary hyperparathyroidism
History of diastolic congestive heart failure
Chronic pain and narcotic dependence
Hospital Course :
Patient is an 83-year-old male with above-mentioned past medical history came in for new onset of confusion. Patient had mechanical fall 3 days back and patient had left forehead laceration. Patient was discharged from ER after laceration sutured.
Unfortunately patient started to having new confusion and was sent to ER again for further evaluation.
MSSA endocarditis, sepsis -patient presented for confusion. Patient was found to be septic with history of recently treated staph endocarditis patient was started again on antibiotics. Septic workup was done including a lumbar puncture as patient
was confused at presentation. Lumbar puncture did not show any meningitis with meningitis panel being negative. Blood culture started growing gram-positive organism later identified as MSSA. Infection disease physicians were involved in care for
recurrence of MSSA endocarditis. Transthoracic echocardiogram was negative for any clear valvular vegetation. Follow-up transesophageal echocardiogram was done which showed possible TAVR valve persistent echodensity in line with valvular
vegetation versus artifact. Patient had MRI C/T/L-spine did not show any secondary infection. Patient was maintained on broad-spectrum IV antibiotics. After bacterial culture clearance patient was transition to cefazolin Saturday
after dialysis with last dose on 10/25/2023. Patient will require to be maintained on lifelong chronic suppression with cephalexin after that.
Toxic metabolic encephalopathy -initial lumbar puncture showed minimal increase in WBC of 14. All other parameters being normal. Patient continued to remain agitated for initial part of admission and required to be given
antipsychotics/restraints. In light of endocarditis patient suspected to having encephalopathy from sepsis. Neurology was involved in care as patient symptoms persisted. A follow-up MRI brain was done which showed diffuse embolic CVA in line with
septic emboli from ongoing MSSA endocarditis. Post improvement of bacteremia/sepsis patient continued to remain pleasantly disoriented. Initially patient was planned to be placed in [facility] facility although patient was discharged home
with home health care due to approval issues.
Direct bilirubinemia, acute transaminitis -patient had significant elevated bilirubin at admission as patient was septic there was question of possible gallstone/choledocholithiasis issue. Initial CT abdomen and ultrasound of gallbladder did not
show any acute abnormality. GI was involved in care after evaluation it was felt this to be related to sepsis and bacteremia related. Patient LFTs continue to trend down without any further intervention.
Mechanical fall -patient had mechanical fall 3 days before this admission. Patient has significant ecchymosis involving face and neck and laceration of forehead requiring suturing. CT head/facial bones showed left scalp hematoma without any
facial bone fractures. Anticoagulation was held for few days. Patient sutures were removed later during the hospital course.
ESRD on hemodialysis -patient having excessive bleeding from dialysis fistula site. Eliquis was held for few days as patient planning to follow-up with vascular surgeon in office. This will require to be resumed post follow-up with vascular
surgery.
Patient discharged home with home health care post stabilization.
Important imaging findings :
MRI brain
Approximately three tiny foci of nonhemorrhagic acute/subacute infarcts, one in the right thalamus and two in the right occipital lobe. Findings may reflect embolic etiology.
HAN
Normal LV size and function with no regional wall motion abnormalities. LVEF is 55 to 60% by visual estimation. Dilated RV with normal systolic function. Moderate mitral regurgitation, likely calcification of mitral leaflets at approximately A2 and
P2/P3 better appreciated on this study, however, cannot
rule out focal endocarditis. S/p TAVR with Medtronic Evolut 29. The valve is well-seated with no significant stenosis. Trivial paravalvular aortic regurgitation. Continued mobile echodensity (view 24 and 27) on aortic side of TAVR valve
measuring 0.3 cm x 0.3 cm differential includes endocarditis vs artifact.
Moderate to severe tricuspid regurgitation. Compared to prior TTE on September 11, 2023, small echodensity/calcifications noted as detailed above.
THORACIC SPINE:
1. No MRI evidence for acute infectious discitis in the thoracic spine.
2. SEVERE POSTERIOR EPIDURAL LIPOMATOSIS in the thoracic spine causing MODERATE to SEVERE CENTRAL CANAL STENOSIS at T3-T5.
3. Moderately exaggerated upper thoracic kyphosis.
4. Mild multilevel disc desiccation in the thoracic spine.
5. SEVERE RIGHT LOWER LOBE PNEUMONIA with an adjacent SMALL RIGHT EMPYEMA.
6. Small left pleural effusion.
LUMBAR SPINE:
1. No MRI evidence for acute infectious discitis in the lumbar spine.
2. Mild multilevel disc desiccation in the lumbar spine.
3. Mild to moderate central canal stenosis at L3/L4 and L4/L5.
4. 2 mm grade 1 anterolisthesis of L4 on L5 secondary to severe left and moderate right facet joint arthrosis.
5. Moderate amount of edema in the posterior inferior paraspinal muscles and throughout the parapelvic muscles.
6. Severe diffuse posterior subcutaneous edema in the lower back.
Procedure findings :
None
Discharge Plan
-
Patient Disposition: Home with Home Care
Discharge Diagnosis/Procedures: MSSA endocarditis, CVA from septic emboli, mechanical fall and facial injury, Mild cognitive impairment
Condition: Fair
Diet: Other diet
Additional Diets: Low potassium diet
Activity: With Walker
Driving Restrictions: No driving
Bathing Restrictions: OK to Shower
Other Services: VN and PT
Referrals:
Gaye Michele PA-C [Specified Professional Personl] - 11/08/23 11:30 am
(follow up with MARLNIE Rojas in Dr. Pires' s office
Please call to reschedule if you can not keep this appointment. If your insurance requires a referral please contact your primary care physician prior to your appointment. )
Kelsy Garibay MD [Family Provider] - in one week
Stephanie Hunt MD [Active] - in three to four weeks
Prescriptions:
New
aspirin [Children's Aspirin] 81 mg Tablet,Chewable
81 mg PO DAILY Qty: 30 2RF
nifedipine 30 mg Tablet Extended Release
30 mg PO BID Qty: 60 0RF
olanzapine 7.5 mg Tablet
7.5 mg PO HS Qty: 30 1RF
ondansetron 4 mg Tablet,Disintegrating
4 mg PO Q8HPRN PRN (Reason: nausea/vomiting) Qty: 20 0RF
sevelamer carbonate 800 mg Tablet
800 mg PO MEALS Qty: 90 2RF
oxycodone 10 mg Tablet
10 mg PO BID Qty: 15 0RF
Continued
cyanocobalamin (vitamin B-12) 1,000 MCG tablet
1,000 mcg PO DAILY
ezetimibe 10 MG tablet
10 mg PO DAILY
metoprolol succinate 25 mg Tablet Extended Release 24 Hr
25 mg PO HS
cholecalciferol (vitamin D3) 50 mcg (2,000 unit) Tablet
50 mcg PO DAILY
docusate sodium [Stool Softener] 100 mg Capsule
200 mg PO BID
pantoprazole [Protonix] 40 mg tablet,delayed release (DR/EC)
40 mg PO Q12H Qty: 60 0RF
Aquaphor
1 applic topical DAILY
Aquaphor
1 applic topical DAILYPRN PRN (Reason: apply to B/L chest/arms/legs/shoulders/neck)
acetaminophen [Tylenol Extra Strength] 500 mg Tablet
1,000 mg PO BID
Patient Comments:
09/10/2023, per spouse, pt. takes this med. with their oxycodone.
acetaminophen [Tylenol Extra Strength] 500 mg Tablet
1,000 mg PO DAILYPRN PRN (Reason: mild pain)
Patient Comments:
09/10/2023, per spouse, pt. takes this med. with their oxycodone.
insulin aspart U-100 [Novolog FlexPen U-100 Insulin] 100 unit/mL (3 mL) Insulin Pen
0 sliding scale dose SC DIRECTED
Patient Comments:
09/10/2023, spouse unsure of sliding scale but states that if pt. has a heavy meal and pt.'s BS>110 she gives him around 10 units.
memantine 5 mg Tablet
5 mg PO BID
Auryxia 210 mg iron Tablet
420 mg PO .SEE BELOW
Patient Comments:
09/10/2023, per spouse, pt. takes 2 tablets TID on SuTuThSa (non-dialysis days).
Auryxia 210 mg iron Tablet
420 mg PO .SEE BELOW
Patient Comments:
09/10/2023, per spouse, pt. takes two tablets BID on MoWeFr (dialysis days).
Held
Eliquis 2.5 MG tablet
2.5 mg PO BID
Hold Instructions: Resume on 10/08/23. Resume after discussion with vascular surgeon regarding fistula site bleeding issues
Discontinued
oxycodone 10 MG tablet
10 mg PO BID
Patient Comments:
09/10/2023, per spouse, pt. takes this med. with their tylenol extra strength.
duloxetine 30 mg capsule,delayed release(DR/EC)
30 mg PO DAILY
amiodarone 200 mg Tablet
200 mg PO HS
betamethasone, augmented 0.05 % Cream
1 applic TOPICAL BID PRN (Reason: apply to B/L chest/arms/legs/shoulders/neck)
diphenhydramine HCl [Benadryl] 25 mg Capsule
25 mg PO HS PRN (Reason: sleep)
oxycodone 10 mg Tablet
10 mg PO DAILYPRN PRN (Reason: severe pain)
Patient Comments:
09/10/2023, per spouse, pt. takes this med. with their tylenol extra strength.
melatonin 5 mg Tablet
5 mg PO HS PRN (Reason: sleep)
Discharge Orders:
Discharge Patient (As Directed); Ordered 09/28/23
Ordered By: Ron Feng
Discharge Date and Time
Discharge Date/Time: 09/28/23 14:17
Print Language: THAI
== END 2023-09-28 14:17 | disposition home health service (06) | DRG 871 ==
LOC: 4 WEST ACU 18:47
PROVIDERS: Hospitalist; Internal Medicine; Internal Medicine Cardiovascular Disease; Nurse Practitioner Adult Health; Physician Assistant; Radiology Vascular & Interventional Radiology; Student in an Organized Health Care Education/Training Program; ADMITTING PHYSICIAN Hospitalist; ATTENDING PHYSICIAN Hospitalist; CONSULT PHYSICIAN Internal Medicine Cardiovascular Disease; CONSULT PHYSICIAN Internal Medicine Gastroenterology; CONSULT PHYSICIAN Internal Medicine Infectious Disease; CONSULT PHYSICIAN Physical Medicine & Rehabilitation; CONSULT PHYSICIAN Psychiatry & Neurology Neurology; CONSULT PHYSICIAN Psychiatry & Neurology Psychiatry; EMERGENCY PHYSICIAN Emergency Medicine; FAMILY PHYSICIAN Family Medicine; OTHER PHYSICIAN Specialist
PROC: B01B1ZZ Fluoroscopy of Spinal Cord using Low Osmolar Contrast (ICD-10-PCS; 2023-09-10)
PROC: 009U3ZX Drainage of Spinal Canal, Percutaneous Approach, Diagnostic (ICD-10-PCS; 2023-09-10)
PROC: 5A1D70Z Performance of Urinary Filtration, Intermittent, Less than 6 Hours Per Day (ICD-10-PCS; 2023-09-11)
PROC: B24BZZ4 Ultrasonography of Heart with Aorta, Transesophageal (ICD-10-PCS; 2023-09-12)
DX: A41.01 Sepsis due to Methicillin susceptible Staphylococcus aureus (principal); G92.8 Other toxic encephalopathy; N18.6 End stage renal disease; I63.9 Cerebral infarction, unspecified; I33.0 Acute and subacute infective endocarditis; I50.32 Chronic diastolic (congestive) heart failure; I13.2 Hypertensive heart and chronic kidney disease with heart failure and with stage 5 chronic kidney disease, or end stage renal disease; I48.21 Permanent atrial fibrillation; R17 Unspecified jaundice; D68.8 Other specified coagulation defects; N25.81 Secondary hyperparathyroidism of renal origin; I76 Septic arterial embolism; F11.20 Opioid dependence, uncomplicated; E87.1 Hypo-osmolality and hyponatremia; F02.811 Dementia in other diseases classified elsewhere, unspecified severity, with agitation; F05 Delirium due to known physiological condition; G30.9 Alzheimer's disease, unspecified; S00.83XA Contusion of other part of head, initial encounter; S80.212A Abrasion, left knee, initial encounter; S80.211A Abrasion, right knee, initial encounter; S40.212A Abrasion of left shoulder, initial encounter; D63.8 Anemia in other chronic diseases classified elsewhere; M25.461 Effusion, right knee; E11.65 Type 2 diabetes mellitus with hyperglycemia; E78.00 Pure hypercholesterolemia, unspecified; E11.22 Type 2 diabetes mellitus with diabetic chronic kidney disease; M47.812 Spondylosis without myelopathy or radiculopathy, cervical region; I08.3 Combined rheumatic disorders of mitral, aortic and tricuspid valves; I27.20 Pulmonary hypertension, unspecified; G89.29 Other chronic pain; E11.36 Type 2 diabetes mellitus with diabetic cataract; M54.9 Dorsalgia, unspecified; K21.9 Gastro-esophageal reflux disease without esophagitis; K22.70 Barrett's esophagus without dysplasia; G47.33 Obstructive sleep apnea (adult) (pediatric); R11.2 Nausea with vomiting, unspecified; D50.9 Iron deficiency anemia, unspecified; W18.30XA Fall on same level, unspecified, initial encounter; Z91.81 History of falling; Y93.9 Activity, unspecified; Y92.009 Unspecified place in unspecified non-institutional (private) residence as the place of occurrence of the external cause; Z87.440 Personal history of urinary (tract) infections; Z11.52 Encounter for screening for COVID-19; Z79.01 Long term (current) use of anticoagulants; Z99.2 Dependence on renal dialysis; Z87.891 Personal history of nicotine dependence; Z88.8 Allergy status to other drugs, medicaments and biological substances; Z95.2 Presence of prosthetic heart valve; Z87.19 Personal history of other diseases of the digestive system; Z86.010 Personal history of colon polyps; Z87.11 Personal history of peptic ulcer disease
CPT/HCPCS: 93308; 62328; 70450; 70486; 70551; 71260; 72141; 72146; 72148; 74177; 76705; 80048; 80053; 80069; 80143; 80170; 80202; 81003; 81015; 82077; 82140; 82248; 82945; 82962; 83036; 83605; 84157; 85025; 85027; 85379; 85384; 85610; 85730; 86704; 86706; 86708; 86709; 86803; 86850; 86900; 86901; 87015; 87040; 87070; 87086; 87147; 87149; 87186; 87205; 87340; 87476; 87483; 87502; 87811; 89051; 92610; 93005; 93312; 93320; 93321; 93325; 96374; 96375; 96376; 97116; 97163; 97167; 97530; 97535; 99285; 99406; G0257; J2358; P9047; Q5106; Q9967

== ENCOUNTER → 2023-10-29 08:19 | Outpatient (REF) | payer MEDICARE, OTHER, SELFPAY | LOC: RAD 08:19 | PROVIDERS: ATTENDING PHYSICIAN Specialist; FAMILY PHYSICIAN Family Medicine | DX: R10.9 Unspecified abdominal pain (principal) | CPT/HCPCS: 76700 ==

== ENCOUNTER → 2023-11-22 07:50 | Outpatient (REF) | payer MEDICARE, OTHER, SELFPAY | LOC: MRI 07:50 | PROVIDERS: ATTENDING PHYSICIAN Physician Assistant; FAMILY PHYSICIAN Family Medicine | DX: R79.89 Other specified abnormal findings of blood chemistry (principal) | CPT/HCPCS: 74183; A9575 ==

== ENCOUNTER → 2023-12-05 14:16 | Outpatient (REF) | payer MEDICARE, OTHER, SELFPAY ==
[2023-12-05 15:02] LABS: % Basophils 0.3 % (0-2); % Eosinophils 1.1 % (0-6); % Immature Granulocytes 0.3 % (0-0.5); % Lymphocytes 5.8 % (20.5-51.1); % Monocytes 12.4 % (1.7-9.3); % Neutrophils 80.1 % (42.2-75.2); Absolute Eosinophils 0.1 10^3/uL (0-0.7); Absolute Lymphocytes 0.6 10^3/uL (1.2-3.4); Absolute Monocytes 1.2 10^3/uL (0.1-0.6); Hematocrit 32.7 % (39.0-52.0); Hemoglobin 10.6 g/dL (13.0-18.0); Mean Corp Hgb Conc. 32.4 g/dL (33.0-37.0); Mean Corpuscular Volume 95.6 fL (80.0-94.0); Mean Platelet Volume 9.9 fL (7.4-10.4); Nucleated Red Blood Cells % 0 % (-); Platelet Count 260 10^3/uL (130-400); Red Blood Cell Count 3.42 10^6/uL (4.70-6.10); Red Cell Dist. Width 14.9 % (11.5-14.5)
[2023-12-05 15:34] LABS: ALT (SGPT) 38 U/L (0-50); AST (SGOT) 72 U/L (17-59); Albumin 3.6 g/dl (3.5-5.0); Amylase 59 U/L (30-110); Direct Bilirubin 2.2 mg/dl (0.0-0.4); GGTP 1296 U/L (15-73); Lipase 51 U/L (23-300); Total Bilirubin 2.7 mg/dl (0.2-1.3); Total Protein 6.4 g/dl (6.3-8.2)
[2023-12-05 15:44] LABS: Alkaline Phosphatase 1153 U/L (38-126)
== END ==
LOC: REG 14:16
PROVIDERS: ATTENDING PHYSICIAN Physician Assistant; FAMILY PHYSICIAN Family Medicine
DX: K86.89 Other specified diseases of pancreas (principal); D64.9 Anemia, unspecified; E78.5 Hyperlipidemia, unspecified
CPT/HCPCS: 36415; 80076; 82150; 82977; 83690; 85025; 86015; 86038; 86381

== ENCOUNTER → 2023-12-10 07:28 | Outpatient (REF) | payer MEDICARE, OTHER, SELFPAY ==
[2023-12-10 07:55] VITALS: BP 119/58; BP_SYST 87
[2023-12-10 08:10] LABS: % Basophils 0.4 % (0-2); % Eosinophils 0.2 % (0-6); % Immature Granulocytes 0.4 % (0-0.5); % Lymphocytes 4.1 % (20.5-51.1); % Neutrophils 85.9 % (42.2-75.2); Absolute Lymphocytes 0.4 10^3/uL (1.2-3.4); Absolute Monocytes 0.9 10^3/uL (0.1-0.6); Absolute Neutrophils 8.9 10^3/uL (1.4-6.5); Hematocrit 32.9 % (39.0-52.0); Hemoglobin 10.6 g/dL (13.0-18.0); Mean Corp Hgb Conc. 32.2 g/dL (33.0-37.0); Mean Corpuscular Hgb 31.1 pg (27.0-31.0); Mean Corpuscular Volume 96.5 fL (80.0-94.0); Mean Platelet Volume 9.8 fL (7.4-10.4); Nucleated Red Blood Cells % 0 % (-); Platelet Count 272 10^3/uL (130-400); Red Blood Cell Count 3.41 10^6/uL (4.70-6.10); Red Cell Dist. Width 15.5 % (11.5-14.5); White Blood Cell Count 10.4 10^3/uL (4.8-10.8)
[2023-12-10 08:32] LABS: ALT (SGPT) 42 U/L (0-50); AST (SGOT) 65 U/L (17-59); Albumin 3.8 g/dl (3.5-5.0); Blood Urea Nitrogen 29 mg/dl (9-20); Calcium 9.3 mg/dl (8.4-10.2); Carbon Dioxide 32 mmol/L (22-30); Chloride 92 mmol/L (98-107); GGTP 1280 U/L (15-73); Glucose 187 mg/dl (70-99); Potassium 4.9 mmol/L (3.5-5.1); Sodium 134 mmol/L (135-145); Total Bilirubin 2.8 mg/dl (0.2-1.3); Total Protein 6.6 g/dl (6.3-8.2); eGFR 23.58
[2023-12-10 09:00] VITALS: BP 106/57
[2023-12-10 09:00] LABS: Alkaline Phosphatase 1191 U/L (38-126)
[2023-12-10 10:00] LABS: Body Fluid Albumin 1.7 g/dl
[2023-12-10 11:07] LABS: Body Fluid Mononuclear 88.7 %; Body Fluid Polymorphonuclear 11.3 %; Body Fluid WBC 441 /CUMM
[2023-12-10 11:15] LABS: Body Fluid Second Tech HB
== END ==
LOC: RADI 07:28
PROVIDERS: ATTENDING PHYSICIAN Specialist; FAMILY PHYSICIAN Family Medicine
DX: R18.8 Other ascites (principal)
CPT/HCPCS: 49083; 36415; 80053; 82042; 82977; 85025; 87015; 87070; 87205; 89051

== ENCOUNTER 2023-12-10 09:06 | Outpatient (RCR) | payer MEDICARE, OTHER, SELFPAY ==
[2023-12-10 09:15] VITALS: BP 109/49
[2023-12-10 09:20] VITALS: BP 109/49
[2023-12-10] MEDS: FLEXBUMIN 50 IV (09:20)
[2023-12-10 10:15] VITALS: BP 119/55
== END 2024-01-08 23:59 | disposition home or self-care (01) ==
LOC: OID 09:06
PROVIDERS: ATTENDING PHYSICIAN Specialist; PRIMARYCARE PHYSICIAN Family Medicine
DX: R18.8 Other ascites (principal)
CPT/HCPCS: 36415; 49083; 80053; 82042; 82977; 85025; 87015; 87070; 87205; 89051; 96365; P9047

== ENCOUNTER 2023-12-24 10:28 | Emergency (ER) | payer MEDICARE, OTHER, SELFPAY ==
[2023-12-24 10:36] VITALS: BP 84/59
[2023-12-24 10:58] VITALS: BP 113/56
[2023-12-24 11:00] VITALS: BP 116/62
[2023-12-24 11:23] LABS: % Basophils 0.3 % (0-2); % Eosinophils 0.6 % (0-6); % Immature Granulocytes 0.3 % (0-0.5); % Lymphocytes 6.5 % (20.5-51.1); % Monocytes 12.8 % (1.7-9.3); % Neutrophils 79.5 % (42.2-75.2); Absolute Eosinophils 0.1 10^3/uL (0-0.7); Absolute Lymphocytes 0.6 10^3/uL (1.2-3.4); Absolute Monocytes 1.2 10^3/uL (0.1-0.6); Absolute Neutrophils 7.5 10^3/uL (1.4-6.5); Hematocrit 34.7 % (39.0-52.0); Hemoglobin 11.3 g/dL (13.0-18.0); Mean Corp Hgb Conc. 32.6 g/dL (33.0-37.0); Mean Corpuscular Hgb 30.9 pg (27.0-31.0); Mean Corpuscular Volume 94.8 fL (80.0-94.0); Mean Platelet Volume 9.2 fL (7.4-10.4); Nucleated Red Blood Cells % 0 % (-); Platelet Count 159 10^3/uL (130-400); Red Blood Cell Count 3.66 10^6/uL (4.70-6.10); Red Cell Dist. Width 14.8 % (11.5-14.5); White Blood Cell Count 9.4 10^3/uL (4.8-10.8)
[2023-12-24 11:45] LABS: ALT (SGPT) 18 U/L (0-50); AST (SGOT) 42 U/L (17-59); Albumin 3.6 g/dl (3.5-5.0); Alkaline Phosphatase 772 U/L (38-126); Blood Urea Nitrogen 21 mg/dl (9-20); Calcium 8.9 mg/dl (8.4-10.2); Carbon Dioxide 32 mmol/L (22-30); Chloride 95 mmol/L (98-107); Glucose 164 mg/dl (70-99); Potassium 4.7 mmol/L (3.5-5.1); Sodium 135 mmol/L (135-145); Total Bilirubin 1.8 mg/dl (0.2-1.3); Total Protein 6.2 g/dl (6.3-8.2); eGFR 24.72
[2023-12-24 12:00] VITALS: BP 112/56
[2023-12-24 13:00] VITALS: BP 89/51
--- NOTE | 2024-01-23 07:56 | ED.GENMED ---
History of Present Illness
General
Chief Complaint: Breathing Problem
Source: patient
Time Seen by Provider: 12/24/23 10:46
History of Present Illness
History of Present Illness:
Patient presented to the ER with some increased shortness of breath and fluid in his abdomen. Sent by the primary care physician for further care and evaluation. Some of this is documented from memory. Some from other documentation.
Past History
Past History
ED Past Medical History: Arrthythmia (Atrial fib), CHF, HTN, Hypercholesterolemia, IDDM, Renal failure (Dialysis M-W-F) and Other (Mild dementia, ESRD, Pleural effusion, Diverticulitis, Cellulitis, Iron def anemia)
ED Past Surgical History: Appendectomy
Social History
Tobacco: Former smoker
Alcohol: Occasional
Drug: None
Personal:
Living: with family
Employment: Retired
Family History
Family History: Other (Noncontributory)
Review of Systems
Review of Systems
All Other Systems: Not applicable
Constitutional: Denies fever
Phy Exam
Physical Exam
Physical Exam:
GENERAL: Alert and oriented in no apparent distress
EYE: Orbits normal.
NECK: Supple
CARDIAC: Mildly irregular
LUNGS: Minimal decreased breath sounds in the bases
ABDOMEN: Soft, nontender. No significant fluid wave
NEUROLOGICAL: Alert and oriented , grossly non-focal
SKIN: Warm and dry
PSYCH: Normal and appropriate interaction.
Scores
Heart Failure Risk
Heart Failure Risk Score: Not Applicable
Course
Orders/Labs/Results
Orders:
Orders
12/24/23 11:01
IV Insert/Care/Rem.- Treatment PRN
CXR2 [CR Chest - 2 Views ] Urgent
Comment:
Reason For Exam: Short of breath evaluate for effusion
US Abdomen Limited Urgent
Comment:
Reason For Exam: Evaluate for ascites
12/24/23 11:11
Complete Blood Count/With Diff Urgent
Comprehensive Metabolic Panel Urgent
Abnormal Lab Results
12/24/23
11:11
RBC 3.66 L 10^6/uL
(4.70-6.10)
Hgb 11.3 L g/dL
(13.0-18.0)
Hct 34.7 L %
(39.0-52.0)
MCV 94.8 H fL
(80.0-94.0)
MCHC 32.6 L g/dL
(33.0-37.0)
RDW 14.8 H %
(11.5-14.5)
Absolute Neuts (auto) 7.5 H 10^3/uL
(1.4-6.5)
Absolute Lymphs (auto) 0.6 L 10^3/uL
(1.2-3.4)
Absolute Monos (auto) 1.2 H 10^3/uL
(0.1-0.6)
Neutrophils % 79.5 H %
(42.2-75.2)
Lymphocytes % 6.5 L %
(20.5-51.1)
Monocytes % 12.8 H %
(1.7-9.3)
Chloride 95 L mmol/L
(98-107)
Carbon Dioxide 32 H mmol/L
(22-30)
BUN 21 H mg/dl
(9-20)
Creatinine 2.5 H mg/dL
(0.7-1.3)
Glucose 164 H mg/dl
(70-99)
Total Bilirubin 1.8 H mg/dl
(0.2-1.3)
Alkaline Phosphatase 772 H U/L
(38-126)
Total Protein 6.2 L g/dl
(6.3-8.2)
12/24/23 11:11
12/24/23 11:11
Vital Signs
Initial and Last Documented VS:
Initial Vital Signs
Temp Pulse Resp BP Pulse Ox
98.8 F 99 18 84/59 95
12/24/23 10:36 12/24/23 10:36 12/24/23 10:36 12/24/23 10:36 12/24/23 10:36
Last Documented Vital Signs
Temp Pulse Resp BP Pulse Ox
98.8 F 77 22 89/51 90
12/24/23 10:36 12/24/23 13:00 12/24/23 13:00 12/24/23 13:00 12/24/23 13:00
*Pulse Oximetry
Patient hypoxic: no
*Critical Care Note
Total Time (30-74mins, 75-104mins- exclusive of procedures): Not Applicable
Data Reviewed
Review of Other/Old Records Reveals: Labs, Records, Radiology Studies and Testing
Comment
Comment:
Patient presented with ongoing chronic ascites recurrent nature. No significant pleural effusion requiring drainage. No indication for immediate paracentesis. Stable for discharge to follow-up
ED Attending Note
-
Portions of this chart may have been created with voice recognition software.� Occasional wrong word or��sound alike� substitutions may have occurred due to the inherent limitations of voice recognition software.
Discharge Plan
Departure
Patient Disposition: Home (Routine Discharge)
Date of Disposition: 12/24/23
Time of Disposition: 13:12
Patient with high blood pressure during this ER visit?: No
Discharge Problem:
Ongoing dyspnea/intermittent hypoxia, Small bilateral pleural effusions, Moderate ascites, Chronic renal failure
Instructions: Fluid in the Belly (Ascites) (DC), Shortness of Breath, Adult ED
Prescriptions:
No Action
cyanocobalamin (vitamin B-12) 1,000 MCG tablet
1,000 mcg PO DAILY
ezetimibe 10 MG tablet
10 mg PO DAILY
metoprolol succinate 25 mg Tablet Extended Release 24 Hr
25 mg PO HS
Eliquis 2.5 MG tablet
2.5 mg PO BID
cholecalciferol (vitamin D3) 50 mcg (2,000 unit) Tablet
50 mcg PO DAILY
docusate sodium [Stool Softener] 100 mg Capsule
200 mg PO BID
pantoprazole [Protonix] 40 mg tablet,delayed release (DR/EC)
40 mg PO Q12H Qty: 60 0RF
acetaminophen [Tylenol Extra Strength] 500 mg Tablet
1,000 mg PO BID
Patient Comments:
09/10/2023, per spouse, pt. takes this med. with their oxycodone.
insulin aspart U-100 [Novolog FlexPen U-100 Insulin] 100 unit/mL (3 mL) Insulin Pen
0 sliding scale dose SC DIRECTED
Patient Comments:
09/10/2023, spouse unsure of sliding scale but states that if pt. has a heavy meal and pt.'s BS>110 she gives him around 10 units.
memantine 5 mg Tablet
5 mg PO BID
Auryxia 210 mg iron Tablet
420 mg PO UD
Patient Comments:
09/10/2023, per spouse, pt. takes 2 tablets TID on SuTuThSa (non-dialysis days).
nifedipine 30 mg Tablet Extended Release
30 mg PO BID Qty: 60 0RF
ondansetron 4 mg Tablet,Disintegrating
4 mg PO Q8HPRN PRN (Reason: nausea/vomiting) Qty: 20 0RF
oxycodone 10 mg Tablet
10 mg PO BID Qty: 15 0RF
Referrals:
Kelsy Garibay MD [Family Provider] - Follow up in 2-3 days
Interventions
Interventions:
*Risk Screen - Suicide Last Done: 12/24/23 10:36
*General Assessment Last Done: 12/24/23 10:36
*Neglect/Abuse Screening Last Done: 12/24/23 10:36
ED- Fall Risk Assessment Last Done: 12/24/23 10:50
*ED COVID-19 Vaccine History Last Done: 12/24/23 10:53
*Nursing Disposition Last Done: 12/24/23 13:25
ED- Cardiac Assessment Last Done: 12/24/23 10:51
ED- Pulmonary Assessment Last Done: 12/24/23 10:52
Discharge Date and Time
Discharge Date/Time: 12/24/23 13:26
Print Language: BRITISH
== END 2023-12-24 13:26 | disposition home or self-care (01) ==
LOC: EMR 10:28
PROVIDERS: EMERGENCY PHYSICIAN Emergency Medicine; FAMILY PHYSICIAN Family Medicine
DX: R06.00 Dyspnea, unspecified (principal); R09.02 Hypoxemia; J90 Pleural effusion, not elsewhere classified; R18.8 Other ascites; I13.2 Hypertensive heart and chronic kidney disease with heart failure and with stage 5 chronic kidney disease, or end stage renal disease; E11.22 Type 2 diabetes mellitus with diabetic chronic kidney disease; I50.9 Heart failure, unspecified; N18.6 End stage renal disease; E78.00 Pure hypercholesterolemia, unspecified; F03.A0 Unspecified dementia, mild, without behavioral disturbance, psychotic disturbance, mood disturbance, and anxiety; I48.91 Unspecified atrial fibrillation; Z87.891 Personal history of nicotine dependence; Z90.49 Acquired absence of other specified parts of digestive tract; Z99.2 Dependence on renal dialysis
CPT/HCPCS: 99284; 71046; 76705; 80053; 85025

== ENCOUNTER 2024-01-04 10:53 | Emergency (ER) | payer MEDICARE, OTHER, SELFPAY ==
[2024-01-04 10:57] VITALS: BP 141/64
[2024-01-04 11:00] VITALS: BP 141/64
[2024-01-04 11:09] VITALS: BMI 30.2
[2024-01-04 11:14] LABS: % Basophils 0.6 % (0-2); % Eosinophils 0.5 % (0-6); % Immature Granulocytes 0.2 % (0-0.5); % Lymphocytes 8.2 % (20.5-51.1); % Monocytes 13.1 % (1.7-9.3); % Neutrophils 77.4 % (42.2-75.2); Absolute Basophils 0.1 10^3/uL (0-0.2); Absolute Lymphocytes 0.7 10^3/uL (1.2-3.4); Absolute Monocytes 1.1 10^3/uL (0.1-0.6); Absolute Neutrophils 6.7 10^3/uL (1.4-6.5); Hematocrit 36.2 % (39.0-52.0); Hemoglobin 11.6 g/dL (13.0-18.0); Mean Corpuscular Hgb 30.9 pg (27.0-31.0); Mean Corpuscular Volume 96.3 fL (80.0-94.0); Mean Platelet Volume 9.5 fL (7.4-10.4); Nucleated Red Blood Cells % 0 % (-); Platelet Count 188 10^3/uL (130-400); Red Blood Cell Count 3.76 10^6/uL (4.70-6.10); Red Cell Dist. Width 15.8 % (11.5-14.5); White Blood Cell Count 8.6 10^3/uL (4.8-10.8)
[2024-01-04 11:31] LABS: ALT (SGPT) 22 U/L (0-50); AST (SGOT) 44 U/L (17-59); Albumin 3.6 g/dl (3.5-5.0); Alkaline Phosphatase 971 U/L (38-126); Blood Urea Nitrogen 19 mg/dl (9-20); Carbon Dioxide 35 mmol/L (22-30); Chloride 96 mmol/L (98-107); Estimated Creatinine Clearance 30 ml/min; Glucose 131 mg/dl (70-99); Potassium 4.7 mmol/L (3.5-5.1); Sodium 137 mmol/L (135-145); Total Bilirubin 1.4 mg/dl (0.2-1.3); Total Protein 6.2 g/dl (6.3-8.2); eGFR 30.47
[2024-01-04 11:43] LABS: NT-proBNP > 27000 pg/ml; Troponin I < 0.012 ng/ml
[2024-01-04 12:00] VITALS: BP 137/63
--- NOTE | 2024-01-04 12:33 | ED.GENMED ---
History of Present Illness
General
Chief Complaint: Musculo-Skeletal Complaint
Time Seen by Provider: 01/04/24 12:09
History of Present Illness
History of Present Illness:
83-year-old male with history of paroxysmal atrial fibrillation, COPD, congestive heart failure, hypertension, hyperlipidemia, insulin-dependent diabetes, and end-stage renal disease on dialysis presents to the emergency department for evaluation of
right shoulder pain after a fall last night. He apparently is wheelchair-bound and attempted to get up on his own last night, fall was not witnessed. Patient indicated to his family that he did strike his head. Family also notes that he has been
hard to arouse this morning, due to increased pain was given an additional dose of his scheduled oxycodone this morning at approximately 6 AM. He does have baseline dementia and confusion however according to Daniels has been profoundly confused and
hard to arouse off his baseline this morning.
Past History
Past History
ED Past Medical History: Arrthythmia (Atrial fib), CHF, HTN, Hypercholesterolemia, IDDM, Renal failure (Dialysis M-W-F) and Other (Mild dementia, ESRD, Pleural effusion, Diverticulitis, Cellulitis, Iron def anemia)
ED Past Surgical History: Appendectomy
Social History
Tobacco: Former smoker
Alcohol: Occasional
Drug: None
Personal:
Living: with family
Employment: Retired
Family History
Family History: Other (Noncontributory)
Review of Systems
Review of Systems
Allergies reviewed?: Yes
All Other Systems: ROS reviewed and negative except as documented in HPI and ROS
Phy Exam
Physical Exam
Physical Exam:
GEN: Somnolent, very challenging to arouse, no immediate distress, chronically ill-appearing
Eyes: PERRLA, EOMs intact, no scleral icterus
HENT: NCAT, oral mucosa dry
Lungs: CTAB, no wheezes, rales, rhonchi, normal chest wall excursion
Cardiac: RRR, no M/R/G, no peripheral edema. Radial pulses 2+ bilat
Abdomen: S, NT, ND, NABS, no masses or hepatosplenomegaly
Neuro: Somnolent, arouses to forceful sternal rub briefly before falling back asleep, withdraws to pain x 4 extremity
MSK: No gross deformity or ecchymosis. No significant lower extremity edema
Skin: No rashes, petechiae. Normal color, no pallor or jaundice.
Psych: Calm, cooperative, proper hygiene
Course
Orders/Labs/Results
Orders:
Orders
01/04/24 11:03
Electrocardiogram (*1) Urgent
Reason for Study: Fatigue / Weakness
EKG- Treatment ONCE
01/04/24 11:07
Complete Blood Count/With Diff Urgent
Comprehensive Metabolic Panel Urgent
Pro-BNP [NT-proBNP] Urgent
Troponin I Urgent
01/04/24 12:21
CR Shoulder - Right Min 2 View Urgent
Comment:
Reason For Exam: fall
01/04/24 12:31
CR Chest Single View Urgent
Comment:
Reason For Exam: fall, chest/shoulder pain/SOB
01/04/24 12:32
CT Head W/o Iv Contrast Urgent
Comment:
Reason For Exam: s/p fall, somnolence
01/04/24 13:00
Arterial Blood Gas Urgent
%Oxygen/Room Air: 88
01/04/24 14:53
Morphine Sulfate 2 mg IV NOW STA
Abnormal Lab Results
01/04/24 01/04/24
11:07 13:00
RBC 3.76 L 10^6/uL
(4.70-6.10)
Hgb 11.6 L g/dL
(13.0-18.0)
Hct 36.2 L %
(39.0-52.0)
MCV 96.3 H fL
(80.0-94.0)
MCHC 32.0 L g/dL
(33.0-37.0)
RDW 15.8 H %
(11.5-14.5)
Absolute Neuts (auto) 6.7 H 10^3/uL
(1.4-6.5)
Absolute Lymphs (auto) 0.7 L 10^3/uL
(1.2-3.4)
Absolute Monos (auto) 1.1 H 10^3/uL
(0.1-0.6)
Neutrophils % 77.4 H %
(42.2-75.2)
Lymphocytes % 8.2 L %
(20.5-51.1)
Monocytes % 13.1 H %
(1.7-9.3)
pCO2 60 H mmHg
(35-48)
HCO3 35.5 H mmol/L
(21-28)
ABG O2 Sat (Measured) 98.9 H %
(94-98)
Chloride 96 L mmol/L
(98-107)
Carbon Dioxide 35 H mmol/L
(22-30)
Creatinine 2.1 H mg/dL
(0.7-1.3)
Glucose 131 H mg/dl
(70-99)
Total Bilirubin 1.4 H mg/dl
(0.2-1.3)
Alkaline Phosphatase 971 H U/L
(38-126)
Total Protein 6.2 L g/dl
(6.3-8.2)
01/04/24 11:07
01/04/24 11:07
Vital Signs
Initial and Last Documented VS:
Initial Vital Signs
Temp Pulse Resp BP Pulse Ox
98.6 F 89 18 141/64 100
01/04/24 10:57 01/04/24 10:57 01/04/24 10:57 01/04/24 10:57 01/04/24 10:57
Last Documented Vital Signs
Temp Pulse Resp BP Pulse Ox
98.6 F 78 13 117/58 100
01/04/24 10:57 01/04/24 18:45 01/04/24 18:45 01/04/24 14:00 01/04/24 18:45
MDM/Problems Addressed
MDM/Problems Addressed:
CT of the head unremarkable and x-rays show no evidence for traumatic injuries. I suspect the patient's initial somnolence was due to high dose of oxycodone taken at home prior to coming in. His mental status did gradually improve during the
emergency department stay closer to his baseline. There may also be some degree of fatigue and mental status change secondary to a closed head injury. His labs are reassuring, BNP markedly elevated likely due to his end-stage renal disease.
Family is comfortable taking him home which I feel to be reasonable at this time
Comment
Comment:
Initial EKG independently interpreted by me shows rate controlled atrial fibrillation at a rate of 78
*Critical Care Note
Total Time (30-74mins, 75-104mins- exclusive of procedures): Not Applicable
ED Attending Note
-
Portions of this chart may have been created with voice recognition software.� Occasional wrong word or��sound alike� substitutions may have occurred due to the inherent limitations of voice recognition software.
Discharge Plan
Departure
Patient Disposition: Home (Routine Discharge)
Date of Disposition: 01/04/24
Time of Disposition: 16:19
Patient with high blood pressure during this ER visit?: No
Discharge Problem:
CHI (closed head injury), Injury of right shoulder
Instructions: Head injury in adults
Prescriptions:
No Action
cyanocobalamin (vitamin B-12) 1,000 MCG tablet
1,000 mcg PO DAILY
ezetimibe 10 MG tablet
10 mg PO DAILY
metoprolol succinate 25 mg Tablet Extended Release 24 Hr
25 mg PO HS
Eliquis 2.5 MG tablet
2.5 mg PO BID
cholecalciferol (vitamin D3) 50 mcg (2,000 unit) Tablet
50 mcg PO DAILY
docusate sodium [Stool Softener] 100 mg Capsule
200 mg PO BID
pantoprazole [Protonix] 40 mg tablet,delayed release (DR/EC)
40 mg PO Q12H Qty: 60 0RF
acetaminophen [Tylenol Extra Strength] 500 mg Tablet
1,000 mg PO BID
Patient Comments:
09/10/2023, per spouse, pt. takes this med. with their oxycodone.
insulin aspart U-100 [Novolog FlexPen U-100 Insulin] 100 unit/mL (3 mL) Insulin Pen
0 sliding scale dose SC DIRECTED
Patient Comments:
09/10/2023, spouse unsure of sliding scale but states that if pt. has a heavy meal and pt.'s BS>110 she gives him around 10 units.
memantine 5 mg Tablet
5 mg PO BID
Auryxia 210 mg iron Tablet
420 mg PO UD
Patient Comments:
09/10/2023, per spouse, pt. takes 2 tablets TID on SuTuThSa (non-dialysis days).
nifedipine 30 mg Tablet Extended Release
30 mg PO BID Qty: 60 0RF
ondansetron 4 mg Tablet,Disintegrating
4 mg PO Q8HPRN PRN (Reason: nausea/vomiting) Qty: 20 0RF
oxycodone 10 mg Tablet
10 mg PO BID Qty: 15 0RF
Referrals:
Kelsy Garibay MD [Family Provider] -
Interventions
Interventions:
*Risk Screen - Suicide Last Done: 01/04/24 11:09
*General Assessment Last Done: 01/04/24 10:57
*Neglect/Abuse Screening Last Done: 01/04/24 11:09
ED- Fall Risk Assessment Last Done: 01/04/24 11:09
*ED COVID-19 Vaccine History Last Done: 01/04/24 11:09
ED-Musculoskeletal Assessment Last Done: 01/04/24 11:09
Discharge Date and Time
Print Language: [place]
[2024-01-04 13:09] VITALS: BP 129/70
[2024-01-04 13:22] LABS: B.E. 8.6 mmol/L; HCO3 35.5 mmol/L (21-28); O2 Saturation % 98.9 % (94-98); PCO2 60 mmHg (35-48); PO2 96 mmHg (83-108); pH 7.38 (7.35-7.45)
[2024-01-04 14:00] VITALS: BP 117/58
[2024-01-04] MEDS: MORPHINE SULFATE 2 MG IV (14:57)
== END 2024-01-04 20:00 | disposition home or self-care (01) ==
LOC: EMR 10:53
PROVIDERS: Emergency Medicine; Physician Assistant; EMERGENCY PHYSICIAN Emergency Medicine; FAMILY PHYSICIAN Family Medicine
DX: S09.90XA Unspecified injury of head, initial encounter (principal); S49.91XA Unspecified injury of right shoulder and upper arm, initial encounter; W19.XXXA Unspecified fall, initial encounter; I48.0 Paroxysmal atrial fibrillation; J44.9 Chronic obstructive pulmonary disease, unspecified; I13.2 Hypertensive heart and chronic kidney disease with heart failure and with stage 5 chronic kidney disease, or end stage renal disease; I50.9 Heart failure, unspecified; N18.6 End stage renal disease; E11.22 Type 2 diabetes mellitus with diabetic chronic kidney disease; E78.00 Pure hypercholesterolemia, unspecified; Z87.891 Personal history of nicotine dependence
CPT/HCPCS: 99285; 96374; 70450; 71045; 73030; 80053; 82805; 83880; 84484; 85025; 93005

== ENCOUNTER → 2024-01-09 13:20 | Outpatient (REF) | payer MEDICARE, OTHER, SELFPAY ==
[2024-01-09 16:39] LABS: Hematocrit 35.2 % (39.0-52.0); Hemoglobin 11.3 g/dL (13.0-18.0); Mean Corp Hgb Conc. 32.1 g/dL (33.0-37.0); Mean Corpuscular Hgb 30.8 pg (27.0-31.0); Mean Corpuscular Volume 95.9 fL (80.0-94.0); Mean Platelet Volume 9.6 fL (7.4-10.4); Platelet Count 221 10^3/uL (130-400); Red Blood Cell Count 3.67 10^6/uL (4.70-6.10); White Blood Cell Count 7.4 10^3/uL (4.8-10.8)
[2024-01-09 16:48] LABS: ALT (SGPT) 21 U/L (0-50); AST (SGOT) 43 U/L (17-59); Albumin 3.6 g/dl (3.5-5.0); Blood Urea Nitrogen 23 mg/dl (9-20); Calcium 9.1 mg/dl (8.4-10.2); Carbon Dioxide 32 mmol/L (22-30); Glucose 145 mg/dl (70-99); Potassium 4.5 mmol/L (3.5-5.1); Total Bilirubin 1.2 mg/dl (0.2-1.3); Total Protein 6.1 g/dl (6.3-8.2); eGFR 27.32
[2024-01-09 16:58] LABS: Alkaline Phosphatase 991 U/L (38-126); Chloride 97 mmol/L (98-107); Sodium 137 mmol/L (135-145)
== END ==
LOC: REG 13:20
PROVIDERS: ATTENDING PHYSICIAN Specialist; FAMILY PHYSICIAN Family Medicine
DX: R79.89 Other specified abnormal findings of blood chemistry (principal)
CPT/HCPCS: 36415; 80053; 85027

== ENCOUNTER → 2024-01-14 10:04 | Outpatient (REF) | payer MEDICARE, OTHER, SELFPAY | LOC: RAD 10:04 | PROVIDERS: ATTENDING PHYSICIAN Family Medicine | DX: S40.021A Contusion of right upper arm, initial encounter (principal) | CPT/HCPCS: 73030; 73060 ==

== ENCOUNTER → 2024-01-21 08:23 | Outpatient (REF) | payer MEDICARE, OTHER, SELFPAY | LOC: MRI 08:23 | PROVIDERS: ATTENDING PHYSICIAN Internal Medicine Gastroenterology; FAMILY PHYSICIAN Family Medicine | DX: K86.89 Other specified diseases of pancreas (principal) | CPT/HCPCS: 74183; A9575 ==

== ENCOUNTER → 2024-01-30 08:49 | Outpatient (REF) | payer MEDICARE, OTHER, SELFPAY ==
[2024-01-30 09:08] VITALS: BP 138/70; BP_SYST 77
[2024-01-30 10:21] VITALS: BP 143/71; BP_SYST 78
[2024-01-30 11:03] LABS: Body Fluid Albumin 1.8 g/dl; Body Fluid LDH 104 U/L; Body Fluid Protein 3.6 g/dl
[2024-01-30 11:18] LABS: Body Fluid Mononuclear 89.5 %; Body Fluid Polymorphonuclear 10.5 %; Body Fluid WBC 354 /CUMM
[2024-01-30 11:20] LABS: Body Fluid Second Tech CF
== END ==
LOC: RADI 08:49
PROVIDERS: ATTENDING PHYSICIAN Specialist; FAMILY PHYSICIAN Family Medicine
DX: R18.8 Other ascites (principal)
CPT/HCPCS: 49083; 88305; 82042; 83615; 84157; 87015; 87070; 87205; 88112; 89051

== ENCOUNTER 2024-01-30 10:31 | Outpatient (RCR) | payer MEDICARE, OTHER, SELFPAY ==
[2024-01-30 10:51] VITALS: BP 103/37
[2024-01-30] MEDS: FLEXBUMIN 100 IV (11:26)
[2024-01-30 13:02] VITALS: BP 106/51
== END 2024-02-08 23:59 | disposition home or self-care (01) ==
LOC: OID 10:31
PROVIDERS: ATTENDING PHYSICIAN Specialist; PRIMARYCARE PHYSICIAN Family Medicine
DX: K74.69 Other cirrhosis of liver (principal); R18.8 Other ascites
CPT/HCPCS: 49083; 82042; 83615; 84157; 87015; 87070; 87205; 89051; 96365; 96366; P9047

== ENCOUNTER → 2024-02-25 08:28 | Outpatient (REF) | payer MEDICARE, OTHER, SELFPAY ==
[2024-02-25 09:01] VITALS: BP 116/62; BP_SYST 86
[2024-02-25 09:40] VITALS: BP 112/58
[2024-02-25 10:30] LABS: Body Fluid Mononuclear 92.3 %; Body Fluid Polymorphonuclear 7.7 %; Body Fluid WBC 405 /CUMM
[2024-02-25 11:42] LABS: Body Fluid Second Tech EF
== END ==
LOC: RADI 08:28
PROVIDERS: ATTENDING PHYSICIAN Specialist; FAMILY PHYSICIAN Family Medicine
DX: R18.8 Other ascites (principal)
CPT/HCPCS: 49083; 87015; 87070; 87205; 89051

== ENCOUNTER 2024-02-25 09:58 | Outpatient (RCR) | payer MEDICARE, OTHER, SELFPAY ==
[2024-02-25 10:00] VITALS: BP 107/44
[2024-02-25] MEDS: FLEXBUMIN 50 IV (10:19)
[2024-02-25 10:20] VITALS: BP 107/44
--- NOTE | 2024-02-25 10:51 | PTCARENOTE ---
pt unsure of medications and dosages, no family to verify at present.
[2024-02-25 11:05] VITALS: BP 114/48
== END 2024-03-09 23:59 | disposition home or self-care (01) ==
LOC: OID 09:58
PROVIDERS: ATTENDING PHYSICIAN Specialist; PRIMARYCARE PHYSICIAN Family Medicine
DX: R18.8 Other ascites (principal); R79.89 Other specified abnormal findings of blood chemistry
CPT/HCPCS: 49083; 87015; 87070; 87205; 89051; 96365; P9047

== ENCOUNTER 2024-02-26 09:59 | Emergency (ER) | payer MEDICARE, OTHER, SELFPAY ==
[2024-02-26 10:04] VITALS: BP 143/92
[2024-02-26 10:51] LABS: % Basophils 0.7 % (0-2); % Eosinophils 0.5 % (0-6); % Immature Granulocytes 0.3 % (0-0.5); % Lymphocytes 5.2 % (20.5-51.1); % Monocytes 8.9 % (1.7-9.3); % Neutrophils 84.4 % (42.2-75.2); Absolute Basophils 0.1 10^3/uL (0-0.2); Absolute Lymphocytes 0.5 10^3/uL (1.2-3.4); Absolute Monocytes 0.8 10^3/uL (0.1-0.6); Absolute Neutrophils 7.5 10^3/uL (1.4-6.5); Hematocrit 32.1 % (39.0-52.0); Hemoglobin 10.6 g/dL (13.0-18.0); Mean Corpuscular Volume 93.9 fL (80.0-94.0); Nucleated Red Blood Cells % 0 % (-); Platelet Count 270 10^3/uL (130-400); Red Blood Cell Count 3.42 10^6/uL (4.70-6.10); Red Cell Dist. Width 16.1 % (11.5-14.5); White Blood Cell Count 8.9 10^3/uL (4.8-10.8)
[2024-02-26 11:03] LABS: ALT (SGPT) 46 U/L (0-50); AST (SGOT) 63 U/L (17-59); Albumin 4.1 g/dl (3.5-5.0); Blood Urea Nitrogen 48 mg/dl (9-20); Calcium 9.6 mg/dl (8.4-10.2); Carbon Dioxide 30 mmol/L (22-30); Chloride 94 mmol/L (98-107); Glucose 186 mg/dl (70-99); Lipase 37 U/L (23-300); Potassium 5.1 mmol/L (3.5-5.1); Sodium 140 mmol/L (135-145); Total Bilirubin 1.8 mg/dl (0.2-1.3); Total Protein 6.9 g/dl (6.3-8.2); eGFR 18.97
[2024-02-26 11:11] VITALS: BP 155/75
--- NOTE | 2024-02-26 11:12 | ED.GENMED ---
History of Present Illness
<Iwona Dillard LANGUAGE ARTS TEACHER - Last Filed: 02/26/24 18:37>
General
Chief Complaint: Abdominal Pain
Source: patient
Exam Limitations: none
Time Seen by Provider: 02/26/24 11:10
Nursing documentation reviewed up to this point in time: agreed with
History of Present Illness
History of Present Illness:
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
01/30/24 4000 ml via paracentesis
YESTERDAY had paracentesis
and son at bedside state pt was dry heaving this a.m. and complaining of LLQ abdominal pain 'going through to his back. He does have chronic low back pain and takes Oxycodone 10 mg every 6 hours and family requesting it now as he didn't take it
this a.m.
concerned because his MRI results 'showed all of his internal organs are swollen and I didn't know if this has anything to do with it.'
Pt. Denies fever/chills. Denies CP, SOB, denies abdominal pain at this time.
Past History
<Iwona Dillard LANGUAGE ARTS TEACHER - Last Filed: 02/26/24 18:37>
Past History
ED Past Medical History: Arrthythmia (Atrial fib), CHF, HTN, Hypercholesterolemia, IDDM, Renal failure (Dialysis M-W-F) and Other (Mild dementia, ESRD, Pleural effusion, Diverticulitis, Cellulitis, Iron def anemia)
ED Past Surgical History: Appendectomy
Social History
Tobacco: Former smoker
Alcohol: Occasional
Drug: None
Personal:
Living: with family
Employment: Retired
Family History
Family History: Other (Noncontributory)
Review of Systems
<Iwona Dillard, LANGUAGE ARTS TEACHER - Last Filed: 02/26/24 18:37>
Review of Systems
Allergies reviewed?: Yes
All Other Systems: ROS reviewed and negative except as documented in HPI and ROS
Constitutional: Reports fatigue; Denies fever or chills
Respiratory: Denies trouble breathing
Cardiac: Denies chest pain
ABD/GI: Reports nausea (Dry heaves this morning) and anorexia; Denies diarrhea
: Reports other (Patient on dialysis, makes little urine)
Musculoskeletal: Reports edema
Skin: Reports itching ('my legs are itchy')
Neurological: Reports weakness (generalized); Denies dizzy or headache
Phy Exam
<Iwona Dillard, LANGUAGE ARTS TEACHER - Last Filed: 02/26/24 18:37>
Physical Exam
Physical Exam:
GENERAL: No acute distress. A&Ox3.
CONSTITUTIONAL: Afebrile.
EYES: clear, conjunctivae normal
ENMT: dry mucus membranes, Pharynx nl
RESPIRATORY: Regular respirations, nonlabored, lungs clear.
CARDIOVASCULAR: Irregular rhythm, normal rate, no murmurs, no rubs.
GI: Soft, nontender, normal BS
MUSCULOSKELETAL: Moves with ease. Well perfused.
SKIN: Warm, dry, pink
PSYCH: Normal mood and affect. Well kept, interactive and appropriate
NEUROLOGIC: Awake, alert and oriented. No focal neurological deficits
Course
<Iwona Dillard, LANGUAGE ARTS TEACHER - Last Filed: 02/26/24 18:37>
Orders/Labs/Results
Orders:
Orders
02/26/24 10:40
Complete Blood Count/With Diff Urgent
Comprehensive Metabolic Panel Urgent
Lipase Urgent
02/26/24 11:30
Oxycodone [Roxicodone] 10 mg PO NOW STA
02/26/24 13:08
CT Abd/pel Without Iv Or Oral Urgent
Comment:
Reason For Exam: L flank pain
02/26/24 13:09
Urinalysis Reflex To Culture Urgent
Date Specimen was Collected: 02/26/24
Time Specimen was Collected: 13:13
US Abdomen Complete/Upper Urgent
Reason For Exam: gall bladder
02/26/24 13:11
Electrocardiogram (*1) Urgent
Reason for Study: Fatigue / Weakness
EKG- Treatment ONCE
02/26/24 14:44
Troponin I Urgent
Abnormal Lab Results
02/26/24
10:40
RBC 3.42 L 10^6/uL
(4.70-6.10)
Hgb 10.6 L g/dL
(13.0-18.0)
Hct 32.1 L %
(39.0-52.0)
RDW 16.1 H %
(11.5-14.5)
Absolute Neuts (auto) 7.5 H 10^3/uL
(1.4-6.5)
Absolute Lymphs (auto) 0.5 L 10^3/uL
(1.2-3.4)
Absolute Monos (auto) 0.8 H 10^3/uL
(0.1-0.6)
Neutrophils % 84.4 H %
(42.2-75.2)
Lymphocytes % 5.2 L %
(20.5-51.1)
Chloride 94 L mmol/L
(98-107)
BUN 48 H mg/dl
(9-20)
Creatinine 3.1 H mg/dL
(0.7-1.3)
Glucose 186 H mg/dl
(70-99)
Total Bilirubin 1.8 H mg/dl
(0.2-1.3)
AST 63 H U/L
(17-59)
Alkaline Phosphatase 1301 H U/L
(38-126)
02/26/24 10:40
02/26/24 10:40
Vital Signs
Initial and Last Documented VS:
Initial Vital Signs
Temp Pulse Resp BP Pulse Ox
97.3 F 92 18 143/92 95
02/26/24 10:04 02/26/24 10:04 02/26/24 10:04 02/26/24 10:04 02/26/24 10:04
Last Documented Vital Signs
Temp Pulse Resp BP Pulse Ox
97.3 F 108 17 160/74 94
02/26/24 10:04 02/26/24 14:44 02/26/24 14:44 02/26/24 14:44 02/26/24 14:44
<Armando Live MD - Last Filed: 02/26/24 13:11>
Orders/Labs/Results
Orders:
Orders
02/26/24 10:40
Complete Blood Count/With Diff Urgent
Comprehensive Metabolic Panel Urgent
Lipase Urgent
02/26/24 11:30
Oxycodone [Roxicodone] 10 mg PO NOW STA
02/26/24 13:08
CT Abd/pel Without Iv Or Oral Urgent
Comment:
Reason For Exam: L flank pain
02/26/24 13:09
Urinalysis Reflex To Culture Urgent
Date Specimen was Collected: 02/26/24
Time Specimen was Collected: 13:13
US Abdomen Complete/Upper Urgent
Reason For Exam: gall bladder
02/26/24 13:11
Electrocardiogram (*1) Urgent
Reason for Study: Fatigue / Weakness
EKG- Treatment ONCE
02/26/24 14:44
Troponin I Urgent
Abnormal Lab Results
02/26/24
10:40
RBC 3.42 L 10^6/uL
(4.70-6.10)
Hgb 10.6 L g/dL
(13.0-18.0)
Hct 32.1 L %
(39.0-52.0)
RDW 16.1 H %
(11.5-14.5)
Absolute Neuts (auto) 7.5 H 10^3/uL
(1.4-6.5)
Absolute Lymphs (auto) 0.5 L 10^3/uL
(1.2-3.4)
Absolute Monos (auto) 0.8 H 10^3/uL
(0.1-0.6)
Neutrophils % 84.4 H %
(42.2-75.2)
Lymphocytes % 5.2 L %
(20.5-51.1)
Chloride 94 L mmol/L
(98-107)
BUN 48 H mg/dl
(9-20)
Creatinine 3.1 H mg/dL
(0.7-1.3)
Glucose 186 H mg/dl
(70-99)
Total Bilirubin 1.8 H mg/dl
(0.2-1.3)
AST 63 H U/L
(17-59)
Alkaline Phosphatase 1301 H U/L
(38-126)
02/26/24 10:40
02/26/24 10:40
Vital Signs
Initial and Last Documented VS:
Initial Vital Signs
Temp Pulse Resp BP Pulse Ox
97.3 F 92 18 143/92 95
02/26/24 10:04 02/26/24 10:04 02/26/24 10:04 02/26/24 10:04 02/26/24 10:04
Last Documented Vital Signs
Temp Pulse Resp BP Pulse Ox
97.3 F 108 17 160/74 94
02/26/24 10:04 02/26/24 14:44 02/26/24 14:44 02/26/24 14:44 02/26/24 14:44
<Iwona Dillard NP - Last Filed: 02/26/24 18:37>
MDM/Problems Addressed
Differential Diagnosis Includes:
ascites, kidney stone, UTI
MDM/Problems Addressed:
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
01/30/24 4000 ml via paracentesis
YESTERDAY had paracentesis
and son at bedside state pt was dry heaving this a.m. and complaining of LLQ abdominal pain 'going through to his back. He does have chronic low back pain and takes Oxycodone 10 mg every 6 hours and family requesting it now as he didn't take it
this a.m.
concerned because his MRI results 'showed all of his internal organs are swollen and I didn't know if this has anything to do with it.'
Pt. Denies fever/chills. Denies CP, SOB, denies abdominal pain at this time.
IMPRESSION:
1. MODERATE volume of ASCITES which has mildly increased since 11/22/2023.
2. MODERATE HEPATIC CIRRHOSIS without evidence for hepatocellular carcinoma.
3. Small peripheral enhancing vascular shunt in the right lobe of the liver.
4. Mild hepatosplenomegaly.
5. Distended gallbladder containing sludge.
6. 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 No MRI evidence for obstructing pancreatic mass. 1.1 cm cyst in the pancreatic tail.
7. Moderate chronic bilateral renal disease.
8. 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
9. Severe calcific atherosclerotic plaque in the abdominal aorta.
10. Small bilateral loculated pleural effusions.
11. Severe right lower lobe and mild left lower lobe subpleural airspace consolidations.
12. Mild hepatomegaly with evidence for previous TAVR.
12:00 p.m.
CBC w no clinically significant abnormality
CMP: results noted, Alk phos trending up but has been almost this high in past.
BUN/creat creeping up, bili creeping up
Case discussed with Dr. Live. Plan: CT abd, US GB, consult nephrology as he missed his dialysis today
Spoke Almaz in IR: states pt had paracentesis yesterday, drained 2550 cc. Result in chart under 'Imaging'
4:[address] abd/pelvis W/O po or IV contrast: radiology report read: IMPRESSION:
Mild left hydronephrosis with questionable intraluminal hyperdensity in the distal left ureter, only seen on axial image 136, representing either a tiny calculus or blood clot.
Trace bilateral pleural effusions with adjacent atelectasis.
Hepatic cirrhosis with small volume of abdominopelvic ascites. Anasarca.
In to re evaluate pt.
He states pain is gone.
Consulted Nephrology Dr. Adams who states 'they are aware of HD at the unit'
[facility] [place] report read:
IMPRESSION:
No cholelithiasis or sonographic evidence of acute cholecystitis.
Coarsened liver echotexture likely due to underlying cirrhosis.
Ascites, better visualized on today's CT.
KIDNEYS: Right kidney measures 9.4 x 4.6 x 4.4 cm. Left kidney measures 8.1 x 4.3 x 4.5 cm. No hydronephrosis or nephrolithiasis.
just got off phone with Dialysis, he is scheduled for tomorrow.
<Iwona Dillard NP - Last Filed: 02/26/24 18:37>
*Critical Care Note
Total Time (30-74mins, 75-104mins- exclusive of procedures): Not Applicable
ED Attending Note
<Iwona Dillard NP - Last Filed: 02/26/24 18:37>
-
Portions of this chart may have been created with voice recognition software.� Occasional wrong word or��sound alike� substitutions may have occurred due to the inherent limitations of voice recognition software.
<Armando Live MD - Last Filed: 02/26/24 13:11>
ED Attending Note
Patient seen and examined by attending physician: Yes
I performed the substantive portion of visit, reviewed & personally made and approve the management plan that is documented in note by myself or PURVI.: Yes
ED Attending Note:
Onset of left lower quadrant lower back pain nausea overnight into this morning. Currently feels better. Just generally weak. No fever or chills. Patient does occasionally make urine. Paracentesis was done yesterday. Ongoing history of
cirrhosis and ascites.
On exam patient is nontoxic in no distress. Old for stated age. Elderly and frail. He is warm and dry. He is in no respiratory distress. Abdomen soft and nontender at this time. Shunt left arm is working well with a good thrill. Some chronic
superficial ecchymosis to his arms.
Impression is mostly resolved abdominal symptoms. Differential would include kidney stone diverticulitis nonspecific pain. Doubt cardiac but will do EKG and troponin. Highly doubt spontaneous bacterial peritonitis. Patient has a totally benign
abdomen at this time. Workup in progress
Discharge Plan
Departure
Patient Disposition: Home (Routine Discharge)
Date of Disposition: 02/26/24
Time of Disposition: 16:37
Patient with high blood pressure during this ER visit?: No
Condition: Fair
Discharge Problem:
Abdominal pain, Low back pain
Instructions: Low Back Pain ED, Abdominal Pain
Prescriptions:
No Action
cyanocobalamin (vitamin B-12) 1,000 MCG tablet
1,000 mcg PO DAILY
ezetimibe 10 MG tablet
10 mg PO DAILY
metoprolol succinate 25 mg Tablet Extended Release 24 Hr
25 mg PO HS
Eliquis 2.5 MG tablet
2.5 mg PO BID
cholecalciferol (vitamin D3) 50 mcg (2,000 unit) Tablet
50 mcg PO DAILY
docusate sodium [Stool Softener] 100 mg Capsule
200 mg PO BID
pantoprazole [Protonix] 40 mg tablet,delayed release (DR/EC)
40 mg PO Q12H Qty: 60 0RF
acetaminophen [Tylenol Extra Strength] 500 mg Tablet
1,000 mg PO BID
Patient Comments:
09/10/2023, per spouse, pt. takes this med. with their oxycodone.
memantine 5 mg Tablet
5 mg PO BID
nifedipine 30 mg Tablet Extended Release
30 mg PO BID Qty: 60 0RF
ondansetron 4 mg Tablet,Disintegrating
4 mg PO Q8HPRN PRN (Reason: nausea/vomiting) Qty: 20 0RF
oxycodone 10 mg Tablet
10 mg PO BID Qty: 15 0RF
cephalexin 500 mg Tablet
1,000 mg PO DAILY
Referrals:
Tony Jesus MD [Active] - Tomorrow
Kelsy Garibay MD [Family Provider] -
Activity Restrictions/Additional Instructions:
As we discussed, call the Dialysis unit tomorrow and ask if you should have dialysis same day.
Your workup here today shows nothing worrisome.
If there was a tiny ureteral stone that you passed, it should give you no further problem.
Interventions
Interventions:
*Risk Screen - Suicide Last Done: 02/26/24 10:04
*General Assessment Last Done: 02/26/24 10:04
*Neglect/Abuse Screening Last Done: 02/26/24 10:04
ED- Fall Risk Assessment Last Done: 02/26/24 12:24
*Nursing Disposition Last Done: 02/26/24 17:12
AD-Isxevn-Avuojcuxmg Assessment Last Done: 02/26/24 12:22
Discharge Date and Time
Discharge Date/Time: 02/26/24 17:12
Print Language: LATVIAN
[2024-02-26 11:15] LABS: Alkaline Phosphatase 1301 U/L (38-126)
[2024-02-26] MEDS: ROXICODONE 10 MG PO (11:42)
[2024-02-26 14:43] VITALS: BMI 28.4
[2024-02-26 14:44] VITALS: BP 160/74
[2024-02-26 15:26] LABS: Troponin I 0.026 ng/ml
== END 2024-02-26 17:12 | disposition home or self-care (01) ==
LOC: EMR 09:59
PROVIDERS: EMERGENCY PHYSICIAN Emergency Medicine; FAMILY PHYSICIAN Family Medicine
DX: R10.32 Left lower quadrant pain (principal); G89.29 Other chronic pain; M54.50 Low back pain, unspecified; I48.91 Unspecified atrial fibrillation
CPT/HCPCS: 99284; 74176; 76700; 80053; 83690; 84484; 85025; 93005

== ENCOUNTER → 2024-03-31 07:47 | Outpatient (REF) | payer MEDICARE, OTHER, SELFPAY ==
[2024-03-31 08:00] VITALS: BP 114/56; BP_SYST 79
[2024-03-31 08:54] VITALS: BP 103/52
[2024-03-31 11:17] LABS: Body Fluid Mononuclear 93.2 %; Body Fluid Polymorphonuclear 6.8 %; Body Fluid WBC 495 /CUMM
[2024-03-31 12:39] LABS: Body Fluid Second Tech AMA
== END ==
LOC: RADI 07:47
PROVIDERS: ATTENDING PHYSICIAN Specialist; FAMILY PHYSICIAN Family Medicine
DX: R18.8 Other ascites (principal)
CPT/HCPCS: 49083; 87015; 87070; 87205; 89051

== ENCOUNTER 2024-03-31 09:09 | Outpatient (RCR) | payer MEDICARE, OTHER, SELFPAY ==
[2024-03-31] MEDS: FLEXBUMIN 50 IV (09:45)
[2024-03-31 09:48] VITALS: BP 99/51
[2024-03-31 10:48] VITALS: BP 105/49
== END 2024-04-09 23:59 | disposition home or self-care (01) ==
LOC: OID 09:09
PROVIDERS: ATTENDING PHYSICIAN Specialist; PRIMARYCARE PHYSICIAN Family Medicine
DX: R18.8 Other ascites (principal); K22.70 Barrett's esophagus without dysplasia; D64.9 Anemia, unspecified; R79.89 Other specified abnormal findings of blood chemistry
CPT/HCPCS: 96365; 49083; 87015; 87070; 87205; 89051; P9047

== ENCOUNTER → 2024-04-23 08:20 | Outpatient (REF) | payer MEDICARE, OTHER, SELFPAY | LOC: WOUND 08:20 | PROVIDERS: ATTENDING PHYSICIAN Surgery; FAMILY PHYSICIAN Family Medicine | DX: L97.519 Non-pressure chronic ulcer of other part of right foot with unspecified severity (principal); L97.529 Non-pressure chronic ulcer of other part of left foot with unspecified severity; E11.59 Type 2 diabetes mellitus with other circulatory complications; E11.65 Type 2 diabetes mellitus with hyperglycemia; N18.6 End stage renal disease; I73.9 Peripheral vascular disease, unspecified; E11.42 Type 2 diabetes mellitus with diabetic polyneuropathy; I34.0 Nonrheumatic mitral (valve) insufficiency; I48.0 Paroxysmal atrial fibrillation; F03.918 Unspecified dementia, unspecified severity, with other behavioral disturbance | CPT/HCPCS: 99203 ==

== ENCOUNTER → 2024-04-27 11:57 | Outpatient (REF) | payer MEDICARE, OTHER, SELFPAY | LOC: REG 11:57 | PROVIDERS: ATTENDING PHYSICIAN Internal Medicine Gastroenterology; FAMILY PHYSICIAN Family Medicine | DX: K52.9 Noninfective gastroenteritis and colitis, unspecified (principal) | CPT/HCPCS: 82653 ==

== ENCOUNTER → 2024-05-12 07:36 | Outpatient (REF) | payer MEDICARE, OTHER, SELFPAY ==
[2024-05-12 08:13] VITALS: BP 120/46; BP_SYST 82
[2024-05-12 08:26] LABS: Blood Urea Nitrogen 33 mg/dl (9-20); Carbon Dioxide 31 mmol/L (22-30); Chloride 95 mmol/L (98-107); Glucose 152 mg/dl (70-99); Potassium 4.5 mmol/L (3.5-5.1); Sodium 139 mmol/L (135-145); eGFR 19.74
[2024-05-12 09:15] VITALS: BP 112/48
[2024-05-12 09:59] LABS: Body Fluid Mononuclear 88.9 %; Body Fluid Polymorphonuclear 11.1 %; Body Fluid WBC 372 /CUMM
[2024-05-12 10:12] LABS: Body Fluid Albumin 1.7 g/dl; Body Fluid LDH 103 U/L; Body Fluid Protein 3.3 g/dl
[2024-05-12 10:28] LABS: Body Fluid Second Tech ASW
== END ==
LOC: RADI 07:36
PROVIDERS: ATTENDING PHYSICIAN Specialist; FAMILY PHYSICIAN Family Medicine; REFERRING PHYSICIAN Internal Medicine Gastroenterology
DX: R18.8 Other ascites (principal)
CPT/HCPCS: 49083; 88305; 80048; 82042; 83615; 84157; 87015; 87070; 87205; 88112; 88341; 88342; 89051

== ENCOUNTER 2024-05-12 08:30 | Outpatient (RCR) | payer MEDICARE, OTHER, SELFPAY | END 2024-05-13 09:21 | disposition home or self-care (01) | LOC: OID 08:30 | PROVIDERS: ATTENDING PHYSICIAN Specialist | DX: R18.8 Other ascites (principal); R79.89 Other specified abnormal findings of blood chemistry | CPT/HCPCS: 36415 ==

== ENCOUNTER 2024-05-12 10:06 | Outpatient (RCR) | payer MEDICARE, OTHER, SELFPAY ==
[2024-05-12] MEDS: FLEXBUMIN 50 IV (10:08)
[2024-05-12 10:10] VITALS: BP 102/35
== END 2024-06-09 23:59 | disposition home or self-care (01) ==
LOC: OID 10:06
PROVIDERS: ATTENDING PHYSICIAN Specialist; PRIMARYCARE PHYSICIAN Family Medicine
DX: R18.8 Other ascites (principal); R79.89 Other specified abnormal findings of blood chemistry; K22.70 Barrett's esophagus without dysplasia; D64.9 Anemia, unspecified
CPT/HCPCS: 88305; 49083; 80048; 82042; 83615; 84157; 87015; 87070; 87205; 88112; 89051; P9047

== ENCOUNTER → 2024-06-23 08:00 | Outpatient (REF) | payer MEDICARE, OTHER, SELFPAY ==
[2024-06-23 08:10] VITALS: BP 103/34; BP_SYST 84
[2024-06-23 08:45] VITALS: BP 108/41; BP_SYST 66
[2024-06-23 09:05] VITALS: BP 108/41
[2024-06-23 09:59] LABS: Body Fluid Mononuclear 95.7 %; Body Fluid Polymorphonuclear 4.3 %; Body Fluid WBC 235 /CUMM
[2024-06-23 10:39] LABS: Body Fluid Second Tech ASW
== END ==
LOC: RADI 08:00
PROVIDERS: ATTENDING PHYSICIAN Specialist; FAMILY PHYSICIAN Family Medicine
DX: R18.8 Other ascites (principal)
CPT/HCPCS: 49083; 87015; 87070; 87205; 89051

== ENCOUNTER 2024-06-23 13:34 | Inpatient (IN) | payer MEDICARE, OTHER, SELFPAY ==
[2024-06-23] VITALS (12 sets, daily range): BP systolic 91–104; BP diastolic 34–51
[2024-06-23 09:58] LABS: % Basophils 0.2 % (0-2); % Eosinophils 0.4 % (0-6); % Immature Granulocytes 0.2 % (0-0.5); % Monocytes 16.5 % (1.7-9.3); % Neutrophils 72.7 % (42.2-75.2); Absolute Lymphocytes 0.8 10^3/uL (1.2-3.4); Absolute Monocytes 1.4 10^3/uL (0.1-0.6); Absolute Neutrophils 6.1 10^3/uL (1.4-6.5); Hematocrit 37.4 % (39.0-52.0); Hemoglobin 11.3 g/dL (13.0-18.0); Mean Corp Hgb Conc. 30.2 g/dL (33.0-37.0); Mean Corpuscular Hgb 29.7 pg (27.0-31.0); Mean Corpuscular Volume 98.2 fL (80.0-94.0); Mean Platelet Volume 10.7 fL (7.4-10.4); Nucleated Red Blood Cells % 0 % (-); Platelet Count 144 10^3/uL (130-400); Red Blood Cell Count 3.81 10^6/uL (4.70-6.10); Red Cell Dist. Width 16.5 % (11.5-14.5); White Blood Cell Count 8.4 10^3/uL (4.8-10.8)
[2024-06-23 10:06] LABS: ALT (SGPT) 24 U/L (0-50); AST (SGOT) 29 U/L (17-59); Albumin 3.5 g/dl (3.5-5.0); Alkaline Phosphatase 788 U/L (38-126); Blood Urea Nitrogen 41 mg/dl (9-20); Calcium 8.9 mg/dl (8.4-10.2); Carbon Dioxide 29 mmol/L (22-30); Chloride 94 mmol/L (98-107); Glucose 181 mg/dl (70-99); Potassium 4.8 mmol/L (3.5-5.1); Sodium 136 mmol/L (135-145); Total Bilirubin 0.9 mg/dl (0.2-1.3); Total Protein 6.1 g/dl (6.3-8.2); eGFR 18.97
--- NOTE | 2024-06-23 10:16 | ED.GENMED ---
History of Present Illness
<Iwona Dillard TRAVEL REGISTERED NURSE NICU - Last Filed: 06/23/24 16:03>
General
Chief Complaint: Breathing Problem
Source: patient, spouse and other (IR staff)
Exam Limitations: clinical condition
Time Seen by Provider: 06/23/24 09:21
Nursing documentation reviewed up to this point in time: agreed with
History of Present Illness
History of Present Illness:
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
chronic bilateral LE cellulitis (on chronic Cephalexin for post TAVR), home O2 3 L/min, presents from IR after having 3650 ml paracentesis fluid removed. Was about to receive Albumin but became suddenly SOB, restlessness, arrived hypoxic with O2 89
on RA, in acute respiratory distress, Pulse ox immediately went to 95 on 3 L N.C.
Past History
<Iwona Dillard TRAVEL REGISTERED NURSE NICU - Last Filed: 06/23/24 16:03>
Past History
ED Past Medical History: Arrthythmia (Atrial fib), CHF, HTN, Hypercholesterolemia, IDDM, Renal failure (Dialysis M-W-F) and Other (Mild dementia, ESRD, Pleural effusion, Diverticulitis, Cellulitis, Iron def anemia)
ED Past Surgical History: Appendectomy
Social History
Tobacco: Former smoker
Alcohol: Occasional
Drug: None
Personal:
Living: with family
Employment: Retired
Family History
Family History: Other (Noncontributory)
Review of Systems
<Iwona Dillard, TRAVEL REGISTERED NURSE NICU - Last Filed: 06/23/24 16:03>
Review of Systems
Allergies reviewed?: Yes
All Other Systems: ROS reviewed and negative except as documented in HPI and ROS
Constitutional: Reports fatigue; Denies fever
Respiratory: Reports trouble breathing
Cardiac: Denies chest pain or syncope
ABD/GI: Denies abdominal pain, nausea, vomiting or diarrhea
: Reports other (dialysis M-W-F)
Musculoskeletal: Reports edema
Skin: Reports other (chronic redness both LE's, multiple LE ulcerations with black eschar)
Neurological: Reports weakness
Phy Exam
<Iwona West. Gilma, TRAVEL REGISTERED NURSE NICU - Last Filed: 06/23/24 16:03>
Physical Exam
Physical Exam:
GENERAL: No acute distress. Chronically ill-appearing. Oriented to name, asking for his
CONSTITUTIONAL: Afebrile.
EYES: clear, conjunctivae normal
ENMT: moist mucus membranes
RESPIRATORY: Respirations labored, using abdominal muscles, pulse ox 88 to 90% on room air improved to 98% on 3 L nasal cannula O2
CARDIOVASCULAR: Regular rate and rhythm, no murmurs, no rubs.
GI: Soft, nontender, normal BS
MUSCULOSKELETAL: Bilateral lower extremity edema.
SKIN: Warm, dry, grayish hue, both lower legs are erythematous and mildly edematous, multiple small ulcerations with black eschar ankles and feet
PSYCH: Anxious mood and affect. Restless
NEUROLOGIC: Awake, lethargic, oriented x 2. No focal neurological deficits
Scores
<Iwona V. Day, TRAVEL REGISTERED NURSE NICU - Last Filed: 06/23/24 16:03>
Heart Failure Risk
Heart Failure Risk Score: Not Applicable
Course
<Iwona V. , TRAVEL REGISTERED NURSE NICU - Last Filed: 06/23/24 16:03>
Orders/Labs/Results
Orders:
Orders
06/23/24 09:30
Electrocardiogram (*1) Urgent
Reason for Study: Shortness of Breath
EKG- Treatment ONCE
06/23/24 09:32
CR Chest Portable - 1 View Urgent
Comment:
Reason For Exam: sob
Reason Study Needs to be Portable: Patient Unstable
06/23/24 09:39
Complete Blood Count/With Diff Urgent
Comprehensive Metabolic Panel Urgent
NT-proBNP Urgent
Troponin I Urgent
06/23/24 10:30
Piperacillin/Tazo 3.375 Gram [Zosyn] 3.375 gram in 50 ml IV NOW
06/23/24 11:00
Albumin Human 25% 100 ml [Flexbumin] 25 grams in 100 ml IV Q100M
06/23/24 13:14
Case Management Consult ONCE
Case Management Consult: Hospice
Hospice: Evaluation and treat
06/23/24 13:17
Admit/Transfer Patient As Directed
Co-Sign Provider:
Level of Care: Inpatient admission
Assign to:: Medical/Surgical
Physician / Group: sheryl sanchez
Diagnosis: Acute hypoxic respiratory insufficiency secondary to pneumonia, ESRD on HD
Reason for Hospitalization: Acute hypoxic respiratory insufficiency secondary to pneumonia, ESRD on HD
Expected length of stay greater than two midnights?: Yes
ELOS- Estimated Length of Stay in days: 3
I certify the patient meets the requirements for IP care: Yes
PRN Pain Medication Management As Directed
May give lesser potent ordered pain med per pt: Yes
preference::
Protocol:: Medication orders for pain may be administered in a
manner that supports deferring to patient preference
when the pt is:
- Requesting an ordered lesser potent pain medication.
Least to most potent pain medications are defined
as: acetaminophen < NSAID < tramadol < opioids
(morphine, oxycodone, hydromorphone).
- Requesting a lesser dose of the same medication IF
ORDERED.
- Requesting a less intrusive route of administration
if both routes are prescribed by the provider (PO <
IV).
06/23/24 13:19
Code Status As Directed
Resuscitation Status: Do not resuscitate
Reached after discussion with pt or family/Healthcare POA: Yes
06/23/24 13:20
DNR Bracelet Application ONCE
06/23/24 13:27
Lorazepam [Ativan] 0.5 mg PO Q8HPRN PRN
06/23/24 20:00
Piperacillin/Tazo 2.25 Gram [Zosyn] 2.25 grams in 50 ml IV Q8H
Abnormal Lab Results
06/23/24
09:39
RBC 3.81 L 10^6/uL
(4.70-6.10)
Hgb 11.3 L g/dL
(13.0-18.0)
Hct 37.4 L %
(39.0-52.0)
MCV 98.2 H fL
(80.0-94.0)
MCHC 30.2 L g/dL
(33.0-37.0)
RDW 16.5 H %
(11.5-14.5)
MPV 10.7 H fL
(7.4-10.4)
Absolute Lymphs (auto) 0.8 L 10^3/uL
(1.2-3.4)
Absolute Monos (auto) 1.4 H 10^3/uL
(0.1-0.6)
Lymphocytes % 10.0 L %
(20.5-51.1)
Monocytes % 16.5 H %
(1.7-9.3)
Chloride 94 L mmol/L
(98-107)
BUN 41 H mg/dl
(9-20)
Creatinine 3.1 H mg/dL
(0.7-1.3)
Glucose 181 H mg/dl
(70-99)
Alkaline Phosphatase 788 H U/L
(38-126)
Troponin I 0.116 H* ng/ml
Total Protein 6.1 L g/dl
(6.3-8.2)
06/23/24 09:39
06/23/24 09:39
Vital Signs
Initial and Last Documented VS:
Initial Vital Signs
Temp Pulse Resp Pulse Ox
97.8 F 66 22 97
06/23/24 09:10 06/23/24 09:10 06/23/24 09:10 06/23/24 09:10
Last Documented Vital Signs
Temp Pulse Resp BP Pulse Ox
97.8 F 66 15 94/39 100
06/23/24 09:10 06/23/24 15:30 06/23/24 15:30 06/23/24 15:00 06/23/24 15:00
<Oscar Villatoro, DO - Last Filed: 06/23/24 13:23>
Orders/Labs/Results
Orders:
Orders
06/23/24 09:30
Electrocardiogram (*1) Urgent
Reason for Study: Shortness of Breath
EKG- Treatment ONCE
06/23/24 09:32
CR Chest Portable - 1 View Urgent
Comment:
Reason For Exam: sob
Reason Study Needs to be Portable: Patient Unstable
06/23/24 09:39
Complete Blood Count/With Diff Urgent
Comprehensive Metabolic Panel Urgent
NT-proBNP Urgent
Troponin I Urgent
06/23/24 10:30
Piperacillin/Tazo 3.375 Gram [Zosyn] 3.375 gram in 50 ml IV NOW
06/23/24 11:00
Albumin Human 25% 100 ml [Flexbumin] 25 grams in 100 ml IV Q100M
06/23/24 13:14
Case Management Consult ONCE
Case Management Consult: Hospice
Hospice: Evaluation and treat
06/23/24 13:17
Admit/Transfer Patient As Directed
Co-Sign Provider:
Level of Care: Inpatient admission
Assign to:: Medical/Surgical
Physician / Group: sheryl sanchez
Diagnosis: Acute hypoxic respiratory insufficiency secondary to pneumonia, ESRD on HD
Reason for Hospitalization: Acute hypoxic respiratory insufficiency secondary to pneumonia, ESRD on HD
Expected length of stay greater than two midnights?: Yes
ELOS- Estimated Length of Stay in days: 3
I certify the patient meets the requirements for IP care: Yes
PRN Pain Medication Management As Directed
May give lesser potent ordered pain med per pt: Yes
preference::
Protocol:: Medication orders for pain may be administered in a
manner that supports deferring to patient preference
when the pt is:
- Requesting an ordered lesser potent pain medication.
Least to most potent pain medications are defined
as: acetaminophen < NSAID < tramadol < opioids
(morphine, oxycodone, hydromorphone).
- Requesting a lesser dose of the same medication IF
ORDERED.
- Requesting a less intrusive route of administration
if both routes are prescribed by the provider (PO <
IV).
06/23/24 13:19
Code Status As Directed
Resuscitation Status: Do not resuscitate
Reached after discussion with pt or family/Healthcare POA: Yes
06/23/24 13:20
DNR Bracelet Application ONCE
06/23/24 13:27
Lorazepam [Ativan] 0.5 mg PO Q8HPRN PRN
06/23/24 20:00
Piperacillin/Tazo 2.25 Gram [Zosyn] 2.25 grams in 50 ml IV Q8H
Abnormal Lab Results
06/23/24
09:39
RBC 3.81 L 10^6/uL
(4.70-6.10)
Hgb 11.3 L g/dL
(13.0-18.0)
Hct 37.4 L %
(39.0-52.0)
MCV 98.2 H fL
(80.0-94.0)
MCHC 30.2 L g/dL
(33.0-37.0)
RDW 16.5 H %
(11.5-14.5)
MPV 10.7 H fL
(7.4-10.4)
Absolute Lymphs (auto) 0.8 L 10^3/uL
(1.2-3.4)
Absolute Monos (auto) 1.4 H 10^3/uL
(0.1-0.6)
Lymphocytes % 10.0 L %
(20.5-51.1)
Monocytes % 16.5 H %
(1.7-9.3)
Chloride 94 L mmol/L
(98-107)
BUN 41 H mg/dl
(9-20)
Creatinine 3.1 H mg/dL
(0.7-1.3)
Glucose 181 H mg/dl
(70-99)
Alkaline Phosphatase 788 H U/L
(38-126)
Troponin I 0.116 H* ng/ml
Total Protein 6.1 L g/dl
(6.3-8.2)
06/23/24 09:39
06/23/24 09:39
Vital Signs
Initial and Last Documented VS:
Initial Vital Signs
Temp Pulse Resp Pulse Ox
97.8 F 66 22 97
06/23/24 09:10 06/23/24 09:10 06/23/24 09:10 06/23/24 09:10
Last Documented Vital Signs
Temp Pulse Resp BP Pulse Ox
97.8 F 66 15 94/39 100
06/23/24 09:10 06/23/24 15:30 06/23/24 15:30 06/23/24 15:00 06/23/24 15:00
<Iwona Dillard TRAVEL REGISTERED NURSE NICU - Last Filed: 06/23/24 16:03>
MDM/Problems Addressed
MDM/Problems Addressed:
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
chronic bilateral LE cellulitis (on chronic Cephalexin for post TAVR), home O2 3 L/min, presents from IR after having 3650 ml paracentesis fluid removed. Was about to receive Albumin but became suddenly SOB, restlessness, arrived hypoxic with O2 89
on RA, in acute respiratory distress, Pulse ox immediately went to 95 on 3 L N.C.
CBC: No clinically significant abnormality
CMP: BUN/creat 41/3.1, alk phos 788 which is his baseline
Troponin 0.116
EKG: A-fib with a rate of 73, no change from previous
BNP >82654 has been here in past, most likely due to ESRD
10:45 a.m.
CXR radiology report read: IMPRESSION:
Mild right lower lobe interstitial pneumonia with small right pleural effusion
Pt breathing more comfortably, still moderately labored. Pulse ox 99% on 3L NC O2.
Plan: Admit with acute hypoxic respiratory failure, pneumonia
Discussion with who states she is ready to talk about Hospice. Son at beside agrees.
Hospitalist notified of admission
<Iwona Dillard TRAVEL REGISTERED NURSE NICU - Last Filed: 06/23/24 16:03>
*Critical Care Note
Total Time (30-74mins, 75-104mins- exclusive of procedures): Not Applicable
ED Attending Note
<Iwona Dillard TRAVEL REGISTERED NURSE NICU - Last Filed: 06/23/24 16:03>
-
Portions of this chart may have been created with voice recognition software.� Occasional wrong word or��sound alike� substitutions may have occurred due to the inherent limitations of voice recognition software.
<Oscar Villatoro DO - Last Filed: 06/23/24 13:23>
ED Attending Note
Patient seen and examined by attending physician: Yes
I performed the substantive portion of visit, reviewed & personally made and approve the management plan that is documented in note by myself or PURVI.: Yes
ED Attending Note:
Seen with PURVI examined independently confused elderly male status post paracentesis low blood pressure has pneumonia
Discharge Plan
Departure
Patient Disposition: Admit
Date of Disposition: 06/23/24
Time of Disposition: 10:55
Admit to: Med/Surg
Presentation/result/management discussed w/ accepting MD/DO: Hospitalist
Condition: Fair
Covid-19: Negative COVID-19
Discharge Problem:
Acute hypoxemic respiratory failure, Right lower lobe pneumonia
Interventions
Interventions:
*Risk Screen - Suicide Last Done: 06/23/24 09:10
*General Assessment Last Done: 06/23/24 09:10
*Neglect/Abuse Screening Last Done: 06/23/24 09:10
ED- Fall Risk Assessment Last Done: 06/23/24 09:35
*ED COVID-19 Vaccine History Last Done: 06/23/24 09:30
ED- Cardiac Assessment Last Done: 06/23/24 09:34
ED- Pulmonary Assessment Last Done: 06/23/24 09:36
[2024-06-23 10:27] LABS: NT-proBNP > 27000 pg/ml; Troponin I 0.116 ng/ml
[2024-06-23] MEDS: ZOSYN 50 IV ×2 (11:18→20:32)
[2024-06-23] MEDS: FLEXBUMIN 100 IV (11:44)
--- NOTE | 2024-06-23 13:21 | HPS.HSE ---
Family Physician
-
Family Physician: Kelsy Garibay
Chief Complaint
-
Shortness of breath
History of Present Illness
84-year-old male with past medical history of permanent atrial fibrillation, endocarditis, severe aortic stenosis status post TAVR, CHF, hypertension, hyperlipidemia, diabetes mellitus, ESRD on hemodialysis, Griffiths's esophagus, dementia, iron
deficiency anemia, chronic hypoxic respiratory insufficiency on 3 L at night came to the hospital from IR after paracentesis having 3650 mL fluid removed. Post paracentesis patient started to develop shortness of breath and restlessness along with
hypoxia. Chest x-ray in the ED was consistent with possible pneumonia. Per my discussion with spouse at bedside, patient is currently under palliative and spouse is interested in hospice. She has already had discussion with hospice transition
outpatient. Will treat patient for pneumonia and hemodialysis tomorrow. Currently patient denies any chest pain.
Medical History
Past Medical History
Past Medical History: Reports Other
Additional Past Medical History:
permanent atrial fibrillation, endocarditis, severe aortic stenosis status post TAVR, CHF, hypertension, hyperlipidemia, diabetes mellitus, ESRD on hemodialysis, Griffiths's esophagus, dementia, iron deficiency anemia, chronic hypoxic respiratory
insufficiency
Past Surgical History: Reports Appendectomy
Social History
Tobacco: Former Smoker
Family History
Family History: Not pertinent
Allergies / Home Medications
Allergies reflects when Allergies were last updated in [employer].
Home Medications with original date entered in [employer]
Allergy/Medication List:
Allergies
Allergy/AdvReac Type Severity Reaction Status Date / Time
gabapentin Allergy spastic Verified 06/23/24 09:17
movements
Home Medications
cyanocobalamin (vitamin B-12) 1,000 mcg tablet 1,000 mcg PO DAILY Supplement 06/24/15
ezetimibe 10 mg tablet 10 mg PO DAILY High cholesterol 07/17/16
metoprolol succinate 25 mg tablet,extended release 24 hr 25 mg PO HS Blood Pressure 11/01/22
cholecalciferol (vitamin D3) 50 mcg (2,000 unit) tablet 50 mcg PO DAILY Supplement 04/15/23
docusate sodium 100 mg capsule (Stool Softener) 100 mg PO BID Constipation 04/15/23
pantoprazole 40 mg tablet,delayed release (Protonix) 40 mg PO Q12H Gastrointestinal Issue #60 tabs 04/17/23
acetaminophen 500 mg tablet (Tylenol Extra Strength) 1,000 mg PO Q6H Pain 09/10/23
cephalexin 500 mg tablet 1,000 mg PO DAILY 01/30/24
duloxetine 30 mg capsule,delayed release (Cymbalta) 30 mg PO DAILY 06/23/24
ferric citrate 210 mg iron tablet (Auryxia) 210 mg PO TID 06/23/24
memantine 5 mg tablet 5 mg PO BID 06/23/24
oxycodone 10 mg tablet 10 mg PO Q6H 06/23/24
trazodone 50 mg tablet 50 mg PO HSPRN PRN sleep 06/23/24
Review of Systems
-
Unable to obtain full review of systems at this time due to: Dementia
History Source: Patient and Family
A 12 point ROS was completed and negative except as noted: Yes
Respiratory: Reports Trouble Breathing
Physical Exam
Vital Signs
Vital Signs
Temp Pulse Resp BP Pulse Ox
97.8 F 72 23 104/36 100
06/23/24 09:10 06/23/24 12:30 06/23/24 12:30 06/23/24 12:09 06/23/24 10:45
Physical Exam
General: Well Nourished
HEENT: Anicteric and Moist mucous membranes
Respiratory: Clear; No Wheezes
Cardiac: S1/S2
Breast: Deferred by me
GI: Soft, Non Tender and Non Distended
Rectal: Deferred by Provider
Genito-urinary: No Daniels
Musculoskeletal: Edema, Right Upper Extremity and Edema, Left Lower Extremity
Neuro: Awake
Psych: Agitated
Laboratory Results
-
06/23/24 09:39
06/23/24 09:39
Laboratory Results
Total Bilirubin 0.9 mg/dl (0.2-1.3) 06/23/24 09:39
AST 29 U/L (17-59) 06/23/24 09:39
ALT 24 U/L (0-50) 06/23/24 09:39
Alkaline Phosphatase 788 U/L (38-126) H 06/23/24 09:39
Troponin I 0.116 ng/ml H* 06/23/24 09:39
Data Reviewed
-
Diagnostic Radiology: Report Reviewed by me and Discussed with Family
Lab Data: Labs Reviewed by me and Discussed with Family
Impression/Plan
-
Acute on chronic hypoxic respiratory insufficiency likely secondary to pneumonia
Cannot rule out aspiration event, discussed with spouse and will put patient on pur�ed diet with thin liquids. Per spouse at home patient is on comfort feeds
Spouse is already transitioning patient to hospice in near future. Discussed with spouse at bedside, consulted pillowcase turner for hospice.
Pain control
Antibiotics for now
Wean oxygen as tolerated
At home on 3 L nasal cannula at night
ESRD on hemodialysis
Follows up with Dr. Jesus outpatient
Nephrology consulted for HD tomorrow
If Transition on hospice then will discontinue further dialysis, spouse aware
Permanent atrial fibrillation
Continue metoprolol
Not on anticoagulation anymore
Elevated troponin, likely secondary to nonischemic myocardial injury
Do not need to further trend as spouse wants patient to be transition to hospice
Severe aortic stenosis status post TAVR
Nonobstructive CAD
Moderate to severe tricuspid regurgitation
History of diabetes mellitus
Now on comfort feeds
Monitor
History of dementia
Monitor for behavioral changes
Continue with Ativan as needed
DVT prophylaxis
SCDs
CODE STATUS DNR, discussed with spouse at bedside
I spent a total of 78 minutes with the patient or on the floor. More than 50% of this time involved counseling and coordination of care.
[2024-06-23] MEDS: ATIVAN 0.5 MG PO (13:35)
--- NOTE | 2024-06-23 15:37 | CM ---
ED CM consulted for hospice- met with pt and spouse bedside
Pt did not participate in meeting
Pt and spouse reside with their adult son in a 2SH with ramp entrance
Hospital bed on 1st floor and O2 through [employer] 3L nocturnal only
Spouse has made arrangements for hospice sign on with [facility] [employer]
Dtr is flying in on Saturday from [place]
Discussion with Iwona/Mercedes [phone] lAegre
Plan for dc tomorrow after HD
Iwona will complete bedside visit tomorrow morning to complete consents and order DMEs prior to arrival to home
Call with HD nurse/Nataly- plan for morning HD and to finish around noon
Plan for CM to follow up tomorrow with Mercedes to coordinate afternoon dc
Discharge Disposition- anticipate home tomorrow with [facility]
--- NOTE | 2024-06-23 17:22 | W.CON.NEPH ---
Consultation
-
Date/Time Consultation Requested: June 23, 2024 at 2 PM
Date/Time Consultation Performed: June 23, 2024 at 3 PM
Requesting Provider: Dr. Alegre
Performing Provider: Dr. Madhu Pantoja
Reason for Consultation: ESRD
Medical History
-
Chief Complaint: Shortness of breath
History of Present Illness:
84-year-old male with past medical history of permanent atrial fibrillation, endocarditis, severe aortic stenosis status post TAVR, CHF, hypertension, hyperlipidemia, diabetes mellitus, ESRD on hemodialysis, Griffiths's esophagus, dementia, iron
deficiency anemia, chronic hypoxic respiratory insufficiency on 3 L at night came to the hospital from IR after paracentesis having 3650 mL fluid removed. Post paracentesis patient started to develop shortness of breath and restlessness along with
hypoxia
Renal consult for end-stage renal disease.
Patient has been declining over the last months requiring frequent paracentesis altered mental status. His was present in the ER. Ongoing discussions have been had about pursuing palliative care. With discussion with my associates who know
the patient very well stated palliative care is appropriate. This was conveyed to the family on multiple occasions and his is willing to do so at this time
Past Medical History
1. End-stage renal disease, Saturday, Saturday, Saturday.
2. Dementia.
3. Hypertension.
4. Anemia.
5. Atrial fibrillation.
6. Hyperphosphatemia.
7. History of duodenal ulceration.
8. History of TAVR.
9. Type 2 diabetes.
10. Secondary hyperparathyroidism.
11. History of diastolic heart failure.
12. Dementia.
13. Left upper extremity AV fistula.
14. Chronic pain on opioid dependence.
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
Social History
Tobacco: Non-Smoker
Alcohol: None
Family History
No chronic kidney disease
Allergies / Home Medications
Allergy/AdvReac Type Severity Reaction Status Date / Time
gabapentin Allergy spastic Verified 06/23/24 09:17
movements
�Medication �Instructions �Recorded �Confirmed �Type
cyanocobalamin (vitamin B-12) 1,000 mcg PO DAILY Supplement 06/24/15 06/23/24 History
1,000 mcg tablet
ezetimibe 10 mg tablet 10 mg PO DAILY High cholesterol 07/17/16 06/23/24 History
metoprolol succinate 25 mg 25 mg PO HS Blood Pressure 11/01/22 06/23/24 History
tablet,extended release 24 hr
cholecalciferol (vitamin D3) 50 50 mcg PO DAILY Supplement 04/15/23 06/23/24 History
mcg (2,000 unit) tablet
docusate sodium 100 mg capsule 100 mg PO BID Constipation 04/15/23 06/23/24 History
(Stool Softener)
pantoprazole 40 mg tablet,delayed 40 mg PO Q12H Gastrointestinal 04/17/23 06/23/24 Rx
release (Protonix) Issue #60 tabs
acetaminophen 500 mg tablet 1,000 mg PO Q6H Pain 09/10/23 06/23/24 History
(Tylenol Extra Strength)
cephalexin 500 mg tablet 1,000 mg PO DAILY 01/30/24 06/23/24 History
duloxetine 30 mg capsule,delayed 30 mg PO DAILY 06/23/24 06/23/24 History
release (Cymbalta)
ferric citrate 210 mg iron tablet 210 mg PO TID 06/23/24 06/23/24 History
(Auryxia)
memantine 5 mg tablet 5 mg PO BID 06/23/24 06/23/24 History
oxycodone 10 mg tablet 10 mg PO Q6H 06/23/24 06/23/24 History
trazodone 50 mg tablet 50 mg PO HSPRN PRN sleep 06/23/24 06/23/24 History
Review of Systems
-
Patient complains of shortness of breath all other systems negative
All other systems: Negative unless noted
Physical Exam
Vital Signs
Vital Signs
Temp Pulse Resp BP Pulse Ox
97.8 F 66 15 94/39 100
06/23/24 09:10 06/23/24 15:30 06/23/24 15:30 06/23/24 15:00 06/23/24 15:00
Lab Results
WBC 8.4 10^3/uL (4.8-10.8) 06/23/24 09:39
RBC 3.81 10^6/uL (4.70-6.10) L 06/23/24 09:39
Hgb 11.3 g/dL (13.0-18.0) L 06/23/24 09:39
Hct 37.4 % (39.0-52.0) L 06/23/24 09:39
Plt Count 144 10^3/uL (130-400) 06/23/24 09:39
Sodium 136 mmol/L (135-145) 06/23/24 09:39
Potassium 4.8 mmol/L (3.5-5.1) 06/23/24 09:39
Chloride 94 mmol/L (98-107) L 06/23/24 09:39
Carbon Dioxide 29 mmol/L (22-30) 06/23/24 09:39
BUN 41 mg/dl (9-20) H 06/23/24 09:39
Creatinine 3.1 mg/dL (0.7-1.3) H 06/23/24 09:39
eGFR 18.97 06/23/24 09:39
Glucose 181 mg/dl (70-99) H 06/23/24 09:39
Calcium 8.9 mg/dl (8.4-10.2) 06/23/24 09:39
Nqi-W-Erxalmrunnq Pept > 22871 pg/ml 06/23/24 09:39
Albumin 3.5 g/dl (3.5-5.0) 06/23/24 09:39
Physical Exam
General: Alert and Other (Confused and restless)
HEENT: PERRL, EOMI, Anicteric, Conjunctivae Clear, Ear/Nose Intact, Hearing Normal, Trachea Midline, No JVD, No Thyromegaly and Other (Ecchymosis across face left brow laceration with suture)
Respiratory: Clear
Cardiac: S1/S2, Regular Rate/Rhythm and Other (Left upper extremity AV fistula with good thrill and bruit)
Breast: Deferred by me
Abdomen: Soft, Nontender, Nondistended, Normal Bowel Sounds and No Hepatosplenomegaly
Rectal: Deferred by Provider
Genito-urinary: No Costovertebral Tender
Musculoskeletal: No Clubbing, No Cyanosis and No Edema
Skin: Other (Notable for ecchymosis across left side of face neck shoulder and back)
Neuro: Other (Disoriented unable to cooperate with neurological exam)
Hematologic/Lymphatic: No Cervical Lymphadenopathy and No Submandibular Lymphadenopathy
Psych: Other (Confused appears encephalopathic)
Data Reviewed
-
Labs: Labs Reviewed by me
Assessment/Plan
-
Impression:
End-stage renal disease Saturday dialysis
History of MSSA bacteremia and endocarditis/leukocytosis
Change in mental status likely due to infectious emboli
Status post falls
Hypertension
Anemia
Atrial fibrillation (OAT)
Hyperphosphatemia
History of duodenal ulceration
s/p TAVR 12/13/22 (Aortic Stenosis)
Type 2 diabetes
Secondary hyperparathyroidism
History of diastolic congestive heart failure
Dementia
Left upper extremity AV fistula
Chronic pain: opioid dependence
Hyperphosphatemia
Plan:
No acute need for dialysis today patient is working with outpatient hospice not associated with the [facility].
Patient is being treated with oxygen and pneumonia.
I will order dialysis for tomorrow but likely discharge with hospice/palliative care ongoing
[2024-06-23] MEDS: ROXICODONE PO ×2 (19:44→20:50)
[2024-06-23] MEDS: TYLENOL PO ×2 (19:45→22:09)
[2024-06-23] MEDS: ATIVAN 0.5 MG IV (20:54)
[2024-06-24] VITALS (8 sets, daily range): BP systolic 106–123; BP diastolic 40–57; BMI 26.7
[2024-06-24] MEDS: ROXICODONE PO ×2 (00:19→05:04)
[2024-06-24] MEDS: TYLENOL PO ×2 (00:19→05:15)
[2024-06-24] MEDS: ATIVAN 0.5 MG IV ×3 (00:26→09:48)
--- NOTE | 2024-06-24 01:45 | PTCARENOTE ---
Pt assessed as per nsg assessment. Pt agitated at times. Ativan provided as ordered with (+) results. at bedside. Discussed plan of care with her as pt is unable to comprehend. No s/s of distress assessed. Will continue to monitor.
[2024-06-24 05:10] LABS: % Basophils 0.1 % (0-2); % Immature Granulocytes 0.5 % (0-0.5); % Lymphocytes 5.4 % (20.5-51.1); % Monocytes 14.8 % (1.7-9.3); % Neutrophils 79.2 % (42.2-75.2); Absolute Immature Granulocytes 0.1 10^3/uL (0-0.05); Absolute Lymphocytes 0.5 10^3/uL (1.2-3.4); Absolute Monocytes 1.5 10^3/uL (0.1-0.6); Absolute Neutrophils 7.7 10^3/uL (1.4-6.5); Hematocrit 37.4 % (39.0-52.0); Hemoglobin 11.7 g/dL (13.0-18.0); Mean Corp Hgb Conc. 31.3 g/dL (33.0-37.0); Mean Corpuscular Hgb 30.2 pg (27.0-31.0); Mean Corpuscular Volume 96.4 fL (80.0-94.0); Mean Platelet Volume 10.7 fL (7.4-10.4); Nucleated Red Blood Cells % 0 % (-); Platelet Count 156 10^3/uL (130-400); Red Blood Cell Count 3.88 10^6/uL (4.70-6.10); Red Cell Dist. Width 16.4 % (11.5-14.5); White Blood Cell Count 9.8 10^3/uL (4.8-10.8)
[2024-06-24] MEDS: ZOSYN 50 IV (05:13)
[2024-06-24 05:31] LABS: Blood Urea Nitrogen 54 mg/dl (9-20); Carbon Dioxide 22 mmol/L (22-30); Chloride 97 mmol/L (98-107); Estimated Creatinine Clearance 16 ml/min; Glucose 147 mg/dl (70-99); Potassium 5.4 mmol/L (3.5-5.1); Sodium 136 mmol/L (135-145); eGFR 16.98
[2024-06-24] MEDS: NSS (PRESERVATIVE FREE) 0.25 ML IV (09:47)
--- NOTE | 2024-06-24 10:28 | CM ---
CM reviewed medical records. CM spoke with Iwona at [facility]. plan for discharge to home after HD. CM updated at bedside.
PLAN: HOme with [facility] hospice.
--- NOTE | 2024-06-24 10:36 | PTCARENOTE ---
Patient agitated, uncooperative, confused. Unable to follow commands. Patient made multiple attempts to climb OOb during HD. Ativan given with moderate relief. at bedside and helps keep patient calm.
--- NOTE | 2024-06-24 10:56 | W.PN.HOSP.TC ---
Addendum entered and electronically signed by Ezekiel Alegre MD 06/24/24 11:06:
Hyperkalemia
Managed with dialysis
Original Note:
Today's Communication/Plan
-
Monitor vital signs see plan
Plan for hospice after HD
Discussed with spouse at bedside
Home today on hospice
Time of discharge 37 minutes
Assessment / Plan
Assessment / Plan
General: Well Nourished
HEENT: Anicteric and Moist mucous membranes
Respiratory: Clear; No Wheezes
Cardiac: S1/S2
Breast: Deferred by me
GI: Soft, Non Tender and Non Distended
Rectal: Deferred by Provider
Genito-urinary: No Daniels
Musculoskeletal: Edema, Right Upper Extremity and Edema, Left Lower Extremity
Neuro: Awake
Psych: calm
Acute on chronic hypoxic respiratory insufficiency likely secondary to pneumonia
Cannot rule out aspiration event, discussed with spouse and will put patient on pur�ed diet with thin liquids. Per spouse at home patient is on comfort feeds
Spouse is already transitioning patient to hospice in near future. Discussed with spouse at bedside, consulted counseling case manager for hospice.
Pain control
Antibiotics for now
Wean oxygen as tolerated
At home on 3 L nasal cannula at night
Plan for hospice today at home
ESRD on hemodialysis
Follows up with Dr. Jesus outpatient
Nephrology following, HD today. Plan for hospice after HD
If Transition on hospice then will discontinue further dialysis, spouse aware
Permanent atrial fibrillation
Continue metoprolol
Not on anticoagulation anymore
Elevated troponin, likely secondary to nonischemic myocardial injury
Do not need to further trend as spouse wants patient to be transition to hospice
Severe aortic stenosis status post TAVR
Nonobstructive CAD
Moderate to severe tricuspid regurgitation
History of diabetes mellitus
Now on comfort feeds
Monitor
History of dementia
Monitor for behavioral changes
Continue with Ativan as needed
DVT prophylaxis
SCDs
CODE STATUS DNR, discussed with spouse at bedside
Anticipated Discharge: Today
Subjective/Interval History
-
Date of Service: June 24, 2024
No pain, was agitated last night
Objective Data
-
Labs:
Laboratory Results
06/24/24
04:56
WBC 9.8
Hgb 11.7 L
Hct 37.4 L
Plt Count 156
Sodium 136
Potassium 5.4 H
Chloride 97 L
Carbon Dioxide 22
BUN 54 H
Creatinine 3.4 H
Glucose 147 H
Calcium 9.0
Vital Signs:
Vital Signs
Temp Pulse Resp BP Pulse Ox
98.0 F 64 15 113/51 81
06/24/24 04:00 06/23/24 21:50 06/23/24 21:50 06/24/24 07:00 06/24/24 03:52
I&O
06/23/24 06/24/24 06/25/24
06:59 06:59 06:59
Intake Total 50 / 50
Output Total 0 / 0
Balance 50 / 50
--- NOTE | 2024-06-24 11:05 | W.DCSUMMARY ---
Discharge Summary
Discharge Data
Date of Admission: 06/23/24
Date of Discharge: 06/24/24
-
Pending Results: No
Hospital Course
84-year-old male with past medical history of aspiration, ESRD on hemodialysis, permanent atrial fibrillation, severe aortic stenosis status post TAVR, CAD, moderate to severe tricuspid regurgitation, diabetes mellitus, dysphagia, dementia with
behavioral changes came to the hospital after paracentesis with shortness of breath known to have acute on chronic hypoxic respiratory insufficiency secondary to pneumonia. It was suspected that patient likely had an aspiration event. Per spouse,
patient was on comfort feeds at home and is already in conversation with hospice and does not want any aggressive measures. While patient was in the hospital he required hemodialysis. His symptoms continue to get worse and he was hospice
appropriate. Spouse wanted patient to come home with hospice. With case liner help, patient was then later discharged home on home hospice.
Discharge Plan
-
Patient Disposition: Home with Hospice
Discharge Diagnosis/Procedures: Acute on chronic hypoxic respiratory insufficiency likely secondary to pneumonia
ESRD on hemodialysis
Elevated troponin
Severe aortic stenosis
Dementia
Diet: As tolerated
Activity: As tolerated
Driving Restrictions: No driving
Other Services: Hospice
Activity Restrictions/Additional Instructions:
Please follow-up with your hospice physician
Referrals:
Kelsy Garibay MD [Family Provider] - in less than 1 week
Prescriptions:
New
amoxicillin-pot clavulanate 875-125 mg tablet
1 tab PO BID Qty: 8 0RF
lorazepam 0.5 mg Tablet
0.5 mg PO Q8HPRN PRN (Reason: agitation) Qty: 10 0RF
Continued
cyanocobalamin (vitamin B-12) 1,000 MCG tablet
1,000 mcg PO DAILY
ezetimibe 10 MG tablet
10 mg PO DAILY
docusate sodium [Stool Softener] 100 mg Capsule
100 mg PO BID
pantoprazole [Protonix] 40 mg tablet,delayed release (DR/EC)
40 mg PO Q12H Qty: 60 0RF
acetaminophen [Tylenol Extra Strength] 500 mg Tablet
1,000 mg PO Q6H
trazodone 50 mg Tablet
50 mg PO HSPRN PRN (Reason: sleep)
memantine 5 mg Tablet
5 mg PO BID
duloxetine [Cymbalta] 30 mg Capsule,Delayed Release(Dr/Ec)
30 mg PO DAILY
Auryxia 210 mg iron Tablet
210 mg PO TID
oxycodone 10 mg tablet
10 mg PO Q6H
Held
metoprolol succinate 25 mg Tablet Extended Release 24 Hr
25 mg PO HS
Hold Instructions: Unless blood pressure is greater than 140/90
Discontinued
cholecalciferol (vitamin D3) 50 mcg (2,000 unit) Tablet
50 mcg PO DAILY
cephalexin 500 mg Tablet
1,000 mg PO DAILY
Discharge Orders:
Discharge Patient (As Directed); Ordered 06/24/24
Ordered By: Ezekiel Alegre
Discharge Date and Time
Discharge Date/Time: 06/24/24 14:39
Print Language: MALTESE
--- NOTE | 2024-06-24 11:19 | W.PN.NEPH.HD ---
Assessment
-
Patient seen on dialysis
Systolic blood pressure 125 the current UF
Patient in obvious distress flailing all 4 arms
Patient to be discharged to home hospice after dialysis today
Progress Note - Hemodialysis
-
Date of Service: June 24, 2024
Duration: 30 minutes and 3 hours
Potassium Bath: 2
Calcium Bath: 2.5
Ultrafiltration: Other (2 kg)
Dialysate Flow: 600
Heparin: None
EPO: None
[2024-06-24] MEDS: ROXICODONE 10 MG PO (11:44)
[2024-06-24] MEDS: TYLENOL 1000 MG PO (11:48)
== END 2024-06-24 14:39 | disposition hospice, home (50) | DRG 193 ==
LOC: ED 13:34
PROVIDERS: Registered Nurse; Specialist; ADMITTING PHYSICIAN Internal Medicine; EMERGENCY PHYSICIAN Emergency Medicine; FAMILY PHYSICIAN Family Medicine; OTHER PHYSICIAN Internal Medicine Nephrology
PROC: 5A1D70Z Performance of Urinary Filtration, Intermittent, Less than 6 Hours Per Day (ICD-10-PCS; 2024-06-24)
DX: J18.9 Pneumonia, unspecified organism (principal); J96.01 Acute respiratory failure with hypoxia; N18.6 End stage renal disease; I13.2 Hypertensive heart and chronic kidney disease with heart failure and with stage 5 chronic kidney disease, or end stage renal disease; I48.21 Permanent atrial fibrillation; I50.32 Chronic diastolic (congestive) heart failure; F03.A11 Unspecified dementia, mild, with agitation; I5A Non-ischemic myocardial injury (non-traumatic); I25.10 Atherosclerotic heart disease of native coronary artery without angina pectoris; E87.5 Hyperkalemia; I07.1 Rheumatic tricuspid insufficiency; Z79.01 Long term (current) use of anticoagulants; Z99.2 Dependence on renal dialysis; Z95.2 Presence of prosthetic heart valve; Z87.891 Personal history of nicotine dependence
CPT/HCPCS: 49083; 71045; 80048; 80053; 83880; 84484; 85025; 87015; 87070; 87205; 89051; 93005; P9047